=== PATIENT | female | born 1965 | race Two or more races ===

== ENCOUNTER 2021-12-16 11:55 | Outpatient (RCR) | payer MEDICARE, MEDICAID, SELFPAY | END 2022-02-07 14:21 | disposition home or self-care (01) | LOC: HO.WCC 11:55 | PROVIDERS: PCP Internal Medicine; Visit Provider Physician Assistant | DX: E11.622 Type 2 diabetes mellitus with other skin ulcer (principal); L98.492 Non-pressure chronic ulcer of skin of other sites with fat layer exposed; E65 Localized adiposity; L30.9 Dermatitis, unspecified; E11.65 Type 2 diabetes mellitus with hyperglycemia; E11.51 Type 2 diabetes mellitus with diabetic peripheral angiopathy without gangrene; E66.01 Morbid (severe) obesity due to excess calories; E03.9 Hypothyroidism, unspecified; I11.0 Hypertensive heart disease with heart failure; I50.9 Heart failure, unspecified; I48.91 Unspecified atrial fibrillation; Z79.4 Long term (current) use of insulin; Z87.891 Personal history of nicotine dependence; Z79.2 Long term (current) use of antibiotics; Z79.899 Other long term (current) drug therapy | CPT/HCPCS: 99213 ==

== ENCOUNTER 2022-02-24 10:49 | Outpatient (RCR) | payer MEDICARE, MEDICAID, SELFPAY | END 2022-04-06 14:35 | disposition home or self-care (01) | LOC: HO.WCC 10:49 | PROVIDERS: PCP Internal Medicine; Visit Provider Physician Assistant | DX: E11.622 Type 2 diabetes mellitus with other skin ulcer (principal); E11.51 Type 2 diabetes mellitus with diabetic peripheral angiopathy without gangrene; L98.492 Non-pressure chronic ulcer of skin of other sites with fat layer exposed; E66.01 Morbid (severe) obesity due to excess calories; L30.9 Dermatitis, unspecified; E65 Localized adiposity; E11.65 Type 2 diabetes mellitus with hyperglycemia; I11.0 Hypertensive heart disease with heart failure; I50.9 Heart failure, unspecified; I48.91 Unspecified atrial fibrillation; Z87.891 Personal history of nicotine dependence | CPT/HCPCS: 99213 ==

== ENCOUNTER 2023-04-23 10:26 | Outpatient (REF) | payer MEDICARE, MEDICAID, SELFPAY ==
[2023-04-23 12:45] LABS: Alanine Aminotransferase 12 U/L (0-31); Albumin Level 4.2 g/dL (3.5-5.0); Alkaline Phosphatase 65 U/L (39-117); Anion Gap 13 (12-20); Aspartate Amino Transferase 25 U/L (5-31); Bilirubin Direct 0.3 mg/dL (0.0-0.5); Bilirubin Total 0.8 mg/dL (0.0-1.0); Blood Urea Nitrogen 17 mg/dL (9-16); Calcium 9.1 mg/dL (8.4-10.2); Carbon Dioxide 28 mmol/L (22-29); Chloride 103 mmol/L (96-108); Estimated Glomerular Filt Rate > 60; Glucose Random 171 mg/dL (60-115); Potassium 3.8 mmol/L (3.3-5.1); Sodium 140 mmol/L (135-145); Total Protein 7.4 g/dL (6.5-8.0); Uric Acid 10.4 mg/dL (2.4-5.7)
== END 2023-04-23 10:27 | disposition home or self-care (01) ==
LOC: HO.HHCL 10:26
PROVIDERS: Visit Provider Internal Medicine
DX: K74.60 Unspecified cirrhosis of liver (principal); E11.22 Type 2 diabetes mellitus with diabetic chronic kidney disease; N18.9 Chronic kidney disease, unspecified; Z79.4 Long term (current) use of insulin
CPT/HCPCS: 36415; 80053; 82248; 84550

== ENCOUNTER 2023-10-30 12:09 | Outpatient (REF) | payer MEDICARE, MEDICAID, SELFPAY ==
[2023-10-30 13:19] LABS: MANUAL DIFF FLAG NO
[2023-10-30 13:36] LABS: Basophils Absolute Auto 0.1 X10*3/uL (0.0-0.2); Basophils Percent Auto 0.7 % (0-2); Eosinophils Absolute Auto 0.2 X10*3/uL (0.0-0.4); Eosinophils Percent Auto 1.6 % (0-4); Hematocrit 37.8 % (37.0-47.0); Hemoglobin 12.3 g/dl (12.0-16.0); Imm Gran Abs Auto 0.11 X10*3/uL (0.00-0.03); Imm Gran Pct Auto 1.1 % (0.0-0.4); Lymphocytes Absolute Auto 1.6 X10*3/uL (1.2-4.9); Lymphocytes Percent Auto 16.4 % (20-40); Mean Corpuscular HGB Conc 32.5 g/dl (31.0-35.0); Mean Corpuscular Hemoglobin 26.5 pg (27.0-33.0); Mean Corpuscular Volume 81.3 fL (80.0-98.0); Mean Platelet Volume 12.1 fL (9.4-12.3); Monocytes Absolute Auto 0.6 X10*3/uL (0.1-1.2); Monocytes Percent Auto 5.9 % (2-11); Neutrophils Absolute Auto 7.5 x10*3/uL (2.0-8.3); Neutrophils Percent Auto 74.3 % (45-73); Platelet Count 121 X10*3/uL (160-400); Red Blood Count 4.65 X10*6/uL (4.20-5.50); Red Cell Distribution Width 15.4 % (11.0-16.0)
[2023-10-30 13:54] LABS: Alanine Aminotransferase 36 U/L (0-31); Albumin Level 4.3 g/dL (3.5-5.0); Alkaline Phosphatase 69 U/L (39-117); Anion Gap 15 (12-20); Aspartate Amino Transferase 30 U/L (5-31); Bilirubin Total 0.6 mg/dL (0.0-1.0); Blood Urea Nitrogen 51 mg/dL (9-16); Calcium 9.2 mg/dL (8.4-10.2); Carbon Dioxide 22 mmol/L (22-29); Chloride 102 mmol/L (96-108); Estimated Glomerular Filt Rate 30; Glucose Random 237 mg/dL (60-115); Potassium 3.5 mmol/L (3.3-5.1); Sodium 135 mmol/L (135-145); Total Protein 7.9 g/dL (6.5-8.0)
== END 2023-10-30 12:10 | disposition home or self-care (01) ==
LOC: HO.HHCL 12:09
PROVIDERS: Visit Provider Internal Medicine
DX: D69.6 Thrombocytopenia, unspecified (principal); N18.31 Chronic kidney disease, stage 3a; D63.1 Anemia in chronic kidney disease
CPT/HCPCS: 36415; 80053; 85025

== ENCOUNTER 2023-11-23 11:09 | Outpatient (REF) | payer MEDICARE, MEDICAID, SELFPAY ==
[2023-11-23 14:01] LABS: Anion Gap 14 (12-20); Blood Urea Nitrogen 23 mg/dL (9-16); Carbon Dioxide 18 mmol/L (22-29); Chloride 108 mmol/L (96-108); Estimated Glomerular Filt Rate 48; Glucose Random 269 mg/dL (60-115); Potassium 4.9 mmol/L (3.3-5.1); Sodium 135 mmol/L (135-145)
== END 2023-11-23 11:10 | disposition home or self-care (01) ==
LOC: HO.HHCL 11:09
PROVIDERS: Visit Provider Internal Medicine
DX: N18.31 Chronic kidney disease, stage 3a (principal); L90.8 Other atrophic disorders of skin; N10 Acute pyelonephritis
CPT/HCPCS: 36415; 80048

== ENCOUNTER 2024-06-30 10:29 | Outpatient (REF) | payer MEDICARE, MEDICAID, SELFPAY ==
[2024-06-30 12:27] LABS: B Type Natriuretic Peptide 129 pg/mL (<100)
[2024-06-30 12:40] LABS: Anion Gap 11 (12-20); Blood Urea Nitrogen 18 mg/dL (9-16); Calcium 9.1 mg/dL (8.4-10.2); Carbon Dioxide 25 mmol/L (22-29); Chloride 106 mmol/L (96-108); Estimated Glomerular Filt Rate 51; Glucose Random 187 mg/dL (60-115); Magnesium 2.1 mg/dL (1.6-2.6); Potassium 4.8 mmol/L (3.3-5.1); Sodium 137 mmol/L (135-145)
[2024-06-30 12:46] LABS: TSH reflex Free T4 4.13 uIU/mL (0.32-4.0)
[2024-06-30 13:30] LABS: Free T4 (Free Thyroxine) 1.24 ng/dL (0.71-1.85)
== END 2024-06-30 10:30 | disposition home or self-care (01) ==
LOC: HO.HHCL 10:29
PROVIDERS: Visit Provider Internal Medicine
DX: I50.23 Acute on chronic systolic (congestive) heart failure (principal); R05.2 Subacute cough; E03.9 Hypothyroidism, unspecified
CPT/HCPCS: 36415; 80048; 83735; 83880; 84439; 84443

== ENCOUNTER 2024-07-18 12:03 | Outpatient (REF) | payer MEDICARE, MEDICAID, SELFPAY ==
[2024-07-18 13:58] LABS: Cholesterol 137 mg/dL (<200); HDL Cholesterol 26 mg/dL (>40); LDL Cholesterol Calculated 57 mg/dL (<100); Triglycerides 273 mg/dL (<150)
== END 2024-07-18 12:04 | disposition home or self-care (01) ==
LOC: HO.HHCL 12:03
PROVIDERS: Visit Provider Internal Medicine
DX: E11.22 Type 2 diabetes mellitus with diabetic chronic kidney disease (principal); N18.31 Chronic kidney disease, stage 3a; Z79.4 Long term (current) use of insulin
CPT/HCPCS: 36415; 80061

== ENCOUNTER 2024-11-12 16:06 | Outpatient (REF) | payer MEDICARE, MEDICAID, SELFPAY ==
--- OUTSIDE RECORDS SUMMARY | 2024-11-12 16:37 | XMS_ITS | Encounter Summary ---
Author Organization [employer] Address [address] [facility] [address] [place] [address] Care Team Providers Care Chief Sales Officer Name Role Phone Jaleesa Calvillo MD Primary Care Provider + Reason for Visit * Reason Onset Date Comments Referral 10/09/2023 Encounter Details Date Type Department Care Team (Late st Contact Info) Description 10/09/2023 Telephone [facility] [address] [place], [place] [phone] Jaleesa Calvillo MD [address] [place], [place] [phone] Referral Social History Tobacco Use Types Packs/Day Years Used Date Smoking Tobacco: Never Smokeless Tobacco: Never Alcohol Use Standard Drinks/Week Comments Never 0 (1 standard drink = 0.6 oz pur e alcohol) Housing Stability Answer Date Recorded What is your housing situation today? I have hazel cheng 07/16/[address] you li ve. Do you have problems with any of the following? None of the above 07/16/2023 Food Insecurity Answer Date Recorded Within the past 12 months, y ou worried that your food would run out before you got money to buy more: Never True 07/16/2023 Within the past 12 months,th e food you bought just didn't last and you didn't have enough money to get more: Never True Transportation Answer Date Recorded In the past 12 months, has l ack of transportation kept you from medical appts, meetings, work or from getting things needed for daily living? No 07/16/2023 Utilities Answer Date Recorded In the past 12 months, has t he electric, gas, oil or water company threatened to shut off services in your home? No 07/16/2023 Depression Answer Date Recorded Patient Health Questionnaire-2 Score 0 03/21/2024 Comments Unknown Sex and Gender Information Value Date Recorded Sex Assigned at Female 07/31/2022 10:25 AM EDT Legal Sex Female 10:25 AM EDT Gender Identity Female 07/31/2022 10:25 AM EDT Sexual Orientation Choose not to disclose 2021 10:25 AM EDT documented as of this encounter Miscellaneous Notes * Telephone Encounter - Deandreelier Molina - 10/09/2023 1:07 PM EST Tc from pt son Willi requesting status on plastic surgeon referral, states facility has not received referral. [employer] unable to fax. Please contact at [phone] Honduran documented in this encounter Plan of Treatment Upcoming Encounters Date Type Department Care Team (Late st Contact Info) Description 11/25/2024 1:15 PM EST Office Visit [facility] [address] [place] [phone] Jaleesa Calvillo MD [address] [place] [phone] 11/27/2024 11:00 AM EST Telemedicine [facility] [address] [place] [phone] 01/12/2025 9:00 AM EDT Office Visit [facility] [address] [place] [address] Hilda Leslie, OD [address] [place] [address] documented as of this encounter Visit Diagnoses Not on filedocumented in this encounter Care Teams Chief Sales Officer Relationship Specialty Start Date End Date Jaleesa Calvillo MD [address] [place] [phone] PCP - General Family Medicine 04/15/18 documented as of this encounter
--- OUTSIDE RECORDS SUMMARY | 2024-11-12 16:37 | XMS_ITS | Encounter Summary ---
Author Organization [employer] Address [address] [facility] [address] [place] [address] Care Team Providers Care Stripper Latex Name Role Phone Jaleesa Calvillo MD Primary Care Provider + Encounter Details Date Type Department Care Team (Late st Contact Info) Description 08/27/2023 Abstract [facility] [address] [place], [place] [phone] Jaleesa Calvillo MD [address] [place], [place] [phone] Social History Tobacco Use Types Packs/Day Years [...] the past 12 months, has t he [employer], gas, oil or water company threatened to shut off services in your home? No 07/16/2023 Depression Answer Date Recorded Patient Health Questionnaire-2 Score 0 02/19/2023 Comments Unknown Sex and Gender Information Value Date Recorded Sex Assigned at Female 07/31/2022 10:25 AM EDT Legal Sex Female 10:25 AM EDT Gender Identity Female 07/31/2022 10:25 AM EDT Sexual Orientation Choose not to disclose 2021 10:25 AM EDT documented as of this encounter Plan of Treatment Upcoming Encounters Date Type Department Care Team (Late st Contact Info) Description 11/25/2024 1:15 PM EST Office Visit [facility] [address] [place] [phone] Jaleesa Calvillo MD [address] [place] [address] 11/27/2024 11:00 AM EST Telemedicine [facility] [address] [place] [address] 01/12/2025 9:00 AM EDT Office Visit [facility] [address] [place] [address] Hilda Leslie, OD [address] [place] [address] documented as of this encounter Visit Diagnoses Not on filedocumented in this encounter Care Teams Stripper Latex Relationship Specialty Start Date End Date Jaleesa Calvillo MD [address] [place] [phone] PCP - General Family Medicine 04/15/18 documented as of this encounter
--- OUTSIDE RECORDS SUMMARY | 2024-11-12 16:37 | XMS_ITS | Encounter Summary ---
Author Organization [employer] Address [address] [facility] [address] [facility] [address] [place] [address] Care Team Providers Care Assessment Nurse Name Role Phone Jaleesa Calvillo MD Primary Care Provider + Encounter Details Date Type Department Care Team (Late st Contact Info) Description 08/27/2023 Abstract [facility] [address] [place], [place] [phone] Jaleesa Calvillo MD [address] [place], [place] [phone] Social History Tobacco Use Types Packs/Day Years [...] the past 12 months, has t he [employer], gas, oil or water company threatened to [...] Description 11/25/2024 1:15 PM EST Office Visit [facility] [address] [place] [phone] Jaleesa Calvillo MD [address] [place] [address] 11/27/2024 11:00 AM EST Telemedicine [facility] [address] [place] [phone] 01/12/2025 9:00 AM EDT Office Visit [facility] [address] [place] [address] Hilda Leslie, OD [address] [place] [address] documented as of this encounter Visit Diagnoses Not on filedocumented in this encounter Care Teams Assessment Nurse Relationship Specialty Start Date End Date Jaleesa Calvillo MD [address] [place] [phone] PCP - General Family Medicine 04/15/18 documented as of this encounter
--- OUTSIDE RECORDS SUMMARY | 2024-11-12 16:37 | XMS_ITS | Continuity of Care Document ---
Author Organization [facility] Address [address] [place] [id number]- Support Name Relationship Address Phone SHAYLA MORAN child Unknown Unavailable IMER MORAN child Unknown Unavailable AMOR, JOSEPH Personal Relationship Unknown Unav ailable AMOR, JOSEPH Personal Relationship Unknown Unav ailable AMOR, JOSEPH Personal Relationship Unknown Unav ailable AMOR, JOSEPH Personal Relationship Unknown Unav ailable AMOR, JOSEPH Personal Relationship Unknown Unav ailable AMOR, JOSEPH Personal Relationship Unknown Unav ailable AMOR, JOSEPH Personal Relationship Unknown Unav ailable AMOR, JOSEPH Personal Relationship Unknown Unav ailable AMOR, JOSEPH Personal Relationship Unknown Unav ailable AMOR, JOSEPH Personal Relationship Unknown Unav ailable AMOR, JOSEPH Personal Relationship Unknown Unav ailable AMOR, JOSEPH Personal Relationship Unknown Unav ailable AMOR, JOSEPH Personal Relationship Unknown Unav ailable AMOR GIBSON, JOSEPH Personal Relationship Unknown Unavailable AMOR, JOSEPH Personal Relationship Unknown Unav ailable AMOR, JOSEPH Personal Relationship Unknown Unav ailable AMOR, JOSEPH Personal Relationship Unknown Unav ailable AMOR, JOSEPH Personal Relationship Unknown Unav ailable AMOR, JOSPEH Personal Relationship Unknown Unav ailable AMOR, JOSEPH Personal Relationship Unknown Unav ailable AMOR, JOSEPH Personal Relationship Unknown Unav ailable AMOR GIBSON, JOSEPH Personal Relationship Unknown Unavailable AMOR, JOSEPH Personal Relationship Unknown Unav ailable AMOR, JOSEPH Personal Relationship Unknown Unav ailable Care Team Providers Care Quality Systems Engineer Name Role Phone Rajinder OLIVEIRA, Jaleesa Ahuja Primary Care Physician Encounter [facility] NBR [id number] Date(s): 10/12/24 - 11/11/24 [facility] [address] [place] [id number]- Encounter Type: Triage Allergies, Adverse Reactions, Alerts Substance Criticality Severity Reaction Reaction Severity Status ibuprofen tachycardia Active aspirin Active lisinopril rash Active Motrin Active Tylenol rash Active Other Environmental Allergy skin irritation ekg adhesives Active Percocet 5/325 1 rash Act misael 1patient tolerates IV morphine Immunizations Given and Recorded Vaccine Date Status Refusal Reason [id number] 12y+ bivalent booster vax 09/06/22 Recorded influenza virus vaccine, inactivated 07/03/22 Joshua rded influenza virus vaccine, inactivated 07/23/20 Joshua rded influenza virus vaccine, inactivated 1 06/25/17 Gi keith influenza virus vaccine, inactivated 07/03/14 Joshua rded influenza virus vaccine, inactivated 07/03/14 Joshua rded influenza virus vaccine, inactivated 06/07/12 Give n SARS-CoV-2 (COVID-19) mRNA-1273 vaccine 12/22/20 R ecorded SARS-CoV-2 (COVID-19) mRNA-1273 vaccine 11/24/20 R ecorded pneumococcal 23-valent vaccine 07/23/20 Recorded pneumococcal 23-valent vaccine 02/19/13 Given hepatitis B adult vaccine 04/21/19 Recorded tetanus/diphtheria/pertussis, acel(Tdap) 10/28/12 Given 1Result Comment: [06/25/2017] [id number] Medications allopurinol 300 mg oral tablet 300 mg, 1, tablet, By Mouth, 2 times a day, # 30 tablet, Refills 0, Maintenance, 07/29/23 5:04:00 AM EDT, Partial fill upon patient request if the prescription is for a schedule II opioid drug. Start Date: 07/29/23 Status: Ordered Quantity: 30.0 Unit: tablet Repeat number: 1 amiodarone 200 mg oral tablet 1, tablet, By Mouth, Daily in AM, # 90 tablet, Refills 1, Maintenance, 08/26/24 8:56:00 AM EST, Route to Pharmacy Electronically, [facility], 150, cm, 07/29/24 13:32:00 EDT, Height, 66, kg, 06/11/24 3:28:00 EDT, Dry Weight Start Date: 08/26/24 Status: Ordered Quantity: 90.0 Unit: tablet Repeat number: 1 atorvastatin 80 mg oral tablet = 80 mg, By Mouth, Daily at bedtime, # 30 tablet, 0 Refills, Maintenance, 12/24/24 1:15:00 PM EST, Tablet, [facility], Partial fill upon patient request if the prescription is fora schedule II opioid drug., 150, cm, 09/23/24 8:09:00 EST, Height, 91, kg, 09/22/24 8:45:00 EST, Dry Weight Start Date: 09/23/24 Status: Ordered Quantity: 30.0 Unit: tablet Repeat number: 1 Breo Ellipta 200 mcg-25 mcg/inh inhalation powder 1 puffs, Inhalation, Daily, 0 Refills, Maintenance, 06/09/24 5:20:00 PM EDT, Powder, Partial fill upon patient request if the prescription is for a schedule II opioid drug. Start Date: 06/09/24 Status: Ordered Repeat number: 1 bumetanide 2 mg oral tablet 1 tablet = 2 mg, By Mouth, Daily, # 30 tablet, 0 Refills, Maintenance, 06/13/24 2:03:00 PM EDT, Tablet, [facility], Partial fill upon patient request if the prescription is for a schedule II opioid drug., 150, cm, 06/13/24 7:49:00 EDT, Height, 66, kg, 06/11/24 3:28:00 EDT, Dry Weight Start Date: 06/13/24 Status: Ordered Quantity: 30.0 Unit: tablet Repeat number: 1 buPROPion 300 mg/24 hours (XL) oral tablet, extended release 1.5 tablet = 450 mg, By Mouth, Daily, # 30 tablet, 0 Refills, Maintenance, 03/09/24 10:18:00 PM EDT, ER Tablet, Partial fill upon patient request if the prescription is for a schedule II opioid drug. Start Date: 03/09/24 Status: Ordered Quantity: 30.0 Unit: tablet Repeat number: 1 digoxin 62.5 mcg (0.0625 mg) oral tablet 1 tablet = 62.5 mcg, By Mouth, Daily, # 30 tablet, 0 Refills, Maintenance, 11/05/24 10:43:00 AM EST, Tablet, [facility], Partial fill upon patient request if the prescription is for a schedule II opioid drug., 155, cm, 11/05/24 7:29:00 EST, Height, 75, kg, 10/30/24 18:19:00 EST, Dry Weight Start Date: 11/05/24 Status: Ordered Quantity: 30.0 Unit: tablet Repeat number: 1 Entresto 24 mg-26 mg oral tablet 1 tablet, By Mouth, 2 times a day, # 60 tablet, 0 Refills, Maintenance, 10/13/24 2:47:00 PM EST, [facility], Partial fill upon patient request if the prescription is for a scheduleII opioid drug., 1 tablet By Mouth 2 times a day, 150, cm, 10/10/24 13:18:00 EST, Height, 91, kg, 09/22/24 8:45:00 EST, Dry Weight Start Date: 10/13/24 Status: Ordered Quantity: 60.0 Unit: tablet Repeat number: 1 Farxiga 10 mg oral tablet 1 tablet = 10 mg, By Mouth, Daily, # 30 tablet, 0 Refills, Maintenance, 06/13/24 12:35:00 PM EDT, Tablet, Partial fill upon patient request if the prescription is for a schedule II opioid drug. Start Date: 06/13/24 Status: Ordered Quantity: 30.0 Unit: tablet Repeat number: 1 Humalog Kwik Pen 100 units/mL subcutaneous injection See Instructions, Subcutaneous Infusion, Please take at least 5-10 minutes before meals 3 times a day per the scale: BG 100-149: 6 units ; BG 150-199: 7 units; BG 200-249: 8 units; BG 250-299: 9 units; BG 300-349: 10 units; BG 350- 399: 11 units; BG >400: 12 units; E10.9 or E11.65; MDD 40 units, # 45 mL, 5 Refills, Maintenance, 07/29/24 2:24:00 PM EDT, [facility], Partial fill upon patient request if the prescription is for a schedule II opioid drug., 150, cm, 07/29/24 13:32:00 EDT, Height, 66, kg, 06/11/24 3:28:00 EDT, Dry Weight Start Date: 07/29/24 Stop Date: 01/25/25 Status: Ordered Quantity: 45.0 Unit: mL Repeat number: 6 Indication: Type 2 diabetes mellitus with hyperglycemia Lantus Solostar Pen 100 units/mL subcutaneous solution See Instructions, Please take 18 units daily in the morning. E11.65, # 45 mL, 5 Refills, Maintenance, 07/29/24 2:21:00 PM EDT, [facility], Partial fill upon patient request if theprescription is for a schedule II opioid drug., 150, cm, 07/29/24 13:32:00 EDT, Height, 66, kg, 06/11/24 3:28:00 EDT, Dry Weight Start Date: 07/29/24 Status: Ordered Quantity: 45.0 Unit: mL Repeat number: 6 Indication: Type 2 diabetes mellitus with hyperglycemia levothyroxine 175 mcg (0.175 mg) oral tablet = 175 mcg, By Mouth, Daily, on an empty stomach with plenty of water as a single daily dose at least 1 hour before breakfast and other medications avoid antacids, calcium, or iron for at least 4 hrs before or 4 hrs after, # 30 tablet, 11 Refills, Maintenance, 08/30/24 7:26:00 PM EST, Tablet, [facility], Partial fill upon patient request if the prescription is for a schedule IIopioid drug., 150, cm, 08/29/24 12:38:00 EST, Height, 66, kg, 06/11/24 3:28:00 EDT, Dry Weight Start Date: 08/30/24 Status: Ordered Quantity: 30.0 Unit: tablet Repeat number: 12 Indication: Hypothyroidism, unspecified Metoprolol Succinate ER 25 mg oral tablet, extended release 12.5 mg, 0.5, tablet, By Mouth, Daily in AM, # 30 tablet, Refills 0, Tot. Refills 0, Maintenance, 11/05/24 10:45:00 AM EST, Route to Pharmacy Electronically, [facility], Partial fill uponpatient request if the prescription is for a schedule II opioid drug., 155, cm, 11/05/24 7:29:00 EST, Height, 75, kg, 10/30/24 18:19:00 EST, Dry Weight Start Date: 11/05/24 Status: Ordered Quantity: 30.0 Unit: tablet Repeat number: 1 Narcan 4 mg/0.1 mL nasal spray 1 sprays = 4 mg, Naris, Left, Once, PRN Other, To reverse opioid overdose, use one spray in one nostril. if an additional dose is needed, alternate nostril, may repeat every 2 to 3 minutes until patient responds, call 911 in the meantime, # 20 each, 0 Refills, Soft Stop, 03/12/24 2:18:00 PM EDT, [facility], Partial fill upon patient request if the prescription is for a scheduleII opioid drug., 158, cm, 03/12/24 7:46:00 EDT, Height, 86, kg, 03/09/24 11:40:00 EDT, Dry Weight Start Date: 03/12/24 Status: Ordered Quantity: 20.0 Unit: each Repeat number: 1 pantoprazole 40 mg oral delayed release tablet 1 tablet = 40 mg, By Mouth, Daily, # 90 tablet, 0 Refills, Maintenance, 11/05/24 10:47:00 AM EST, EC Tablet, 155, cm, 11/05/24 7:29:00 EST, Height, 75, kg, 10/30/24 18:19:00 EST, Dry Weight Start Date: 11/05/24 Status: Ordered Quantity: 90.0 Unit: tablet Repeat number: 1 sertraline 100 mg oral tablet 2 tablet = 200 mg, By Mouth, Daily, # 30 tablet, 0 Refills, Maintenance, 07/29/23 5:03:00 AM EDT, Tablet, Partial fill upon patient request if the prescription is for a schedule II opioid drug. Start Date: 07/29/23 Status: Ordered Quantity: 30.0 Unit: tablet Repeat number: 1 spironolactone 100 mg oral tablet 100 mg, By Mouth, Daily in AM, # 30 tablet, Refills 0, Tot. Refills 0, Maintenance, 11/05/24 10:46:00AM EST, Route to Pharmacy Electronically, [facility], Partial fill upon patient request if the prescription is for a schedule II opioid drug., 155, cm, 11/05/24 7:29:00 EST, Height, 75,kg, 10/30/24 18:19:00 EST, Dry Weight Start Date: 11/05/24 Status: Ordered Quantity: 30.0 Unit: tablet Repeat number: 1 Tradjenta 5 mg oral tablet 1 tablet = 5 mg, By Mouth, Daily, # 30 tablet, 0 Refills, Maintenance, 9/9/24 5:29:00 PM EDT, Tablet, Partial fill upon patient request if the prescription is for a schedule II opioid drug. Start Date: 06/09/24 Status: Ordered Quantity: 30.0 Unit: tablet Repeat number: 1 traZODone 100 mg oral tablet TAKE 1-2 TABLET BY MOUTH ONCE A DAY NEEDED FOR NIGHTTIME AWAKENING. Start Date: 06/09/24 Status: Ordered Repeat number: 1 Ventolin 90 mcg Inhaler 2, puffs, Inhalation, Every 4 hours, Refills 0, Maintenance, 04/18/22 6:23:00 PM EDT, Inhaler Start Date: 04/18/22 Status: Ordered Repeat number: 1 Xarelto 15 mg oral tablet = 15 mg, By Mouth, Daily at supper, # 30 tablet, 0 Refills, Maintenance, 11/05/24 10:45:00 AM EST, Tablet, [facility], Partial fill upon patient request if the prescription is for a schedule II opioid drug., 155, cm, 11/05/24 7:29:00 EST, Height, 75, kg, 10/30/24 18:19:00 EST, Dry Weight Start Date: 11/05/24 Status: Ordered Quantity: 30.0 Unit: tablet Repeat number: 1 zolpidem 10 mg oral tablet 1 tablet = 10 mg, By Mouth, Daily at bedtime, PRN as needed for insomnia, 0 Refills, Maintenance, 08/14/22 5:28:00 PM EST, Tablet, Partial fill upon patient request if the prescription is for a schedule II opioid drug. Start Date: 08/14/22 Status: Ordered Repeat number: 1 Problem List Condition Confirmation Course Effective Dates Status H ealth Status Informant Anal fissure Confirmed Active Asthma Confirmed Active Nonischemic cardiomyopathy Confirmed Active Chronic idiopathic thrombocytopenia Confirmed Active CKD stage 3 secondary to diabetes Confirmed Active Chronic kidney disease (CKD) Confirmed Active Chronic right heart failure Confirmed Active Chronic systolic heart failure Confirmed Active Diabetes Confirmed Active Diastolic dysfunction Confirmed Active Gout Confirmed Active Asthma Confirmed Active Heart failure with preserved ejection fraction Confirmed Active Hemorrhoids Confirmed Active HTN (hypertension) Confirmed Active Volume overload Confirmed Active Hypothyroidism Confirmed Active Insulin dependent type 2 diabetes mellitus Confirmed Active Serbian speaking patient Confirmed Active Microcytic anemia Confirmed Active Mitral regurgitation, mild to moderate; moderate tricusplid regurgitation Confirmed Active Mood disorder Confirmed Active Morbid obesity(actual 44.58 as of 08/05/2014) -> BMI 39 2015 Confirmed Active Steatohepatitis, non-alcoholic Confirmed Active RUTHY on CPAP, nonadherent Confirmed Active Osteoarthritis Confirmed Active Pelvic pain in female Confirmed Active Atrial fibrillation/flutter Confirmed Active Inflammatory polyps of colon Confirmed 04/27/14 Active Pulmonary hypertension, moderate Confirmed Active Rectal bleeding - known hemorrhoids, f/u recommended w/ colorectal Confirmed Active Rheumatic valve disease - Cardiac surgery in 2007at [facility] which included an ASD closure, mitral valve ring and tricuspid valve ring repair in 2006 at [facility] Confirmed Active Right heart failure Confirmed Active Severe obesity (BMI 35.0-39.9) with comorbidity Confirmed Active Social History Social History Type Response Smoking Status Never smoker; Tobacc o user in household: Yes entered on: 01/23/18 Sex Female Sex Representation Female (finding) Patient Care team information Care Team Personnel Name: Domi Pan RN Position: [facility] RN Member Role: Primary Care Nurse Name: Vazquez Thornton RN Position: [facility] RN Member Role: Primary Care Nurse Name: Jaqueline Barnett RN Position: [facility] RN Member Role: Primary Care Nurse Name: Crystal Drake RN Position: [facility] HBO Wound Member Role: Primary Care Nurse Name: Noy Mendes RN Position: [facility] AMB Nurse Member Role: Primary Care Nurse Name: Mely Griffin Position: [facility] Pharmacist Member Role: Primary Care Nurse Name: Sully Dickerson RN Position: [facility] RN Member Role: Primary Care Nurse Name: Jaleesa Calvillo MD Position: [facility] Outreach Member Role: PCP Address: [address] [place] [phone]- Telecom: Name: Jessica Ogden RN Position: [facility] RN Member Role: Primary Care Nurse Name: Leigha Osorio RN Position: [facility] RN Member Role: Primary Care Nurse Name: Julius Anderson MD Position: [facility] Renal MD Member Role: Lifetime Consulting Physician Address: [address] [place] [address] [address] [place] [address]- Telecom: Name: Namita Trujillo RN Position: [facility] RN Member Role: Primary Care Nurse Name: Dominique Miller RN Position: [facility] RN Member Role: Primary Care Nurse Name: Nolan Lei RN Position: [facility] Cardiac Rehab Mgr Member Role: Primary Care Nurse Name: Gretel Estrada RN Position: [facility] Hospital Liberal Arts Dean Member Role: Primary Care Nurse Name: Essence Palacio RN Position: [facility] RN Member Role: Primary Care Nurse Name: Judah Busch RN Position: [facility] RN Member Role: Primary Care Nurse Name: Rowena Stewart RN Position: [facility] SN RN Member Role: Primary Care Nurse Name: Carmen Gregory RN Position: [facility] RN Member Role: Primary Care Nurse Name: Arlyn Gupta RN Position: [facility] RN Member Role: Primary Care Nurse Name: Luisana Sánchez RN Position: [facility] RN Member Role: Primary Care Nurse Name: Teri Martinez Position: [facility] RN Member Role: Primary Care Nurse Name: Cherise Kirkland RN Position: [facility] RN Member Role: Primary Care Nurse Name: Aylin Penn RN Position: [facility] ED RN W/OE and Tasks Member Role: Primary Care Nurse Name: Meseret Santiago RN Position: [facility] RN Member Role: Primary Care Nurse Name: Althea Cano RN Position: [facility] RN Member Role: Primary Care Nurse Name: Carey Stacy RN Position: [facility] RN Member Role: Primary Care Nurse Name: Sharda Bryant RN Position: [facility] RN Member Role: Primary Care Nurse Name: Luis Daniel Bryant RN Position: [facility] ED RN W/OE and Tasks Member Role: Primary Care Nurse Name: Jesús Hopkins RN Position: [facility] RN Member Role: Primary Care Nurse Name: Edwin Bah Jr, RN Position: [facility] ED RN W/OE and Tasks Member Role: Primary Care Nurse Name: Blessing Castro RN Position: [facility] RN Member Role: Primary Care Nurse Name: Bette Lopez LPN Position: [facility] RN Member Role: Primary Care Nurse Name: Carri Purcell RN Position: [facility] RN Member Role: Primary Care Nurse Name: Marilu Rehman RN Position: [facility] RN Member Role: Primary Care Nurse Name: Janine Fitzgerald RN Position: [facility] SN Solvent Mixer Member Role: Primary Care Nurse Name: Aylin Merritt RN Position: [facility] RN Member Role: Primary Care Nurse Name: Marisela Spear RN Position: [facility] RN Member Role: Primary Care Nurse Name: Anne-Marie Pimentel RN Position: S RN Member Role: Primary Care Nurse Name: Marty Sethi MD Position: [facility] Outreach Member Role: Lifetime Consulting Physician Address: [address] [facility] [place], [place] [address] Telecom: Name: Marilia Marie Position: [facility] Outreach Member Role: Lifetime Consulting Physician Name: Luis Daniel Baires RN Position: [facility] RN Member Role: Primary Care Nurse Name: Hakeem Palomino LPN Position: [facility] RN Member Role: Primary Care Nurse Name: Nino Singh RN Position: [facility] RN Member Role: Primary Care Nurse Name: Dalia Lopez NP Position: Reference Physician Member Role: Primary Care Nurse Address: [address] [place] [address] Telecom: Name: Janine Garcia RN Position: [facility] Onco RN Member Role: Primary Care Nurse Name: Rakel Rush RN Position: [facility] AMB Nurse Member Role: Primary Care Nurse Name: Igor Mckeon RN Position: [facility] RN Member Role: Primary Care Nurse Name: Oumou Stark RN Position: [facility] RN Member Role: Primary Care Nurse Name: Gudelia Molina Position: [facility] Outreach Member Role: Lifetime Consulting Physician Name: Essence Chan RN Position: [facility] RN Member Role: Primary Care Nurse Name: Ingris Guzman RN Position: [facility] AMB Nurse Member Role: Primary Care Nurse Name: Gómez Kirkpatrick MD Position: [facility] Renal MD Member Role: Lifetime Consulting Physician Address: [address] [facility] [place] [address]- [place] Telecom: Name: Guillermina Turcios RN Position: [facility] RN Member Role: Primary Care Nurse Name: Edwin Wall RN Position: [facility] ED RN W/OE and Tasks Member Role: Primary Care Nurse Name: Sarita Scott RN Position: [facility] RN Member Role: Primary Care Nurse Name: Luisana Turcios LPN Position: [facility] RN Member Role: Primary Care Nurse Name: Karsten Anne MD Position: Reference Physician Member Role: Lifetime Consulting Physician Address: [address] [place] [address] [address] [facility] Ne[facility] [address] Telecom: Name: Chris CARIAS, Connie Position: S RN Member Role: Primary Care Nurse Name: Lamine CARIAS, Alisha Brown Position: S RN Member Role: Primary Care Nurse Name: Coty Taylor RN Position: [facility] RN Member Role: Primary Care Nurse Name: Brenda Asencio RN Position: [facility] RN Member Role: Primary Care Nurse Care Team Related Persons Name: SHAYLA MORAN Name: IMER MORAN Insurance Providers Guarantor name: [facility] Health Plan Information #: 1 Payer: MEDICARE A INPT 25 Member Number: NA Policy Number: NA Group Number: NA Health Plan Information #: 2 Payer: [facility] Member Number: NA Policy Number: NA Group Number: NA
--- OUTSIDE RECORDS SUMMARY | 2024-11-12 16:38 | XMS_ITS | Clinical Summary ---
Author Organization [facility] Address [address] [place] [address] Care Team Providers Care School Boat Driver Name Role Phone Jaleesa Calvillo Primary Care Provider Allergies Active Allergy Reactions Criticality Noted Date Comments Aspirin Itching 10/05/2022 Ibuprofen Itching 07/10/2013 Other reaction(s): tachycardia Other reaction(s): Hives/Skin Rash Other reaction(s): tachycardia Lisinopril Itching 06/02/2022 Other reaction(s): rash Oxycodone Itching 07/10/2013 Other reaction(s): Hives/Skin Rash Medications No known medications Social History Tobacco Use Types Packs/Day Years Used Date Smoking Tobacco: Never Assessed Comments Unknown Sex and Gender Information Value Date Recorded Sex Assigned at Female 11/29/2023 2:30 PM EST Legal Sex Female 3:46 PM EST Gender Identity Not on file Sexual Orientation Not on file Last Filed Vital Signs Vital Sign Reading Time Taken Comments Blood Pressure - - Pulse - - Temperature - - Respiratory Rate - - Oxygen Saturation - - Inhaled Oxygen Concentration - - Weight 86.2 kg (190 lb) 12/12/2023 2:14 PM EDT Height 157.5 cm (5' 2 ) 12/12/2023 2:14 PM EDT Body Mass Index 34.75 12/12/2023 2:14 PM EDT Plan of Treatment Health Maintenance Due Date Last Done Comments Cervical Cancer Screening 1967 Cologuard 1967 Colon Cancer Screening 1967 Colonoscopy 1967 FOBT / Fit Test 1967 HIV Screening 1967 HPV and Pap Smear 1967 Hepatitis C Screening 1967 Pap Smear 1967 Sigmoidoscopy 1967 Mammogram 2007 Hepatitis B Vaccines (2 of 3 - 19+ 3-dose series) 05/19/2019 04/21/2019 Pneumococcal Vaccine: Pediat wily (0-5 Years) and At-Risk Patients (6-64 Years) (2 of 2 - PCV) 07/23/2021 07/23/2020, 02/19/2013 Zoster Vaccines (2 of 2) 12/25/2023 10/30/2023 COVID-19 Vaccine (4 - 2023-2 5 season) 2024 09/06/2022, 12/22/2020, 11/24/2020 Influenza Vaccine (#1) 2024 , 07/23/2020, 06/25/2017, Additional history exists Alcohol/Substance Use Screening 10/01/2024 Depression Screening and Follow-Up 10/01/2024 Social Drivers of Health [place]am[place] ual Screening 10/01/2024 DTaP,Tdap,and Td Vaccines (3 - Td or Tdap) 10/30/2033 10/30/2023, 10/28/2012 RSV Vaccine (60+ years old a nd patients) (1 - 1-dose 75+ series) 12/09/2042 Insurance MEDICARE [facility] Care Teams School Boat Driver Relationship Specialty Start Date End Date Jaleesa Calvillo [address] [place] [id number] PCP - General Internal Medicine 11/29/23
--- OUTSIDE RECORDS SUMMARY | 2024-11-12 16:38 | XMS_ITS | Encounter Summary ---
Author Organization [employer] Address [address] [facility] [address] [place] [address] Care Team Providers Care [employer] Pro Name Role Phone Jaleesa Calvillo MD Primary Care Provider + Reason for Visit * Reason Comments Transition Of Care (Tcm) Encounter Details Date Type Department Care Team ([facility] st Contact Info) Description 10/24/2024 Patient Outreach [facility] MEDICINE [address] [place], [place] [phone] Jaleesa Calvillo MD [address] [place], [place] [phone] Transition Of Care (Tcm) Social History Tobacco Use Types Packs/Day Years Used Date Smoking Tobacco: Never Passive Smoke Exposure: Never Smokeless Tobacco: Never Alcohol Use Standard [...] Patient Health Questionnaire-2 Score 0 03/21/2024 Comments No Sex and Gender Information Value Date Recorded Sex Assigned at Female 07/31/2022 10:25 AM EDT Legal Sex Female 10:25 AM EDT Gender Identity Female 07/31/2022 10:25 AM EDT Sexual Orientation Choose not to disclose 2021 10:25 AM EDT documented as of this encounter Progress Notes * Pierre Romero RN - 10/24/2024 12:28 PM EST 10/24/24 1229 Hospital Discharges and Admission for [facility] Type of Visit Emergency Department Date of Admission/Visit 10/23/24 (2:47 pm) Date of Discharge 10/23/24 (9:31pm) Facility [facility] Diagnosis SOB, Coughing, Nausea Disposition Discharged Home * Marilia Marie RN - 10/24/2024 12:28 PM EST Transition of Care Note Ester is going through a recent transition of care. Hospital Discharges and Admission for [facility] Type of Visit: Emergency Department Date of Admission/Visit: 10/23/24 (2:47 pm) Date of Discharge: 10/23/24 (9:31pm) Facility: [facility] Diagnosis: Viral Illness Disposition: Discharged Home Follow-Up Actions Follow-Up Needed: None/self-monitoring Follow-Up Outcome: Spoke to Caregiver Initial Contact Date: 10/24/24 The full discharge summary is in progress via Medical Records request. Recent Visits Date Type Provider Dept 08/06/24 Office Visit Jaleesa Calvillo MD [facility] Medicine 06/30/24 Office Visit Jaleesa Calvillo MD [facility] Medicine 04/24/24 Office Visit Jaleesa Calvillo MD [facility] Medicine 03/21/24 Office Visit Jaleesa Calvillo MD [facility] Medicine 11/23/23 Office Visit Jaleesa Calvillo MD [facility] Medicine 10/30/23 Office Visit Jaleesa Calvillo MD [facility] Medicine 08/16/23 Office Visit Jaleesa Calvillo MD [facility] Medicine 06/22/23 Office Visit Cassi Damico MD [facility] Medicine Showing recent visits within past 540 days with a meds authorizing provider and meeting all other requirements Future Appointments Date Type Provider Dept 11/06/24 Appointment Jaleesa Calvillo MD [facility] Medicine Showing future appointments within next 150 days with a meds authorizing provider and meeting all other requirements TC placed to [phone] for status check however no answer, RN left requesting CB to red team nurses. TC placed to [phone] however also no answer, RN left requesting CB to red team nurses. TC placed to son [phone] who reports the patient is doing better . Son reports the medications Rx'd from the ED have not been p/u at the pharmacy yet. RN confirmed medications were sent to [facility] pharmacy and advised son to ensure he p/u medication today. Son advised to give abx in their entirety even if patients s/s resolve. Son verbalized understanding. Son advised to return call to [facility] ifs/s worsen or bring patient to [facility]. Son reminded of upcomming appointment on 11/06/24. documented in this encounter Plan of Treatment Upcoming Encounters Date Type Department Care Team (Late st Contact Info) Description 11/25/2024 1:15 PM EST Office Visit [facility]INE [address] [place] [phone] Jaleesa Calvillo MD [address] [place] [address] 11/27/2024 11:00 AM EST Telemedicine [facility] [address] [place] [phone] 01/12/2025 9:00 AM EDT Office Visit [facility] OPTOMETRY [address] [place] [address] Hilda Leslie, OD [address] [place] [address] documented as of this encounter Visit Diagnoses Not on filedocumented in this encounter Care Teams [employer] Pro Relationship Specialty Start Date End Date Jaleesa Calvillo MD [address] [place] [phone] PCP - General Family Medicine 04/15/18 documented as of this encounter
--- OUTSIDE RECORDS SUMMARY | 2024-11-12 16:38 | XMS_ITS | Encounter Summary ---
Author Organization [employer] Address [address] [facility] [address] [place] [address] Care Team Providers Care Auger Operator Name Role Phone Jaleesa Calvillo MD Primary Care Provider + Reason for Visit * Reason Onset Date Comments Chart prep 11/05/2024 Encounter Details Date Type Department Care Team ([facility] st Contact Info) Description 11/05/2024 Telephone [facility] MEDICINE [address] [place], [place] [phone] Dann [place], [place] Chart prep Social History Tobacco Use Types Packs/Day Years [...] encounter Miscellaneous Notes * Telephone Encounter - Tiana Quigley [place] - 11/05/2024 11:33 AM EST Chart Prep Labs: done Images: done Vaccines due: yes Referrals: pending appt Screenings: colonoscopy , mammogram , pap smear , Foot Exam Overdue care gaps: A1C, Glucose documented in this encounter Plan of Treatment Upcoming Encounters Date Type Department Care Team (Late st Contact Info) Description 11/25/2024 1:15 PM EST Office Visit [facility] MEDICINE [address] [place] [phone] Jaleesa Calvillo MD [address] [place] [address] 11/27/2024 11:00 AM EST Telemedicine [facility] [address] [place] [phone] 01/12/2025 9:00 AM EDT Office Visit [facility] OPTOMETRY [address] [place] [address] Hilda Leslie, OD [address] [place] [address] documented as of this encounter Visit Diagnoses Not on filedocumented in this encounter Care Teams Auger Operator Relationship Specialty Start Date End Date Jaleesa Calvillo MD [address] [place] [phone] PCP - General Family Medicine 04/15/18 documented as of this encounter
--- OUTSIDE RECORDS SUMMARY | 2024-11-12 16:38 | XMS_ITS | Encounter Summary ---
Author Organization [employer] Address [address] [facility] [address] [place] [address] Care Team Providers Care Cerner Analyst Name Role Phone Jaleesa Calvillo MD Primary Care Provider + Encounter Details Date Type Department Care Team (Latest Contact Info) Description 10/13/2024 Travel Social History Tobacco Use Types Packs/Day Years [...] Description 11/25/2024 1:15 PM EST Office Visit [facility] [address] [place] [address] Jaleesa Calvillo MD [address] [place] [phone] 11/27/2024 11:00 AM EST Telemedicine [facility] [address] [place] [phone] 01/12/2025 9:00 AM EDT Office Visit [facility] OPTOMETRY [address] [place] [address] Hilda Leslie, OD [address] [place] [address] documented as of this encounter Visit Diagnoses Not on filedocumented in this encounter Care Teams Cerner Analyst Relationship Specialty Start Date End Date Jaleesa Calvillo MD [address] [place] [address] PCP - General Family Medicine 04/15/18 documented as of this encounter
--- OUTSIDE RECORDS SUMMARY | 2024-11-12 16:38 | XMS_ITS | Clinical Summary ---
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 022 Active buPROPion XL (Wellbutrin XL) 300 MG 24 hr tablet Take 1 tablet by mouth Once per day. Active cetirizine (ZyrTEC) 10 MG tablet Take 1 tablet by mouth at bed time. Active digoxin (Lanoxin) 125 MCG tablet Take 1 tablet by mouth at bed time. Active rivaroxaban (Xarelto) 20 MG tablet Take 1 tablet by mouth at bed time. Active sertraline (Zoloft) 100 MG tablet Take 2 tablets by mouth at bed time. Active Blood Glucose Monitoring Suppl ([employer] Lite) w/Device kit USE TO TEST BLOOD SUGAR TWICE DAILY Active zolpidem (Ambien) 10 MG tablet Take 1 tablet by mouth if needed at bedtime for sleep. Active metoprolol succinate XL (Toprol-XL) 25 MG 24 hr tablet TAKE 1/2 OF A TABLET BY MOUTH DAILY FOR 30 DAYS Active albuterol (2.5 MG/3ML) 0.083% nebulizer solutionIndicat ions:Mild intermittent asthma without complication inhale 3 milliliter by nebulization route 3 times every day prn SOB/asthma 75 mL 1 023 Active albuterol (Ventolin HFA) 108 (90 Base) MCG/ACT inhalerIndicati ons:Mild intermittent asthma without complication Inhale 2 puffs every 4 (four) hours. 18 g 1 023 Active TRUEplus Lancets 33G misc TEST BLOOD SUGAR THREE TIMES DAILY 023 Active spironolactone (Aldactone) 50 MG tablet Take 3 tablets by mouth Once per day. Active Nutritional Supplements (Glucerna) liquid Take 1 Can by mouth in the morning. 37942 mL 3 023 Active fluticasone (Flonase) 50 MCG/ACT nasal sprayIndication s:Chronic rhinitis USE 2 SPRAYS IN EACH NOSTRIL EVERY DAY 48 g 1 024 Active Breo Ellipta 200-25 MCG/ACT aerosol powderIndicatio ns:Mild intermittent asthma without complication INHALE 1 PUFF BY MOUTH EVERY DAY 60 each 5 Active dapagliflozin (Farxiga) 10 MG Take 1 tablet (10 mg) by mouth Once per day. 90 tablet 3 024 2024 Active glucose blood (FREESTYLE LITE) test strip USE TO TEST BLOOD SUGAR THREE TIMES A DAY 100 each 11 Active traZODone (Desyrel) 100 MG tablet Take 1-2 tablets by mouth if needed at bedtime for sleep. Active linaGLIPtin (Tradjenta) 5 MG tablet Take 1 tablet (5 mg) by mouth Once per day. 30 tablet 5 024 2024 Active Alcohol Swabs (Alcohol Prep) 70 % pads USE THREE TIMES DAILY DIRECTED 100 each 5 07/10/2 024 Active allopurinol (Zyloprim) 300 MG tabletIndicatio ns:Chronic gouty arthritis TAKE 1 TABLET BY MOUTH TWICE DAILY IN THE MORNING AND IN THE EVENING 180 tablet 3 Active levothyroxine (Synthroid, Levoxyl) 175 MCG tablet Take 175 mcg by mouth Once per day. Active Polyvinyl Alcohol-Povidon e 5-6 MG/ML solution Administer 2 drops into both eyes 2 times daily. 30 30 mL 11 024 2024 Active thiamine (Vitamin B-1) 100 MG tabletIndicatio ns:Neuropathy TAKE 1 TABLET BY MOUTH EVERY MORNING 90 tablet 1 Active bumetanide (Bumex) 2 MG tablet Take 1 tablet (2 mg) by mouth 2 times daily. 180 tablet 3 2024 Active HumaLOG KWIKPEN 100 UNIT/ML injection Inject 6 Units under the skin with breakfast, with lunch, and with evening meal. Per sliding scale BG 100-149; 6 units. BG 150-199; 7 units. BG 200-249; 8 units. BG 250-299; 9 units. BG 300-349; 10 units. BG 350-399; 11 units. BG >400; 12 units. 024 2024 Active Easy Touch Pen Fallentimber 31G X 5 MM [facility] USE DIRECTED FOUR TIMES DAILY Active insulin glargine (Lantus SoloStar) 100 UNIT/ML pen Inject 18 Units under the skin at bedtime. Active dextran 70-hypromellose (artificial tears) 0.1-0.3 % ophthalmic solutionIndicat ions:Dry eyes, bilateral Administer 1 drop into both eyes if needed in the morning, at noon, and at bedtime for dry eyes. 15 mL 6 2025 Active atorvastatin (Lipitor) 80 MG tablet Take 1 tablet (80 mg) by mouth Once per day. Take 1 tablet by mouth Once per day. 30 tablet 3 Active cephalexin (Keflex) 250 MG capsule Take 1 capsule by mouth every 6 (six) hours. Active Jardiance 25 MG TAKE 1 TABLET BY MOUTH EVERY MORNING 30 tablet 11 08/ 2024 Discontinued lidocaine (Lidoderm) 5 % patch Apply 1 patch topically Once per day. 024 2024 atorvastatin (Lipitor) 80 MG tablet Take 1 tablet by mouth Once per day. 2024 Discontinued(R eorder (will not trigger notification to Pharmacy)) Active Problems Problem Noted Date Diagnosed Date Urinary tract infection symptoms 11/12/2024 Assessment & Plan (11/12/2024 4:10 PM EST): Pt has a medical hx sufficient for recurrent UTIs Pt currently still having urinary symptoms despite treatment completion and adherence Will obtain repeat U/A and culture to guide further treatment Pt will f/u with PCP at scheduled HDF appt this month Acute kidney injury 11/12/2024 Assessment & Plan (11/12/2024 4:14 PM EST): Pt had MECCA that occurred after being treated for CHF exacerbation during hospitalization Pt was discharged home once stable BP today controlled once rechecked, <140/90 Last creatinine 1.13 on 11/05, will repeat BMP to trend kidney function and determine eligibility to increase dose of Xarelto Pt plans to f/u with PCP for HDF this month Colitis 06/30/2024 Assessment & Plan (06/30/2024 11:35 AM EDT): Resolved Refer to for screen colonoscopy/ Lumbar degenerative disc disease 03/21/2024 Assessment & Plan (03/21/2024 3:26 PM EDT): Doing better on home PT Cut down on oxycodone use, continue stretching exercises Take tylenol prn Use walker for ambulation to prevent falls. Acute pyelonephritis 11/23/2023 Assessment & Plan (11/23/2023 1:25 PM EST): Resolved Thrombocytopenia 10/30/2023 Anemia due to stage 3a chronic kidney disease (C MS/HCC) 10/30/2023 Cellulitis, abdominal wall 08/16/2023 Assessment & Plan (08/06/2024 1:27 PM EST): No evidence of cellulitis today, chronic ulcer recently closed. Paniculectomy referral has failed due to insurance not covering some providers and other providers not committing to procedure ([facility] plastic surgeon deemed her very high risk, other's require her to have BMI less than 33 prior to procedure) Advised re tight control of DM and further weight reduction. Assessment & Plan (04/24/2024 11:14 AM EDT): - Local plastic surgeon declined procedure due to cardiovascular risk. - Will refer to another local surgery (Meseret Cano for Panniculectomy) - pt needs Panniculectomy to due mortality, consistent hospitalization, chronic ulcer. Assessment & Plan (03/21/2024 3:26 PM EDT): On lower abdomen, chronic, looks clean Continue daily dressings by [facility] and fu with wound clinic prn. Needs paniculectomy, awaiting scheduling by Surgery. Patient will call them to check on status of this. Assessment & Plan (08/16/2023 1:20 PM EST): Recurrent on lower abdomen. now improved has a chronic ulcer due to presence of abdominal panus Keep area clean and dry Will refer to plastic surgery for abdominal panniculectomy Subacute cough 08/16/2023 Assessment & Plan (08/16/2023 1:21 PM EST): Seems residual from CHF She's euvolemic at this time, order BMP FU cardiology Reconsult PRN if fever develops or worsening of cough Lichenified eczema 02/19/2023 Assessment & Plan (02/19/2023 5:22 PM EDT): r/o psoriasis prescription for clobetasol ointment and refer to dermatology Anal fissure 11/28/2022 Chronic kidney disease, stage 2 (mild) 3 Diastolic dysfunction 11/28/2022 Gout 11/28/2022 Hemorrhoid 11/28/2022 Microcytic anemia 11/28/2022 Severe obesity 11/28/2022 Nonalcoholic steatohepatitis (CASTILLO) 11/28/2022 Osteoarthritis 11/28/2022 Pulmonary hypertension 11/28/2022 Rheumatic fever 11/28/2022 Abdominal skin ptosis 10/05/2022 Assessment & Plan (03/21/2024 3:35 PM EDT): Awaiting cards preop clearance to proceed with surgery. Assessment & Plan (11/23/2023 3:24 PM EST): 2/2 significant wt loss >5 y/a -pt has a chronic unhealed ulcer on midline that has lead to repeated cellulitis and UTIs w/ sepsis -pt followed by wound clinic and recommended panniculectomy multiple x to decrease morbidity and mortality -will d/w wound clinic, plastic surgery and will refer to general surgery if procedure not covered. Assessment & Plan (08/16/2023 1:18 PM EST): Pt has recurrent cellulitis that required hospital admissions Refer to plastic surgery to evaluate for surgical procedure that can decrease frequency of hospitalization and improve CHF prognosis due to significant amount of wt that the panus adds up. Dysphagia 10/05/2022 Assessment & Plan (08/16/2023 1:19 PM EST): 2/2 CVA, Pt has residual difficulty swallowing most meals Continue Glucerna, she prefers a strawberry flavor Noncompliance with treatment 10/05/2022 Cerebrovascular accident 09/05/2022 Assessment & Plan (08/16/2023 1:14 PM EST): She has residual dysphagia and mild aphasia Counseled to control chronic conditions Assessment & Plan (02/19/2023 5:25 PM EDT): had residual hemiparesis and aphasia , slowly improving refer to neurology continue Xarelto for now and control of Afib Assessment & Plan (09/06/2022 2:01 PM EST): Aphasia is improving w speech therapy. She's more independent on mobility but still needs assistance. Continue PT/speech therapy Continue Glucerna and nutritional supplement until able to tolerate PO normal consistency diet. Counseled to use cane for ambulation Daughter is her PRIZER HAND, son will be with her overnight when she may have other needs (letter done for housing previously) Apnea 09/05/2022 Acute low back pain 09/05/2022 Abdominal pain 09/05/2022 Hypertriglyceridemia 09/05/2022 Assessment & Plan (09/06/2022 1:18 PM EST): Improving. She used to be on low dose atorvastatin, unclear if she is still taking it, daughter is not aware of med name. New rx sent to [facility] pharmacy per patient's request. Hypokalemia 09/05/2022 Assessment & Plan (09/06/2022 1:22 PM EST): Due to diuretic rx. She's on K chloride, unclear if she's still taking it. New rx for Kcl 20meq/d Repeat BMP rpior to next appt Skin ulcer 09/05/2022 Assessment & Plan (03/21/2024 3:35 PM EDT): Chronic , on lower abdomen, doing well. Needs panniculectomy to prevent recurrence. Assessment & Plan (06/25/2023 10:25 AM EDT): With three ER visits and rounds of antibiotics Will restart antibiotics, this time with MRSA coverage with doxycycline Keep area clean and dry per wound clinic at [facility] counseled regarding tight control of DM, increased Jardiance to 25mg daily Will obtain wound clinic notes, discuss with plastic surgeon regarding panniculectomy Assessment & Plan (04/23/2023 10:45 AM EDT): Significantly improving. FU by wound clinic Keep area clean and dry counseled regarding tight control of DM Will obtain wound clinic notes, discuss with plastic surgeon regarding panniculectomy Assessment & Plan (02/19/2023 5:25 PM EDT): On lower abdomen, slowly healing likely related to pt with large abdominal folds/mechanical obstruction keep area clean and dry with zinc oxide fu with plastic surgeon, may need abdominal paniculectomy Assessment & Plan (09/06/2022 1:54 PM EST): Significantly improving. Continue dressing with calcium alginate until seen by wound clinic, appt on 09/28 FU at next RV 6w Stage 3a chronic kidney disease 05/08/2021 Assessment & Plan (06/30/2024 11:36 AM EDT): Worsened sp CHF, repeat BMP Advised to control DM, HTN, CHF and hypothyroidism Assessment & Plan (11/23/2023 1:22 PM EST): Worsened after UTI -repeat BMP Acute on chronic systolic heart failure 03/12/20 Assessment & Plan (11/12/2024 4:17 PM EST): BP stable today, <140/90 No LE edema Pulmonary exam wnl, no crackles, no increased WOB Cardiac exam wnl Pt condition appears stable today Assessment & Plan (06/30/2024 11:32 AM EDT): Improving. Order BNP and fu with cardiology at [facility]. Continue spironolactone, amiodarone (A.fib), digoxin and bumex Order BMP, advised re low slat diet, treating hypothyroidism and DM and fu with me in 6-8w Advised re Influenza vax today. Paroxysmal atrial fibrillation 03/12/2019 Assessment & Plan (02/19/2023 5:26 PM EDT): heart rate is controlled, no recent episodes of CHF needs to fu closely with cardiology discussed with patient the importance of CHF control so that she can be a candidate for abdominal paniculectomy continue digoxin and xarelto. FU with cardiology Rheumatic heart disease 03/12/2019 Allergic conjunctivitis 01/31/2019 Assessment & Plan (03/21/2024 3:34 PM EDT): Refills for Ketotifen eye drops Assessment & Plan (02/19/2023 5:24 PM EDT): continue ketotifen eye drops Eczema of face 01/31/2019 Obstructive sleep apnea syndrome 11/19/2018 Rectal hemorrhage 11/19/2018 Mild intermittent asthma 07/29/2018 Diabetic nephropathy associa yazmin with type 2 diabetes mellitus 04/15/2018 Assessment & Plan (04/23/2023 10:46 AM EDT): Check BMP and restart jardiance. See above Assessment & Plan (09/06/2022 12:44 PM EST): GFR is back to normal. I gave her the nephrology office (Dr Kirkpatrick, [facility]) info to rs appt anyway in view of CKD with Varying GFR levels. Avoid NSAIDs, encouraged tight control of DM, hyperlipidemia and HTN. FU BMP prior to next visit due to hypokalemia Chronic gouty arthritis 04/15/2018 Assessment & Plan (04/23/2023 10:44 AM EDT): Right ankle and right toe, improving Gave [id number] for tramadol to take PRN before she starts taking prednisone check uric acid levels, may need to restart allopurinol FU in 3 weeks. Assessment & Plan (02/19/2023 5:24 PM EDT): continue allopurinol 300 mg and check uric acid prescription for colchicine prn up to 2.4 mg per day prn gout attack Assessment & Plan (09/06/2022 12:42 PM EST): No recent episodes despite hyperuricemia. Allopurinol recently restarted at 200mg/d. No med dose change, fu Uric acid in 6m Fu prn gout attack, treat with either tramadol or PRD. Acquired hypothyroidism 04/15/2018 Assessment & Plan (06/30/2024 11:37 AM EDT): Levothyroxine recently increased to 175mcg/d Repeat TSH in 6w and fu with me. Monitor labs yearly (thyroiditis) as she's on amiodarone. Assessment & Plan (09/06/2022 12:50 PM EST): Recently hyperthyroid, likely related to acute condition + meds. Levothyroxine had been held x 2w, restarted 2w ago. Currently with no hyperthyroid sxs. Continue levothyroxine 150mcg/d Recheck TSH in 6w Essential hypertension 04/15/2018 Assessment & Plan (08/06/2024 1:15 PM EST): Borderline controlled. Continue spironolactone, metoprolol VNA to check BP 2x/w and fu results in 1mo, will adjust meds accordingly, may be started on an ARB. Counseled re low salt diet/increase moderate physical activity. Non smoking patient. FU with me in 3m Assessment & Plan (06/30/2024 11:33 AM EDT): Controlled. Compliant w/meds Continue Bumex same dose Counseled re low salt diet/increase moderate physical activity. Check home BP BIW and prn CP/DE LA O/FARRELL Order BMP prior to next appt Non smoking patient. Type 2 diabetes mellitus 04/15/2018 Assessment & Plan (08/06/2024 1:19 PM EST): Most likely uncontrolled, patient not compliant with diet, therefore limiting Insulin application. We discussed re eating at least 3 small meals daily, take Glucerna (she likes strawberry flavor only) as a snack 1x-2x per day. Increase Lantus to 15 units and can be increased 2 units in 2 weeks if BS continues to be at 120. Continue Trandjenta and Farxiga Continue to fu with [facility] [place]o and with me in 3mo I gave them a copy of eye clinic referral so that they can make appt. Advised to get Covid vax at earliest convenience Assessment & Plan (04/24/2024 11:16 AM EDT): Improving RBS not at goal yet. Increase Lantus to 15 units and can be increased 2 units in 2 weeks if BS continues to be at 120. Continue Trandjenta and Farxiga Will continue to adjust Lantus every month with finger stick log from VNA. Follow up in 3 months. Assessment & Plan (03/21/2024 3:32 PM EDT): Uncontrolled. Per chart she's only on Farxiga and Tradjenta, we'll call [facility] to verify which injectable is she using, she may need to go back to use long acting insulin (Levemir 15u/d to start) Advised to rs appt with [facility] endocrinology. Assessment & Plan (11/23/2023 1:26 PM EST): No change in meds today, needs to schedule appt w/ endo, info given again today Assessment & Plan (08/16/2023 1:17 PM EST): Uncontrolled, she has been referred to be seen pump attendant since March 2023. Copy of referral given to pt again (her son is with her), will refer to [facility] clinic for now Order BMP, if GFR is back to nl she can restart Metformin Continue on Jardiance + Januvia and reminded her to use Humalog TID AC meals (Medboxes) Counseled re more frequent low calorie/carb meals. Encouraged physical activity as tolerated. Assessment & Plan (06/25/2023 10:26 AM EDT): Increase Jardiance to 25mg Lab Results Component Value Date CREATININE 0.83 04/23/2023 continue humalog TID AC meals according to sliding scale Counseled re more frequent low calorie/carb meals. Encouraged physical activity as tolerated. Assessment & Plan (04/23/2023 10:47 AM EDT): Uncontrolled. Restart Jardiance 10mg and Check GFR, FU in 3 weeks and will adjust medications continue humalog TID AC meals according to sliding scale Counseled re more frequent low calorie/carb meals. Encouraged physical activity as tolerated. Refer to pump attendant Assessment & Plan (02/19/2023 5:27 PM EDT): Seems to be better controlled off medications, likely as a result pt significant decreased PO intake due to dysphagia after CVA. Continue novalog TID ac meals sliding scale only and continue being off any other DM medications encouraged to continue small in fraction meals FU in 3 months Assessment & Plan (09/06/2022 12:53 PM EST): A1c is at goal. Continue Januvia 100mg = Novolog TID ac meals prn sliding scale. Unclear if she has Levemir at home. Will switch to med boxes to our pharmacy per patient request. Today meds to be sent to her previous pharmacy. 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 Will obtain LFTs and Hepatitis profile and refer to GI if needed. It is thought to be related to CASTILLO/s/p liver biopsy in 2012 at [facility]. Resolved Problems Problem Noted Date Diagnosed Date Resolved Date Exposure to COVID-19 virus 09/05/2022 0 04/23/2023 Toothache 09/05/2022 04/23/2023 Chronic congestive heart failure 04/15/2018 09/06/2022 Encounters Date Type Department Care Team Description 11/12/2024 3:15 PM EST Office Visit [address] [address] Baljit Ortega CNP Urinary tract infection symptoms (Primary Dx); Acute kidney injury (CMS/HCC); Acute on chronic systolic heart failure (CMS/HCC) 11/12/2024 Travel 11/10/[address] [address] Jaleesa Calvillo MD Nurse Triage (/) 11/10/2024 Patient Outreach [address] [address] Jaleesa Calvillo MD Transition Of Care (Tcm) (HDF- Scheduled) 11/10/[address] [address] Jaleesa Calvillo MD Lab Orders 11/10/2024 Patient Outreach [address] [address] Jaleesa Calvillo MD Transition Of Care (Tcm) (LVM #2 - HDF unscheduled) 11/06/[address] [address] Jaleesa Calvillo MD No Show 11/06/2024 Patient Outreach [address] [address] Jaleesa Calvillo MD Transition Of Care (Tcm) (HDF- Unscheduled Left voicemail) 11/05/[address] [address] Tiana Quigley MA Chart prep 11/04/[address] [address] Jaleesa Calvillo MD Verbal Order 10/29/2024 Refill [facility] [address] [place] [address] Jaleesa Calvillo MD 10/27/2024 Patient Outreach [address] [address] Jaleesa Calvillo MD Pre-visit Planning ((Unable to reach for PVP screening, LVM)) 10/24/2024 Patient Outreach [address] [address] Jaleesa Calvillo MD Transition Of Care (Tcm) 10/15/[address] [address] Leigha Leslie MD No Show 10/13/2024 9:00 AM EST Office Visit [facility] OPTOMETRY [address] [place] [id number] Hilda Leslie, OD Type 2 diabetes mellitus without ophthalmic manifestations (CMS/HCC) (Primary Dx); Combined forms of age-related cataract of both eyes; Dry eyes, bilateral; Presbyopia; Right homonymous inferior quadrantanopia 10/13/2024 Travel 09/25/2024 Patient Outreach [facility] MEDICINE [address] [place] [address] Jaleesa Calvillo MD Transition Of Care (Tcm) (HDF- scheduled and SDOH screening ccompleted on 10/17/2023) 09/16/2024 Telephone [facility] MED[facility] [address] [place] [address] Jaleesa Calvillo MD November08/26/2024 Refill [facility] [address] [place] [address] Jaleesa Calvillo MD Cerebrovascular accident (CVA) due to occlusion of precerebral artery (CMS/HCC) 08/22/2024 Telephone [facility] [address] [place] [address] Jaleesa Calvillo MD No Show 08/19/2024 Telephone [facility] [address] [place] [address] Jaleesa Calvillo MD Med Refill 08/19/2024 Telephone [facility] [address] [place] [address] Jaleesa Calvillo MD Durable Medical Equipment 08/18/2024 Refill [facility] [address] [place] [address] Alejandrina Baltazar, PharmD from Last 3 Months Immunizations Name Administration Dates Next Due Hep B, adult 08/18/2024,04/21/2019 Influenza injectable quadriv alent preservative free 07/03/2022,07/23/2020 Influenza, IIV3, injectable 07/03/2022,1 ,06/25/2017,07/03,06/07/2012 Influenza, Unspecified 07/03/2022,2019,06/25/2017,07/03,06/07/2012 Influenza, seasonal, injecta ble, preservative free 06/30/2024 Moderna Covid-19 Vaccine 12+ 12/22/2020,11/24/19 21 PPD Test 09/17/2012 Pfizer Covid-19 Vaccine 12+ 08/06/2024 Pfizer Covid-19 Vaccine 12+ Bivalent 09/06/2022 Pneumococcal Conjugate PCV 20 06/30/2024 Pneumococcal Polysaccharide PPSV23 07/23/2020, Tdap 10/30/2023,10/28/2012 Zoster, Recombinant 08/18/2024,10/30/2023 Social History Tobacco Use Types Packs/Day Years Used Date Smoking Tobacco: Never Passive Smoke Exposure: Never Smokeless Tobacco: Never Tobacco Cessation:Counseling Given: Not Answered Alcohol Use Standard Drinks/Week Comments Never 0 [...] not to disclose 2021 10:25 AM EDT Last Filed Vital Signs Vital Sign Reading Time Taken Comments Blood Pressure 138/78 11/12/2024 4:02 PM EST Pulse 83 11/12/2024 3:26 PM EST Temperature 35.8 ??C (96.5 ??F) 11/12/2024 3:26 PM ES T Respiratory Rate 16 11/12/2024 3:26 PM EST Oxygen Saturation 96% 11/12/2024 3:26 PM EST Inhaled Oxygen Concentration - - Weight 83 kg (183 lb) 11/12/2024 3:26 PM EST Height 153.7 cm (5' 0.5 ) 08/06/2024 10:55 AM ES T Body Mass Index 35.15 08/06/2024 10:55 AM EST Plan of Treatment Upcoming Encounters Date Type Department Care Team (Late st Contact Info) Description 11/25/2024 1:15 PM EST Office Visit [facility] MEDICINE [address] [place] [id number] Jaleesa Calvillo MD [address] [place] [address] 11/27/2024 11:00 AM EST Telemedicine [facility] [address] [place] [address] 01/12/2025 9:00 AM EDT Office Visit [facility] OPTOMETRY [address] [place], [place] [id number] Hilda Leslie, OD [address] [place] [address] Health Maintenance Due Date Last Done Comments CT Colonography 1967 FIT DNA/Cologuard 1967 FIT 1967 FOBT 1967 HIV Screening 1967 Sigmoidoscopy 1967 Diabetes: Foot Exam 12/09/1977 Alcohol/Substance Use Screening 1979 Hepatitis C Screening 12/09/1985 Hepatitis A Vaccines (1 of 2 - Risk 2-dose series) 12/09/1986 HPV/Cotest 12/09/1997 Mammogram 2007 Cervical Cancer Screening 04/16/2021 Pap Smear 04/16/2021 04/16/2018 Colonoscopy 04/19/2024 04/19/2014 Colorectal Cancer Screening 04/19/2024 Diabetes: Hemoglobin A1C 10/07/2024 024, 03/21/2024, 10/30/2023, Additional history exists Hepatitis B Vaccines (3 of 3 - 19+ 3-dose series) 10/13/2024 08/18/2024, 04/21/2019 SDOH Screening 10/17/2024 10/17/2023 Depression Screening 03/21/2025 03/21/2024, 03/21/20 24 Lipid Panel 07/18/2025 07/18/2024, 07/03, 07/31/2022 Tobacco Screening 10/13/2025 10/13/2024 Eye Exam 10/13/2026 10/13/2024, 10/01, 10/13/2024, Additional history exists DTaP/Tdap/Td Vaccines (3 - Td or Tdap) 10/30/2033 10/30/2023, 10/28/2012 RSV Patients and Patients Aged 60 years or older (1 - 1-dose 75+ series) 12/09/2042 Influenza Vaccine Completed 06/30/2024, , 07/03/2022, Additional history exists Pneumococcal Vaccine: 50+ Years Completed 06/30/2024, 07/23/2020, 02/19/2013 COVID-19 Vaccine Completed 08/06/2024, 03/2022, 12/22/2020, Additional history exists Zoster Vaccines Completed 08/18/2024, 10/30/2023 HIB Vaccines Aged Out No longer eligi ble based on patient's age to complete this topic HPV Vaccines Aged Out No longer eligi ble based on patient's age to complete this topic IPV Vaccines Aged Out No longer eligi ble based on patient's age to complete this topic Meningococcal Vaccine Aged Out No piedad corina eligible based on patient's age to complete this topic RSV under 20 months Aged Out No longe r eligible based on patient's age to complete this topic Rotavirus Vaccines Aged Out No longer eligible based on patient's age to complete this topic Procedures Procedure Name Priority Date/Time Associated Diagnosis Comments LIPID PANEL, STANDARD Routine 07/18/2024 12:05 PM EDT POCT GLYCATED HEMOGLOBIN, TOTAL Routine 07/07/2024 10:02 AM EDT Type 2 diabetes mellitus with stage 3a chronic kidney disease, with long-term current use of insulin ([facility]) HM PAP/HPV Routine 04/16/2018 COLONOSCOPY Routine 04/19/2014 from Last 3 Months or Most Recently Relevant to Health Maintenance Results * (ABNORMAL) Lipid Panel, Standard (07/18/2024 12:05 PM EDT) Triglycerides 273(H) <150 mg/dL [facility] Comment:Desirable Triglyceri de: less than 150 mg/dLBorderline High Triglyceride 150-199 mg/dLHigh Triglyceride: 200-499 mg/dLVery High Triglyceride: greater than or equal to 5OO mg/dL Cholesterol 137 <200 mg/dL [facility] Comment:Desirable Cholestero l: less than 200 mg/dLBorderline High Cholesterol: 200-239 mg/dLHigh Cholesterol: greater than 239 mg/dL LDL Cholesterol Calculated 57 <100 mg/dL [facility] Comment:Desirable LDL: less than 100 mg/dLNear Optimal/Above Optimal LDL: 110- 129 mg/dLBorderline High LDL: 130-159 mg/dLHigh LDL: 160-189 mg/dLVery High LDL: greater than or equal to 190 mg/dL HDL Cholesterol 26(L) >40 mg/dL [facility] Comment:Desirable HDL: great er than 40 mg/dL Note: This HDL assay may give artificially low results in patients with liver disease. 07/18/2024 12:0 5 PM EDT 07/18/2024 1:02 PM EDT us Jaleesa Calvillo MD LAB BLOOD ORDERABLES Fin al Result [facility] [address] [place] [phone] * (ABNORMAL) POCT HGB A1C (07/07/2024 10:02 AM EDT) Hemoglobin A1C 9.0(A) 4.0 - 6.0 % QC Media Lot # [id number] Lot# Expiration Date ,421 Blood 07/07/2024 10:0 2 AM EDT Jaleesa Calvillo MD POINT OF CARE TEST ENTER /EDIT ORDERABLES Final Result * Pap Smear (04/16/2018) Pap smear performed Historical Provider HEALTH MAINTENANCE Final Result * Colonoscopy (04/19/2014) Colonoscopy performed Historical Provider HEALTH MAINTENANCE Edited Result - Final from Last 3 Months or Most Recently Relevant to Health Maintenance [place] [address] [place] [address] STANDARD MEDICARE Care Teams Local Tanker Truck Driver Relationship Specialty Start Date End Date Jaleesa Calvillo MD [address] [place] [phone] PCP - General Family Medicine 04/15/18
--- OUTSIDE RECORDS SUMMARY | 2024-11-12 16:38 | XMS_ITS | Referral Summary ---
Author Organization [facility] Address [address] [place] [address] Care Team Providers Care Commercial Green Building Designer Name Role Phone RajinderJaleesa moreland Primary Care Provider [phone] Allergies Active Allergy Reactions Criticality Noted Date [...] 12/12/2023 2:14 PM EDT Plan of Treatment Not on file Insurance [facility] Care Teams Commercial Green Building Designer Relationship Specialty Start Date End Date Jaleesa Calvillo [address] [place] [phone] PCP - General Internal Medicine 11/29/23
--- OUTSIDE RECORDS SUMMARY | 2024-11-12 16:38 | XMS_ITS | Encounter Summary ---
Author Organization [employer] [facility] Address [address] [place] [address] Care Team Providers Care Pulp House Supervisor Name Role Phone Jaleesa Calvillo MD Primary Care Provider + Encounter Details Date Type Department Care Team (Late st Contact Info) Description 03/21/2023 Abstract [facility] [address] [place] [address] [phone] Jaleesa Calvillo MD [address] [place], [place] [phone] Social History Tobacco Use Types Packs/Day Years Used Date Smoking Tobacco: Never Smokeless Tobacco: Never Alcohol Use Standard Drinks/Week Comments Never 0 (1 standard drink = 0.6 oz pur e alcohol) Depression Answer Date Recorded Patient Health Questionnaire-2 Score 0 02/19/2023 Comments Unknown Sex and Gender Information Value Date Recorded Sex Assigned at Female 07/31/2022 10:25 AM EDT Legal Sex Female 10:25 AM EDT Gender Identity Female 07/31/2022 10:25 AM EDT Sexual Orientation Choose not to disclose 2021 10:25 AM EDT COVID-19 Exposure Response Date Recorded In the last 10 days, have yo u been in contact with someone who was confirmed or suspected to have Coronavirus/COVID-19? No / Unsure 03/23/2023 10:17 AM EDT documented as of this encounter Plan of Treatment Upcoming Encounters Date Type Department Care Team (Late st Contact Info) Description 11/25/2024 1:15 PM EST Office Visit [facility] [address] [place] [address] Jaleesa Calvillo MD [address] [place] [address] 11/27/2024 11:00 AM EST Telemedicine [facility] [address] [place] [address] 01/12/2025 9:00 AM EDT Office Visit [facility] [address] [place], [place] [phone] Hilda Leslie, OD [address] [place] [address] documented as of this encounter Visit Diagnoses Not on filedocumented in this encounter Care Teams Pulp House Supervisor Relationship Specialty Start Date End Date Jaleesa Calvillo MD [address] [place] [phone] PCP - General Family Medicine 04/15/18 documented as of this encounter
--- OUTSIDE RECORDS SUMMARY | 2024-11-12 16:38 | XMS_ITS | Encounter Summary ---
Author Organization [employer] Address [address] [place] [address] Care Team Providers Care Spot Remover Name Role Phone Jaleesa Calvillo MD Primary Care Provider + Reason for Visit * Reason Onset Date Comments Med Refill 10/29/2024 Encounter Details Date Type Department Care Team (Late st Contact Info) Description 10/29/2024 Refill [facility] [address] [place], [place] [phone] Jaleesa Calvillo MD [address] [place], [place] [phone] Social History Tobacco Use Types Packs/Day Years [...] Description 11/25/2024 1:15 PM EST Office Visit [facility] [address] [place] [phone] Jaleesa Calvillo MD [address] [place] [phone] 11/27/2024 11:00 AM EST Telemedicine [facility] [address] [place] [phone] 01/12/2025 9:00 AM EDT Office Visit [facility] OPT[facility] [address] [place] [address] Hilda Leslie, OD [address] [place] [address] documented as of this encounter Visit Diagnoses Not on filedocumented in this encounter Care Teams Spot Remover Relationship Specialty Start Date End Date Jaleesa Calvillo MD [address] [place] [phone] PCP - General Family Medicine 04/15/18 documented as of this encounter
--- OUTSIDE RECORDS SUMMARY | 2024-11-12 16:38 | XMS_ITS | Encounter Summary ---
Author Organization [facility] Address [address] 7t [place] [address] Care Team Providers Care Paint Department Supervisor Name Role Phone Jaleesa Calvillo MD Primary Care Provider + Reason for Visit * Reason Comments Transition Of Care (Tcm) LVM #2 - HDF un scheduled Encounter Details Date Type Department Care Team (Late st Contact Info) Description 11/10/2024 Patient Outreach [facility] [address] [place] [phone] Jaleesa Calvillo MD [address] [place] [address] Transition Of Care (Tcm) (LVM #2 - HDF unscheduled) Social History Tobacco Use Types Packs/Day Years [...] as of this encounter Miscellaneous Notes * Significant Event - Magaly Hodges - 11/10/2024 9:01 AM EST 11/10/24 0900 Hospital Discharges and Admission for [facility] Type of Visit Hospital Admission Date of Admission/Visit 10/30/24 Date of Discharge 11/05/24 Facility [facility] Diagnosis CHF, systolic + severe right HF, rEF 50-55%, Diastolic dysfunction, Nonischemic cardiomyopathy, Morbid obesity(actual 44.58 as of 08/05/2014) -> BMI 39 2015, Acute HFrEF (heart failure with reduced ejection fraction) , Noncompliance Disposition Discharged Home Follow-Up Actions Follow-Up Needed Provider appointment Follow-Up Outcome Left Voicemail Initial Contact Date 11/10/24 CC Magaly Tucker placed outbound call to patient for HDF outreach. CC placed second outreach call to offer patient with an HDF appointment with provider. No answer at this time. Patient's name and were not confirmed. CC left detailed message educating patient on importance of following up with provider following an inpatient admission. Provided contact information requesting a call back in orderto schedule the HDF appointment. Patient educated via voicemail on extended clinic hours on Mondaysand Wednesdays, and Walk-In Urgent Care Located in [facility]. Patient provided with after-hours line for [facility], , which offer night time triage service and option to transfer to front office medical assistant provider if needed. CC will await return call from the patient. documented in this encounter Plan of Treatment Upcoming Encounters Date Type Department Care Team (Late st Contact Info) Description 11/25/2024 1:15 PM EST Office Visit [facility] [address] [place] [address] Jaleesa Calvillo MD [address] [place] [address] 11/27/2024 11:00 AM EST Telemedicine [facility] [address] [place] [address] 01/12/2025 9:00 AM EDT Office Visit [facility] [address] [place], [place] [phone] Hilda Leslie, OD [address] [place] [address] documented as of this encounter Visit Diagnoses Not on filedocumented in this encounter Care Teams Paint Department Supervisor Relationship Specialty Start Date End Date Jaleesa Calvillo MD [address] [place] [phone] PCP - General Family Medicine 04/15/18 documented as of this encounter
--- OUTSIDE RECORDS SUMMARY | 2024-11-12 16:38 | XMS_ITS | Encounter Summary ---
Author Organization [employer] Address [address] [place] [address] Care Team Providers Care Nurse Aide Evaluator Name Role Phone Jaleesa Calvillo MD Primary Care Provider + Encounter Details Date Type Department Care Team (Late st Contact Info) Description 03/26/2024 Orders Only [facility] [address] [place], [place] [phone] Jaleesa Calvillo MD [address] [place], [place] [phone] Social History Tobacco Use Types Packs/Day Years [...] Description 11/25/2024 1:15 PM EST Office Visit [facility] [address] [place] [phone] Jaleesa Calvillo MD [address] [place] [phone] 11/27/2024 11:00 AM EST Telemedicine [facility] [address] [place] [phone] 01/12/2025 9:00 AM EDT Office Visit [facility] [address] [place] [address] Hilda Leslie, OD [address] [place] [address] documented as of this encounter Visit Diagnoses Not on filedocumented in this encounter Care Teams Nurse Aide Evaluator Relationship Specialty Start Date End Date Jaleesa Calvillo MD [address] [place] [phone] PCP - General Family Medicine 04/15/18 documented as of this encounter
--- OUTSIDE RECORDS SUMMARY | 2024-11-12 16:38 | XMS_ITS | Encounter Summary ---
Author Organization [employer] [facility] Address [address] [facility] 7t [place] [address] Care Team Providers Care Setter Helper Name Role Phone Jaleesa Calvillo MD Primary Care Provider + Encounter Details Date Type Department Care Team ([facility] Contact Info) Description 09/06/2022 Orders Only [facility] [address] [place] [address] [phone] Jaleesa Calvillo MD [address] [place], [place] [phone] Social History Tobacco Use Types Packs/Day Years Used Date Smoking Tobacco: Never Smokeless Tobacco: Never Alcohol Use Standard Drinks/Week Comments Never 0 (1 standard drink = 0.6 oz pur e alcohol) Comments Unknown Sex and Gender Information Value [...] suspected to have Coronavirus/COVID-19? No / Unsure 09/06/2022 8:33 AM EST documented as of this encounter Plan of Treatment Upcoming Encounters Date Type Department Care Team (Late Contact Info) Description 11/25/2024 1:15 PM EST Office Visit [facility] [address] [place] [address] [phone] Jaleesa Calvillo MD [address] [place] [address] 11/27/2024 11:00 AM EST Telemedicine [facility] [address] [place], [place] [phone] 01/12/2025 9:00 AM EDT Office Visit [facility] [address] [place], [place] [phone] Hilda Leslie, OD [address] [place], [place] [phone] documented as of this encounter Visit Diagnoses Not on filedocumented in this encounter Care Teams Setter Helper Relationship Specialty Start Date End Date Jaleesa Calvillo MD [address] [place] [address] [phone] PCP - General Family Medicine 04/15/18 documented as of this encounter
--- OUTSIDE RECORDS SUMMARY | 2024-11-12 16:38 | XMS_ITS | Encounter Summary ---
Author Organization [employer] Address [address] [facility] 7t [place] [address] Care Team Providers Care Office Chair Assembler Name Role Phone Jaleesa Calvillo MD Primary Care Provider + Reason for Visit * Reason Comments UTI Encounter Details Date Type Department Care Team (Late st Contact Info) Description 11/12/2024 3:15 PM EST Office Visit [facility] MEDICINE [address] [place], [place] [phone] Baljit Ortega CNP [address] [place] [employer], [place] [phone] Urinary tract infection symptoms (Primary Dx); Acute kidney injury (CMS/HCC); Acute on chronic systolic heart failure (CMS/HCC) Social History Tobacco Use Types Packs/Day Years [...] AM EDT documented as of this encounter Last Filed Vital Signs Vital Sign Reading Time Taken Comments Blood Pressure 138/78 11/12/2024 4:02 PM EST Pulse 83 11/12/2024 3:26 PM EST Temperature 35.8 ??C (96.5 ??F) 11/12/2024 3:[address] Respiratory Rate 16 11/12/2024 3:26 PM EST Oxygen Saturation 96% 11/12/2024 3:26 PM EST Inhaled Oxygen Concentration - - Weight 83 kg (183 lb) 11/12/2024 3:26 PM EST Height - - Body Mass Index 35.15 08/06/2024 10:55 AM EST documented in this encounter Progress Notes * Baljit Ortega CNP - 11/12/2024 3:15 PM EST Ester Flynn is a 58 y.o. female who presents for a acute visit with family member. Pt reporting residual urinary symptoms. Pt says she has just completed treatment for her UTI. She is still endorsing burning with urination that comes and goes. Denies urinary frequency, urgency, pelvic pain, abdominal pain, nausea, vomiting, diarrhea, hematuria. Pt and family member expressed need for visit today is to have a lab order placed for u/a and culture. Reports they have f/u with PCP in a little less than 2 weeks. HPI Pt was hospitalized at [facility] for Prerenal MECCA from 10/30- 11/05/24. Pt presented with c/o of progressively wotsening SOB x 5-6 days. Pt was admitted to floor for management of HF exacerbation. Pt treated with Bumex drop and then returned to home doseof Bumex 2mg BID with spironolactone, digoxin, metoprolol. On day of potential discharge she was noted to have an MECCA. Once resolved pt discharged to home. Recommendations to f/u with BMP to trend kidney function and reevaluate xarelto dosing. (Xarelto dose was reduced d/t decreased GFR. Per ED note: if creatinine clearance improved than she may be indicated for higher dose of Xarelto. Last creatinine 1.13 11/05/24 Patient Active Problem List Diagnosis Diabetic nephropathy associated with type 2 diabetes mellitus (CMS/HCC) Non-alcoholic cirrhosis (CMS/HCC) Chronic gouty arthritis Cerebrovascular accident (CMS/HCC) Apnea Allergic conjunctivitis Acute low back pain Acquired hypothyroidism Abdominal pain Acute on chronic systolic heart failure (CMS/HCC) Eczema of face Essential hypertension Hypertriglyceridemia Hypokalemia Mild intermittent asthma Mitral valve regurgitation Obstructive sleep apnea syndrome Paroxysmal atrial fibrillation (CMS/HCC) Rectal hemorrhage Rheumatic heart disease Skin ulcer (CMS/HCC) Type 2 diabetes mellitus (CMS/HCC) Abdominal skin ptosis Dysphagia Noncompliance with treatment Stage 3a chronic kidney disease (CMS/HCC) Lichenified eczema Anal fissure Chronic kidney disease, stage 2 (mild) Diastolic dysfunction Gout Hemorrhoid Microcytic anemia Severe obesity (CMS/HCC) Nonalcoholic steatohepatitis (CASTILLO) Osteoarthritis Pseudopolyposis of colon (CMS/HCC) Pulmonary hypertension (CMS/HCC) Rheumatic fever Cellulitis, abdominal wall Subacute cough Thrombocytopenia (CMS/HCC) Anemia due to stage 3a chronic kidney disease (CMS/HCC) (CMS/HCC) Acute pyelonephritis Lumbar degenerative disc disease Colitis Urinary tract infection symptoms Acute kidney injury (CMS/HCC) Allergies Allergen Reactions Acetaminophen Other reaction(s): Hives/Skin Rash Aspirin Ibuprofen Other reaction(s): Hives/Skin Rash Other reaction(s): tachycardia Lisinopril Other reaction(s): rash Oxycodone Other reaction(s): Hives/Skin Rash Pedi-Pre Tape Myton [Wound Dressing Adhesive] Sulfa Antibiotics Other reaction(s): Other (see comments) Review of Systems Constitutional: Negative for chills, diaphoresis, fatigue, fever and unexpected weight change. Respiratory: Negative for cough, chest tightness, shortness of breath and wheezing. Cardiovascular: Negative for chest pain, palpitations and leg swelling. Gastrointestinal: Negative for abdominal pain, constipation, diarrhea, nausea and vomiting. Genitourinary: Positive for dysuria. Negative for decreased urine volume, difficulty urinating, enuresis, flank pain, frequency, hematuria and pelvic pain. Musculoskeletal: Negative. Neurological: Negative for dizziness, tremors, seizures, speech difficulty, weakness, light-headedness and headaches. Psychiatric/Behavioral: Negative. Vitals: 11/12/24 1526 11/12/24 1602 BP: (!) 155/78 138/78 Pulse: 83 Resp: 16 Temp: 96.5 ??F (35.8 ??C) TempSrc: Temporal SpO2: 96% Weight: 183 lb (83 kg) Physical Exam Constitutional: Appearance: Normal appearance. HENT: Head: Normocephalic and atraumatic. Cardiovascular: Rate and Rhythm: Normal rate and regular rhythm. Pulses: Normal pulses. Heart sounds: Normal heart sounds. No murmur heard. No friction rub. No gallop. Pulmonary: Effort: Pulmonary effort is normal. No respiratory distress. Breath sounds: Normal breath sounds. No stridor. No wheezing, rhonchi or rales. Abdominal: General: There is no distension. Palpations: Abdomen is soft. Tenderness: There is no abdominal tenderness. There is no right CVA tenderness, left CVA tendernessor guarding. Musculoskeletal: Right lower leg: No edema. Left lower leg: No edema. Skin: General: Skin is warm and dry. Coloration: Skin is not jaundiced. Findings: No bruising. Neurological: General: No focal deficit present. Mental Status: She is alert and oriented to person, place, and time. Psychiatric: Mood and Affect: Mood normal. Behavior: Behavior normal. Problem List Items Addressed This Visit Acute on chronic systolic heart failure (CMS/HCC) Current Assessment & Plan BP stable today, <140/90 No LE edema Pulmonary exam wnl, no crackles, no increased WOB Cardiac exam wnl Pt condition appears stable today Urinary tract infection symptoms - Primary Current Assessment & Plan Pt has a medical hx sufficient for recurrent UTIs Pt currently still having urinary symptoms despite treatment completion and adherence Will obtain repeat U/A and culture to guide further treatment Pt will f/u with PCP at scheduled HDF appt this month Relevant Orders Urinalysis Complete Culture, Urine, Routine Acute kidney injury (CMS/HCC) Current Assessment & Plan Pt had MECCA that occurred after being treated for CHF exacerbation during hospitalization Pt was discharged home once stable BP today controlled once rechecked, <140/90 Last creatinine 1.13 on 11/05, will repeat BMP to trend kidney function and determine eligibility to increase dose of Xarelto Pt plans to f/u with PCP for HDF this month Relevant Orders Basic Metabolic Panel C TENNIS CAMP INSTRUCTOR Attestation TENNIS CAMP INSTRUCTOR Resident Attestation: Patient was seen and evaluated by Baljit Ortega TENNIS CAMP INSTRUCTOR, in collaboration with Lit Mares MDwho has reviewed my assessment and plan. I, Lit Mares MD , have reviewed the resident's note and agree with the assessment & plan of care as documented above. documented in this encounter Miscellaneous Notes * Assessment & Plan Note - Baljit Ortega CNP - 11/12/2024 4:16 PM EST Associated Problem(s): Acute on chronic systolic heart failure (CMS/HCC) BP stable today, <140/90 No LE edema Pulmonary exam wnl, no crackles, no increased WOB Cardiac exam wnl Pt condition appears stable today * Assessment & Plan Note - Baljit Ortega CNP - 11/12/2024 4:13 PM EST Associated Problem(s): Acute kidney injury (CMS/HCC) Pt had MECCA that occurred after being treated for CHF exacerbation during hospitalization Pt was discharged home once stable BP today controlled once rechecked, <140/90 Last creatinine 1.13 on 11/05, will repeat BMP to trend kidney function and determine eligibility to increase dose of Xarelto Pt plans to f/u with PCP for HDF this month * Assessment & Plan Note - Baljit Ortega CNP - 11/12/2024 4:10 PM EST Associated Problem(s): Urinary tract infection symptoms Pt has a medical hx sufficient for recurrent UTIs Pt currently still having urinary symptoms despite treatment completion and adherence Will obtain repeat U/A and culture to guide further treatment Pt will f/u with PCP at scheduled HDF appt this month documented in this encounter Plan of Treatment Upcoming Encounters Date Type Department Care Team (Late st Contact Info) Description 11/25/2024 1:15 PM EST Office Visit [facility] MEDICINE [address] [place] [address] Jaleesa Calvillo MD [address] [place] [address] 11/27/2024 11:00 AM EST Telemedicine [facility] [address] [place] [address] 01/12/2025 9:00 AM EDT Office Visit [facility] OPTOMETRY [address] [place] [address] Tarka, Hilda, OD [address] [place] [address] Scheduled Orders Name Type Priority Associated Diagnoses Orde r Schedule Basic Metabolic Panel Lab Routine Acute kidney injury (CMS/HCC) Expected: 11/12/2024 (Approximate), Expires: 11/12/2025 Urinalysis Complete Lab Routine Urinary tract infection symptoms Expected: 11/12/2024, Expires: 11/12/2025 Culture, Urine, Routine Microbiology Routine Urinary tract infection symptoms Expected: 11/12/2024 (Approximate), Expires: 11/12/2025 documented as of this encounter Visit Diagnoses Diagnosis Urinary tract infection symptoms- Primary Acute kidney injury (CMS/HCC) Acute on chronic systolic heart failure (CMS/HCC) Acute on chronic systolic heart failure documented in this encounter Care Teams Office Chair Assembler Relationship Specialty Start Date End Date Jaleesa Calvillo MD [address] [place] [address] PCP - General Family Medicine 7/16/18 documented as of this encounter
--- OUTSIDE RECORDS SUMMARY | 2024-11-12 16:38 | XMS_ITS | Encounter Summary ---
Author Organization [employer] [facility] Address [address] [facility] 7t [place] [address] Care Team Providers Care Armament Installer Name Role Phone Jaleesa Calvillo MD Primary Care Provider + Reason for Visit * Reason Onset Date Comments Medication Question 11/07/2022 Encounter Details Date Type Department Care Team ([facility] st Contact Info) Description 11/07/2022 Telephone [facility] MEDICINE [address] [place], [place] [phone] Jaleesa Calvillo MD [address] [place], [place] [phone] Medication Question Social History Tobacco Use Types Packs/Day Years [...] encounter Miscellaneous Notes * Telephone Encounter - Nino Dick - 11/07/2022 12:50 PM EST Tc from daughter requesting a call back regarding medication being tranfers to [facility] pharmacy Please contact daughter at [phone] documented in this encounter Plan of Treatment Upcoming Encounters Date Type Department Care Team (Late st Contact Info) Description 11/25/2024 1:15 PM EST Office Visit [facility] MEDICINE [address] [place] [address] Jaleesa Calvillo MD [address] [place] [address] 11/27/2024 11:00 AM EST Telemedicine [facility] MEDICINE [address] [place] [address] 01/12/2025 9:00 AM EDT Office Visit [facility] OPTOMETRY [address] [place], [place] [phone] Hilda Leslie, OD [address] [place] [address] documented as of this encounter Visit Diagnoses Not on filedocumented in this encounter Care Teams Armament Installer Relationship Specialty Start Date End Date Jaleesa Calvillo MD [address] [place] [phone] PCP - General Family Medicine 04/15/18 documented as of this encounter
--- OUTSIDE RECORDS SUMMARY | 2024-11-12 16:38 | XMS_ITS | Encounter Summary ---
Author Organization [employer] [facility] Address [address] [facility] 7t [place] [address] Care Team Providers Care Ice Bag Assembler Name Role Phone Jaleesa Calvillo MD Primary Care Provider + Encounter Details Date Type Department Care Team (Late st Contact Info) Description 11/09/2022 Orders Only [facility] MEDICINE [address] [place], [place] [phone] Jaleesa Calvillo MD [address] [place], [place] [phone] Cerebrovascular accident (CVA) due to embolism of precerebral artery (CMS/HCC) (Primary Dx); Acute on chronic systolic heart failure (CMS/HCC); Stage 3a chronic kidney disease (CMS/HCC) Social History Tobacco Use Types Packs/Day [...] 11/25/2024 1:15 PM EST Office Visit [facility] MEDICINE [address] [place] [address] Jaleesa Calvillo MD [address] [place] [address] 11/27/2024 11:00 AM EST Telemedicine [facility] MEDICINE [address] [place], [place] [phone] 01/12/2025 9:00 AM EDT Office Visit [facility] OPTOMETRY [address] [place], [place] [phone] Hilda Leslie, OD [address] [place], [place] [phone] documented as of this encounter Visit Diagnoses Diagnosis Cerebrovascular accident (CVA) due to embolism of precerebral artery (CMS/HCC)- Primary Acute on chronic systolic heart failure (CMS/HCC) Acute on chronic systolic heart failure Stage 3a chronic kidney disease (CMS/HCC) documented in this encounter Care Teams Ice Bag Assembler Relationship Specialty Start Date End Date Jaleesa Calvillo MD [address] [place] [phone] PCP - General Family Medicine 04/15/18 documented as of this encounter
--- OUTSIDE RECORDS SUMMARY | 2024-11-12 16:38 | XMS_ITS | Encounter Summary ---
Author Organization [employer] Address [address] [facility] 7t [place] [address] Care Team Providers Care Scrubber Machine Tender Name Role Phone Jaleesa Calvillo MD Primary Care Provider + Reason for Visit * Reason Onset Date Comments No Show 11/06/2024 Encounter Details Date Type Department Care Team ([facility] st Contact Info) Description 11/06/2024 Telephone [facility] MEDICINE [address] [place], [place] [phone] Jaleesa Calvillo MD [address] [place], [place] [phone] No Show Social History Tobacco Use Types Packs/Day Years [...] encounter Miscellaneous Notes * Telephone Encounter - Claudia Trevino - 11/06/2024 12:09 PM EST Pt no showed to appt on 11/06/24 documented in this encounter Plan of Treatment Upcoming Encounters Date Type Department Care Team (Late st Contact Info) Description 11/25/2024 1:15 PM EST Office Visit [facility] MEDICINE [address] [place] [address] Jaleesa Calvillo MD [address] [place] [address] 11/27/2024 11:00 AM EST Telemedicine [facility] MEDICINE [address] [place] [address] 01/12/2025 9:00 AM EDT Office Visit [facility] OPTOMETRY [address] [place] [address] Hilda Leslie, OD [address] [place] [address] documented as of this encounter Visit Diagnoses Not on filedocumented in this encounter Care Teams Scrubber Machine Tender Relationship Specialty Start Date End Date Jaleesa Calvillo MD [address] [place] [address] PCP - General Family Medicine 04/15/18 documented as of this encounter
--- OUTSIDE RECORDS SUMMARY | 2024-11-12 16:38 | XMS_ITS | Encounter Summary ---
Author Organization [employer] [facility] Address [address] [facility] 7t [place] [address] Care Team Providers Care Strainer Mill Operator Name Role Phone Jaleesa Calvillo MD Primary Care Provider + Reason for Visit * Reason Comments Transition Of Care (Tcm) HDF- Scheduled Encounter Details Date Type Department Care Team ([facility] st Contact Info) Description 11/10/2024 Patient Outreach [facility] MEDICINE [address] [place], [place] [phone] Jaleesa Calvillo MD [address] [place] [address] Transition Of Care (Tcm) (HDF- Scheduled) Social History Tobacco Use Types Packs/Day Years [...] Significant Event - Magaly Hodges - 11/10/2024 2:52 PM EST 11/10/241451 Hospital Discharges and Admission for [facility] Date of Admission/Visit 10/30/24 Date of Discharge 11/05/24 Facility [facility] Diagnosis CHF, systolic + severe right HF, rEF 50-55%, Diastolic dysfunction, Nonischemic cardiomyopathy, Morbid obesity(actual 44.58 as of 08/05/2014) -> BMI 39 2015, Acute HFrEF (heart failure with reduced ejection fraction) , Noncompliance Disposition Discharged Home Follow-Up Actions Follow-Up Needed Provider appointment Follow-Up Outcome Spoke to Caregiver;Booked Appointment Initial Contact Date 11/10/24 Received incoming call from the [facility]. CM Spoke with ROCIO from [facility]. Patient has been scheduled for an HDF appointment on 11/25/2024 at 1:30PM with Dr. Calvillo. CM requested dischargesummaries to be faxed to the Care Management Department at [phone]. CC will follow up on discharge summary following patient's discharge. Insurance verified prior to scheduling. documented in this encounter Plan of Treatment Upcoming Encounters Date Type Department Care Team (Late st Contact Info) Description 11/25/2024 1:15 PM EST Office Visit [facility] MEDICINE [address] [place] [address] Jaleesa Calvillo MD [address] [place], [place] [phone] 11/27/2024 11:00 AM EST Telemedicine [facility] MEDICINE [address] [place] [address] 01/12/2025 9:00 AM EDT Office Visit [facility] OPTOMETRY [address] [place] [address] Hilda Leslie, OD [address] [place] [address] documented as of this encounter Visit Diagnoses Not on filedocumented in this encounter Care Teams Strainer Mill Operator Relationship Specialty Start Date End Date Jaleesa Calvillo MD [address] [place] [address] PCP - General Family Medicine 04/15/18 documented as of this encounter
--- OUTSIDE RECORDS SUMMARY | 2024-11-12 16:38 | XMS_ITS | Encounter Summary ---
Author Organization [employer] Address [address] [facility] 7t [place] [address] Care Team Providers Care Journeyman Welder Name Role Phone Jaleesa Calvillo MD Primary Care Provider + Reason for Visit * Reason Onset Date Comments Lab Orders 11/10/2024 Encounter Details Date Type Department Care Team ([facility] st Contact Info) Description 11/10/2024 Telephone [facility] MEDICINE [address] [place], [place] [phone] Jaleesa Calvillo MD [address] [place] [address] Lab Orders Social History Tobacco Use Types Packs/Day Years [...] encounter Miscellaneous Notes * Telephone Encounter - Marilia Marie RN - 11/11/2024 8:58 AM EST [phone] who reports the patient stated she is having s/s of a UTI as of yesterday. Per [facility], patient reported burning on urination and [facility] is inquiring if patient can have lab order sent to the lab for urine to be tested. RN advised [facility] of [facility] however [facility] requested RN call daughter to further discuss. TC placed to daughter Rivas [phone] in regards to above call. Daughter reports patient has been having burning on urination 1 day, denies fever, abdomen pain or abnormal discharge. Daughter reports patient has an appointment on 11/25/24 however RN advised daughter, patient should not wait until 11/25/24 to be evaluated for UTI. Daughter accepted appointment for 11/12/24 at 3:15pm. Daughter to f/u PRN. * Telephone Encounter - Kay Santos - 11/10/2024 2:43 PM EST Tc from nurse with [facility] requesting Urine Culture lab order. [phone] (pt daughter) documented in this encounter Plan of Treatment Upcoming Encounters Date Type Department Care Team (Late st Contact Info) Description 11/25/2024 1:15 PM EST Office Visit [facility] MEDICINE [address] [place] [address] Jaleesa Calvillo MD [address] [place] [address] 11/27/2024 11:00 AM EST Telemedicine [facility] MEDICINE [address] [place], [place] [phone] 01/12/2025 9:00 AM EDT Office Visit [facility] OPTOMETRY [address] [place], [place] [phone] Hilda Leslie, OD [address] [place] [address] documented as of this encounter Visit Diagnoses Not on filedocumented in this encounter Care Teams Journeyman Welder Relationship Specialty Start Date End Date Jaleesa Calvillo MD [address] [place] [address] PCP - General Family Medicine 04/15/18 documented as of this encounter
--- OUTSIDE RECORDS SUMMARY | 2024-11-12 16:38 | XMS_ITS | Encounter Summary ---
Author Organization [employer] [facility] Address [address] [facility] 7t [place] [address] Care Team Providers Care Air/Ocean Export Clerk Name Role Phone Jaleesa Calvillo MD Primary Care Provider + Reason for Visit * Reason Comments Transition Of Care (Tcm) HDF- Unschedule d Left voicemail Encounter Details Date Type Department Care Team (Late st Contact Info) Description 11/06/2024 Patient Outreach [facility] MEDICINE [address] [place] [address] Jaleesa Calvillo MD [address] [place], [place] [phone] Transition Of Care (Tcm) (HDF- Unscheduled Left voicemail) Social History Tobacco Use Types Packs/Day Years [...] * Significant Event - Magaly Hodges - 11/06/2024 10:18 AM EST 11/06/24 1009 Hospital Discharges and Admission for [facility] Type of Visit Hospital Admission Date of Admission/Visit 10/30/24 Date of Discharge 11/05/24 Facility [facility] Diagnosis SOB Disposition Discharged Home Follow-Up Actions Follow-Up Needed Provider appointment Follow-Up Outcome Left Voicemail Initial Contact Date 11/06/24 CCC Magaly Tucker placed outbound call to patient for HDF outreach. CC placing call to offer patient with an HDF appointment with provider. No answer at this time. Patient's name and were not confirmed. CC left detailed message educating patient on importance of following up with provider following an inpatient admission. Provided contact information requesting a call back in order to schedule the HDF appointment. Patient educated via voicemail on extended clinic hours on Mondays and Wednesdays, and Walk-In Urgent Care Located in [facility]. Patient provided with after-hours line for [facility], , which offer night time triage service and option to transfer to bone char kiln operator provider if needed. CC will request Discharge summaries to scan into chart. CC will place additional outreach callwithin 2-5 business days. documented in this encounter Plan of Treatment Upcoming Encounters Date Type Department Care Team (Late st Contact Info) Description 11/25/2024 1:15 PM EST Office Visit [facility] MEDICINE [address] [place] [address] Jaleesa Calvillo MD [address] [place] [address] 11/27/2024 11:00 AM EST Telemedicine [facility] MEDICINE [address] [place] [address] 01/12/2025 9:00 AM EDT Office Visit [facility] OPTOMETRY [address] [place] [address] Hilda Leslie, OD [address] [place] [address] documented as of this encounter Visit Diagnoses Not on filedocumented in this encounter Care Teams Air/Ocean Export Clerk Relationship Specialty Start Date End Date Jaleesa Calvillo MD [address] [place] [address] PCP - General Family Medicine 04/15/18 documented as of this encounter
--- OUTSIDE RECORDS SUMMARY | 2024-11-12 16:38 | XMS_ITS | Encounter Summary ---
Author Organization [employer] Address [address] 7[address] [place] [address] Care Team Providers Care Approver Name Role Phone Jaleesa Calvillo MD Primary Care Provider + Encounter Details Date Type Department Care Team (Latest Contact Info) Description 11/12/2024 Travel Social History Tobacco Use Types Packs/Day [...] 1:15 PM EST Office Visit [facility] [address] [place] [address] Jaleesa aClvillo MD [address] [place] [address] 11/27/2024 11:00 AM EST Telemedicine [facility] [address] [place] [address] 01/12/2025 9:00 AM EDT Office Visit [facility] OPTOMETRY [address] [place] [address] Hilda Leslie, OD [address] [place] [address] documented as of this encounter Visit Diagnoses Not on filedocumented in this encounter Care Teams Approver Relationship Specialty Start Date End Date Jaleesa Calvillo MD [address] [place] [address] PCP - General Family Medicine 04/15/18 documented as of this encounter
--- OUTSIDE RECORDS SUMMARY | 2024-11-12 16:38 | XMS_ITS | Encounter Summary ---
Author Organization [employer] Address [address] 7[address] [place] [address] Care Team Providers Care Anthropology Faculty Member Name Role Phone Jaleesa Calvillo MD Primary Care Provider + Reason for Visit * Reason Comments Pre-visit Planning (Unable to reach for PVP screening, LVM) Encounter Details Date Type Department Care Team ([facility] st Contact Info) Description 10/27/2024 Patient Outreach [facility] [address] [place], [place] [phone] Jaleesa Calvillo MD [address] [place], [place] [phone] Pre-visit Planning ((Unable to reach for PVP screening, LVM)) Social History Tobacco Use Types Packs/Day Years [...] as of this encounter Progress Notes * Yumi Spence - 10/27/2024 11:02 AM EST CC Yumi. Placed outbound call to patient to complete pre-visit planning. No answer at this time. Patient name and were not confirmed. CC left voicemail requesting return call. Direct contact information provided. documented in this encounter Plan of Treatment Upcoming Encounters Date Type Department Care Team (Late st Contact Info) Description 11/25/2024 1:15 PM EST Office Visit [facility] [address] [place] [address] Jaleesa Calvillo MD [address] [place] [address] 11/27/2024 11:00 AM EST Telemedicine [facility] [address] [place] [address] 01/12/2025 9:00 AM EDT Office Visit [facility] OPTOMETRY [address] [place] [address] Hilda Leslie OD [address] [place] [address] documented as of this encounter Visit Diagnoses Not on filedocumented in this encounter Care Teams Anthropology Faculty Member Relationship Specialty Start Date End Date Jaleesa Calvillo MD [address] [place] [address] [place] [address] PCP - General Family Medicine 04/15/18 documented as of this encounter
--- OUTSIDE RECORDS SUMMARY | 2024-11-12 16:38 | XMS_ITS | Encounter Summary ---
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 I have hazelshea cheng 07/16/[address] you [...] as of this encounter Progress Notes * Hilda Leslie, OD - 10/13/2024 9:00 AM EST Eye Care Progress Note Patient ID: Ester Flynn is a 58 y.o. female. HPI T2DM exam. Last A1c 9.0% (07/07/24). Last BSL 300mg/dl this AM). Patient reports intermittent blur both eyes (OU). Patient does not currently wear any glasses. Patient also notes frequent burning/irritation, occasionally uses Rx'd ATs History of stroke 3 years ago OSCAR: 20+ years ago in [place] Last edited by Hilda Leslie, OD on 10/13/2024 9:51 AM. Current Outpatient Medications Medication Sig Dispense Refill albuterol (2.5 MG/3ML) 0.083% nebulizer solution inhale 3 milliliter by nebulization route 3 times every day prn SOB/asthma 75 mL 1 albuterol (Ventolin HFA) 108 (90 Base) MCG/ACT inhaler Inhale 2 puffs every 4 (four) hours. 18 g 1 Alcohol Swabs (Alcohol Prep) 70 % pads USE THREE TIMES DAILY DIRECTED 100 each 5 allopurinol (Zyloprim) 300 MG tablet TAKE 1 TABLET BY MOUTH TWICE DAILY IN THE MORNING AND IN THE EVENING 180 tablet 3 amiodarone (Pacerone) 200 MG tablet Take 1 tablet by mouth at bed time. atorvastatin (Lipitor) 80 MG tablet Take 1 tablet by mouth Once per day. Blood Glucose Monitoring Suppl (FreeStyle Lenox Lite) w/Device kit USE TO TEST BLOOD SUGAR TWICE DAILY Breo Ellipta 200-25 MCG/ACT aerosol powder INHALE 1 PUFF BY MOUTH EVERY DAY 60 each 5 bumetanide (Bumex) 2 MG tablet Take 1 tablet (2 mg) by mouth 2 times daily. 180 tablet 3 buPROPion XL (Wellbutrin XL) 300 MG 24 hr tablet Take 1 tablet by mouth Once per day. cetirizine (ZyrTEC) 10 MG tablet Take 1 tablet by mouth at bed time. dapagliflozin (Farxiga) 10 MG Take 1 tablet (10 mg) by mouth Once per day. 90 tablet 3 dextran 70-hypromellose (artificial tears) 0.1-0.3 % ophthalmic solution Administer 1 drop into both eyes if needed in the morning, at noon, and at bedtime for dry eyes. 15 mL 6 digoxin (Lanoxin) 125 MCG tablet Take 1 tablet by mouth at bed time. Easy Touch Pen Cuthbert 31G X 5 MM [facility] [place] DIRECTED FOUR TIMES DAILY fluticasone (Flonase) 50 MCG/ACT nasal spray USE 2 SPRAYS IN EACH NOSTRIL EVERY DAY 48 g 1 glucose blood (FREESTYLE LITE) test strip USE TO TEST BLOOD SUGAR THREE TIMES A DAY 100 each 11 HumaLOG KWIKPEN 100 UNIT/ML injection Inject 6 Units under the skin with breakfast, with lunch, andwith evening meal. Per sliding scale BG 100-149; 6 units. BG 150-199; 7 units. BG 200-249; 8 units.BG 250-299; 9 units. BG 300-349; 10 units. BG 350-399; 11 units. BG >400; 12 units. insulin glargine (Lantus SoloStar) 100 UNIT/ML pen Inject 18 Units under the skin at bedtime. levothyroxine (Synthroid, Levoxyl) 175 MCG tablet Take 175 mcg by mouth Once per day. lidocaine (Lidoderm) 5 % patch Apply 1 patch topically Once per day. linaGLIPtin (Tradjenta) 5 MG tablet Take 1 tablet (5 mg) by mouth Once per day. 30 tablet 5 metoprolol succinate XL (Toprol-XL) 25 MG 24 hr tablet TAKE 1/2 OF A TABLET BY MOUTH DAILY FOR 30 DAYS Nutritional Supplements (Glucerna) liquid Take 1 Can by mouth in the morning. 95228 mL 3 Polyvinyl Alcohol-Povidone 5-6 MG/ML solution Administer 2 drops into both eyes 2 times daily. 30 30 mL 11 rivaroxaban (Xarelto) 20 MG tablet Take 1 tablet by mouth at bed time. sertraline (Zoloft) 100 MG tablet Take 2 tablets by mouth at bed time. spironolactone (Aldactone) 50 MG tablet Take 3 tablets by mouth Once per day. thiamine (Vitamin B-1) 100 MG tablet TAKE 1 TABLET BY MOUTH EVERY MORNING 90 tablet 1 traZODone (Desyrel) 100 MG tablet Take 1-2 tablets by mouth if needed at bedtime for sleep. TRUEplus Lancets 33G misc TEST BLOOD SUGAR THREE TIMES DAILY zolpidem (Ambien) 10 MG tablet Take 1 tablet by mouth if needed at bedtime for sleep. No current facility-administered medications for this visit. 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 No pertinent surgical history. No family history on file. Tobacco Use: Low Risk (10/13/2024) Tobacco Smoking Tobacco Use: Never Smokeless Tobacco Use: Never Passive Exposure: Never Allergies Allergen Reactions Acetaminophen Other reaction(s): Hives/Skin Rash Aspirin Ibuprofen Other reaction(s): Hives/Skin Rash Other reaction(s): tachycardia Lisinopril Other reaction(s): rash Oxycodone Other reaction(s): Hives/Skin Rash Pedi-Pre Tape [place] [Wound Dressing Adhesive] Sulfa Antibiotics Other reaction(s): Other (see comments) ROS Positive for: Endocrine, Eyes Negative for: Constitutional, Gastrointestinal, Neurological, Skin, Genitourinary, Musculoskeletal,HENT, Cardiovascular, Respiratory, Psychiatric, Allergic/Imm, Heme/Lymph Last edited by Hilda Leslie, ESTRELLITA on 10/13/2024 9:04 AM. Base Eye Exam Visual Acuity (Snellen - Linear) Right Left Dist sc 20/40 -2 20/40 -2 Dist ph sc 20/30 +2 20/30 -2 Tonometry (iCare , 9:14 AM) Right Left Pressure 17 15 Pupils Pupils Right PERRL Left PERRL Visual Davis (Counting fingers) Left Right Restrictions Total inferior nasal deficiency Total inferior temporal deficiency Inf right quad Extraocular Movement Right Left Full Full Neuro/Psych Oriented x3: Yes Mood/Affect: Normal Dilation Both eyes: 1.0% tropicamide @ 9:21 AM Additional Notes Cover test: ~5eso, Lhyper (difficult to measure or determine tropia vs phoria due to poor patient fixation) Slit Lamp and Fundus Exam External Exam Right Left External Normal Normal Slit Lamp Exam Right Left Lids/Lashes 2+ blepharitis UL/LL 2+ blepharitis UL/LL Conjunctiva/Sclera White and quiet White and quiet Cornea 1+ SPK 2+ SPK Anterior Chamber Deep and quiet, angles open Deep and quiet, angles open Iris Round and reactive, (-) NVI Round and reactive, (-) NVI Lens 1+ NS, 3+ ACC 1+ NS, 3+ ACC Fundus Exam Right Left Vitreous Clear Clear Disc [place] and healthy, (-) NVD [place] and healthy, (-) NVD C/D Ratio Vertical 0.45 0.40 C/D Ratio Horizontal 0.45 0.40 Macula Flat with even pigmentation, (-) CME Flat with even pigmentation, (-) CME Vessels Normal course and caliber, (-) NVE Normal course and caliber, (-) NVE Periphery No holes/tears/detachments 360 No holes/tears/detachments 360 Refraction Manifest Refraction (Auto) Sphere Cylinder [place] Dist VA Add Right +0.00 -2.00 017 20/30 Left -0.25 -0.50 005 Manifest Refraction #2 (Subjective) Sphere Cylinder [place] Dist VA Add Right -0.50 -0.75 015 20/40+2 +2.25 Left -0.50 -0.50 010 20/30-2 +2.25 Final Rx Sphere Cylinder [place] Add Right -0.50 -0.75 015 +2.25 Left -0.50 -0.50 010 +2.25 Expiration Date: 10/13/2025 Assessment and Plan Diagnoses and all orders for this visit: Type 2 diabetes mellitus without ophthalmic manifestations (CMS/HCC) - No diabetic retinopathy or diabetic macular edema both eyes (OU) - Discussed importance of tight blood glucose control, medication compliance and regular follow up with PCP; patient states blood sugar has been higher than normal lately and is working with PCP to bring levels back to normal Combined forms of age-related cataract of both eyes - Mild impact on vision both eyes (OU) (BCVA 20/30 OD/OS) - Patient ed on findings and options for surgery vs. monitoring. Pt opts to monitor at this time. Dry eyes, bilateral - Recommended use of artificial tears 4x/day both eyes (OU). Rx sent to pharmacy. - dextran 70-hypromellose (artificial tears) 0.1-0.3 % ophthalmic solution; Administer 1 drop into both eyes if needed in the morning, at noon, and at bedtime for dry eyes. - If symptoms persist, recommended OTC drops (Blink/Refresh/Systane). Patient given dry eye handout. - Also recommended eyelid hygiene including daily lid wipes OU Presbyopia - Dispensed updated spec Rx Quadrantanopia inferior right - Possible inferior right quad both eyes (OU) - poor patient fixation during CFF so questionable reliability of testing - Patient reports h/o stroke 3 years ago that she feels affected her vision - RTC in 3 months for baseline visual field (VF) RTC 3 months for visual field (VF). RTC 1 year for CEE or sooner PRN. Hilda Leslie, OD 10/13/2024, 10:32 AM Gravity Prospecting Operator Helper Source: __ None __ Bilingual Staff __ Qualified Staff Shipping And Receiving __ Telephone Gravity Prospecting Operator Helper; ID# _[id number] Gravity Prospecting Operator Helper brought by patient (family member, friend, NATIONAL SALES ASSOCIATE, etc) __ In person ehs teacher __ Ipad Gravity Prospecting Operator Helper; ID#: Language Spoken During Exam: Yakut documented in this encounter Plan of Treatment Upcoming Encounters Date Type Department Care Team (Late st Contact Info) Description 11/25/2024 1:15 PM EST Office Visit [facility] [address] [place] [address] Jaleesa Calvillo MD [address] [place] [address] 11/27/2024 11:00 AM EST Telemedicine [address] [address] 01/12/2025 9:00 AM EDT Office Visit [facility] [address] [place], [place] [phone] Hilda Leslie, OD [address] [place] [address] documented as of this encounter Visit Diagnoses Diagnosis Type 2 diabetes mellitus without ophthalmic manifestations (CMS/HCC)- Primary Combined forms of age-related cataract of both eyes Dry eyes, bilateral Presbyopia Right homonymous inferior quadrantanopia documented in this encounter Care Teams Fresh Foods Clerk Relationship Specialty Start Date End Date Jaleesa Calvillo MD [address] [place], [place] [phone] PCP - General Family Medicine 04/15/18 documented as of this encounter
--- OUTSIDE RECORDS SUMMARY | 2024-11-12 16:38 | XMS_ITS | Encounter Summary ---
Author Organization [employer] [facility] Address [address] [facility] 7t [place] [address] Care Team Providers Care Manager Actuarial Name Role Phone Jaleesa Calvillo MD Primary Care Provider + Reason for Visit * Reason Onset Date Comments Nurse Triage 11/10/2024 Encounter Details Date Type Department Care Team ([facility] st Contact Info) Description 11/10/2024 Telephone [facility] [address] [place], [place] [phone] Jaleesa Calvillo MD [address] [place] [address] Nurse Triage (/) Social History Tobacco Use Types Packs/Day Years [...] encounter Miscellaneous Notes * Telephone Encounter - Beatrice Dobbs RN - 11/10/2024 3:13 PM EST Triage call to Pt, daughter mike takes the call and is requesting hospital follow up for Pt. Pt was in [facility] 10/30/24 to 11/07/24 daughter reports due to UTI. No report is on chart but, will request. Apt is obtained by Magaly Hodges for 11/25/[address] Calvillo. Daughter is aware now . * Telephone Encounter - Kay Santos - 11/10/2024 2:48 PM EST Symptoms: Urination Pain, High Blood Sugar (today reading 250) - Caller Reports Outcome: Schedule a same-day appointment or talk to a nurse or provider today Reason: Caller denied all higher acuity questions The caller accepted this outcome. [phone] (pt daugher) documented in this encounter Plan of Treatment Upcoming Encounters Date Type Department Care Team (Late st Contact Info) Description 11/25/2024 1:15 PM EST Office Visit [facility] [address] [place] [address] Jaleesa Calvillo MD [address] [place], [place] [phone] 11/27/2024 11:00 AM EST Telemedicine [facility] [address] [place] [address] 01/12/2025 9:00 AM EDT Office Visit [facility] OPTOMETRY [address] [place] [address] Hilda Leslie, OD [address] [place] [address] documented as of this encounter Visit Diagnoses Not on filedocumented in this encounter Care Teams Manager Actuarial Relationship Specialty Start Date End Date Jaleesa Calvillo MD [address] [place] [address] PCP - General Family Medicine 04/15/18 documented as of this encounter
--- OUTSIDE RECORDS SUMMARY | 2024-11-12 16:38 | XMS_ITS | Encounter Summary ---
Author Organization [employer] Address [address] [facility] 7t [place] [address] Care Team Providers Care Outdoor Studies Director Name Role Phone Jaleesa Calvillo MD Primary Care Provider + Reason for Visit * Reason Onset Date Comments Verbal Order 11/04/2024 Encounter Details Date Type Department Care Team ([facility] st Contact Info) Description 11/04/2024 Telephone [facility] [address] [place], [place] [phone] Jaleesa Calvillo MD [address] [place] [address] Verbal Order Social History Tobacco Use Types Packs/Day Years [...] Telephone Encounter - Marilia Marie RN - 11/04/2024 11:07 AM EST TC returned to Kimi [phone] in regards to below message. Kimi provided with verbal orders for long term and PT. * Telephone Encounter - Diego Monique - 11/04/2024 10:57 AM EST Tc from [facility] with [facility] requesting verbal orders. Please contact Kimi at [phone]. documented in this encounter Plan of Treatment Upcoming Encounters Date Type Department Care Team (Late st Contact Info) Description 11/25/2024 1:15 PM EST Office Visit [facility] MED[facility]INE [address] [place] [address] Jaleesa Calvillo MD [address] [place] [address] 11/27/2024 11:00 AM EST Telemedicine [facility] [address] [place] [address] 01/12/2025 9:00 AM EDT Office Visit [facility] OPTOMETRY [address] [place] [address] Hilda Leslie, OD [address] [place] [address] documented as of this encounter Visit Diagnoses Not on filedocumented in this encounter Care Teams Outdoor Studies Director Relationship Specialty Start Date End Date Jaleesa Calvillo MD [address] [place] [address] PCP - General Family Medicine 04/15/18 documented as of this encounter
--- OUTSIDE RECORDS SUMMARY | 2024-11-12 16:38 | XMS_ITS | Encounter Summary ---
Author Organization [employer] Address [address] [facility] 7t [place] [address] Care Team Providers Care Developmental Therapist Name Role Phone Jaleesa Calvillo MD Primary Care Provider + Reason for Visit * Reason Onset Date Comments No Show 10/15/2024 Encounter Details Date Type Department Care Team ([facility] st Contact Info) Description 10/15/2024 Telephone [facility] [address] [place], [place] [phone] Leigha Leslie MD [address] [place], [place] [phone] No Show Social History Tobacco Use Types [...] encounter Miscellaneous Notes * Telephone Encounter - Antonia Gilbert RN - 10/15/2024 12:02 PM EST TC placed to pt and LVM to call back the office regarding missed HDF appt * Telephone Encounter - Claudia Trevino - 10/15/2024 10:19 AM EST Pt no showed to appt on 10/15/24 documented in this encounter Plan of Treatment Upcoming Encounters Date Type Department Care Team (Late st Contact Info) Description 11/25/2024 1:15 PM EST Office Visit [facility] [address] [place] [address] Jaleesa Calvillo MD [address] [place] [address] 11/27/2024 11:00 AM EST Telemedicine [facility] [address] [place] [address] 01/12/2025 9:00 AM EDT Office Visit [facility] OPTOMETRY [address] [place] [address] Hilda Leslie, ESTRELLITA [address] [place] [address] documented as of this encounter Visit Diagnoses Not on filedocumented in this encounter Care Teams Developmental Therapist Relationship Specialty Start Date End Date Jaleesa Calvillo MD [address] [place] [address] PCP - General Family Medicine 04/15/18 documented as of this encounter
--- OUTSIDE RECORDS SUMMARY | 2024-11-12 16:38 | XMS_ITS | Continuity of Care Document ---
Author Organization [facility] ter Address [address] [place] [address]- Support Name Relationship Address Phone SHAYLA MORAN [...] Unknown Unav ailable Care Team Providers Care Site Physician Name Role Phone Rajinder OLIVEIRA, Jaleesa Ahuja Primary Care Physician En[place] [facility] [place](s): 10/30/24 - 11/05/24 [facility] [address] [place] [id number] Encounter Diagnosis Type 2 diabetes mellitus with hyperglycemia(Discharge Diagnosis) - 10/30/24 Hypothyroidism(Discharge Diagnosis) - 10/30/24 CHF, systolic + severe right HF, rEF 50-55%(Discharge Diagnosis) - 10/30/24 Diastolic dysfunction(Discharge Diagnosis) - 10/30/24 Nonischemic cardiomyopathy(Discharge Diagnosis) - 10/30/24 Morbid obesity(actual 44.58 as of 08/05/2014) -> BMI 39 2016(Discharge Diagnosis) - 10/30/24 Acute HFrEF (heart failure with reduced ejection fraction)(Discharge Diagnosis) - 10/30/24 Noncompliance(Discharge Diagnosis) - 10/30/24 Discharge Disposition: A-D/C Home Attending Physician: Walter Marina MD Admitting Physician: Chas Ambriz MD Referring Physician: Not on Staff, Referring MD Encounter Type: Disch IP Allergies, Adverse Reactions, Alerts Substance Criticality Severity Reaction Reaction Severity Status ibuprofen tachycardia Active aspirin Active lisinopril rash Active Motrin Active Tylenol rash Active Other Environmental Allergy skin irritation ekg adhesives Active Percocet 5/325 1 rash Act misael 1patient tolerates IV morphine Immunizations Given and Recorded Vaccine Date Status Refusal Reason [id number] 12y+ bivalent booster vax 09/06/22 Recorded influenza [...] tetanus/diphtheria/pertussis, acel(Tdap) 10/28/12 Given 1Result Comment: [06/25/2017] [id number] Medications allopurinol 300 mg oral tablet 300 [...] 8:56:00 AM EST, Route to Pharmacy Electronically, [facility], 150, cm, 07/29/24 13:32:00 EDT, Height, 66, kg, 06/11/24 3:28:00 EDT, Dry Weight Start Date: 08/26/24 Status: Ordered Quantity: 90.0 Unit: tablet Repeat number: 1 atorvastatin 80 mg oral tablet = 80 mg, By Mouth, Daily at bedtime, # 30 tablet, 0 Refills, Maintenance, 09/23/24 1:15:00 PM EST, Tablet, [facility], Partial fill upon patient request [...] Refills, Maintenance, 06/13/24 2:03:00 PM EDT, Tablet, [facility], Partial fill upon patient request if [...] Refills, Maintenance, 11/05/24 10:43:00 AM EST, Tablet, [facility], Partial fill upon patient request if [...] 0 Refills, Maintenance, 10/13/24 2:47:00 PM EST, [facility], Partial fill upon patient request [...] 5 Refills, Maintenance, 07/29/24 2:24:00 PM EDT, [facility], Partial fill upon patient request [...] 5 Refills, Maintenance, 07/29/24 2:21:00 PM EDT, [facility], Partial fill upon patient request [...] Refills, Maintenance, 08/30/24 7:26:00 PM EST, Tablet, [facility], Partial fill upon patient request if the prescription is for a schedule IIopioid drug., 150, cm, 08/29/24 12:38:00 EST, Height, 66, kg, 06/11/24 3:28:00 EDT, Dry Weight Start Date: 08/30/24 Status: Ordered Quantity: 30.0 Unit: tablet Repeat number: 12 Indication: Hypothyroidism, unspecified Metoprolol Succinate ER 25 mg oral tablet, extended release 12.5 mg, XL Tablet, By Mouth, Hold for: sbp<120, HR<60, 11/05/24 9:00:00 AM EST Start Date: 11/05/24 Stop Date: 11/05/24 Status: Completed Repeat number: 1 Metoprolol Succinate ER 25 mg oral tablet, extended release 12.5 mg, 0.5, tablet, By Mouth, Daily in AM, # 30 tablet, Refills 0, Tot. Refills 0, Maintenance, 11/05/24 10:45:00 AM EST, Route to Pharmacy Electronically, [facility], Partial fill uponpatient request if the prescription is for a schedule II opioid drug., 155, cm, 11/05/24 7:29:00 EST, Height, 75, kg, 10/30/24 18:19:00 EST, Dry Weight Start Date: 11/05/24 Status: Ordered Quantity: 30.0 Unit: tablet Repeat number: 1 MorPHINE Inj 2 mg, Injection, IV Push Slowly, Every 4 hours, PRN for Pain , Severe, Routine, 11/04/24 12:22:00 PM EST Start Date: 11/04/24 Stop Date: 11/06/24 Status: Discontinued Repeat number: 1 Narcan 4 mg/0.1 mL nasal spray 1 sprays = 4 mg, Naris, Left, Once, PRN Other, To reverse opioid overdose, use one spray in one nostril. if an additional dose is needed, alternate nostril, may repeat every 2 to 3 minutes until patient responds, call 911 in the meantime, # 20 each, 0 Refills, Soft Stop, 03/12/24 2:18:00 PM EDT, [facility], Partial fill upon patient request [...] 11/05/24 10:46:00AM EST, Route to Pharmacy Electronically, [facility], Partial fill upon patient request if the prescription is for a schedule II opioid drug., 155, cm, 11/05/24 7:29:00 EST, Height, 75,kg, 10/30/24 18:19:00 EST, Dry Weight Start Date: 11/05/24 Status: Ordered Quantity: 30.0 Unit: tablet Repeat number: 1 Tradjenta 5 mg oral tablet 1 tablet = 5 mg, By Mouth, Daily, # 30 tablet, 0 Refills, Maintenance, 06/09/24 5:29:00 PM EDT, Tablet, Partial fill upon [...] Refills, Maintenance, 11/05/24 10:45:00 AM EST, Tablet, [facility], Partial fill upon patient [...] dependent type 2 diabetes mellitus Confirmed Active Finnish speaking patient Confirmed Active Microcytic anemia Confirmed [...] valve disease - Cardiac surgery in 2007at [facility] which included an ASD closure, mitral valve ring and tricuspid valve ring repair in 2006 at [facility] Confirmed Active Right heart failure Confirmed Active Severe obesity (BMI 35.0-39.9) with comorbidity Confirmed Active Diagnosis Diagnosis Type Effective Dates Health Status Clinical Service Informant Type 2 diabetes mellitus with hyperglycemia Discharge Diagnosis 10/30/24 Non-Specified Hypothyroidism Discharge Diagnosis 10/30/24 Non-Specified CHF, systolic + severe right HF, rEF 50-55% Discharge Diagnosis 10/30/24 Diastolic dysfunction Discharge Diagnosis 10/30/24 Nonischemic cardiomyopathy Discharge Diagnosis 10/30/24 Morbid obesity(actual 44.58 as of 08/05/2014) -> BMI 39 2015 Discharge Diagnosis 10/30/24 Acute HFrEF (heart failure with reduced ejection fraction) Discharge Diagnosis 10/30/24 Noncompliance Discharge Diagnosis 10/30/24 Results Radiology Reports * Exam Date Time Procedure Performing Provider Status 10/30/24 3:50 AM Chest 2 Views Frontal and Lat Billie Salvador flip; Auth (Verified) Notes: (Chest 2 Views Frontal and Lat) Reason For Exam: Chest Pain;Other: RESULT: Chest 2 Views Frontal and Lat Chest 2 Views Frontal and Lat INDICATION: Chest Pain; Clinical Question(s): Other: / Other: COMPARISON: 10/23/2024 FINDINGS: LINES AND TUBES: CardioMEMS device in place. LUNGS AND PLEURA: The central pulmonary vasculature is prominent and indistinct. No pleural effusion. No pneumothorax. HEART, MEDIASTINUM AND CRISTINE: Moderate prominence of the cardiac silhouette, unchanged. Prosthetic valves in place. BONES AND SOFT TISSUES: No acute abnormality. Status-post median sternotomy. Unchanged fractured inferior most sternal wire. IMPRESSION: Cardiomegaly with pulmonary vascular congestion, similar to prior. WSN: [id number] Ordering Physician: Sylvia Ortez Dictated By: Walter Saleem MD Dictated Date/Time: 10/30/24 7:59 am Reviewed By: Walter Saleem MD Signed By: Walter Saleem MD Signed Date/Time: 10/30/24 7:59 am Transcribed By: JOSE Transcribed Date/Time: 10/30/24 7:58 am Vital Signs Most recent to oldest [Reference Range]: 1 2 3 Height 155 cm (11/05/24 1:11 PM) 155 cm (11/05/24 7:29 AM) 155 cm (11/05/24 2:50 AM) Weight 84.1 kg (11/05/24 5:05 AM) 85.5 kg (11/04/24 5:04 AM) 84.1 kg (11/03/24 5:16 AM) Oxygen Saturation [94-100 %] 91 % *L* (11/05/24 1:11 PM) 91 % *L* (11/05/24 7:29 AM) 92 % *L* (11/05/24 2:50 AM) Pulse Rate [55-90 bpm] 58 bpm (11/05/24 1:11 PM) 68 bpm (11/05/24 8:22 AM) 55 bpm (11/05/24 7:29 AM) Body Mass Index [18.5-24.99 kg/m2] 35.21 kg/m2 *>HHI* (10/30/24 5:58 PM) 35.21 kg/m2 *>HHI* (10/30/24 5:30 PM) 31.22 kg/m2 *>HHI* (10/30/24 1:56 PM) Blood Pressure [90-138/55-84 mm Hg] 138/63mm Hg (11/05/24 1:11 PM) 118/45mm Hg (11/05/24 8:22 AM) 118/45mm Hg (11/05/24 7:29 AM) Respiratory Rate [16-30 br/min] 18 br/min (11/05/24 1:40 PM) 17 br/min (11/05/24 1:11 PM) 18 br/min (11/05/24 11:06 AM) Temperature [96.8-100.4 DegF] 98.1 DegF (11/05/24 1:11 PM) 97.9 DegF (11/05/24 7:29 AM) 98.0 DegF (11/05/24 2:50 AM) Liters per Minute 1 L/min (11/04/24 8:00 AM) 1 L/min (11/04/24 7:36 AM) 1 L/min (11/04/24 2:10 AM) Mode of Delivery (Oxygen) Room air (11/05/24 1:11 PM) Room air (11/05/24 7:29 AM) Room air (11/05/24 2:50 AM) Blood pressure sites Arm, left (11/05/24 1:11 PM) Arm, right (11/05/24 7:29 AM) Arm, right (11/05/24 2:50 AM) Temperature Route Oral (11/05/24 1:11 PM) Oral (11/05/24 7:29 AM) Temporal (11/05/24 2:50 AM) Dry Weight 75 kg (10/30/24 5:58 PM) 75 kg (10/30/24 1:56 PM) 75 kg (10/30/24 12:18 PM) Weight Obtained Via Bed scale (11/05/24 5:05 AM) Bed scale (11/04/24 5:04 AM) Bed scale (10/31/24 6:55 AM) Dry Weight Obtained Via Standing scale (10/29/24 11:43 PM) Social History Social History Type Response Smoking Status Never smoker; Tobacc o user in household: Yes entered on: 01/23/18 Sex Female Sex Representation Female (finding) Admission evaluation note * Katina OLIVEIRA, Chas: PERFORM, MODIFY Event Display: Admission Note Authored Date: Patient: ??JOSEPH CHINCHILLA ? Age:??58 Years?Sex:??Female?:??1965?? 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 ?? Patient reports that she has been having progressively worsening shortness of breath for the past 5 to 6 days.?? She reports compliance with all of her medications and denies any dietary indiscretion.?? She reports that she was contacted by one of the providers who will monitor her CardioMEMS readings and instructed her to go to the emergency department as she was noted to have increased PA pressures.?? She reports that one of her medications was recently increased however she does not know the name of the medications but does tell me that it is a medication that makes me pee , likely Bumex which she is on 2 mg twice daily at home.?? Denies any chest pain, does report having some nausea, no vomiting, no abdominal pain, diarrhea, constipation or dysuria EKG with no acute ischemic changes, chest x-ray suggestive of mild pulmonary edema however formal report is pending.?? proBNP elevated to 2659, troponin 16, 17 which is stable compared to her baseline, digoxin levels noted to be lowat less than 0.4, flu/RSV/COVID-19 negative.?? Patient was given 2 mg of IV Bumex in the emergency department. Review of Systems All systems are reviewed??and are negative except as noted above in the HPI. Objective Vital Signs?? Temperature: 98.1 DegF (10/30/24 05:17:00) Temperature Route: Oral (10/30/24 05:17:00) Pulse Rate: 84 bpm (10/30/24 05:17:00) Respiratory Rate: 16 br/min (10/30/24 05:17:00) Systolic Blood Pressure: 133 mm Hg (10/30/24 05:17:00) Diastolic Blood Pressure: 83 mm Hg (10/30/24 05:17:00) Blood pressure sites: Arm, right (10/30/24 05:17:00) Mean Arterial Pressure: 100 mm Hg (10/30/24 05:17:00) Pulse Pressure: 50 mm Hg (10/30/24 05:17:00) Oxygen Saturation: 94 % (10/30/24 05:17:00) Mode of Delivery (Oxygen): Room air (10/30/24 05:17:00) Early Warning Score: 5 (10/30/24 05:18:24) ? Physical Exam General: Alert and oriented x 3, no acute distress HEENT: Atraumatic, normocephalic, EOMI, PERRL Neck: Supple, trachea midline Respiratory: Bibasilar crackles, no wheezes or rhonchi appreciated, symmetrical breath sounds, saturating 94% on??room air CVS: S1, S2.?? RRR, no MRG Abdomen: Soft, nontender, nondistended, positive bowel sounds Musculoskeletal: No deformities, no cyanosis Neuro: Alert and oriented x 3, cranial nerves II to XII intact, no facial asymmetry Psych: Appropriate mood and affect, cooperative Assessment/Plan Diagnoses CHF exacerbation ??(I50.9) Complicated UTI (urinary tract infection) ??(N39.0) Hypothyroidism ??(E03.9) Pyelonephritis ??(N12) Type 2 diabetes mellitus with hyperglycemia ??(E11.65) ?? 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 ?? CHF exacerbation (I50.9):?? Rheumatoid heart disease status post bioprosthetic mitral and tricuspid valvuloplasty Atrial fibrillation on Xarelto Biventricular heart failure with LVEF 30 to 35% status post CardioMEMS Pulmonary hypertension ?? Patient does have a significant history of biventricular heart failure with LVEF 30??to 35% status post CardioMEMS. 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 Follows at heart failure clinic. She is on Bumex 2 mg twice daily (which apparently??was increased however not sure what the current dose is),??digoxin, spironolactone, metoprolol, and recently started on Entresto. Chest x-ray with mild pulmonary luna??she is satturating well??on room air. EKG with no acute ischemic changes, troponin 16, 17. proBNP elevated to 2659. Will admit the patient to cardiac telemetry unit. Strict intake and output, daily w eights. Continue with cardiac monitoring to rule out life-threatening arrhythmias. Will??cont with??IV Bumex 2 mg BID and will request heart failure team for further evaluation and management. Further diuresis to be determined per heart failure team. She also has CardioMEMS which will need to be int errogated. Continue with spironolactone, digoxin (Dig level <0.4 she report taking all her meds as prescribed), metoprolol per home doses. Continue to monitor hemodynamics closely ?? Atrial fibrillation: Continue with metoprolol, digoxin, amiodarone, Xarelto ?? Anxiety/depression: Continue with sertraline, bupropion ?? Insomnia: Continue with zolpidem as needed, trazodone ?? Hypothyroidism: Continue with levothyroxine ?? Hypertension: Continue with spironolactone, metoprolol ?? Hyperlipidemia: Continue with atorvastatin ?? Asthma: continue with albuterol inhaler, on Symbicort---substituted with??Breo while inhouse as it is non formulary ?? Thrombocytopenia: Chronic, continue to monitor CBC ?? CKD: Creatinine??at baseline ; continue to closely monitor renal function and electrolytes. ?? History of gout: Continue with allopurinol ?? RUTHY: CPAP QHS and with naps ?? VTE Prophylaxis:??Already on Xarelto ?VTE Prophylaxis Assessment:??VTE Prophylaxis Ordered ?? Code Status:??Full code ?Order Code Status:??Code Status Ordered ?? VTE Prophylaxis:??Already on Xarelto ?VTE Prophylaxis Assessment:??VTE Prophylaxis Ordered ?? Code Status:??Full code ?Order Code Status:??Code Status Ordered Histories Allergies Allergies ?(Active and Proposed Allergies Only) lisinopril? (Severity: Unknown severity, Onset: Unknown) ?Reactions: rash aspirin? (Severity: Unknown severity, Onset: Unknown) Motrin? (Severity: Unknown severity, Onset: Unknown) Other Environmental Allergy? (Severity: Unknown severity, Onset: Unknown) ?Reactions: ekg adhesives, skin irritation Tylenol? (Severity: Unknown severity, Onset: Unknown) ?Reactions: rash ibuprofen? (Severity: Unknown severity, Onset: Unknown) ?Reactions: tachycardia, rash Percocet 5/325? (Severity: Unknown severity, Onset: Unknown) ?Reactions: rash ?Comments: patient tolerates IV morphine ? Past Medical History/Problem List Active Problems(35) Anal fissure Asthma Asthma Atrial fibrillation/flutter CHF, systolic + severe right HF, rEF 50-55% Chronic idiopathic thrombocytopenia Chronic kidney disease (CKD) Chronic right heart failure Chronic systolic heart failure CKD stage 3 secondary to diabetes Diabetes Diastolic dysfunction Gout Heart failure with preserved ejection fraction Hemorrhoids HTN (hypertension) Hypothyroidism Inflammatory polyps of colon Insulin dependent type 2 diabetes mellitus Microcytic anemia Mitral regurgitation, mild to moderate; moderate tricusplid regurgitation Mood disorder Morbid obesity(actual 44.58 as of 08/05/2014) -> BMI 39 2015 Nonischemic cardiomyopathy Obese class I RUTHY on CPAP, nonadherent Osteoarthritis Pelvic pain in female Pulmonary hypertension, moderate Rectal bleeding - known hemorrhoids, f/u recommended w/ colorectal Rheumatic valve disease - Cardiac surgery in 2007at [facility] which included an ASD closure, mitral valve ring and tricuspid valve ring repair in 2006 at [facility] Right heart failure Finnish speaking patient Steatohepatitis, non-alcoholic Volume overload ? Past Surgical History Upper gastrointestinal endoscopy including esophagus, stomach, and either the duodenum and/or jejunum as appropriate; diagnostic, with or without collection of specimen(s) by brushing or washing (separate procedure): 04/24/14 Colonoscopy, flexible, proximal to splenic flexure; diagnostic, with or without collection of specimen(s) by brushing or washing, with or without colon decompression (separate procedure): 04/24/14 Diagnostic hysteroscopy, D&C in and 06/2015 for postmenopausal bleeding Laparoscopy ASD closure, mitral valve ring and tricuspid valve ring repair at [facility] 2006 section x3 Cholecystectomy ? Social History Alcohol Details:??Use: Never. Employment/School Details:??Status: Disabled. ??Other: Disabled in 2004. Exercise Details:??Self assessment: Fair condition. Home/Environment Details:??Living situation: Home/Independent. ??Lives with: daughter. Nutrition/Health Details:??Diet: Diabetic. Sexual Details:??Sexually involved in last 6 months: No. Substance Abuse Details:??Use: Never. Tobacco Details:??Never smoker, Tobacco user in household: Yes. Details:??Never smoker, Tobacco user in household: No. Details:??Never smoker ? Family History Mother??(): CAD - Coronary artery disease; Diabetes mellitus type I; Hypertension ? Medications Home Medications Albuterol (Ventolin 90 mcg Inhaler)?2?puff(s)?Inhalation?Every 4 hours Allopurinol (allopurinol 300 mg oral tablet)?300?Milligram?1?tablet?By Mouth?Daily?2 times a day amiODARONE (amiodarone 200 mg oral tablet)?1?tablet?By Mouth?Daily in AM Atorvastatin (atorvastatin 80 mg oral tablet)?80?Milligram?By Mouth?Daily at bedtime Bumetanide (bumetanide 2 mg oral tablet)?1?tab(s)?2?Milligram?By Mouth?2 times a day BuPROpion (buPROPion 300 mg/24 hours (XL) oral tablet, extended release)?1.5?tab(s)?450?Milligram?By Mouth?Daily dapagliflozin (Farxiga 10 mg oral tablet)?1?tab(s)?10?Milligram?By Mouth?Daily Digoxin (digoxin 0.125 mg oral tablet)?1?tablet?By Mouth?Daily in AM fluticasone-vilanterol (Breo Ellipta 200 mcg-25 mcg/inh inhalation powder)?1?puff(s)?Inhalation?Daily Insulin Glargine (Lantus Solostar Pen 100 units/mL subcutaneous solution)?See Instructions?Please take 18 units daily in the morning.E11.65 Insulin Lispro (Humalog Kwik Pen 100 units/mL subcutaneous injection)?See Instructions?Subcutaneous Infusion?for 30?Days?Please take at least 5-10 minutes before meals 3 times a day per the scale: BG 100-149: 6 units ? ; BG 150-199: 7 units; BG 200-249: 8 units; BG 250-299: 9 units; BG 300-349: 10 units; BG 350-399: 11 units; BG >400: 12 units; E10.9 or E11.65; MDD 40... Levothyroxine (levothyroxine 175 mcg (0.175 mg) oral tablet)?175?Microgram?By Mouth?Daily?on an empty stomachwith plenty of wateras a single daily dose at least 1 hour before breakfastand other medicationsavoid antacids, calcium, or iron for at least 4 hrs before or 4 hrs after Lidocaine Topical (lidocaine 5% topical film)?1 patch?Topically?Daily?remove patches after 12 hours. In belgian. on chest linagliptin (Tradjenta 5 mg oral tablet)?1?tab(s)?5?Milligram?By Mouth?Daily Metoprolol (Metoprolol Succinate ER 25 mg oral tablet, extended release)?0.5?tablet?By Mouth?Daily in AM nalOXONE (Narcan 4 mg/0.1 mL nasal spray)?1?spray(s)?4?Milligram?Naris, Left?Once?as needed?Other?To reverse opioid overdose, use one spray in one nostril. if an additionaldose is needed, alternate nostril, may repeat every 2 to 3 minutes until patient responds, call 911in the meantime rivaroxaban (Xarelto 20 mg oral tablet)?See Instructions?TAKE 1 TABLET BY MOUTH EVERY EVENINGWITH DINNER?1?tab(s)?20?Milligram?By Mouth?Daily before dinner sacubitril-valsartan (Entresto 24 mg-26 mg oral tablet)?1?tab(s)?By Mouth?2 times a day Sertraline (sertraline 100 mg oral tablet)?2?tab(s)?200?Milligram?By Mouth?Daily Spironolactone (spironolactone 50 mg oral tablet)?3?tab(s)?By Mouth?Daily in AM Trazodone (traZODone 100 mg oral tablet)?TAKE 1-2 TABLET BY MOUTH ONCE A DAY NEEDED FOR NIGHTTIME AWAKENING. Zolpidem (zolpidem 10 mg oral tablet)?1?tab(s)?10?Milligram?By Mouth?Daily at bedtime?as needed?as needed for insomnia ? Results Recent Labs BLOOD COUNT & DIFF WBC 5.2 k/mm3 ()?? 10/29/2024 23:59 RBC 4.12 m/mm3 (Low)?? 10/29/2024 23:59 Hgb 10.8 Gm/dL (Low)?? 10/29/2024 23:59 Hct 33.3 % (Low)?? 10/29/2024 23:59 MCV 80.8 femtoliters ()?? 10/29/2024 23:59 MCH 26.2 pg (Low)?? 10/29/2024 23:59 MCHC 32.4 Gm/dL (Low)?? 10/29/2024 23:59 Platelet Count 82 k/mm3 (Low)?? 10/29/2024 23:59 RDW-SD 45.7 femtoliters ()?? 10/29/2024 23:59 MPV 10.7 femtoliters ()?? 10/29/2024 23:59 Nucleated RBC (Automated) 0.0 #/100 WBC'S ()?? 10/29/2024 23:59 Abs. NRBC 0.0 k/mm3 ()?? 10/29/2024 23:59 Abs. Neut 3.3 k/mm3 ()?? 10/29/2024 23:59 Abs. Lymph 1.3 k/mm3 ()?? 10/29/2024 23:59 Abs. [place] 0.4 k/mm3 ()?? 10/29/2024 23:59 Abs. Eo 0.1 k/mm3 ()?? 10/29/2024 23:59 Abs. Baso 0.0 k/mm3 ()?? 10/29/2024 23:59 Neut % 64.5 % ()?? 10/29/2024 23:59 Lymph % 25.0 % ()?? 10/29/2024 23:59 [place] % 6.8 % ()?? 10/29/2024 23:59 Eos % 1.9 % ()?? 10/29/2024 23:59 Baso % 0.4 % ()?? 10/29/2024 23:59 Imm Gran 1.4 % ()?? 10/29/2024 23:59 Abs. Imm Gran 0.1 k/mm3 ()?? 10/29/2024 23:59 ?? CARDIAC Nt-Probnp 2659 pg/mL (High)?? 10/29/2024 23:59 High Sensitivity Troponin (HSTnT) 17 ng/L (High)?? 10/29/2024 23:59 ?? CHEM GENERAL Sodium 137 mmol/L ()?? 10/29/2024 23:59 Potassium 4.3 mmol/L ()?? 10/29/2024 23:59 Chloride 104 mmol/L ()?? 10/29/2024 23:59 Bicarbonate Level 22 mmol/L ()?? 10/29/2024 23:59 Anion Gap 11 mmol/L ()?? 10/29/2024 23:59 Glucose Level 219 mg/dL (High)?? 10/29/2024 23:59 BUN 15 mg/dL ()?? 10/29/2024 23:59 Creatinine-Blood 0.83 mg/dL ()?? 10/29/2024 23:59 Estimated GFR Creatinine 83 ML/MIN/1.73 M2 ()?? 10/29/2024 23:59 Calcium 8.5 mg/dL (Low)?? 10/29/2024 23:59 ?? HEME OTHER Hold Blue Top SPECIMEN DISCARDED AFTER 4 HOURS. ()?? 10/29/2024 23:59 ?? TOXICOLOGY/TDM Digoxin Level <0.4 ng/mL (Low)?? 10/29/2024 23:59 ?? URINE OTHER Est Creatinine Clearance 57.18 mL/min ()?? 10/30/2024 00:44 ?? VIROLOGY Influenza A PCR NEGATIVE ()?? 10/30/2024 02:59 Influenza B PCR NEGATIVE ()?? 10/30/2024 02:59 RSV PCR NEGATIVE ()?? 10/30/2024 02:59 COVID-19 PCR Specimen Source NASAL ()?? 10/30/2024 02:59 COVID-19 PCR Result NEGATIVE ()?? 10/30/2024 02:59 ? EKG study * Event Display: ECG 12-Lead Authored Date: Please click on pdf link to open report * Event Display: ECG 12-Lead Authored Date: Ventricular Rate: 102 BPM QRS Duration: 102 ms Q-T Interval: 380 ms QTC Calculation(Bazett): 495 ms R Sargeant: 32 degrees T Sargeant: 68 degrees Atrial fibrillation with rapid ventricular response Incomplete right bundle branch block Cannot rule out Anterior infarct , age undetermined QTcB > 480 msec Abnormal ECG When compared with ECG of 23-Oct-2024 15:01, No significant change was found Confirmed by IVAN PATE MD ([id number]) on 10/30/2024 2:45:16 PM [place]: IVAN PATE MD Cardiology * Event Display: Cardiac Rhythm Strips Authored Date: * Event Display: Cardiac Rhythm Strips Authored Date: * Event Display: Cardiac Rhythm Strips Authored Date: Hospital Progress note * Annamarie VASQUEZ, Shon W: PERFORM, MODIFY Event Display: Progress Note Hospital Authored Date: Patient: ??AMOR, JOSEPH ? Age:??58 Years?Sex:??Female?:??1965?? Patient Hx Provider Clinical Summary Primary Heart Failure [employer]. Gardner ?? Medical History HTN Diabetes type 2 Rheumatic fever s/p bioprosthetic mitral and tricuspid??valvuloplasty (2006) Permanent Afib:??On Xarelto Hx of left MCA stroke with aphasia CKD Asthma and RUTHY on CPAP Hypothyroidism Chronic lower abdominal wall wound ?? Heart Failure Specific History 58-year old Finnish-speaking woman with long-standing biventricular failure, HFpEF phenotype (EF approximately 35-40% on 04/27/21), pulmonary HTN??and RV dilation/reduction of systolic function.? Family Hx:??Family history is positive for??heart failure secondary to unclear etiology in her 41-year-old son??who had a cath which was unrevealing. ??Her mother at 50 years with a heartattack. ?Genetic testing may be warranted OP ?? Echo TTE 09/22/2024: The left ventricle is mildly dilated. The left ventricular wall thickness is mildly increased. The LV systolic function is moderately reduced . The left ventricular ejection fraction is 30-35 %. There is moderate global hypokinesis with regional variation. Unable to assess diastolic function . The left atrium is severely dilated. There is a annuloplasty ring in the mitral position. The mitral valve mean gradient is 9 mmHg at 81 bpm. There is moderate mitral regurgitation. The right ventricle isdilated. Right ventricular systolic function is moderately to severely reduced. There is pulmonary hypertension. The pulmonary artery systolic pressure estimation is 60-65 mmHg. The inferior vena cava is moderately dilated with poor inspiratory collapse consistent with elevated right atrial pressures. ?? TTE 04/19/2021: Normal LV size, mild concentric hypertrophy of LV LVEF 35 to 40% RV dilated, systolic function severely reduced Prior tricuspid valve repair ?? Heart Failure Specific Device??Therapy No ICD, pending GDMT and reassessment CardioMEMS??goal PAD 17 (14???20) ?? Heart Failure Specific Medical Therapy?? Prior to hospitalization: Amiodarone 200 mg daily Bumex 2 mg twice daily Dapagliflozin 10 mg daily Digoxin 0.125 mg daily Metoprolol XL 12.5 mg daily Spironolactone 150 mg daily Entresto 24-26 ?? History of Present Illness Admitted to [facility] via ED 10/30/24 for??progressively worsening shortness of breath for the past 5to 6 days.?? She reports that she was contacted by one of the providers who will monitor her CardioMEMS readings and instructed her to go to the emergency department as she was noted to have increased PA pressures.??EKG with no acute ischemic changes, chest x-ray suggestive of mild pulmonary edema however formal report is pending.?? NT proBNP elevated to 2659, troponin 16, 17 which is stable compared to her baseline, digoxin levels noted to be low at less than 0.4, flu/RSV/COVID-19 negative.?? Patient was given 2 mg of IV Bumex in the ED. ?? After reviewing her PAD pressures trends, it appears that for most of the month of October, her PADpressures have been above her range (>20), however, again it should be noted that the patient historically is not very compliant with consistent participation with the CardioMEMS??device or her medications. ?? Interim: -1L LR given 2/ -MEMS PAD low: 13, last in range on 10/31: 18 -Telemetry: Afib, hr 55-68 -SBP: 107-118 -Weight: 84.1 kg. 11/04: 85.5 kg. Admit wt 75 kg. Baseline wt ~75 kg -Labs reviewed:??Sodium 137, potassium 4.4, creatinine 1.1 ?? Diuresing on: Dapagliflozin 10 mg started today Spironolactone 100 mg started 11/04 --Bumex held for MECCA-->??UO 1500 ml/24 hr? Inpatient HF meds:?? Amiodarone 200 mg daily Digoxin 0.0625 mg started today (reduction from 0.125mg per Pharmacy due to MECCA) Metoprolol XL 12.5mg daily Entresto 24-26 started 2/ ? Assessment: Pt feeling better, not on O2 today ?? Functional Status:??NYHA class III (moderate functional limitations related to heart failure),??_ Volume Status:??Hypovolemic on CardioMEMS ?? Recommend: -Start PO Bumex 2mg once daily at discharge (tomorrow) -Encourage CardioMEMS use at home -HF follow up on 11/11 for volume assessment, will need Echo reassessment??in ~ 3 months to assess candidacy for ICD/primary prevention ?? Shon De Luna DNP Discussed with Dr. Brito ?? I spent 35??minutes on the evaluation and management of this patient including cavx-ex-ndcc and ewfnwqx-yy-[id number] time. Physical Exam Vitals & Measurements T:??97.9?F?? HR:??68??(Peripheral)?? RR:??17?? BP:??118/45?? SpO2:??91%?? HT:??155??cm?? WT:??84.1??kg?? BMI:??35.21?? Weight lb/oz: 185 lb 7 oz Intake and Output Today's Intake Total?240?? Today's Output Total?200?? Today's Urine Voided?200?? Today's Balance? 40?? Yesterday's Intake Total?960?? Yesterday's Output Total? 1500?? Yesterday's Urine Voided? 1500?? Yesterday's Balance? -540?? Clinical Range's Intake Total? 4680?? Clinical Range's Output Total? 4601?? Clinical Range's Total Stool Vol?1?? Clinical Range's Total Urine Voided? 4600?? Clinical Range's Balance ? 79?? Assessment/Plan 1.??CHF, systolic + severe right HF, rEF 50-55% 2.??Diastolic dysfunction 3.??Nonischemic cardiomyopathy 4.??Morbid obesity(actual 44.58 as of 08/05/2014) -> BMI 39 2016 5.??Acute HFrEF (heart failure with reduced ejection fraction) 6.??Noncompliance CHF exacerbation Complicated UTI (urinary tract infection) Hypothyroidism Pyelonephritis Type 2 diabetes mellitus with hyperglycemia Allergies Motrin Other Environmental Allergy??(skin irritation, ekg adhesives) Percocet 5/325??(rash) Tylenol??(rash) aspirin ibuprofen??(tachycardia) lisinopril??(rash) Hospital Medications Medications (28) Active SCHEDULED: (19) Albuterol 90mcg/Inhalation Inhaler HFA (Ventolin 90 mcg Inhaler) ??180 mcg 2 puffs, Inhalation, Every 4 hours Allopurinol 300 mg Tablet (allopurinol 300 mg oral tablet) ??300 mg, By Mouth, 2 times a day Amiodarone 200 mg Tablet (amiodarone 200 mg oral tablet) ??200 mg, By Mouth, Daily in AM Atorvastatin 80 mg Tablet (atorvastatin 80 mg oral tablet) ??80 mg, By Mouth, Daily at bedtime Breo Ellipta 200 mcg / 25 mcg Inhaler (Breo Ellipta 200 mcg-25 mcg Inhaler) ??1 puffs, Inhalation, Daily BuPROPion XL 150 mg Tablet (BuPROpion XL Tablet) ??450 mg, By Mouth, Daily Dapagliflozin 10 mg Tablet (Dapagliflozin Tablet) ??10 mg, By Mouth, Daily Digoxin 0.125 mg Tablet (digoxin 0.125 mg oral tablet) ??0.0625 mg, By Mouth, Every other day Insulin Glargine 100 units/mL Inj (Insulin Glargine Inj) ??22 units 0.22 mL, Subcutaneous Injection, Daily in AM Insulin Lispro 100 units/mL Inj (Insulin LISPRO Sliding Scale) ??3-11 units, Subcutaneous Injection, 3 times a day before meals Levothyroxine 175 mcg Tablet (levothyroxine 175 mcg (0.175 mg) oral tablet) ??175 mcg, By Mouth, Daily Metoprolol 25 mg XL Tablet (Metoprolol Succinate ER 25 mg oral tablet, extended release) ??12.5 mg,By Mouth, Daily in AM NaCl 0.9% Flush 3ml (NaCL 0.9% Flush) ??3 mL, IV Push, Every 8 hours Rivaroxaban 15 mg Tablet (Xarelto) ??15 mg, By Mouth, Daily at supper Sacubitril-Valsartan 24 mg-26 mg Tablet (Entresto 24 mg-26 mg oral tablet) ??1 tablet, By Mouth, 2 times a day Sertraline 50 mg Tablet (sertraline 50 mg oral tablet) ??200 mg, By Mouth, Daily Silver dressing gel (44.4mL) (SilvaSorb) ??1 application, Topically, Every other day Spironolactone 100 mg Tablet (spironolactone 100 mg oral tablet) ??100 mg, By Mouth, Daily in AM Vashe Wound Care Emollient/Cleanser (Vashe Topical Solution) ??475 mL, Topically, Daily CONTINUOUS: (0) PRN: (9) Al hydroxide/Mg hydroxide/simethicone 200 mg-200 mg-20 mg/5 mL Susp UD (Maalox Plus Liquid) ??15 mL, By Mouth, 4 times a day Melatonin 3 mg Tablet (Melatonin Tablet) ??3 mg, By Mouth, Daily at bedtime MorPHINE 2 mg Inj Syringe (MorPHINE Inj) ??2 mg, IV Push Slowly, Every 4 hours NaCl 0.9% Flush 3ml (NaCL 0.9% Flush) ??3 mL, IV Push, Every 8 hours Ondansetron 2mg/mL Inj (2mL Vial) (Zofran Inj) ??4 mg, IV Push, Every 6 hours OxyCODONE 5 mg IR Tablet (oxyCODONE 5 mg oral tablet) ??5 mg, By Mouth, Every 6 hours Polyethylene Glycol 17 Gm Powder (MiraLax Powder) ??17 Gm 1 pack/packet, By Mouth, Daily Trazodone 50 mg Tablet (traZODone 50 mg oral tablet) ??100 mg, By Mouth, Daily at bedtime Zolpidem 5 mg Tablet (Zolpidem Tablet) ??10 mg, By Mouth, Daily at bedtime Lab Results Heart Failure Labs Nt-Probnp:??2659 pg/mL??High (10/29/24) Cholesterol: 116 mg/dL (09/23/24) Triglycerides:??333 mg/dL??High (09/23/24) HDL Cholesterol:??21 mg/dL??Low (09/23/24) LDL Cholesterol: 28 mg/dL (09/23/24) Non HDL Cholesterol: 95 mg/dL (09/23/24) Diagnostic Impression ECG ECG 12-Lead ?? 23:55:48 Ventricular Rate: 102 BPM QRS Duration: 102 ms Q-T Interval: 380 ms QTC Calculation(Bazett): 495 ms R Sargeant: 32 degrees T Sargeant: 68 degrees Atrial fibrillation with rapid ventricular response Incomplete right bundle branch block Cannot rule out Anterior infarct , age undetermined QTcB > 480 msec Abnormal ECG When compared with ECG of 23-Oct-2024 15:01, No significant change was found Confirmed ?? Signed By: Ivan Pate MD ?? ECG 12-Lead ?? 23:55:48 Please click on pdf link to open report ?? Signed By: Ivan Pate MD Stress Test No qualifying data available. Echo Echocardiogram - Complete ?? 16:04:18 Summary The left ventricle is mildly dilated. The left ventricular wall thickness is mildly increased. The LV systolic function is moderately reduced . The left ventricular ejection fraction is 30-35 %. There is moderate global hypokinesis with regional variation. Unable to assess diastolic function . ?? The left atrium is severely dilated. ?? There is a annuloplasty ring in the mitral position. The mitral valve mean gradient is 9 mmHg at 81 bpm. There is moderate mitral regurgitation. ?? The right ventricle is dilated. Right ventricular systolic function is moderately to severely reduced. ?? There is pulmonary hypertension. The pulmonary artery systolic pressure estimation is 60-65 mmHg. ?? The inferior vena cava is moderately dilated with poor inspiratory collapse consistent with elevated right atrial pressures. ?? Comparison Comparison is made to the study of April 27, 2021. Prior study is limited for serial comparison. ?? Signature ?? Signed By: Ivan Pate MD, RN, Shyla: PERFORM, SIGN, VERIFY Event Display: Progress Note Hospital Authored Date: Patient: JOSEPH CHINCHILLA Age: 58 years Sex: Female : 1965 Associated Diagnoses: None Author: Maxi CARIAS, Shyla Findings Problem Related to Alteration in Cardiac Function (new) : Alteration in Cardiac Function/new 11/04/2024 19:00 EST Alteration in Cardiac Status Related to Other: chf exacerbation ( has cardio MEMS) Goals & Outcomes, Cardiac Status Pt will resume/maintain adequate cardiac output, Pt will resume/maintain adequate hemodynamic status, Pt will resume/maintain adequate respiratory function, Pt will resume/maintain intact neuro function, Pt will maintain adequate GI/ function appropriate for pt, Pt will maintain adequate nutrition status, Pt/caregiver will state understanding of diagnosis, Pt/caregiver will state strategies to reduce risk factors Cardiac Interventions Implemented Assess/monitor cardiac status BH Goals/Interventions, Cardiac Yes Cardiac, Problem Start 10/30/2024 22:00 Reviewed Plan with, Cardiac Status Patient Patient Progression, Cardiac Status Patient progressing according to plan . Evaluation Assumed pt. care at 11:00 am today. She is Finnish speaking mainly and alert X3. LS wnl and VSS. She c.o of back pain and abdominal pain. Morphine given with good effect. Patient is eating and eliminating well. Purposeful RN rounding with call schulz in reach and safety measures implemented. . * Chambers DO, Fredy: PERFORM Chambers DO, Fredy: PERFORM Event Display: Progress Note Hospital Authored Date: Patient: ??JOSEPH CHINCHILLA ? Age:??58 Years?Sex:??Female?:??1965?? Subjective Today she is not experiencing any chest pain,??her breathing??is not causing her shortness of breath at baseline, but she does feel some when she walks around. ??Not endorsing any swelling.?? She does endorse??pain.?? This morning the??intravenous morphine was discontinued. Review of Systems A focused review of systems was completed and is otherwise negative except as mentioned above. Allergies Allergies ?(Active and Proposed Allergies Only) lisinopril? (Severity: Unknown severity, Onset: Unknown) ?Reactions: rash aspirin? (Severity: Unknown severity, Onset: Unknown) Motrin? (Severity: Unknown severity, Onset: Unknown) Other Environmental Allergy? (Severity: Unknown severity, Onset: Unknown) ?Reactions: ekg adhesives, skin irritation Tylenol? (Severity: Unknown severity, Onset: Unknown) ?Reactions: rash ibuprofen? (Severity: Unknown severity, Onset: Unknown) ?Reactions: tachycardia, rash Percocet 5/325? (Severity: Unknown severity, Onset: Unknown) ?Reactions: rash ?Comments: patient tolerates IV morphine ? Past Medical History Active Problems(35) Anal fissure Asthma Asthma Atrial fibrillation/flutter CHF, systolic + severe right HF, rEF 50-55% Chronic idiopathic thrombocytopenia Chronic kidney disease (CKD) Chronic right heart failure Chronic systolic heart failure CKD stage 3 secondary to diabetes Diabetes Diastolic dysfunction Gout Heart failure with preserved ejection fraction Hemorrhoids HTN (hypertension) Hypothyroidism Inflammatory polyps of colon Insulin dependent type 2 diabetes mellitus Microcytic anemia Mitral regurgitation, mild to moderate; moderate tricusplid regurgitation Mood disorder Morbid obesity(actual 44.58 as of 08/05/2014) -> BMI 39 2015 Nonischemic cardiomyopathy RUTHY on CPAP, nonadherent Osteoarthritis Pelvic pain in female Pulmonary hypertension, moderate Rectal bleeding - known hemorrhoids, f/u recommended w/ colorectal Rheumatic valve disease - Cardiac surgery in 2007at [facility] which included an ASD closure, mitral valve ring and tricuspid valve ring repair in 2006 at [facility] Right heart failure Severe obesity (BMI 35.0-39.9) with comorbidity Finnish speaking patient Steatohepatitis, non-alcoholic Volume overload ? Past Surgical History Colonoscopy, flexible, proximal to splenic flexure; diagnostic, with or without collection of specimen(s) by brushing or washing, with or without colon decompression (separate procedure): 04/24/14 Upper gastrointestinal endoscopy including esophagus, stomach, and either the duodenum and/or jejunum as appropriate; diagnostic, with or without collection of specimen(s) by brushing or washing (separate procedure): 04/24/14 Diagnostic hysteroscopy, D&C in and 06/2015 for postmenopausal bleeding Laparoscopy section x3 Cholecystectomy ASD closure, mitral valve ring and tricuspid valve ring repair at [facility] 2006 ? Social History Alcohol Details:??Use: Never. Employment/School Details:??Status: Disabled. ??Other: Disabled in 2004. Exercise Details:??Self assessment: Fair condition. Home/Environment Details:??Living situation: Home/Independent. ??Lives with: daughter. Nutrition/Health Details:??Diet: Diabetic. Sexual Details:??Sexually involved in last 6 months: No. Substance Abuse Details:??Use: Never. Tobacco Details:??Never smoker, Tobacco user in household: Yes. Details:??Never smoker, Tobacco user in household: No. Details:??Never smoker ? Objective Measurements?? Height: 155 cm (11/04/24) Weight: 85.5 kg (11/04/24) Dry Weight: 75 kg (10/30/24) Body Mass Index:??35.21 kg/m2??Critical (10/30/24) ? Vital Signs?? Temperature: 98 DegF (11/04/24 13:24:00) Temperature Route: Oral (11/04/24 13:24:00) Pulse Rate: 72 bpm (11/04/24 13:24:00) Respiratory Rate: 17 br/min (11/04/24 13:24:00) Systolic Blood Pressure:??144 mm Hg??High (11/04/24 13:24:00) Diastolic Blood Pressure: 59 mm Hg (11/04/24 13:24:00) Blood pressure sites: Arm, right (11/04/24 13:24:00) Mean Arterial Pressure: 87 mm Hg (11/04/24 13:24:00) Pulse Pressure: 85 mm Hg (11/04/24 13:24:00) Oxygen Saturation:??93 %??Low (11/04/24 13:24:00) Liters per Minute: 1 L/min (11/04/24 08:00:00) Mode of Delivery (Oxygen): Room air (11/04/24 13:24:00) Early Warning Score: 5 (02/04/25 13:25:06) ? Physical Exam Constitutional: Alert, in no distress. Mental Status: Oriented to person, place and time. Head:??Normocephalic. Eyes: Pupils are equal, round Extraocular muscles intact. Ear, Nose and Throat: mucous membranes moist. Respiratory:??Normal breath sounds, no wheezing or rhonchi Cardiovascular: S1 S2. No murmurs, rubs or gallops. No edema. No JVD. Gastrointestinal: Abdomen non-distended.?? Mild tenderness to the epigastric and right upper quadrant.?? Negative Hernandez sign, patient does not have a gallbladder Neurologic: Cranial nerves II-XII grossly intact. No focal neurological deficits. Musculoskeletal: No cyanosis or clubbing. No gross deformities. Normal range of motion. Psychiatric: Normal mood and affect?? Assessment/Plan ??58-year-old F??with??PMHx of HTN,??DM type 2 insulin-dependent,??rheumatoid heart disease??s/p??bioprosthetic mitral and tricuspid??valvuloplasty, A-fib on Xarelto,??biventricular??heart failure,??HFrEF with LVEF??30 to 35%??s/p CardioMEMS,??pulmonary HTN,??Hx of left MCA stroke, CKD, asthma,??RUTHY on CPAP, hypothyroidism, gout, anemia, anxiety/depression, hypothyroidism, chronic lower abdominalwall wound??presented to the ED with??complaints of??progressively worsening shortness of breath for the past 5 to 6 days.?She was hypervolemic on exam??with elevated??PAD readings.??Patient has ahistory of noncompliance with CardioMEMS device or her medications,??started on Bumex drip for??aggr essive diuresis.??Admitted to the floor for further management of her??heart failure. ?? Acute kidney injury Etiology:??Overdiuresis Status: Baseline 0.8.??Renal function??continues to improve,??creatinine is now 1.29.? Plan: -Continue to monitor renal function ? Acute on chronic HFrEF (I50.9):??Biventricular heart failure with LVEF 30 to 35% status post CardioMEMS Rheumatoid heart disease status post bioprosthetic mitral and tricuspid valvuloplasty Pulmonary hypertension Biventricular heart failure with LVEF 30??to 35% s/p CardioMEMS.??Well-known to heart failure clinic.? Etiology of her heart failure exacerbation most likely??due to medication noncompliance Entresto and spironolactone were started yesterday. Per input from heart failure team,??we obtained a digoxin level??this morning??Which was 0.5.??Theyrecommend??after??verifying that level is low, starting at??a dose of??0.0625??mg every other day. ?? Plan -Continue reduced dose of spironolactone 100 daily -Continue Entresto at home dose -Continue Metoprolol ER 12.5mg daily.?? -Restart??digoxin at??a dose of??0.0625 mg every other day -Plan to start??dapagliflozin??10 mg daily tomorrow. -Stress importance of cardiomems??usage??for resumption of Bumex 2 mg twice daily outpatient Strict I's and O's Daily standing weights??if possible telemetry monitor -HF clinic follow up in 1-2 weeks ?? Atrial fibrillation:??Continue with metoprolol, amiodarone, Xarelto Digoxin was listed as a home med.??She wasn't taking as dig level was low.?? discontinue dig given worsening renal function. change rivaroxiban dose to 15 mg daily until renal function improves (GFR > 50). ?? Type 2 diabetes mellitus with hyperglycemia??(E11.65) Glucoses??within target range??with??lantus and sliding scale ?? Chronic/stable/resolved medical conditions: Chronic pain:??continue??oxycodone, morphine Anxiety/depression:??Continue with sertraline, bupropion Insomnia:??Continue with zolpidem as needed, trazodone Hypothyroidism:??Continue with levothyroxine Hypertension:??Restarted spironolactone at reduced dose, metoprolol Hyperlipidemia:??Continue with atorvastatin Asthma:??continue with albuterol inhaler, on Symbicort---substituted with??Breo while inhouse as itis non formulary Thrombocytopenia:??Chronic, continue to monitor CBC History of gout:??Continue with allopurinol RUTHY:??CPAP QHS and with naps ?? Quality Measures: Code status:??Full code Diet:??Cardiac diet DVT prophylaxis:??On Xarelto ?? Patient care discussed with Dr. Ney Jules, DO PGY1 ? Attending Attestation: I saw and examined the patient with the resident team and reviewed the charton the day of service. ??I have discussed the case and its management??with the resident as documented in the resident note on the day of service.??I agree with the resident's note and plan as documented.?? low dose dig 0.0625 daily may be a reasonable dose as in [facility] note.?? Hopefully home 11/05 if stable volume status and stable renal function. Walter Marina MD ?? Consult note * Blayne Iglesias RN: VERIFY, PERFORM, MODIFY, SIGN, MODIFY, SIGN Event Display: Consultation Note Authored Date: Patient: JOSEPH CHINCHILLA Age: 58 years Sex: Female : 1965 Associated Diagnoses: None Author: Blayne Iglesias RN History of Presenting Problem abdomen 02/17/22 Midline Abdomen 07/07/22 lower midline abdominal wound 07/31/23 lower abdominal wound 12/17/23 Mid Abdominal wound 11/04/24 Date of Service 11/04/2024 Reason for referral Wound: Description Location- Midline Abdomen Etiology- Nonhealing surgical wound Measurements- 2.0cm x 0.5cm x 0.3cm Wound Bed- linear full thickness skin loss with moist yellow slough and red tissue Edges- well defined, minimal maceration at 6 o'clock Elidia Wound- crusted sanguinous drainage Drainage- none Odor- none No fluctuance or induration Goals- Silvasorb for moist wound healing with antimicrobial activity, Vashe for antimicrobial activity and removal of bioburden . Wound RN consult entered to assess abdomen wound and make topical recommendations. Patient presented with SOB x 5-6 days and was admitted for HF management. Patient has PMH of HTN, DM2, rheumatoid heart disease s/p bioprosthetic mitral and tricuspid valvoplasty, AFIB, biventricular heart failure with LVEF 30-35% s/p CardioMEMS, pulmonary HTN, L MCA stroke, CKD asthma, RUTHY, hypothyroid, gout, anxiety and depression. Prior to entering the room, direct care RN states patient is appropriate for consultation. Jason has been previoysky seen by multiple times by the inpatient wound care team, priya fredy was last seen by wound RN Lelo Fowler on 12/07/23. Please see note for more details. skiver machine operator outside of the room and was able to translate during the consultation. Upon entering the room patient is lying in bed. Wound RN role explained and patient is agreeable to assessment as well as ph otodocumentation. Patient repositioned her hospital gown and her abdominal midline creasefold for visualization of nonhealing surgical wound, which is described in detail above. Joseph states the wound constantly heals and reopens. She states she keeps the area clean and covers wound area but unable to recall what she uses. Joseph states, she is very forgetful at times since her stroke. Chronic nonhealing wound healing education at the bedside. We covered the wound with temporarydressing prior to leaving the room. D/t the chronicity of the wound, SilvaSorb and Vashe for moist wound healing and antimicrobial properties. Recommendations given to direct care RN and TigerConnectmessage sent to DO Sloane Jules as well. Recommendations: 1.) Midline Abdomen: Apply Vashe moistened gauze over wound bed. Leave in plast for 5-10mins. Pat Dry. Apply Silvasorb gel (obtained from pharmacy) to wound bed. Cover with ABD pad. Wrap with Justin and secure with tape. Change every other day. 2.) Continue use of specialty bed/low air loss mattress 3.) Turn and reposition every 2 hours and PRN 4.) Continue incontinence care as well as moisture management; do not utilize Mepilex foam dressingwith incontinence. 5.) Continue to offload bony prominences 6.) Float heels 7.) Continue to provide optimal nutritional support 8.) Provide Gaymar cushion to chair when patient OOB Patient at increased risk for pressure injury development d/t mobility, moisture and current integumentary status, please ensure to utilize pressure prevention interventions Please reconsult for wound care RNs for deterioration in wound/skin status. Plan Time spent 31-45 minutes * Rajan VASQUEZ, Moustapha Islas: PERFORM, MODIFY Event Display: Consultation Note Authored Date: Patient: ??JOSEPH CHINCHILLA ? Age:??58 Years?Sex:??Female?:??1965?? Patient Hx Provider Clinical Summary Primary Heart Failure [employer] Dr. Cassi Barreto (consulting HF attending) ?? Dr. Miguel Angel Gardner (primary HF blockers skiver) ?? Medical History Hypothyroidism Asthma Gout HLD HTN Type 2 DM ?? Heart Failure Specific History Patient is a 58-yo Finnish-speaking woman with long-standing biventricular failure, HFrEF phenotype(EF approximately 35-40% on 04/27/21) and RV dilation/reduction of systolic function.?? Non-ischemiccardiomyopathy r/t rheumatic valve disease s/p mitral and tricuspid valvuloplasty (2006), RUTHY on CPAP, DM2, HTN, pAT/AF (on Xarelto for a.c., amiodarone & digoxin), ischemic left MCA stroke with resulting aphasia.? Family Hx:??Family history is positive for??heart failure secondary to unclear etiology in her 41-year-old son??who had a cath which was unrevealing. ??Her mother at 50 years with a heartattack. ?? Interval Hx: -Recently admitted 09/22/24 - 09/23/24:??For chest pain/tightness??mainly associated with exertional dyspnea, associated with significant orthopnea, faint crackles??on auscultation along with trace to 1+ pitting pedal edema lower extremities.?? Overall??suggesting mild CHF exacerbation.?? She received sublingual nitro x 2 as well as Dilaudid x 2 for pain.?? Troponins 22 - 42. High TSH. No concerning EKG changes.?? No evidence of ischemia.?? She was discharged with lidocaine patches. ?? Echo TTE 09/22/2024: The left ventricle is mildly dilated. The left ventricular wall thickness is mildly increased. The LV systolic function is moderately reduced . The left ventricular ejection fraction is 30-35 %. There is moderate global hypokinesis with regional variation. Unable to assess diastolic function . The left atrium is severely dilated. There is a annuloplasty ring in the mitral position. The mitral valve mean gradient is 9 mmHg at 81 bpm. There is moderate mitral regurgitation. The right ventricle isdilated. Right ventricular systolic function is moderately to severely reduced. There is pulmonary hypertension. The pulmonary artery systolic pressure estimation is 60-65 mmHg. The inferior vena cava is moderately dilated with poor inspiratory collapse consistent with elevated right atrial pressures. ?? TTE 04/19/2021: Normal LV size, mild concentric hypertrophy of LV LVEF 35 to 40% RV dilated, systolic function severely reduced Prior tricuspid valve repair ?? Heart Failure Specific Device??Therapy CardioMEMS goal PAD 17 (14???20) ---??Baseline loop:??Bumex??2mg BID??with standard intervention. ?? Heart Failure Specific Medical Therapy Prior to Hospitalization (10/30/24): Amiodarone 200 mg daily Bumex 2 mg twice daily Dapagliflozin 10 mg daily Digoxin 0.125 mg daily Metoprolol XL 12.5 mg daily Spironolactone 150 mg daily Entresto 24-26 mg BID ?? Atorvastatin??80 mg daily Levothyroxine 0.175 mg daily ?? Interim: -Oxygen saturation noted at 97%?? while on??Room Air. -Labs reviewed: BUN/Cr at 14/0.81. K at 4. -I/O today with urine output?? and net balance of?? . -Admission weight: 76.5 kg (bertha ~75 kg)? Diuresing on: Bumex??2mg IVP BID ?? Inpatient HF meds:?? Amiodarone 200 mg daily Bumex 2 mg twice daily Dapagliflozin 10 mg daily Digoxin 0.125 mg daily Metoprolol XL 12.5 mg daily Spironolactone 150 mg daily Entresto 24-26 mg BID ?? History of Present Illness ?? Patient with??long-standing biventricular failure, HFrEF phenotype (EF approximately 35-40% on 04/27/21) and RV dilation/reduction of systolic function,??well-known to the HF clinic reports that she has been having progressively worsening shortness of breath for the past 5 to 6 days.?? She reports that she was contacted by one of the providers who will monitor her CardioMEMS readings and instructed her to go to the emergency department as she was noted to have increased PA pressures.?? She reports that one of her medications was recently increased however she does not know the name of the medications but does tell me that it is a medication that makes me pee , likely Bumex which she is on 2mg twice daily at home.?? Denies any chest pain, does report having some nausea, no vomiting, no abdominal pain, diarrhea, constipation or dysuria EKG with no acute ischemic changes, chest x-ray sugge stive of mild pulmonary edema however formal report is pending.?? proBNP elevated to 2659, [id number], 17 which is stable compared to her baseline, digoxin levels noted to be low at less than 0.4, flu/RSV/COVID-19 negative.?? Patient was given 2 mg of IV Bumex in the emergency department with unknown response just yet d/t lack of I/O's. ?? Physical Exam: On exam, JVP is evident up to patient's earlobe.??Lungs are??clear to auscultation bilaterally. No crackles, and/or rales??heard. Mild wheezing noted?? S1 S2, irregular rhythm but controlled rate. Nomurmurs auscultated.?? No lower leg edema evident bilaterally.? Assessment ?? Today, patient is hypervolemic on exam given her JVD up to the patient's earlobe. Her most current Cardiomems PAD reading was 33 which was most likely taken at home since there are no cardiomems machines in the ED. Historically, the patient has had issues with complying regularly with using the cardiomems device. Although not recorded on the [facility] website,??the patient reported that she has beencalled by the HF office within the past few days (per the patient ~3 days ago) for high PAD pressures to do an intervention which is doubling the dose of Bumex for at least 2 days. After reviewing her PAD pressures trends, it appears that for most of the month of October, her PAD pressures have been above her range (>20), however, again it should be noted that the patient historically is not very compliant with consistent participation with the cardiomems device or her medications. ?? Given her continued hypervolemia, it would be best transition her to a Bumex drip for more aggressive diuresis.? Plan ~Start Bumex drip at 1 mg/hr. If not responding adequately to Bumex drip, may consider Metolazone 2.5 mg IVP. ~afternoon repeat BMP bloodwork especially after initiating patient on Bumex drip. ~Admit to floor level care. ~Strict I&O's please and Daily standing weights! ?? ~Consider genetic testing outpatient for possible hereditary component to HF. ? Functional Status:??NYHA class IV (debilitating functional limitations related to heart failure),??_ Volume Status:??Hypervolemic ?? Discussed and in??agreement??with Dr. Barreto, HF attending physician. ?? Moustapha Tolentino DNP Physical Exam Vitals & Measurements T:??98.1?F?? HR:??84??(Peripheral)?? RR:??16?? BP:??133/83?? SpO2:??94%?? HT:??155??cm?? WT:??75??kg?? BMI:??31.22?? Weight lb/oz: 165 lb 6 oz Assessment/Plan 1.??CHF, systolic + severe right HF, rEF 50-55% 2.??Diastolic dysfunction 3.??Nonischemic cardiomyopathy 4.??Morbid obesity(actual 44.58 as of 08/05/2014) -> BMI 39 2016 5.??Acute HFrEF (heart failure with reduced ejection fraction) 6.??Noncompliance CHF exacerbation Complicated UTI (urinary tract infection) Hypothyroidism Pyelonephritis Type 2 diabetes mellitus with hyperglycemia Allergies Motrin Other Environmental Allergy??(skin irritation, ekg adhesives) Percocet 5/325??(rash) Tylenol??(rash) aspirin ibuprofen??(tachycardia) lisinopril??(rash) Home Medications Albuterol: 2 puffs, Inhalation, Every 4 hours Allopurinol: 300 mg = 1 tablet, By Mouth, 2 times a day amiODARONE: 1 tablet, By Mouth, Daily in AM Atorvastatin: 80 mg, By Mouth, Daily at bedtime Bumetanide: 2 mg = 1 tablet, By Mouth, 2 times a day BuPROpion: 450 mg = 1.5 tablet, By Mouth, Daily dapagliflozin: 10 mg = 1 tablet, By Mouth, Daily Digoxin: 1 tablet, By Mouth, Daily in AM fluticasone-vilanterol: 1 puffs, Inhalation, Daily Insulin Glargine: See Instructions, Please take 18 units daily in the morning.E11.65 Insulin Lispro: See Instructions, Subcutaneous Infusion, Please take at least 5- 10 minutes before meals 3 times a day per the scale: BG 100-149: 6 units ? ; BG 150-199: 7 units; BG 200-249: 8 units; BG 250-299: 9 units; BG 300-349: 10 units; BG 350-399: 11 units; BG >400: 12 units; E10.9 or E11.65; MDD 40... Levothyroxine: 175 mcg, By Mouth, Daily, on an empty stomachwith plenty of wateras a single daily dose at least 1 hour before breakfast and other medicationsavoid antacids, calcium, or iron for at least 4 hrs before or 4 hrs after Lidocaine Topical: 1 patch, Topically, Daily, remove patches after 12 hours. In belgian. on chest linagliptin: 5 mg = 1 tablet, By Mouth, Daily Metoprolol: 0.5 tablet, By Mouth, Daily in AM nalOXONE: 4 mg = 1 sprays, Naris, Left, Once, PRN (Other), To reverse opioid overdose, use one spray in one nostril. if an additional dose is needed, alternate nostril, may repeat every 2 to 3 minutes until patient responds, call 911 in the meantime rivaroxaban: 20 mg = 1 tablet, By Mouth, Daily before dinner sacubitril-valsartan: 1 tablet, By Mouth, 2 times a day Sertraline: 200 mg = 2 tablet, By Mouth, Daily Spironolactone: 3 tablet, By Mouth, Daily in AM Trazodone: TAKE 1-2 TABLET BY MOUTH ONCE A DAY NEEDED FOR NIGHTTIME AWAKENING. Zolpidem: 10 mg = 1 tablet, By Mouth, Daily at bedtime, PRN (as needed for insomnia) Hospital Medications Medications (24) Active SCHEDULED: (18) Albuterol 90mcg/Inhalation Inhaler HFA (Ventolin 90 mcg Inhaler) ??180 mcg 2 puffs, Inhalation, Every 4 hours Allopurinol 300 mg Tablet (allopurinol 300 mg oral tablet) ??300 mg, By Mouth, 2 times a day Amiodarone 200 mg Tablet (amiodarone 200 mg oral tablet) ??200 mg, By Mouth, Daily in AM Atorvastatin 80 mg Tablet (atorvastatin 80 mg oral tablet) ??80 mg, By Mouth, Daily at bedtime Breo Ellipta 200 mcg / 25 mcg Inhaler (Breo Ellipta 200 mcg-25 mcg Inhaler) ??1 puffs, Inhalation, Daily Bumetanide 0.25 mg/mL Inj (Bumex Inj) ??2 mg 8 mL, IV Push Slowly, 2 times a day BuPROPion XL 150 mg Tablet (BuPROpion XL Tablet) ??450 mg, By Mouth, Daily Dapagliflozin 10 mg Tablet (Dapagliflozin Tablet) ??10 mg, By Mouth, Daily Digoxin 0.125 mg Tablet (digoxin 0.125 mg oral tablet) ??125 mcg, By Mouth, Daily in AM Insulin Glargine 100 units/mL Inj (Insulin Glargine Inj) ??18 units 0.18 mL, Subcutaneous Injection, Daily in AM Insulin Lispro 100 units/mL Inj (Insulin LISPRO Sliding Scale) ??2-10 units, Subcutaneous Injection, 3 times a day before meals Levothyroxine 175 mcg Tablet (levothyroxine 175 mcg (0.175 mg) oral tablet) ??175 mcg, By Mouth, Daily Metoprolol 25 mg XL Tablet (Metoprolol Succinate ER 25 mg oral tablet, extended release) ??12.5 mg,By Mouth, Daily in AM NaCl 0.9% Flush 3ml (NaCL 0.9% Flush) ??3 mL, IV Push, Every 8 hours Rivaroxaban 20 mg Tablet (Xarelto) ??20 mg, By Mouth, Daily at supper Sacubitril-Valsartan 24 mg-26 mg Tablet (Entresto 24 mg-26 mg oral tablet) ??1 tablet, By Mouth, 2 times a day Sertraline 50 mg Tablet (sertraline 50 mg oral tablet) ??200 mg, By Mouth, Daily Spironolactone 100 mg Tablet (spironolactone 100 mg oral tablet) ??150 mg, By Mouth, Daily in AM CONTINUOUS: (0) PRN: (6) Al hydroxide/Mg hydroxide/simethicone 200 mg-200 mg-20 mg/5 mL Susp UD (Maalox Plus Liquid) ??15 mL, By Mouth, 4 times a day Melatonin 3 mg Tablet (Melatonin Tablet) ??3 mg, By Mouth, Daily at bedtime NaCl 0.9% Flush 3ml (NaCL 0.9% Flush) ??3 mL, IV Push, Every 8 hours Ondansetron 2mg/mL Inj (2mL Vial) (Zofran Inj) ??4 mg, IV Push, Every 6 hours Trazodone 50 mg Tablet (traZODone 50 mg oral tablet) ??100 mg, By Mouth, Daily at bedtime Zolpidem 5 mg Tablet (Zolpidem Tablet) ??10 mg, By Mouth, Daily at bedtime Lab Results Heart Failure Labs Nt-Probnp:??2659 pg/mL??High (10/29/24) Cholesterol: 116 mg/dL (09/23/24) Triglycerides:??333 mg/dL??High (09/23/24) HDL Cholesterol:??21 mg/dL??Low (09/23/24) LDL Cholesterol: 28 mg/dL (09/23/24) Non HDL Cholesterol: 95 mg/dL (09/23/24) Diagnostic Impression ECG ECG 12-Lead * Preliminary * ?? 23:55:48 Please click on pdf link to open report ?? ECG 12-Lead * Preliminary * ?? 23:55:48 Ventricular Rate: 102 BPM QRS Duration: 102 ms Q-T Interval: 380 ms QTC Calculation(Bazett): 495 ms R Sargeant: 32 degrees T Sargeant: 68 degrees Atrial fibrillation with rapid ventricular response Incomplete right bundle branch block Cannot rule out Anterior infarct , age undetermined QTcB > 480 msec Abnormal ECG When compared with ECG of 23-Oct-2024 15:01, No significant change was found ?? [place]: , Stress Test No qualifying data available. Echo Echocardiogram - Complete ?? 16:04:18 Summary The left ventricle is mildly dilated. The left ventricular wall thickness is mildly increased. The LV systolic function is moderately reduced . The left ventricular ejection fraction is 30-35 %. There is moderate global hypokinesis with regional variation. Unable to assess diastolic function . ?? The left atrium is severely dilated. ?? There is a annuloplasty ring in the mitral position. The mitral valve mean gradient is 9 mmHg at 81 bpm. There is moderate mitral regurgitation. ?? The right ventricle is dilated. Right ventricular systolic function is moderately to severely reduced. ?? There is pulmonary hypertension. The pulmonary artery systolic pressure estimation is 60-65 mmHg. ?? The inferior vena cava is moderately dilated with poor inspiratory collapse consistent with elevated right atrial pressures. ?? Comparison Comparison is made to the study of April 27, 2021. Prior study is limited for serial comparison. ?? Signature ?? Signed By: Adriel OLIVEIRA, Ivan Molina Problem List/Past Medical History Ongoing Anal fissure Asthma Asthma Atrial fibrillation/flutter CHF, systolic + severe right HF, rEF 50-55% Chronic idiopathic thrombocytopenia Chronic kidney disease (CKD) Chronic right heart failure Chronic systolic heart failure CKD stage 3 secondary to diabetes Diabetes Diastolic dysfunction Gout Heart failure with preserved ejection fraction Hemorrhoids HTN (hypertension) Hypothyroidism Inflammatory polyps of colon Insulin dependent type 2 diabetes mellitus Microcytic anemia Mitral regurgitation, mild to moderate; moderate tricusplid regurgitation Mood disorder Morbid obesity(actual 44.58 as of 08/05/2014) -> BMI 39 2015 Nonischemic cardiomyopathy Obese class I RUTHY on CPAP, nonadherent Osteoarthritis Pelvic pain in female Pulmonary hypertension, moderate Rectal bleeding - known hemorrhoids, f/u recommended w/ colorectal Rheumatic valve disease - Cardiac surgery in 2007at [facility] which included an ASD closure, mitral valve ring and tricuspid valve ring repair in 2006 at [facility] Right heart failure Finnish speaking patient Steatohepatitis, non-alcoholic Volume overload Procedure/Surgical History Colonoscopy, flexible, proximal to splenic flexure; diagnostic, with or without collection of specimen(s) by brushing or washing, with or without colon decompression (separate procedure): 04/24/14 Upper gastrointestinal endoscopy including esophagus, stomach, and either the duodenum and/or jejunum as appropriate; diagnostic, with or without collection of specimen(s) by brushing or washing (separate procedure): 04/24/14 Diagnostic hysteroscopy, D&C in and 06/2015 for postmenopausal bleeding Laparoscopy section x3 Cholecystectomy ASD closure, mitral valve ring and tricuspid valve ring repair at [facility] 2006 Social History Alcohol Use: Never. Employment/School Status: Disabled. Other: Disabled in 2004. Exercise Self assessment: Fair condition. Home/Environment Living situation: Home/Independent. Lives with: daughter. Nutrition/Health Diet: Diabetic. Sexual Sexually involved in last 6 months: No. Substance Abuse Use: Never. Tobacco Never smoker, Tobacco user in household: Yes. Family History Mother (): CAD - Coronary artery disease; Diabetes mellitus type I; Hypertension * Mary Lou OLIVEIRA, Cassi Lieberman: PERFORM Event Display: Consultation Note Authored Date: [id number] I discussed the case and its management with the??nurse practitioner and agree with the findings and plan as documented in the note. ?? Note * Katrina Killian RN: PERFORM Event Display: Discharge/Transfer Note Hospital Authored Date: [id number] Nursing Discharge Note Entered On: 11/05/2024 17:01 EST Performed On: 11/05/2024 17:01 EST by Katrina Killian RN Nursing Discharge Note 2 Discharge Time : 11/05/2024 17:00 EST Discharge Level of Care at Discharge : Homehealth/VNA Discharge VNA/Hospice/Home Care(v001) : [facility] [phone] Patient Left Unit Via : Wheelchair Patient Accompanied Off Unit with : Significant other DC Instructions Provided & Signed by Pt : Yes Patient Understands D/C Instructions : Yes Patient Instructions Discharge Signed : Yes Did Pt have Specialty Bed or Wound Vac : No Katrina Killian RN - 11/05/2024 17:01 EST * Fredy Jules DO: PERFORM, MODIFY, MODIFY, MODIFY, MODIFY, MODIFY Walter Marina MD: MODIFY Event Display: Discharge/Transfer Note Hospital Authored Date: [id number] Patient: ??JOSEPH CHINCHILLA ? Age:??58 Years?Sex:??Female?:??1965?? Patient Information Discharge Location: 7 Primary Care Physician: Jaleesa Calvillo MD Admit Date/Time: 10/30/2024 03:58 Discharge Disposition Discharge Disposition: ?? Discharge Diagnosis CHF, systolic + severe right HF, rEF 50-55% (I50.23) Diastolic dysfunction (I51.9) Nonischemic cardiomyopathy (I42.8) Morbid obesity(actual 44.58 as of 08/05/2014) -> BMI 39 2015 (E66.01) Acute HFrEF (heart failure with reduced ejection fraction) (I50.21) Noncompliance (Z91.199) General medical ([id number]) Type 2 diabetes mellitus with hyperglycemia (E11.65) Hypothyroidism (E03.9) Pyelonephritis (N12) CHF exacerbation (I50.9) Complicated UTI (urinary tract infection) (N39.0) _ Discharge Medications Albuterol (Ventolin 90 mcg Inhaler)??2 puff(s) Inhalation Every 4 hours Allopurinol (allopurinol 300 mg oral tablet)??300 Milligram 1 tablet By Mouth 2 times a day amiODARONE (amiodarone 200 mg oral tablet)??1 tablet By Mouth Daily in AM Atorvastatin (atorvastatin 80 mg oral tablet)??80 Milligram By Mouth Daily at bedtime Bumetanide (bumetanide 2 mg oral tablet)??1 tab(s) 2 Milligram By Mouth Daily BuPROpion (buPROPion 300 mg/24 hours (XL) oral tablet, extended release)??1.5 tab(s) 450 Milligram By Mouth Daily dapagliflozin (Farxiga 10 mg oral tablet)??1 tab(s) 10 Milligram By Mouth Daily Digoxin (digoxin 62.5 mcg (0.0625 mg) oral tablet)??1 tab(s) 62.5 Microgram By Mouth Daily fluticasone-vilanterol (Breo Ellipta 200 mcg-25 mcg/inh inhalation powder)??1 puff(s) Inhalation Daily Insulin Glargine (Lantus Solostar Pen 100 units/mL subcutaneous solution)??See Instructions Please take 18 units daily in the morning.E11.65 Insulin Lispro (Humalog Kwik Pen 100 units/mL subcutaneous injection)??See Instructions Subcutaneous Infusion for 30 Days Please take at least 5-10 minutes before meals 3 times a day per the scale: BG 100-149: 6 units ? ; BG 150- 199: 7 units; BG 200-249: 8 units; BG 250-299: 9 units; BG 300-349: 10 units; BG 350-399: 11 units; BG >400: 12 units; E10.9 or E11.65; MDD 40... Levothyroxine (levothyroxine 175 mcg (0.175 mg) oral tablet)??175 Microgram By Mouth Daily on an empty stomachwith plenty of wateras a single daily dose at least 1 hour before breakfast and other medicationsavoid antacids, calcium, or iron for at least 4 hrs before or 4 hrs after linagliptin (Tradjenta 5 mg oral tablet)??1 tab(s) 5 Milligram By Mouth Daily Metoprolol (Metoprolol Succinate ER 25 mg oral tablet, extended release)??12.5 Milligram 0.5 tabletBy Mouth Daily in AM nalOXONE (Narcan 4 mg/0.1 mL nasal spray)??1 spray(s) 4 Milligram Naris, Left Once as needed Other To reverse opioid overdose, use one spray in one nostril. if an additional dose is needed, alternatenostril, may repeat every 2 to 3 minutes until patient responds, call 911 in the meantime Pantoprazole (pantoprazole 40 mg oral delayed release tablet)??1 tab(s) 40 Milligram By Mouth Daily rivaroxaban (Xarelto 15 mg oral tablet)??15 Milligram By Mouth Daily at supper sacubitril-valsartan (Entresto 24 mg-26 mg oral tablet)??1 tab(s) By Mouth 2 times a day Sertraline (sertraline 100 mg oral tablet)??2 tab(s) 200 Milligram By Mouth Daily Spironolactone (spironolactone 100 mg oral tablet)??100 Milligram By Mouth Daily in AM Trazodone (traZODone 100 mg oral tablet)??TAKE 1-2 TABLET BY MOUTH ONCE A DAY NEEDED FOR NIGHTTIME AWAKENING. Zolpidem (zolpidem 10 mg oral tablet)??1 tab(s) 10 Milligram By Mouth Daily at bedtime as needed asneeded for insomnia ? Medications Started Pantoprazole (pantoprazole 40 mg oral delayed release tablet)??1 tab(s) 40 Milligram By Mouth Daily Medications Discontinued None Doses Changed - Bumetanide 2mg twice daily??changed to??once daily - Digoxin .125mg daily changed to .0625mg daily - Spironolactone 200mg daily changed to??to 100mg daily PCP Follow-Up/Heads-Up - Please follow-up??with??with metabolic panel in 1 week to evaluate for??kidney function??return, and for Xarelto dosing. ?? Future Appointments 2024 2:15 PM EST ?? With: Miguel Angel Gardner DO Where: [facility] [address] [place] [id number]- Status: Pending Sunday 8:00 AM EST ?? Where: [facility] [address] [place] [id number]- Status: Pending Sunday 10:30 AM EST ?? With: Malissa OLIVEIRA, Jacob Morrison Where: [facility] [address] [place] [id number]- Status: Pending Hospital Course 58-year-old F??with??PMHx of HTN,??DM type 2 insulin-dependent,??rheumatoid heart disease??s/p??bioprosthetic mitral and tricuspid??valvuloplasty, A-fib on Xarelto,??biventricular??heart failure,??HFrEF with LVEF??30 to 35%??s/p CardioMEMS,??pulmonary HTN,??Hx of left MCA stroke, CKD, asthma,??RUTHY on CPAP, hypothyroidism, gout, anemia, anxiety/depression, hypothyroidism, chronic lower abdominal wall wound.??She presented to the ED on 10/30/24 with??complaints of??progressively worsening shortness of breath for the past 5 to 6 days.?She was hypervolemic on exam??with elevated??pulmonary artery diastolic readings on CardioMEMS device.??Patient has a history of noncompliance with CardioMEMS d evice or her medications,??started on Bumex drip for??aggressive diuresis.??Admitted to the floor for further management of her??heart failure.??Later on today she was admitted for management of heart failure exacerbation. Heart failure team was consulted, who recommended further diuresis. Bumex drip was stopped on 10/31/2024 and she was returned to her home dose of Bumex 2 mg twice daily along with spironolactone, digoxin, metoprolol at home doses as well. On 11/01/2024 she was noted to have an acute kidney injury on day of potential discharge. Discharge was delayed, and over the next day MECCA wo rsened and guideline directed medical therapy for heart failure was held due to acute kidney injury. Over the next 2 days the acute kidney injury began to resolve, and guideline directed medical therapy was slowly added back to her medication regimen first with the addition of spironolactone and Entresto, and then with the addition of digoxin at a dose of 0.0625 mg daily the following day. On 11/05/2024 patient appears to be euvolemic on examination, with resolved acute kidney injury and is appropriate for discharge. ? Objective Assessment and Plan Assessment:??Acute kidney injury Etiology:??Prerenal in setting of diuresis and reduced ejection fraction.?? Status: Resolving ?? Recommendation: -Please follow-up??with the patient metabolic panel??in??1 week to evaluate for kidney function. ?? Acute on chronic HFrEF (I50.9):??Biventricular heart failure with LVEF 30 to 35% status post CardioMEMS Rheumatoid heart disease status post bioprosthetic mitral and tricuspid valvuloplasty Pulmonary hypertension ???Etiology of her heart failure exacerbation most likely??due to medication noncompliance ?? Recommendations: -Spironolactone 100 mg daily -Entresto 24-26 mg daily -Metoprolol ER 12.5mg daily.?? -Digoxin at??a dose of??0.0625 mg every other day -Dapagliflozin??10 mg daily.?? -Stress importance of cardiomems??usage??for guidance of diuretic therapy -She will follow-up at the heart failure clinic in 1 to 2 weeks ?? Atrial fibrillation:?Chronic condition.?Xarelto dose was reduced??due to decreased??glomerular filtration rate ?? Recommendations: ??? Digoxin??at reduced dose of??0.0625 mg daily ??? Xarelto at reduced dose of 15 mg??daily ?Continue??metoprolol??XL 12.5 mg??daily ??? Continue amiodarone??200 mg daily ?Follow-up with repeat basic metabolic panel in 1 week to evaluate for??improved renal function, as??if??creatinine clearance is??improved??she may be indicated for??higher dose of Xarelto (20 mgdaily) ?? Type 2 diabetes mellitus with hyperglycemia??(E11.65) Glucoses above target.?? Increase??lantus and sliding scale. ?? Chronic/stable/resolved medical conditions: Anxiety/depression:??Continue with sertraline, bupropion Insomnia:??Continue with zolpidem as needed, trazodone Hypothyroidism:??Continue with levothyroxine Hypertension:??Restarted spironolactone at reduced dose, metoprolol Hyperlipidemia:??Continue with atorvastatin Asthma:??continue with albuterol inhaler, Symbicort Thrombocytopenia:??Chronic, continue to monitor CBC History of gout:??Continue with allopurinol RUTHY:??CPAP QHS and with naps ?? Measurements?? Height: 155 cm (11/05/24) Weight: 84.1 kg (11/05/24) Dry Weight: 75 kg (10/30/24) Body Mass Index:??35.21 kg/m2??Critical (10/30/24) ? Vital Signs?? Temperature: 98.1 DegF (11/05/24 13:11:00) Temperature Route: Oral (11/05/24 13:11:00) Pulse Rate: 58 bpm (11/05/24 13:11:00) Respiratory Rate: 18 br/min (11/05/24 13:40:00) Systolic Blood Pressure: 138 mm Hg (11/05/24 13:11:00) Diastolic Blood Pressure: 63 mm Hg (11/05/24 13:11:00) Blood pressure sites: Arm, left (11/05/24 13:11:00) Mean Arterial Pressure: 88 mm Hg (11/05/24 13:11:00) Pulse Pressure: 75 mm Hg (11/05/24 13:11:00) Oxygen Saturation:??91 %??Low (11/05/24 13:11:00) Mode of Delivery (Oxygen): Room air (11/05/24 13:11:00) Early Warning Score: 5 (11/05/24 13:40:12) ? . Physical Exam Constitutional: Alert, in no distress. Mental Status: Oriented to person, place and time. Head:??Normocephalic. Eyes: Pupils are equal, round Extraocular muscles intact. Ear, Nose and Throat: mucous membranes moist. Respiratory:??Normal breath sounds, no wheezing or rhonchi Cardiovascular: S1 S2 regular. No murmurs, rubs or gallops. No edema. No JVD. Gastrointestinal: Abdomen non-distended. Neurologic: Cranial nerves II-XII grossly intact. No focal neurological deficits. Musculoskeletal: No cyanosis or clubbing. No gross deformities. Normal range of motion. Psychiatric: Normal mood and affect?? Pending Results Add On Lab Order ordered on 10/30/2024 Add On Lab Order ordered on 10/30/2024 Complete Urinalysis ordered on 11/02/2024 Creatinine Urine ordered on 11/02/2024 Hold Urine Culture ordered on 10/31/2024 Sodium Urine ordered on 11/02/2024 Patient Education Titles WebMD Ignite Patient Education - Discharge Instructions for Heart Failure?? Follow-Up Appointments Added Follow Up ?Time Frame ?Comments Rajinder OLIVEIRA, Jaleesa Ahuja?1 to 2 weeks Patient Instructions DIAGN??STICO:??Exacerbaci??n aguda o cr??shantel de insuficiencia card??tello con fracci??n de eyecci??nreducida. ?? Lo atendieron en el hospital por dificultad para respirar, lo que result?? ser el resultado de brent exacerbaci??n de la insuficiencia card??tello.?? Creemos que esto fue brent exacerbaci??n de la insuficiencia card??tello debido a que no arsen?? francis medicamento seg??n lo recetado. ??En el hospital le dieron medicamentos para eliminar l??quido de francis cuerpo y disminuir la tensi??n en francis coraz??n.?Byars ayud?? a francis coraz??n, kenisha al final ellen ri??ones tuvieron algunos problemas marbin resultado de la p??rdida de l??quido. ??Despu??s de que los ri??ones mostraron algunos signos de estr??s, eliminamos algunos medicamentos temporalmente para permitir que los ri??ones se recuperaran.?? Brent vez que los ri??ones se recuperaron, volvimos a agregar estos medicamentos lentamente. ?? Ellen INSTRUCCIONES DE ATENCI??N AL PACIENTE espec??ficas (qu?? hacer/cu??ndo regresar): [place] los medicamentos seg??n lo recetado.?Utilice el dispositivo CardioMEMS seg??n las instrucciones, ya que esto ayudar?? a guiar la administraci??n de medicamentos por parte de francis equipo de insuficiencia card??tello. ?? Regrese al servicio de urgencias si presenta dificultad para respirar o dolor en el pecho. Malaika un seguimiento con francis m??dico de atenci??n primaria y francis m??dico de insuficiencia card??tello. ?? DIAGNOSIS:??Acute on chronic exacerbation of heart failure with reduced ejection fraction. ?? You were seen in the hospital??for??shortness of breath, which turned out to be resultant of a heart failure exacerbation.?? We believe that this was exacerbation of heart failure was because??due to??failure to??take??your medication as prescribed. ??In the hospital you were given medication to remove fluid from your body??and??decrease strain on your heart.?This helped your heart, but ultimately??your kidneys??had??some problems as a result of the fluid loss. ??After the kidneys??showed some signs of stress,??we??removed a few medications??temporarily??to allow the kidneys to recover.?? After the kidneys recovered, we slowly added back in these medications. ?? Your specific PATIENT CARE INSTRUCTIONS (what to do / when to return): Please take medications??as??prescribed.?Please??use the CardioMEMS device as instructed, as this will help??guide??medicine??administration by your??heart failure team. ?? Return to ED if you??develop??shortness of breath or chest pain. Please??follow up??with??your??primary care physician and heart failure doctor. Home Health Face to Face *Denotes mandatory cool ?? *I certify that this patient is under my care and that I or an allowed non- physician working with me had a face to face encounter with the patient on this date:??11/05/2024 14:11 ?? *The encounter with the patient was in whole, or in part, for the following medical condition, which is the primary diagnosis(es) for home health care:? *Select the indications for the discipline/s that are being arranged for this patient. Nursing (select all that apply): [_] None x??Medication management (reconciliation, teaching)?? x Chronic disease management?? [_] Wound care and treatment?? [_] Home safety evaluation [_] Administer SQ/IM/IV medications?? [_] Cath care?? [_] Drain care?? [_] Trach or GT care?? Other telehealth services Occupation Therapy (select all that apply): [_] None [_] ADL Management [_] Fall prevention training [_] Energy conservation [_] Cognitive training Other _ Physical Therapy (select all that apply): [_] None x??Functional mobility training x??Home exercise program to strengthen [_] Increase ROM?? x Falls prevention training [_] Home maintenance program for chronic disease Other _ Speech Therapy (select all that apply): [_] None [_] Swallow evaluation and training [_] Speech and language training [_] Cognitive training to process, organize, and/or recall information Other _ ? *Homebound due to (select all that apply): x??Inability to leave home without assistance/supervision [_] Inability to ambulate without assistance [_] Pain x??Decreased strength and endurance [_] Unsteady gait [_] Severe SOB and fatigue [_] Impaired transfers [_] Inability to negotiate stairs [_] Limited weight bearing [_] Mental status change? *Physician Signature:??Fredy Jules, DO ?? *By signing this, I certify that I have personally evaluated the patient and agree with the findings and recommendations as documented above. ? Results Discharge Labs BLOOD COUNT & DIFF WBC 5.9 k/mm3 ()?? 11/05/2024 02:42 RBC 4.35 m/mm3 ()?? 11/05/2024 02:42 Hgb 11.2 Gm/dL (Low)?? 11/05/2024 02:42 Hct 36.2 % ()?? 11/05/2024 02:42 MCV 83.2 femtoliters ()?? 11/05/2024 02:42 MCH 25.7 pg (Low)?? 11/05/2024 02:42 MCHC 30.9 Gm/dL (Low)?? 11/05/2024 02:42 Platelet Count 100 k/mm3 (Low)?? 11/05/2024 02:42 RDW-SD 47.3 femtoliters (High)?? 11/05/2024 02:42 MPV 11.1 femtoliters ()?? 11/05/2024 02:42 Nucleated RBC (Automated) 0.0 #/100 WBC'S ()?? 11/05/2024 02:42 Abs. NRBC 0.0 k/mm3 ()?? 11/05/2024 02:42 Abs. Neut 3.6 k/mm3 ()?? 11/05/2024 02:42 Abs. Lymph 1.7 k/mm3 ()?? 11/05/2024 02:42 Abs. [place] 0.4 k/mm3 ()?? 11/05/2024 02:42 Abs. Eo 0.2 k/mm3 ()?? 11/05/2024 02:42 Abs. Baso 0.0 k/mm3 ()?? 11/05/2024 02:42 Neut % 61.5 % ()?? 11/05/2024 02:42 Lymph % 29.1 % ()?? 11/05/2024 02:42 [place] % 6.2 % ()?? 11/05/2024 02:42 Eos % 2.6 % ()?? 11/05/2024 02:42 Baso % 0.3 % ()?? 11/05/2024 02:42 Platelet Estimate DECREASED ()?? 10/30/2024 07:05 Imm Gran 0.3 % ()?? 11/05/2024 02:42 Abs. Imm Gran 0.0 k/mm3 ()?? 11/05/2024 02:42 ? CARDIAC Nt-Probnp 2659 pg/mL (High)?? 10/29/2024 23:59 High Sensitivity Troponin (HSTnT) 18 ng/L (High)?? 10/30/2024 07:05 ?? CHEM GENERAL Sodium 137 mmol/L ()?? 11/05/2024 02:42 Potassium 4.4 mmol/L ()?? 11/05/2024 02:42 Chloride 99 mmol/L ()?? 11/05/2024 02:42 Bicarbonate Level 28 mmol/L ()?? 11/05/2024 02:42 Anion Gap 10 mmol/L ()?? 11/05/2024 02:42 Glucose Level 208 mg/dL (High)?? 11/05/2024 02:42 Glucose, POC 204 mg/dL (High)?? 11/05/2024 11:27 BUN 38 mg/dL (High)?? 11/05/2024 02:42 Creatinine-Blood 1.13 mg/dL (High)?? 11/05/2024 02:42 Estimated GFR Creatinine 57 ML/MIN/1.73 M2 ()?? 11/05/2024 02:42 Calcium 8.5 mg/dL (Low)?? 11/05/2024 02:42 Calcium, Ionized pH Corrected 1.17 mmol/L ()?? 11/05/2024 02:42 Phosphorus 3.0 mg/dL ()?? 11/05/2024 02:42 Magnesium 2.2 mg/dL ()?? 11/05/2024 02:42 Protein, Total 6.7 Gm/dL ()?? 11/05/2024 02:42 Albumin 3.7 Gm/dL ()?? 11/05/2024 02:42 AG Ratio 1.2 ()?? 11/05/2024 02:42 Alkaline Phosphatase 70 units/L ()?? 11/05/2024 02:42 AST (SGOT) 14 units/L ()?? 11/05/2024 02:42 ALT (SGPT) 11 units/L ()?? 11/05/2024 02:42 Bilirubin, Total 0.4 mg/dL ()?? 11/05/2024 02:42 ? HEME OTHER Hold Blue Top SPECIMEN DISCARDED AFTER 4 HOURS. ()?? 10/29/2024 23:59 ? TOXICOLOGY/TDM Digoxin Level 0.5 ng/mL (Low)?? 11/04/2024 10:03 ? UA/URINALYSIS Appear/Color, Urine COLORLESS ()?? 10/31/2024 14:15 Specific [place], Urine <1.005 ()?? 10/31/2024 14:15 pH, Urine 6.0 ()?? 10/31/2024 14:15 Albumin, Urine NEGATIVE ()?? 10/31/2024 14:15 Glucose, Urine 4+ (Abnormal)?? 10/31/2024 14:15 Ketones, Urine NEGATIVE ()?? 10/31/2024 14:15 Bilirubin, Urine NEGATIVE ()?? 10/31/2024 14:15 Hemoglobin, Urine NEGATIVE ()?? 10/31/2024 14:15 Nitrite, Urine NEGATIVE ()?? 10/31/2024 14:15 Leukocyte, Urine NEGATIVE ()?? 10/31/2024 14:15 Urobilinogen NORMAL mg/dL ()?? 10/31/2024 14:15 WBC's, Urine NONE SEEN /HPF ()?? 10/31/2024 14:15 RBC's, Urine NONE SEEN /HPF ()?? 10/31/2024 14:15 Squamous Epith <1 /HPF ()?? 10/31/2024 14:15 ?? URINE OTHER Sodium, Urine Random 97 mmol/L ()?? 10/31/2024 14:15 Est Creatinine Clearance 42.00 mL/min ()?? 11/05/2024 03:51 ?? VIROLOGY Influenza A PCR NEGATIVE ()?? 10/30/2024 02:59 Influenza B PCR NEGATIVE ()?? 10/30/2024 02:59 RSV PCR NEGATIVE ()?? 10/30/2024 02:59 COVID-19 PCR Specimen Source NASAL ()?? 10/30/2024 02:59 COVID-19 PCR Result NEGATIVE ()?? 10/30/2024 02:59 ? Patient care discussed with Dr. Ney Jules, DO PGY1 ? Attending Attestation: I saw and examined the patient with the resident team and reviewed the charton the day of service. ??I have discussed the case and its management??with the resident as documented in the resident note on the day of service.??I agree with the resident's note and plan as documented. Walter Marina MD * Constantin CARIAS, Merelyn: PERFORM Event Display: Patient Education/Instruction Authored Date: Inpatient Adult Discharge Instructions. [address] [address] Name: JOSEPH CHINCHILLA : 1965?? Visit: 10/30/2024 03:58?? Current Date: 11/05/2024 14:47 ?? Account: [id number]?? Inpatient Adult Discharge Instructions We would like to thank you for allowing us to assist you with your healthcare needs. The following includes patient education materials and information regarding your injury/illness. Our entire staffstrives to provide an excellent experience for our patients and their families. PLEASE ENSURE YOU FOLLOW-UP PER THE INSTRUCTIONS BELOW! ?? YOUR OPINION IS IMPORTANT TO US! Please complete the survey you may receive by mail or email. Your feedback will be used to make improvements to the healthcare experiences of our patients and their families. Surveys are administered by [employer] ?? If further treatment with your primary care physician or another doctor is recommended, it is important for you to keep the appointment. Call your primary care physician or return to the Emergency Department immediately if your condition worsens, fails to improve, or new symptoms develop. If you need to find a doctor, you can call [facility] for a referral at [phone] or toll free at [phone] or log in to [email or web address].. ?? [facility], in keeping with [facility] guidance, no longer requires face masks for staff, patientsor visitors in most situations. Similiar to time spent indoors at other locations, there is the chance that you were exposed to repiratory viruses during your time with us (such as flu or COVID-19). If you develop symptoms concerning for a viral respiratory infection, please seek testing (and treatment if indicated) from your medical provider or home test kit. ?? You can view and manage your care through the patient portal or by using a health care mark of your choosing. [employer] is a website that allows you to securely view your medical information including your hospital discharge summary, office visit summaries, medications and follow-up visits. You can also request appointments, renew medications, and request access to your medical information using a health care mark of your choosing, or just ask a question. You can enroll at [email or web address] or register during your next office visit. You have been discharged from [facility], Patient Care Unit: M7??. If you have any questions regarding these instructions, including results of studies pending, afteryou leave, please call us and we will be happy to assist you 23/04. [facility] Your Care Team Attending Physician Walter Marina MD?? Consulting Providers Walter Marina MD?? Discharging Providers Chambers DO, Fredy Reason for Your Visit CHF, has cardioMEMS?? Your Diagnosis CHF, systolic + severe right HF, rEF 50-55% Diastolic dysfunction Nonischemic cardiomyopathy Morbid obesity(actual 44.58 as of 08/05/2014) -> BMI 39 2015 Acute HFrEF (heart failure with reduced ejection fraction) Noncompliance CHF exacerbation Complicated UTI (urinary tract infection) General medical Hypothyroidism Pyelonephritis Type 2 diabetes mellitus with hyperglycemia Tests Performed Below is a partial list of the tests performed during your hospitalization. You may have had other tests and procedures not included in this list. Please discuss all test results with your provider. B Type Natriuretic Peptide (NT-proBNP) Basic Metabolic Panel BUN CBC CBC w/ Differential Comprehensive Metabolic Panel COVID-19, RSV, and Flu A/B, Rapid PCR Creatinine Digoxin Level Electrolytes GLUCOSE POC High??Sensitivity??Troponin T Hold Blue Top Tube Ionized Calcium Magnesium Level Mg Level Na Urine Phosphorus Level Troponin T, High Sensitivity XR Chest 2 Views Frontal and Lat Add On Lab Order?? B Type Natriuretic Peptide (NT-proBNP)?? BUN?? Basic Metabolic Panel?? CBC?? CBC w/ Differential?? COVID-19, RSV, and Flu A/B, Rapid PCR?? Complete Urinalysis (Urinalysis Complete)?? Comprehensive Metabolic Panel?? Creatinine?? Creatinine Urine (Urine Creatinine)?? Digoxin Level?? Electrolytes?? Glucose POC?? High??Sensitivity??Troponin T (Troponin T, High Sensitivity)?? Hold Blue Top Tube?? Hold Urine Culture?? Ionized Calcium?? Magnesium Level?? Phosphorus Level?? Sodium Urine?? Chest 2 Views Frontal and Lat (XR Chest 2 Views Frontal and Lat)?? Primary Care Provider Rajinder OLIVEIRA, Jaleesa Ahuja? Advance Directive Health Care Proxy on File Yes - Health Care Proxy Discharge Vitals Temperature: 98.1 DegF Height: 155 cm Pulse Rate: 58 bpm Weight: 84.1 kg Respiratory Rate: 18 br/min Body Mass Index:??35.21 kg/m2??Critical Systolic Blood Pressure: 138 mm Hg Body surface area: 1.91 Diastolic Blood Pressure: 63 mm Hg ?? Oxygen Saturation:??91 %??Low ?? Studies Pending All studies ordered during this hospital stay have been completed unless listed below. Please discuss all pending results with your provider listed above in these instructions. ?? Add On Lab Order?? Complete Urinalysis (Urinalysis Complete)?? Creatinine Urine (Urine Creatinine)?? Hold Urine Culture?? Sodium Urine?? What to do next Instructions From Your Doctor DIAGN??STICO:??Exacerbaci??n aguda o cr??shantel de insuficiencia card??tello con fracci??n de eyecci??nreducida. ?? Lo atendieron en el hospital por dificultad para respirar, lo que result?? ser el resultado de brent exacerbaci??n de la insuficiencia card??tello.?? Creemos que esto fue brent exacerbaci??n de la insuficiencia card??tello debido a que no arsen?? francis medicamento seg??n lo recetado. ??En el hospital le dieron medicamentos para eliminar l??quido de francis cuerpo y disminuir la tensi??n en francis coraz??n.?Byars ayud?? a francis coraz??n, kenisha al final ellen ri??ones tuvieron algunos problemas marbin resultado de la p??rdida de l??quido. ??Despu??s de que los ri??ones mostraron algunos signos de estr??s, eliminamos algunos medicamentos temporalmente para permitir que los ri??ones se recuperaran.?? Brent vez que los ri??ones se recuperaron, volvimos a agregar estos medicamentos lentamente. ?? Ellen INSTRUCCIONES DE ATENCI??N AL PACIENTE espec??ficas (qu?? hacer/cu??ndo regresar): [place] los medicamentos seg??n lo recetado.?Utilice el dispositivo CardioMEMS seg??n las instrucciones, ya que esto ayudar?? a guiar la administraci??n de medicamentos por parte de francis equipo de insuficiencia card??tello. ?? Regrese al servicio de urgencias si presenta dificultad para respirar o dolor en el pecho. [place] un seguimiento con francis m??dico de atenci??n primaria y francis m??dico de insuficiencia card??tello. ?? DIAGNOSIS:??Acute on chronic exacerbation of heart failure with reduced ejection fraction. ?? You were seen in the hospital??for??shortness of breath, which turned out to be resultant of a heart failure exacerbation.?? We believe that this was exacerbation of heart failure was because??due to??failure to??take??your medication as prescribed. ??In the hospital you were given medication to remove fluid from your body??and??decrease strain on your heart.?This helped your heart, but ultimately??your kidneys??had??some problems as a result of the fluid loss. ??After the kidneys??showed some signs of stress,??we??removed a few medications??temporarily??to allow the kidneys to recover.?? After the kidneys recovered, we slowly added back in these medications. ?? Your specific PATIENT CARE INSTRUCTIONS (what to do / when to return): Please take medications??as??prescribed.?Please??use the CardioMEMS device as instructed, as this will help??guide??medicine??administration by your??heart failure team. ?? Return to ED if you??develop??shortness of breath or chest pain. Please??follow up??with??your??primary care physician and heart failure doctor. ?? Orders? 11/05/24 14:19:00 EST?? Scheduled Follow-Up Appointments 2024 2:15 PM EST ?? With: Miguel Angel Gardner DO Where: [facility] [address] [place] [phone]- Status: Pending Sunday 8:00 AM EST ?? Where: [facility] [address] [place] [phone]- Status: Pending Sunday 10:30 AM EST ?? With: Malissa OLIVEIRA, Jacob Morrison Where: [facility] [address] [place] [phone]- Status: Pending You Need to Schedule the Following Appointments Follow Up with??Rajinder OLIVEIRA, Jaleesa Ahuja When:??Within 1 to 2 weeks Where: [address] [place] [id number]- Discharge Medications JOSEPH CHINCHILLA :1965 Visit Date:10/30/2024 Medications: Please continue your medications until treatment is completed or stopped by your provider. Medications not listed below should be discontinued. Discuss any questions related to medications with your provider. What How Much When Why Instructions Next Dose New Pantoprazole (pantoprazole 40 mg oral delayed release tablet) 1 tab(s) Oral Daily Pickup at [place] [address] [place] 8am Changed Bumetanide (bumetanide 2 mg oral tablet) 1 tab(s) Oral Daily [facility] 8am Changed Digoxin (digoxin 62.5 mcg (0.0625 mg) oral tablet) 1 tab(s) Oral Daily Pickup at [place] [address] [facility] 8am Changed Metoprolol (Metoprolol Succinate ER 25 mg oral tablet, extended release) 0.5 tab(s) Oral Daily in the morning Pickup at [place] [address] [facility] 8am Changed Spironolactone (spironolactone 100 mg oral tablet) 100 Milligram Oral Daily in the morning Pickup at [facility] [place] 8am Changed rivaroxaban (Xarelto 15 mg oral tablet) 15 Milligram Oral Daily at supper Pickup at [place] [address] [place] en la tarde 6M Unchanged Albuterol (Ventolin 90 mcg Inhaler) 2 puff(s) Inhalation Every 4 hours cada 4 horas Unchanged Allopurinol (allopurinol 300 mg oral tablet) 1 tab(s) Oral Twice a day en la noche 9pm Unchanged amiODARONE (amiodarone 200 mg oral tablet) 1 tab(s) Oral Daily in the morning [place] 8am Unchanged Atorvastatin (atorvastatin 80 mg oral tablet) 80 Milligram Oral Daily at Bedtime en la noche 9pm Unchanged BuPROpion (buPROPion 300 mg/ 24 hours (XL) oral tablet, extended release) 1.5 tab(s) Oral Daily [facility] 8[facility] Unchanged dapagliflozin (Farxiga 10 mg oral tablet) 1 tab(s) Oral Daily [place] 8am Unchanged fluticasone-vilanterol (Breo Ellipta 200 mcg-25 mcg/ inh inhalation powder) 1 puff(s) Inhalation Daily [place] 8am Unchanged Insulin Glargine (Lantus Solostar Pen 100 units/ mL subcutaneous solution) See instructions Type 2 diabetes mellitus with hyperglycemia Please take 18 units daily in the morning. E11.65 ?? Unchanged Insulin Lispro (Humalog Kwik Pen 100 units/ mL subcutaneous injection) See instructions Type 2 diabetes mellitus with hyperglycemia Duration: 30 Days Please take at least 5-10 minutes before meals 3 times a day per the scale: BG 100-149: 6 units ? ; BG 150-199: 7 units; BG 200-249: 8 units; BG 250-299: 9 units; BG 300-349: 10 units; BG 350-399: 11 units; BG >400: 12 units; E10.9 or E11.65; MDD 40 units ?? Unchanged Levothyroxine (levothyroxine 175 mcg (0.175 mg) oral tablet) 175 Microgram Oral Daily Hypothyroidism on an empty stomach with plenty of water as a single daily dose at least 1 hour before breakfast and other medications avoid antacids, calcium, or iron for at least 4 hrs before or 4 hrs after ?? [place] 6am Unchanged linagliptin (Tradjenta 5 mg oral tablet) 1 tab(s) Oral Daily [place] 8am Unchanged nalOXONE (Narcan 4 mg/ 0.1 mL nasal spray) 1 spray(s) Naris, Left Once as needed for Other To reverse opioid overdose, use one spray in one nostril. if an additional dose is needed, alternate nostril, may repeat every 2 to 3 minutes until patient responds, call 911 in the meantime ?? Unchanged sacubitril-valsartan (Entresto 24 mg-26 mg oral tablet) 1 tab(s) Oral Twice a day En la noche 9pm Unchanged Sertraline (sertraline 100 mg oral tablet) 2 tab(s) Oral Daily En la noche 9pm Unchanged Trazodone (traZODone 100 mg oral tablet) TAKE 1-2 TABLET BY MOUTH ONCE A DAY NEEDED FOR NIGHTTIME AWAKENING. ?? En la noche Unchanged Zolpidem (zolpidem 10 mg oral tablet) 1 tab(s) Oral Daily at Bedtime as needed for as needed for insomnia En la noche Pharmacy Information [facility] 3: [address], [place] [id number] [phone] ?? What How Much When Why Comments Stop Taking Durable Medical Equipment ([place], 31 G x 5 mm BD Ultra Fine III) See instructions Type 2 diabetes mellitus with hyperglycemia Duration: 30 Days ?? Stop Taking Miscellaneous Rx (DIURETIC INTERVENTION) See instructions Standard Intervention for high PAD (PAD above goal for at least 2 readings) Double dose of loop diuretic for (2) days Return to baseline dose of diuretics for at least 2 days Repeat above if neccessary. If on once daily diuretics, increase to BID for (2) days ?? Standard Intervention for low PAD (PAD below goal for at least 2 readings) Hold PM dose of loop diuretic until PAD back to goal If on once daily diuretics, hold diuretic until PAD back to goal ? Prescription Given During Visit Digoxin (digoxin 62.5 mcg (0.0625 mg) oral tablet) - 1 tablet = 62.5 mcg, By Mouth, Daily, # 30 tablet, 0 Refills, [facility], [address] [place] [id number]?? Metoprolol (Metoprolol Succinate ER 25 mg oral tablet, extended release) - 0.5 tablet = 12.5 mg, ByMouth, Daily in AM, # 30 tablet, 0 Refills, [facility], [address] [place] [address] [id number]?? Pantoprazole (pantoprazole 40 mg oral delayed release tablet) - 1 tablet = 40 mg, By Mouth, Daily, # 90 tablet, 0 Refills, [facility], [address] [place] [address] [id number]?? Spironolactone (spironolactone 100 mg oral tablet) - 100 mg, By Mouth, Daily in AM, # 30 tablet, 0 Refills, [facility], [address] [place] [phone] [id number]?? rivaroxaban (Xarelto 15 mg oral tablet) - 15 mg, By Mouth, Daily at supper, # 30 tablet, 0 Refills,[facility], [address] [place] [address] [phone]?? Laboratory Results Below is a partial list of the most recent Laboratory test results done prior to this discharge. You may have had other tests and procedures not included in this list. Please discuss all test resultswith your provider. Est Creatinine Clearance - 42.00 mL/min (11/05/2024) B Type Natriuretic Peptide (NT-proBNP) (10/29/2024) ???Nt-Probnp - 2659 pg/mL Basic Metabolic Panel (11/03/2024) ???Sodium - 134 mmol/L???Potassium - 4.4 mmol/L???Chloride - 94 mmol/L???Bicarbonate Level - 29 mmol/L???Anion Gap - 11 mmol/L???Glucose Level - 223 mg/dL???BUN - 43 mg/dL???Creatinine-Blood - 1.49 mg/dL???Estimated GFR Creatinine - 41 ML/MIN/1.73 M2???Calcium - 8.7 mg/dL BUN (11/03/2024) ???BUN - 47 mg/dL CBC (11/04/2024) ???WBC - 6.7 k/mm3???RBC - 4.48 m/mm3???Hgb - 11.4 Gm/dL???Hct - 36.5 %???MCV - 81.5 femtoliters???MCH - 25.4 pg???MCHC - 31.2 Gm/dL???Platelet Count - 112 k/mm3???RDW-SD - 46.0 femtoliters???MPV - 11.2 femtoliters???Nucleated RBC (Automated) - 0.0 #/100 WBC'S???Abs. NRBC - 0.0 k/mm3 CBC w/ Differential (11/05/2024) ???WBC - 5.9 k/mm3???RBC - 4.35 m/mm3???Hgb - 11.2 Gm/dL???Hct - 36.2 %???MCV - 83.2 femtoliters???MCH - 25.7 pg???MCHC - 30.9 Gm/dL???Platelet Count - 100 k/mm3???RDW-SD - 47.3 femtoliters???MPV - 11.1 femtoliters???Nucleated RBC (Automated) - 0.0 #/100 WBC'S???Abs. NRBC - 0.0 k/mm3???Abs. Neut - 3.6 k/mm3???Abs. Lymph - 1.7 k/mm3???Abs. [place] - 0.4 k/mm3???Abs. Eo - 0.2 k/mm3???Abs. Baso - 0.0 k/mm3???Neut % - 61.5 %???Lymph % - 29.1 %???[place] % - 6.2 %???Eos % - 2.6 %???Baso % - 0.3 %???Imm Gran - 0.3 %???Abs. Imm Gran - 0.0 k/mm3 Comprehensive Metabolic Panel (11/05/2024) ???Sodium - 137 mmol/L???Potassium - 4.4 mmol/L???Chloride - 99 mmol/L???Bicarbonate Level - 28 mmol/L???Anion Gap - 10 mmol/L???Glucose Level - 208 mg/dL???BUN - 38 mg/dL???Creatinine-Blood - 1.13 mg/dL???Estimated GFR Creatinine - 57 ML/MIN/1.73 M2???Calcium - 8.5 mg/dL???Protein, Total - 6.7 Gm/d L???Albumin - 3.7 Gm/dL???AG Ratio - 1.2???Alkaline Phosphatase - 70 units/L???AST (SGOT) - 14 units/L???ALT (SGPT) - 11 units/L???Bilirubin, Total - 0.4 mg/dL COVID-19, RSV, and Flu A/B, Rapid PCR (10/30/2024) ???Influenza A PCR - NEGATIVE???Influenza B PCR - NEGATIVE???RSV PCR - NEGATIVE???COVID-19 PCR Specimen Source - NASAL???COVID-19 PCR Result - NEGATIVE Creatinine (11/03/2024) ???Creatinine-Blood - 1.74 mg/dL???Estimated GFR Creatinine - 34 ML/MIN/1.73 M2 Digoxin Level (11/04/2024) ???Digoxin Level - 0.5 ng/mL Electrolytes (11/03/2024) ???Sodium - 134 mmol/L???Potassium - 4.1 mmol/L???Chloride - 92 mmol/L???Bicarbonate Level - 29 mmol/L???Anion Gap - 13 mmol/L GLUCOSE POC (11/05/2024) ???Glucose, POC - 204 mg/dL High??Sensitivity??Troponin T (10/29/2024) ???High Sensitivity Troponin (HSTnT) - 17 ng/L Hold Blue Top Tube (10/29/2024) ???Hold Blue Top - SPECIMEN DISCARDED AFTER 4 HOURS. Ionized Calcium (11/05/2024) ???Calcium, Ionized pH Corrected - 1.17 mmol/L Magnesium Level (11/05/2024) ???Magnesium - 2.2 mg/dL Mg Level (11/02/2024) ???Magnesium - 2.1 mg/dL Na Urine (10/31/2024) ???Sodium, Urine Random - 97 mmol/L Phosphorus Level (11/05/2024) ???Phosphorus - 3.0 mg/dL Troponin T, High Sensitivity (10/30/2024) ???High Sensitivity Troponin (HSTnT) - 18 ng/L You will be contacted within 72 hours with your results. Allergies (NKA means No Known Allergies) Motrin Other Environmental Allergy??(skin irritation, ekg adhesives) Percocet 5/325??(rash) Tylenol??(rash) aspirin ibuprofen??(tachycardia) lisinopril??(rash) Problems Active Problems??(35) Anal fissure?? Asthma?? Asthma?? Atrial fibrillation/flutter?? CHF, systolic + severe right HF, rEF 50-55%?? Chronic idiopathic thrombocytopenia?? Chronic kidney disease (CKD)?? Chronic right heart failure?? Chronic systolic heart failure?? CKD stage 3 secondary to diabetes?? Diabetes?? Diastolic dysfunction?? Gout?? Heart failure with preserved ejection fraction?? Hemorrhoids?? HTN (hypertension)?? Hypothyroidism?? Inflammatory polyps of colon?? Insulin dependent type 2 diabetes mellitus?? Microcytic anemia?? Mitral regurgitation, mild to moderate; moderate tricusplid regurgitation?? Mood disorder?? Morbid obesity(actual 44.58 as of 08/05/2014) -> BMI 39 2016?? Nonischemic cardiomyopathy?? RUTHY on CPAP, nonadherent?? Osteoarthritis?? Pelvic pain in female?? Pulmonary hypertension, moderate?? Rectal bleeding - known hemorrhoids, f/u recommended w/ colorectal?? Rheumatic valve disease - Cardiac surgery in [address] [place] [address] which included an ASD closure,?? Right heart failure?? Severe obesity (BMI 35.0-39.9) with comorbidity?? Finnish speaking patient?? Steatohepatitis, non-alcoholic?? Volume overload?? Education Materials Below is the list of Educational Leaflet Providered with your Discharge Instructions. WebMD Ignite Patient Education - Discharge Instructions for Cardiomyopathy?? WebMD Ignite Patient Education - Diet: Diabetes?? WebMD Ignite Patient Education - Urinary Tract Infections in Women?? WebMD Ignite Patient Education - Heart Failure Zones?? WebMD Ignite Patient Education - Heart Failure: Making Changes to Your Diet?? WebMD Ignite Patient Education - Heart Failure Discharge Instructions for Heart Failure?? WebMD Ignite Patient Education - Pantoprazole?? WebMD Ignite Patient Education - Discharge Instructions for Heart Failure?? WebMD Ignite Patient Education - Discharge Instructions for Heart Failure?? Valuables and Belongings I fully understand and agree that [facility] accepts no responsibility for all my personal property including clothing, toilet articles, radios, jewelry, dentures, hearing aids, rings, money, or any other property that is in my possession or is brought to me after admission. I understand certain valuables may be placed in a hospital safe for a short period of time. I understand that the hospital is not liable for loss or damage due to accident, fire, or other natural occurrence while said property is in the safe. I accept full responsibility for any personal property that I keep with me, and will not hold the hospital responsible in case of loss or disappearance. I acknowledge that i have been encouraged to send valuables and belongings home. ?? Review of Valuable and Belonging List: With patient Date for Pt to Sign Valuables/Belongings: 10/30/24 17:35:00 ?? Other Discharge Information ? Case Management Discharge Plan?? Discharge Plan?? Discharge Agency Information?? Discharge Level of Care at Discharge: Homehealth/VNA Name of Agency #1: [facility] Discharge Transportation Arranged: daughter Agency Temperer #1: intake Discharge VNA/Hospice/Home Care: [facility] [phone] Service Categories #1: Physical Therapy, Alf ?? Service Comments #1: [facility] will contact you to set up nuring and physical therapy. if you do not hear from them please reach out to agency. ?? Pulmonary Rehab Status?? Pulmonary Rehab Discharge Status?? Respiratory Rate: 18 br/min ? Common Emergency Awareness Tips IS IT A STROKE? Act FAST and Check for these signs: FACE Does the face look uneven? ARM Does one arm drift down? SPEECH Does their speech sound strange? TIME Call at any sign of stroke ?? Heart Attack Signs Chest discomfort: Most heart attacks involve discomfort in the center of the chest and lasts more than a few minutes, or goes away and comes back. It can feel like uncomfortable pressure, squeezing, fullness or pain. Discomfort in upper body: Symptoms can include pain or discomfort in one or both arms, back, neck, jaw or stomach. Shortness of breath: With or without discomfort. Other signs: Breaking out in a cold sweat, nausea, or lightheaded. Remember, MINUTES DO MATTER. If you experience any of these heart attack warning signs, call to get immediate medical attention! ?? Smoking can increase your chances of developing chronic health problems and can cause harmful effects to other family members in your house. If you smoke, you are strongly encouraged to quit. Please call [facility] at [phone] or [phone] ([phone]) or log in to [email or web address] for referrals to smoking cessation programs. ?? 353 Suicide & Crisis Lifeline is available 23/04 if you or someone you know needs to find a reason to keep living. By calling 938 you'll be connected to a skilled, trained counselor at a crisis center in your area. INPATIENT DISCHARGE INSTRUCTIONS SIGNATURE JOSEPH PASCAL Location:[facility] Registration Date and Time:10/30/2024 03:58 EST Primary Care Physician: Jaleesa Calvillo MD, Attending Physician: Walter Marina MD, JOSEPH BRODY, have received the above patient education materials/instructions and have verbalized understanding. If ambulance or transport services are being used I further acknowledge being given a choice of service. ?? If you need to contact me, please call me at this number: . Patient/Carpenter Railcar Name: Patient/Carpenter Railcar Signature: Relationship to Patient: Witness Name/Signature: Date: * Constantin CARIAS, Yessenian: PERFORM Event Display: Patient Education Leaflets Authored Date: [id number] Discharge Instructions for Cardiomyopathy ?? [address] Instrucciones de shy para miocardiopat??a Cuando tiene miocardiopat??a, quiere decir que el m??sculo del coraz??n no funciona de manera normal. Es posible que el m??sculo del coraz??n se agrande, se engrose o se ponga r??gido. Byars puede debilitar al coraz??n. Esta afecci??n puede hacer que le resulten m??s dif??ciles las cosas que alvarado vezle hab??an resultado f??ciles en el pasado. Sin embargo, con tratamiento y algunos cambios en el estilo de dionne, usted y el proveedor de atenci??n m??dica pueden ayudar a que el coraz??n funcione marbin debe. Cuidados en el hogar Trate por todos los medios de reducir la amairani de francis dieta. Aqu?? le ofrecemos algunos consejos: ??? Limite el consumo de alimentos enlatados, secos, envasados y de preparaci??n r??pida. ??? No a??ada amairani en la mason. ??? Cuando cocine, sazone ellen comidas con hierbas en lugar de amairani. ??? Cuando coma afuera, p??david al cocinero que no le agregue amairani a francis plato. ??? No coma alimentos fritos ni grasosos. ??? Tenga cuidado con las bebidas embotelladas. Pueden tener juan amairani. Revise tambi??n las etiquetas de los medicamentos y suplementos de venta aaron. Es posible que tengan mucho sodio. P??david ayuda a francis farmac??utico o proveedor si necesita encontrar un producto con poca amairani. Malaika tanta actividad f??concepcion marbin pueda. Pregunte al proveedor de atenci??n m??dica qu?? nivel de actividad f??concepcion es adecuado para usted. Aqu?? hay algunos consejos para comenzar: ??? Puede beneficiarse de actividades sencillas marbin caminar o hacer jardiner??a. ??? Busque actividades que disfrute y deles prioridad. ??? Los programas de rehabilitaci??n card??tello pueden ayudarlea alcanzar ellen metas de actividad. Usted hace ejercicio mientras el personal del programa vigila decerca el esfuerzo de francis coraz??n. Es posible que el seguro cubra estos programas. Otros consejos para los cuidados en el hogar incluyen los siguientes: ??? Limite el consumo diario de l??quidos. Francis proveedor de atenci??n m??dica le dir?? cu??l es la cantidad turner. ??? Si fuma, deje de hacerlo. Inscr??base en un programa para dejar de fumar a fin de aumentar las probabilidades de lograrlo. Participe en grupos de apoyo o preg??ntele al proveedor de atenci??n m??dica sobre productos de reemplazo de nicotina o medicamentos que puedan ayudarlo. ??? [place] los medicamentos exactamente marbin se le haya indicado. No salte ninguna dosis. No deje de judy ellen medicamentos sin consultar de antemano con francis proveedor de atenci??n m??dica. ??? Algunos medicamentos y suplementos herbarios de venta aaron pueden aumentar francis frecuencia card??tello y la presi??n arterial. Byars puede ejercerm??s tensi??n en francis coraz??n. Consulte con el farmac??utico o con el proveedor de atenci??n m??dicaacerca de si los productos son seguros para el coraz??n y no interact??an con los medicamentos que amanda. ??? Visite al proveedor de atenci??n m??dica con regularidad. Mencione cualquier problema que tenga con francis plan de tratamiento. Juntos podr??n encontrar un plan adecuado para usted. ??? Registresu peso todos los d??as a la misma hora. El mejor momento es a la ma??jaleesa despu??s de despertarse yorinar. Use la misma ropa cada vez que se pese. Lleve un registro escrito de francis peso diario. ??? Elimine o limite la cantidad de alcohol que consume. Demasiado alcohol es scotty para el coraz??n. ?? Atenci??n de seguimiento Programe brent fidencio de seguimiento seg??n le indiquen. ?? Cu??ndo llamar a francis proveedor de atenci??n m??dica Llame al proveedor de atenci??n m??dica de inmediato si presenta alguno de los siguientes s??ntomas: ??? Sube m??s de 900 gramos (2??libras) en un d??a, m??s de 2.30 kilos (5??libras) en brent semana oel aumento de peso que el proveedor de atenci??n m??dica le haya pedido que informe. ??? Hinchaz??nnueva o incrementada en las nydia, los pies o los tobillos ?? Llame al 911 Llame al 911 ante cualquiera de los siguientes s??ntomas: ??? Aparici??n o aumento de dolor de pecho que no se lizette con los medicamentos ??? Aparici??n o aumento de falta de aire ??? Debilidad en los m??sculos de la daryl, los brazos y las piernas ??? Dificultad para hablar ??? Pulso r??pido o latidos intensos del coraz??n ??? Desmayo o sensaci??n de mareo o aturdimiento ?? Last Reviewed Date: 2024 ?? 2030-1041 [employer]. Todos los derechos reservados. Esta informaci??n no pretende sustituir la atenci??n m??dica profesional. S??lo francis m??dico puede diagnosticar y tratar un problema de markell. ?? * Constantin CARIAS, Yessenian: PERFORM Event Display: Patient Education Leaflets Authored Date: [id number] Diet: Diabetes ?? [id number] Alimentaci??n: la diabetes La comida es brent herramienta importante que puede usar para controlar la diabetes y mantenerse saludable. Mantener brent alimentaci??n isidoro equilibrada en las cantidades correctas lo ayudar?? a controlar los niveles de glucosa en la kip y prevenir las reacciones al bajo nivel de az??car en la kip. Tambi??n ayudar?? a reducir los riesgos de la diabetes para la markell. No hay brent alimentaci??n espec??fica que sea ideal para todos los diab??ticos y usted puede comer distintos alimentos. Kenisha hay lineamientos generales que pueden seguirse. Un nutricionista matriculado crear?? un enfoque alimentario personalizado que sea adecuado para usted. Tambi??n lo ayudar?? a planear comidas y refrigerios saludables. Si tiene alguna pregunta, llame a francis nutricionista para que lo asesore. [place]as para triunfar Hable con francis proveedor de atenci??n m??dica antes de iniciar brent dieta para la diabetes o un programa para bajar de peso. Si todav??a no thapa hablado con un nutricionista, p??david brent derivaci??n a francis proveedor. Las siguientes pautas pueden ayudarlo a triunfar: ??? Seleccione alimentos de los 6??grupos que se encuentran a continuaci??n. Francis nutricionista lo ayudar?? a buscar opciones dentro de cada ann. Shruti tambi??n le mostrar?? los woody??os de las porciones que puede comer en cada comida. o Granos, frijoles y verduras con almid??n o Verduras o Frutas o Leche o yogur o Carne de res, ave, pescado o tofu o Grasas saludables ??? Controle ellen niveles de az??car en la kip seg??n lo indicado por francis proveedor. [place] los medicamentos alvarado marbin se lo haya recetado francis proveedor. ??? Aprenda a leerlas etiquetas de los alimentos y elija los woody??os de las porciones correctos. ??? Limite el consumo de carbohidratos en cada comida para ayudar a controlar la diabetes. Los carbohidratos que come se convierten en glucosa en la kip. Byars no significa que no pueda ingerir carbohidratos. Hable con francis proveedor de atenci??n m??dica acerca de cu??ntos gramos de carbohidratos le recomienda en cadacomida. Malaika 3??comidas en horarios constantes. No se saltee ninguna comida. Si tiene hambre entre las comidas, puede hacer un refrigerio edith??o con poco contenido de carbohidratos. ??? Hable con francis proveedor de atenci??n m??dica si yiar alcohol. El alcohol puede tener un efecto impredecible sobre la glucosa en la kip. Tambi??n tiene muchas calor??as vac??as y puede aumentar el nivel de un tipo de grasa en la kip llamado triglic??ridos. En cambio, branden agua o bebidas diet??jonathan sin calor??as. ??? Coma menos grasa para ayudar a reducir el riesgo de enfermedades del coraz??n. Consuma productos l??cteos descremados o parcialmente descremados y carne de res magra. Evite los alimentos fritos. Use aceite para cocinar que no est?? saturado; por ejemplo, de knapp, canola o man??. ??? No coma alimentos con amairani agregada. La amairani puede contribuir a la presi??n arterial shy, lo que puede causar brent enfermedad del coraz??n. Las personas con diabetes ya corren riesgo de presi??n arterial shy y enfermedad del coraz??n. ??? Mantenga un peso saludable. Si necesita adelgazar, reduzca el woody??o de las porciones. Kenisha no se salte comidas. El ejercicio es brent parte importante del programa de control de peso. Hable con francis proveedor sobre un programa de ejercicios que sea adecuado para usted. ??? Para obtener informaci??n sobre el mejor plan alimentario para usted, consulte con un nutricionista matriculado. Para encontrar kelvin en francis ??claudia, comun??quese con: o Academia de Nutrici??n y Diet??med (Academy of Nutrition and Dietetics), en www.eatright.org o Asociaci??n Estadounidense de Diabetes ([place] Diabetes Association), en www.diabetes.org o llamando al??[phone] o Asociaci??n de Especialistas en Educaci??n y Atenci??n de la Diabetes (Association of Diabetes Care & Education Specialists), en www.diabeteseducator.org/ ?? Last Reviewed Date: 2021 ?? [id number] [employer]. Todos los derechos reservados. Esta informaci??n no pretende sustituir la atenci??n m??dica profesional. S??lo francis m??dico puede diagnosticar y tratar un problema de markell. ?? * Constantin CARIAS, Yessenian: PERFORM Event Display: Patient Education Leaflets Authored Date: [id number] Urinary Tract Infections in Women ?? 34009 Infecciones de las v??as urinarias en las mujeres Las infecciones urinarias suelen presentarse a causa de bacterias. Estas bacterias ingresan a las v??as urinarias. Las bacterias pueden venir desde el interior del cuerpo. O pueden desplazarse desde la maris del recto o de la vagina hasta el interior de la uretra. La anatom??a de la lucio hace m??s f??cil la entrada de bacterias de los intestinos en las v??as urinarias. Esta es la causa m??s com??n de infecciones urinarias. Por eso, estas infecciones son m??s frecuentes en las mujeres que en loshombres. Un s??ntoma com??n de las infecciones urinarias es el dolor en las v??as urinarias o cerca de estas. Sin embargo, la ??shantel manera de saber con certeza si hay brent infecci??n es que el proveedor de atenci??n m??dica le malaika un an??lisis de orina (pis). Las dos pruebas que podr??an hacerle son un an??lisis de orina y un urocultivo. Con estas pruebas, el proveedor puede saber si tiene brent infecci??nurinaria y qu?? tipo de bacteria la est?? causando. Los t??rminos diferenciados en funci??n del g??mignon se usan para hablar sobre anatom??a y riesgos de la markell. Use esta informaci??n de la forma que mejor se adecue a usted y al proveedor cuando conversen sobre francis atenci??n. Tipos de infecciones de las v??as urinarias ??? Cistitis. La infecci??n de la vejiga (cistitis) es la infecci??n urinaria m??s com??n en las mujeres. Es posible que tenga brent necesidad urgente o frecuente de orinar. Tambi??n puede tener dolor, ardor al orinar y orina con kip. ??? Uretritis. Es brent inflamaci??n de la uretra. La uretra es el conducto que lleva la orina desde la vejiga hasta el exterior del cuerpo. Puede tener dolor en la parte baja del est??dane o en la espalda. Es posible quetenga brent necesidad urgente o frecuente de hacer pis. ??? Pielonefritis. Es brent infecci??n en los ri??ones. Puede causarle da??os graves si se kristofer sin tratar. En los casos graves, puede requerir hospitalizaci??n. Los s??ntomas pueden consistir en fiebre y dolor en la parte baja de la espalda. ?? Medicamentos para tratar brent infecci??n de las v??as urinarias La mayor??a de las infecciones de las v??as urinarias se tratan con antibi??ticos. Los antibi??ticos pueden destruir las bacterias. La duraci??n del tratamiento con antibi??ticos depender?? del tipo de infecci??n que tenga. Puede ser de apenas 3??d??as. Si tiene infecciones urinarias frecuentes, podr??a necesitar brent dosis baja de antibi??ticos genevieve varios meses. Use los antibi??ticos exactamente seg??n las indicaciones. No deje los antibi??ticos hasta que los haya terminado, incluso si se siente mejor. Si kristofer de usar un antibi??whitney antes de tiempo, la infecci??n podr??a no desaparecer por completo y regresar. Tambi??n puede hacerse resistente al antibi??whitney. Byars puede hacer que sea mucho m??s dif??cil de tratar. ?? Cambios del estilo de dionne para tratar y prevenir las infecciones urinarias Los cambios de estilo de dionne descritos a continuaci??n pueden ayudarla a combatir la infecci??n urinaria. Tambi??n puede ayudar a prevenir futuras infecciones en las v??as urinarias. ??? Branden abundante cantidad de l??quidos. Por ejemplo, agua, jugos u otras bebidas sin cafe??na. Byars ayuda a eliminar las bacterias. ??? Vac??e la vejiga. Siempre vac??e la vejiga??cuando tenga ganas de orinar. Orine siempre antes de acostarse. La orina que permanece en la vejiga promueve la infecci??n. Tambi??n trate de orinar antes y despu??s de tener relaciones sexuales. ??? Practique brent buena higiene personal. L??mpiese isidoro con un movimiento desde adelante hacia atr??s despu??s de usar el inodoro. [place]ars ayuda a evitar que las bacterias entren a la uretra. ??? Use ropa interior de algod??n. No use ropa interior sint??med o ajustada que pueda retener la humedad. C??mbiese r??pidamente los trajes de ba??o y la ropa de ejercicio mojados. ??? D??chese. Las duchas son mejores que los ba??os para prevenir las infecciones urinarias. ??? Utilice condones genevieve las relaciones sexuales. Byars ayuda a prevenir las infecciones urinarias provocadas por bacterias transmitidas sexualmente. Adem??s, evite el uso de espermicidas en las relaciones sexuales. Aumentan el riesgo de padecer infecciones urinarias.Elija otra forma de anticoncepci??n. Las mujeres que suelen presentar infecciones urinarias despu??s de tener relaciones sexuales podr??an usar un antibi??whitney preventivo de dosis baja. Aseg??rese deconsultar esta opci??n con el proveedor de atenci??n m??dica. ??? Malaika el seguimiento necesario conel proveedor de atenci??n m??dica seg??n lo indicado. Shruti profesional puede realizar pruebas para asegurarse de que la infecci??n haya desaparecido. Si es necesario, empezar?? un tratamiento adicional. ?? Last Reviewed Date: 2023 ?? [id number] [employer]. Todos los derechos reservados. Esta informaci??n no pretende sustituir la atenci??n m??dica profesional. S??lo francis m??dico puede diagnosticar y tratar un problema de markell. ?? * Gurpreet Prado DO: MODIFY, PERFORM Event Display: Discharge/Transfer Note Hospital Authored Date: Patient: ??AMOR, JOSEPH ? Age:??58 Years?Sex:??Female?:??1965?? Patient Information Discharge Location: Primary Care Physician: Rajinder OLIVEIRA, Jaleesa Ahuja Admit Date/Time: 10/30/2024 03:58 Discharge Disposition Discharge Disposition: Home with Home Health Discharge Diagnosis CHF, systolic + severe right HF, rEF 50-55% (I50.23) Diastolic dysfunction (I51.9) Nonischemic cardiomyopathy (I42.8) Morbid obesity(actual 44.58 as of 08/05/2014) -> BMI 39 2016 (E66.01) Acute HFrEF (heart failure with reduced ejection fraction) (I50.21) Noncompliance (Z91.199) General medical ([id number]) Type 2 diabetes mellitus with hyperglycemia (E11.65) Hypothyroidism (E03.9) Pyelonephritis (N12) CHF exacerbation (I50.9) Complicated UTI (urinary tract infection) (N39.0) _ Discharge Medications Albuterol (Ventolin 90 mcg Inhaler)?2?puff(s)?Inhalation?Every 4 hours Allopurinol (allopurinol 300 mg oral tablet)?300?Milligram?1?tablet?By Mouth?Daily?2 times a day amiODARONE (amiodarone 200 mg oral tablet)?1?tablet?By Mouth?Daily in AM Atorvastatin (atorvastatin 80 mg oral tablet)?80?Milligram?By Mouth?Daily at bedtime Bumetanide (bumetanide 2 mg oral tablet)?1?tab(s)?2?Milligram?By Mouth?2 times a day BuPROpion (buPROPion 300 mg/24 hours (XL) oral tablet, extended release)?1.5?tab(s)?450?Milligram?By Mouth?Daily dapagliflozin (Farxiga 10 mg oral tablet)?1?tab(s)?10?Milligram?By Mouth?Daily Digoxin (digoxin 0.125 mg oral tablet)?1?tablet?By Mouth?Daily in AM fluticasone-vilanterol (Breo Ellipta 200 mcg-25 mcg/inh inhalation powder)?1?puff(s)?Inhalation?Daily Insulin Glargine (Lantus Solostar Pen 100 units/mL subcutaneous solution)?See Instructions?Please take 18 units daily in the morning.E11.65 Insulin Lispro (Humalog Kwik Pen 100 units/mL subcutaneous injection)?See Instructions?Subcutaneous Infusion?for 30?Days?Please take at least 5-10 minutes before meals 3 times a day per the scale: BG 100-149: 6 units ? ; BG 150-199: 7 units; BG 200-249: 8 units; BG 250-299: 9 units; BG 300-349: 10 units; BG 350-399: 11 units; BG >400: 12 units; E10.9 or E11.65; MDD 40... Levothyroxine (levothyroxine 175 mcg (0.175 mg) oral tablet)?175?Microgram?By Mouth?Daily?on an empty stomachwith plenty of wateras a single daily dose at least 1 hour before breakfastand other medicationsavoid antacids, calcium, or iron for at least 4 hrs before or 4 hrs after linagliptin (Tradjenta 5 mg oral tablet)?1?tab(s)?5?Milligram?By Mouth?Daily Metoprolol (Metoprolol Succinate ER 25 mg oral tablet, extended release)?0.5?tablet?By Mouth?Daily in AM nalOXONE (Narcan 4 mg/0.1 mL nasal spray)?1?spray(s)?4?Milligram?Naris, Left?Once?as needed?Other?To reverse opioid overdose, use one spray in one nostril. if an additionaldose is needed, alternate nostril, may repeat every 2 to 3 minutes until patient responds, call 911in the meantime rivaroxaban (Xarelto 20 mg oral tablet)?See Instructions?TAKE 1 TABLET BY MOUTH EVERY EVENINGWITH DINNER?1?tab(s)?20?Milligram?By Mouth?Daily before dinner sacubitril-valsartan (Entresto 24 mg-26 mg oral tablet)?1?tab(s)?By Mouth?2 times a day Sertraline (sertraline 100 mg oral tablet)?2?tab(s)?200?Milligram?By Mouth?Daily Spironolactone (spironolactone 50 mg oral tablet)?3?tab(s)?By Mouth?Daily in AM Trazodone (traZODone 100 mg oral tablet)?TAKE 1-2 TABLET BY MOUTH ONCE A DAY NEEDED FOR NIGHTTIME AWAKENING. Zolpidem (zolpidem 10 mg oral tablet)?1?tab(s)?10?Milligram?By Mouth?Daily at bedtime?as needed?as needed for insomnia ? Medications Started None Medications Discontinued None Doses Changed None PCP Follow-Up/Heads-Up Patient was seen at [facility] for acute on chronic heart failure with reduced ejection fraction.?? She required Bumex drip for approximately 1 day before becoming euvolemic and transition back to her home Bumex.?? No medications were changed.?? Please follow-up with BMP. Future Appointments 2024 2:15 PM EST ?? With: Miguel Angel Gardner DO Where: [facility] [address] [place] [id number]- Status: Pending Sunday 8:00 AM EST ?? Where: [facility] [address] [place] [phone]- Status: Pending Sunday 10:30 AM EST ?? With: Malissa OLIVEIRA, Jacob Morrison Where: [facility] [address] [place] [phone]- Status: Pending Hospital Course 58-year-old F??with??PMHx of HTN,??DM type 2 insulin-dependent,??rheumatoid heart disease??s/p??bioprosthetic mitral and tricuspid??valvuloplasty, A-fib on Xarelto,??biventricular??heart failure,??HFrEF with LVEF??30 to 35%??s/p CardioMEMS,??pulmonary HTN,??Hx of left MCA stroke, CKD, asthma,??RUTHY on CPAP, hypothyroidism, gout, anemia, anxiety/depression, hypothyroidism, chronic lower abdominal wall wound??presented to the ED with??complaints of??progressively worsening shortness of breath for the past 5 to 6 days.?She was hypervolemic on exam??with elevated??PAD readings.??Patient has a history of noncompliance with CardioMEMS device or her medications,??started on Bumex drip for??aggres sive diuresis.??Admitted to the floor for further management of her??heart failure. Now euvolemic and stable for discharge. Patient was started on home diuretic regimen. Hospital course complicated??by MECCA on day of intended discharge. ? Objective Assessment and Plan Acute Kidney Injury on Chronic Kidney Disease Baseline Cr 1.1-1.3. Cr today up to 1.58 from 1.1. Not sure of patient adherence to medications at home. Increase in Cr could be due to starting all medications again. ?? Plan: ? - Hold Bumex, Entresto, Spironolactone, Dapagliflozin, Digoxin ? - Monitor BMP ?? Acute on Chronic Heart Failure with REduced Ejection Fraction Rheumatoid heart disease status post bioprosthetic mitral and tricuspid valvuloplasty Atrial fibrillation on Xarelto Biventricular heart failure with LVEF 30 to 35% status post CardioMEMS Pulmonary hypertension Biventricular heart failure with LVEF 30??to 35% s/p CardioMEMS.??Well-known to heart failure clinic.? Patient presenting with elevated PAD readings and??SOB.??Etiology of her heart failure exacerbationmost likely??due to medication noncompliance Home meds include:??Bumex 2 mg twice daily??(not sure what current dose is??if it was increased),??digoxin, spironolactone, metoprolol, and recently started on Entresto. CXR with mild pulmonary edema, EKG with no acute??ischemic changes Troponins flat??16,??17 proBNP??elevated 2659 Digoxin level less than 0.4 Advanced heart failure team consulted, recommendations appreciated ?? Plan: - Restart GDMT when kidney function recovers - Continue Metoprolol 12.5 mg PO QD - Continue Xarelto 20 mg PO QD - Continue Amiodarone 200 mg PO QD - Digoxin as above - HF clinic follow up in 1-2 weeks ?? Chronic/stable/resolved medical conditions: Anxiety/depression:??Continue with sertraline, bupropion Insomnia:??Continue with zolpidem as needed, trazodone Hypothyroidism:??Continue with levothyroxine Hyperlipidemia:??Continue with atorvastatin Asthma:??continue with albuterol inhaler, on Symbicort---substituted with??Breo while inhouse as itis non formulary Thrombocytopenia:??Chronic, continue to monitor CBC History of gout:??Continue with allopurinol RUTHY:??CPAP QHS and with naps? Patient seen and discussed with the attending physician, Dr. Marina. Gurpreet Prado, DO Internal Medicine Resident Pager #[phone] ?? This note was dictated??by [employer] voice detection software,??for any errors??or clarifications, please do not hesitate to reach out for clarifications.? Vital Signs?? Temperature: 97.6 DegF (11/01/24 07:28:00) Temperature Route: Temporal (11/01/24 07:28:00) Pulse Rate: 75 bpm (11/01/24 08:12:00) Respiratory Rate: 16 br/min (11/01/24 07:28:00) Systolic Blood Pressure: 107 mm Hg (11/01/24 07:28:00) Diastolic Blood Pressure: 55 mm Hg (11/01/24 07:28:00) Blood pressure sites: Arm, right (11/01/24 07:28:00) Mean Arterial Pressure: 72 mm Hg (11/01/24 07:28:00) Pulse Pressure: 52 mm Hg (11/01/24 07:28:00) Oxygen Saturation: 94 % (11/01/24 07:28:00) Mode of Delivery (Oxygen): Room air (11/01/24 07:28:00) Early Warning Score: 7 (11/01/24 08:14:02) ? . Physical Exam General: No acute distress HEENT: Moist mucous membranes, neck supple, JVD??flat??with HOB at??30,??no HJR?? Respiratory: Lungs??CTA BL,??no??wheezes,??nocrackles Cardiovascular:??Normal rate, regular??rhythm. Clear S1, S2??_.??No??heave,??no??murmur,??no??rub Abdomen: Normal active bowel sounds,??soft, non-tender,??non-??distended_,??no hepatomegaly?? Musculoskeletal:??No?LE edema. Moving all extremities Neurologic: Alert & Oriented x4, no focal deficits Vascular: 2+ radial and PT?? Skin:??Warm and??perfused Consultants Heart Failure Pending Results Add On Lab Order ordered on 10/30/2024 Add On Lab Order ordered on 10/30/2024 Hold Urine Culture ordered on 10/31/2024 Patient Education Titles WebMD Ignite Patient Education - Discharge Instructions for Heart Failure?? Follow-Up Appointments Added Follow Up ?Time Frame ?Comments Rajinder OLIVEIRA, Jaleesa Ahuja?1 to 2 weeks Patient Instructions DIAGNOSIS:??Acute on chronic HFrEF ? TEST RESULTS:??Your CardioMEMs numbers were elevated suggesting volume overload. You received IV diuretics and responded well. ? Your specific PATIENT CARE INSTRUCTIONS (what to do / when to return): Please take medications??as??prescribed. ?? Return to ED if you??develop??shortness of breath or chest pain. ?? Please??follow up??with??your??PCP??and??Hf doctor. ? MEDICATIONS (what medications you should start (or stop) taking): Resume all home medications Home Health Face to Face *Denotes mandatory cool ?? *I certify that this patient is under my care and that I or an allowed non- physician working with me had a face to face encounter with the patient on this date:??11/01/2024 08:36 ?? *The encounter with the patient was in whole, or in part, for the following medical condition, which is the primary diagnosis(es) for home health care:??CHF, systolic + severe right HF, rEF 50-55% (I50.23) Diastolic dysfunction (I51.9) Nonischemic cardiomyopathy (I42.8) Morbid obesity(actual 44.58 as of 08/05/2014) -> BMI 39 2015 (E66.01) Acute HFrEF (heart failure with reduced ejection fraction) (I50.21) Noncompliance (Z91.199) General medical ([id number]) Type 2 diabetes mellitus with hyperglycemia (E11.65) Hypothyroidism (E03.9) Pyelonephritis (N12) CHF exacerbation (I50.9) Complicated UTI (urinary tract infection) (N39.0) ?? *Select the indications for the discipline/s that are being arranged for this patient. Nursing (select all that apply): [_] None [X] Medication management (reconciliation, teaching)?? [X] Chronic disease management?? [_] Wound care and treatment?? [_] Home safety evaluation [_] Administer SQ/IM/IV medications?? [_] Cath care?? [_] Drain care?? [_] Trach or GT care?? Other _ Occupation Therapy (select all that apply): [_] None [_] ADL Management [_] Fall prevention training [_] Energy conservation [_] Cognitive training Other _ Physical Therapy (select all that apply): [_] None [X] Functional mobility training [X] Home exercise program to strengthen [_] Increase ROM?? [_] Falls prevention training [_] Home maintenance program for chronic disease Other _ Speech Therapy (select all that apply): [_] None [_] Swallow evaluation and training [_] Speech and language training [_] Cognitive training to process, organize, and/or recall information Other _ ? *Homebound due to (select all that apply): [X] Inability to leave home without assistance/supervision [_] Inability to ambulate without assistance [_] Pain [_] Decreased strength and endurance [_] Unsteady gait [_] Severe SOB and fatigue [_] Impaired transfers [_] Inability to negotiate stairs [_] Limited weight bearing [_] Mental status change? *Physician Signature:??Gurpreet Prado, DO ?? *By signing this, I certify that I have personally evaluated the patient and agree with the findings and recommendations as documented above. ? Results Discharge Labs BLOOD COUNT & DIFF WBC 8.1 k/mm3 ()?? 11/01/2024 01:23 RBC 4.84 m/mm3 ()?? 11/01/2024 01:23 Hgb 12.3 Gm/dL ()?? 11/01/2024 01:23 Hct 39.7 % ()?? 11/01/2024 01:23 MCV 82.0 femtoliters ()?? 11/01/2024 01:23 MCH 25.4 pg (Low)?? 11/01/2024 01:23 MCHC 31.0 Gm/dL (Low)?? 11/01/2024 01:23 Platelet Count 126 k/mm3 (Low)?? 11/01/2024 01:23 RDW-SD 46.8 femtoliters ()?? 11/01/2024 01:23 MPV 11.0 femtoliters ()?? 11/01/2024 01:23 Nucleated RBC (Automated) 0.0 #/100 WBC'S ()?? 11/01/2024 01:23 Abs. NRBC 0.0 k/mm3 ()?? 11/01/2024 01:23 Abs. Neut 3.7 k/mm3 ()?? 10/30/2024 07:05 Abs. Lymph 1.3 k/mm3 ()?? 10/30/2024 07:05 Abs. [place] 0.4 k/mm3 ()?? 10/30/2024 07:05 Abs. Eo 0.1 k/mm3 ()?? 10/30/2024 07:05 Abs. Baso 0.0 k/mm3 ()?? 10/30/2024 07:05 Neut % 66.7 % ()?? 10/30/2024 07:05 Lymph % 23.0 % ()?? 10/30/2024 07:05 [place] % 6.7 % ()?? 10/30/2024 07:05 Eos % 2.2 % ()?? 10/30/2024 07:05 Baso % 0.5 % ()?? 10/30/2024 07:05 Platelet Estimate DECREASED ()?? 10/30/2024 07:05 Imm Gran 0.9 % ()?? 10/30/2024 07:05 Abs. Imm Gran 0.1 k/mm3 ()?? 10/30/2024 07:05 ? CARDIAC Nt-Probnp 2659 pg/mL (High)?? 10/29/2024 23:59 High Sensitivity Troponin (HSTnT) 18 ng/L (High)?? 10/30/2024 07:05 ?? CHEM GENERAL Sodium 139 mmol/L ()?? 11/01/2024 01:30 Potassium 4.0 mmol/L ()?? 11/01/2024 01:30 Chloride 93 mmol/L (Low)?? 11/01/2024 01:30 Bicarbonate Level 30 mmol/L (High)?? 11/01/2024 01:30 Anion Gap 16 mmol/L ()?? 11/01/2024 01:30 Glucose Level 211 mg/dL (High)?? 11/01/2024 01:30 Glucose, POC 261 mg/dL (High)?? 11/01/2024 07:26 BUN 23 mg/dL (High)?? 11/01/2024 01:30 Creatinine-Blood 1.58 mg/dL (High)?? 11/01/2024 01:30 Estimated GFR Creatinine 38 ML/MIN/1.73 M2 ()?? 11/01/2024 01:30 Calcium 8.5 mg/dL (Low)?? 11/01/2024 01:30 Magnesium 1.9 mg/dL ()?? 11/01/2024 01:30 ?? HEME OTHER Hold Blue Top SPECIMEN DISCARDED AFTER 4 HOURS. ()?? 10/29/2024 23:59 ? TOXICOLOGY/TDM Digoxin Level <0.4 ng/mL (Low)?? 10/29/2024 23:59 ? UA/URINALYSIS Appear/Color, Urine COLORLESS ()?? 10/31/2024 14:15 Specific [place], Urine <1.005 ()?? 10/31/2024 14:15 pH, Urine 6.0 ()?? 10/31/2024 14:15 Albumin, Urine NEGATIVE ()?? 10/31/2024 14:15 Glucose, Urine 4+ (Abnormal)?? 10/31/2024 14:15 Ketones, Urine NEGATIVE ()?? 10/31/2024 14:15 Bilirubin, Urine NEGATIVE ()?? 10/31/2024 14:15 Hemoglobin, Urine NEGATIVE ()?? 10/31/2024 14:15 Nitrite, Urine NEGATIVE ()?? 10/31/2024 14:15 Leukocyte, Urine NEGATIVE ()?? 10/31/2024 14:15 Urobilinogen NORMAL mg/dL ()?? 10/31/2024 14:15 WBC's, Urine NONE SEEN /HPF ()?? 10/31/2024 14:15 RBC's, Urine NONE SEEN /HPF ()?? 10/31/2024 14:15 Squamous Epith <1 /HPF ()?? 10/31/2024 14:15 ?? URINE OTHER Sodium, Urine Random 97 mmol/L ()?? 10/31/2024 14:15 Est Creatinine Clearance 30.04 mL/min ()?? 11/01/2024 02:32 ?? VIROLOGY Influenza A PCR NEGATIVE ()?? 10/30/2024 02:59 Influenza B PCR NEGATIVE ()?? 10/30/2024 02:59 RSV PCR NEGATIVE ()?? 10/30/2024 02:59 COVID-19 PCR Specimen Source NASAL ()?? 10/30/2024 02:59 COVID-19 PCR Result NEGATIVE ()?? 10/30/2024 02:59 ? Image ?XR Chest 2 Views Frontal and Lat??10/30/2024 03:50 by Rayray Salvador ?IMPRESSION: Cardiomegaly with pulmonary vascular congestion, similar to prior. ?12 Lead ECG??10/29/2024 23:55 by Ivan Pate MD ?Ventricular Rate: 102 BPM QRS Duration: 102 ms Q-T Interval: 380 ms QTC Calculation(Bazett): 495 ms R Sargeant: 32 degrees T Sargeant: 68 degrees Atrial fibrillation with rapid ventricular response Incomplete right bundle branch block Cannot rule out Anterior infarct , age undetermined QTcB > 480 msec Abnormal ECG When compared with ECG of 23-Oct-2024 15:01, No significant change was found ?? Consult ?Heart Failure Consult Note??10/30/2024 11:50 by Rajan VASQUEZ, Moustapha Islas ?Patient with??long-standing biventricular failure,??HFrEF??phenotype (EF approximately 35-40% on 04/27/21) and RV dilation/reduction of systolic function,??well-known to the HF clinic reports that she has been having progressively worsening shortness of breath for the past 5 to 6 days.??She reports that she was contacted by one of the providers who will monitor her CardioMEMS readings and instructed her to go to the emergency department as she was noted to have increased PA pressures.??She reports that one of her medications was recently increased however she does not know the name of the medications but does tell me that it is a medication that makes me pee , likely Bumex which she is on 2 mg twice daily at home.??Denies any chest pain, does report having some nausea, no vomiting, no abdominal pain, diarrhea, constipation or dysuria EKG with no acute ischemic changes, chest x- ray suggestive of mild pulmonary edema however formal report is pending.??proBNP elevated to 2659, troponin 16, 17 which is stable compared to her baseline, digoxin levels noted to be low at lessthan 0.4, flu/RSV/COVID-19 negative.??Patient was given 2 mg of IV Bumex in the emergency department with unknown response just yet d/t lack of I/O's. ?? Physical Exam: On exam, JVP is evident up to patient's earlobe.??Lungs are??clear to auscultation bilaterally. No crackles, and/or rales??heard. Mild wheezing noted??S1 S2, irregular rhythm but controlled rate. No murmurs auscultated.??No lower leg edema evident bilaterally.? Assessment ?? Today, patient is hypervolemic on exam given her JVD up to the patient's earlobe. Her most current Cardiomems PAD reading was 33 which was most likely taken at home since there are no cardiomems machines in the ED. Historically, the patient has had issues with complying regularly with using the cardiomems device. Although not recorded on the [employer] website,??the patient reported that she has beencalled by the HF office within the past few days (per the patient ~3 days ago) for high PAD pressures to do an intervention which is doubling the dose of Bumex for at least 2 days. After reviewing her PAD pressures trends, it appears that for most of the month of October, her PAD pressures have been above her range (>20), however, again it should be noted that the patient historically is not very compliant with consistent participation with the cardiomems device or her medications. ?? Given her continued hypervolemia, it would be best transition her to a Bumex drip for more aggressive diuresis.? Plan ~Start Bumex drip at 1 mg/hr. If not responding adequately to Bumex drip, may consider Metolazone 2.5 mg IVP. ~afternoon repeat BMP bloodwork especially after initiating patient on Bumex drip. ~Admit to floor level care. ~Strict I&O's please and Daily standing weights! ?? ~Consider genetic testing outpatient for possible hereditary component to HF. ? Functional Status:??NYHA class IV (debilitating functional limitations related to heart failure),??_ Volume Status:??Hypervolemic ?? Discussed and in??agreement??with Dr. Barreto, HF attending physician. ?? Moustapha Tolentino DNP ?? 38??minutes spent on discharge * Gurpreet Prado DO: PERFORM Event Display: Discharge/Transfer Note Hospital Authored Date: Patient is hemodynamically and clinically stable and was anticipated discharge today, but her labs show MECCA on CKD likely in setting of restarting GDMT and no taking regularly at home. DC postponed. Will continue to monitor renal function and start meds as appropriate. Let this serve as progress note for 11/01/24. * Walter Marina MD: PERFORM Event Display: Discharge/Transfer Note Hospital Authored Date: Attending Attestation: I saw and examined the patient with the resident team and reviewed the charton the day of service. ??I have discussed the case and its management??with the resident as documented in the resident note on the day of service.??I agree with the resident's note and plan as documented.?? Pt is no longer volume overloaded.?? Rise in creat may be a result of angiotensin blockade and ddiuresis.?? If renal function is stable tomorrow, ,hopefully can resume her gdmt.?? Encourage pofluid intake.?? Will continue to monitor renal function closely. Walter Marina MD Patient Care team information Care Team Personnel Name: Domi Pan RN Position: [facility] RN Member Role: Primary Care Nurse Name: Vazquez Thornton RN Position: [facility] RN Member Role: Primary Care Nurse Name: Jaqueline Barnett RN Position: [facility] RN Member Role: Primary Care Nurse Name: Crystal Drake RN Position: [facility] HBO Wound Member Role: Primary Care Nurse Name: Noy Mendes RN Position: [facility] AMB Nurse Member Role: Primary Care Nurse Name: Mely Griffin Position: [facility] Pharmacist Member Role: Primary Care Nurse Name: Sully Dickerson RN Position: [facility] RN Member Role: Primary Care Nurse Name: Jaleesa Calvillo MD Position: [facility] Outreach Member Role: PCP Address: [address] [place] [phone]- Telecom: Name: Jessica Ogden RN Position: [facility] RN Member Role: Primary Care Nurse Name: Leigha Osorio RN Position: [facility] RN Member Role: Primary Care Nurse Name: Julius Anderson MD Position: [facility] Renal MD Member Role: [employer] Consulting Physician Address: [address] [place] [address] [id number] [place] [address]- Telecom: Name: Namita Trujillo RN Position: [facility] RN Member Role: Primary Care Nurse Name: Dominique Miller RN Position: [facility] RN Member Role: Primary Care Nurse Name: Nolan Lei RN Position: [facility] Cardiac Rehab Mgr Member Role: Primary Care Nurse Name: Gretel Estrada RN Position: [facility] Hospital Calibrator Barometers Member Role: Primary Care Nurse Name: Essence Palacio RN Position: [facility] RN Member Role: Primary Care Nurse Name: Judah Busch RN Position: [facility] RN Member Role: Primary Care Nurse Name: Rowena Stewart RN Position: [facility] SN RN Member Role: Primary Care Nurse Name: Carmen Gregory RN Position: [facility] RN Member Role: Primary Care Nurse Name: Arlyn Gupta RN Position: [facility] RN Member Role: Primary Care Nurse Name: Luisana Sánchez RN Position: [facility] RN Member Role: Primary Care Nurse Name: Teri Martinez [facility] [facility] RN Member Role: Primary Care Nurse Name: Cherise Kirkland RN Position: [facility] RN Member Role: Primary Care Nurse Name: Aylin Penn RN Position: [facility] ED RN W/OE and Tasks Member Role: Primary Care Nurse Name: Meseret Santiago RN Position: [facility] RN Member Role: Primary Care Nurse Name: Althea Cano RN Position: [facility] RN Member Role: Primary Care Nurse Name: Carey Stacy RN Position: [facility] RN Member Role: Primary Care Nurse Name: Sharda Bryant RN Position: [facility] RN Member Role: Primary Care Nurse Name: Luis Daniel Bryant RN Position: [facility] RN Member Role: Primary Care Nurse Name: Jesús Hopkins RN Position: [facility] RN Member Role: Primary Care Nurse Name: Edwin Bah Jr, RN Position: [facility] ED RN W/OE and Tasks Member Role: Primary Care Nurse Name: Blessing Castro RN Position: [facility] RN Member Role: Primary Care Nurse Name: Bette Lopez LPN Position: [facility] RN Member Role: Primary Care Nurse Name: Carri Purcell RN Position: [facility] RN Member Role: Primary Care Nurse Name: Marilu Rehman RN Position: [facility] RN Member Role: Primary Care Nurse Name: Jainne Fitzgerald RN Position: [facility] SN Physician/Allergy/Immunology Member Role: Primary Care Nurse Name: Aylin Merritt RN Position: [facility] RN Member Role: Primary Care Nurse Name: Marisela Spear RN Position: [facility] RN Member Role: Primary Care Nurse Name: Anne-Marie Pimentel RN Position: [facility] RN Member Role: Primary Care Nurse Name: Marty Sethi MD Position: [facility] Outreach Member Role: Lifetime Consulting Physician Address: [address] [place] [address] [address] [facility], [place] [address]- Telecom: Name: Marilia Marie Position: S Outreach Member Role: Lifetime Consulting Physician Name: Luis Daniel Baires RN Position: S RN Member Role: Primary Care Nurse Name: Hakeem Palomino LPN Position: S RN Member Role: Primary Care Nurse Name: Nino Singh RN Position: S RN Member Role: Primary Care Nurse Name: Dalia Lopez NP Position: Reference Physician Member Role: Primary Care Nurse Address: [place] [address]- Telecom: Name: Janine Garcia RN Position: [facility] Onco RN Member Role: Primary Care Nurse Name: Rakel Rush RN Position: [facility] AMB Nurse Member Role: Primary Care Nurse Name: Igor Mckeon RN Position: [facility] RN Member Role: Primary Care Nurse Name: Oumou Stark RN Position: [facility] RN Member Role: Primary Care Nurse Name: Gudelia Molina Position: [facility] Outreach Member Role: Lifetime Consulting Physician Name: Essence Chan RN Position: [facility] RN Member Role: Primary Care Nurse Name: Ingris Guzman RN Position: [facility] AMB Nurse Member Role: Primary Care Nurse Name: Gómez Kirkpatrick MD Position: [facility] Renal MD Member Role: Lifetime Consulting Physician Address: [address] [facility] [place] [address]- Telecom: Name: Guillermina Turcios RN Position: [facility] RN Member Role: Primary Care Nurse Name: Edwin Wall RN Position: [facility] ED RN W/OE and Tasks Member Role: Primary Care Nurse Name: Sarita Scott RN Position: [facility] RN Member Role: Primary Care Nurse Name: Luisana Turcios LPN Position: [facility] RN Member Role: Primary Care Nurse Name: Karsten Anne MD Position: Reference Physician Member Role: Lifetime Consulting Physician Address: [address] [employer] [place] [address]- Telecom: Name: Connie Perez RN Position: S RN Member Role: Primary Care Nurse Name: Alisha Raman RN Position: S RN Member Role: Primary Care Nurse Name: Coty Taylor RN Position: S RN Member Role: Primary Care Nurse Name: Brenda Asencio RN Position: S RN Member Role: Primary Care Nurse Care Team Related Persons Name: DEANSHAYLA Name: IMER MORAN Insurance Providers Guarantor name: [facility] Codement[employer] Plan Information #: 1 Payer: MEDICARE A INPT 25 Member Number: [id number] Policy Number: NA Group Number: Health Plan Information #: 3 Payer: [place] Member Number: [id number] Policy Number: NA Group Number: Health Plan Information #: 4 Payer: [place] Member Number: [id number] Policy Number: NA Group Number: Health Plan Information #: 2 Payer: [employer] Member Number: [id number] Policy Number: NA Group Number: NA
--- OUTSIDE RECORDS SUMMARY | 2024-11-12 16:38 | XMS_ITS | Continuity of Care Document ---
Author Organization [facility] ter Address [address] [place] [address]- Support Name Relationship Address Phone SHAYLA MORAN [...] Unknown Unav ailable Care Team Providers Care Manual Writer Name Role Phone Jaleesa Calvillo MD Primary Care Physician [id number] Date(s): 10/23/24 - 10/23/[address] [address]- Discharge Disposition: A-D/C Home Attending Physician: Nitesh Guajardo MD Admitting Physician: Nitesh Guajardo MD Referring Physician: Not on Staff, Referring MD Encounter Type: Disch ES Allergies, Adverse Reactions, Alerts Substance Criticality Severity Reaction Reaction Severity Status ibuprofen tachycardia Active aspirin Active lisinopril rash Active Motrin Active Tylenol rash Active Other Environmental Allergy skin irritation ekg adhesives Active Percocet 5/325 1 rash Act misael 1patient tolerates IV morphine Immunizations Given and Recorded Vaccine Date Status Refusal Reason [id number] 12y+ bivalent booster vax 09/06/22 Recorded influenza [...] tetanus/diphtheria/pertussis, acel(Tdap) 10/28/12 Given 1Result Comment: [06/25/2017] [id number] Medications allopurinol 300 mg oral tablet 300 [...] 8:56:00 AM EST, Route to Pharmacy Electronically, [facility], 150, cm, 07/29/24 13:32:00 EDT, Height, 66, kg, 06/11/24 3:28:00 EDT, Dry Weight Start Date: 08/26/24 Status: Ordered Quantity: 90.0 Unit: tablet Repeat number: 1 atorvastatin 80 mg oral tablet = 80 mg, By Mouth, Daily at bedtime, # 30 tablet, 0 Refills, Maintenance, 09/23/24 1:15:00 PM EST, Tablet, [facility], Partial fill upon patient request if [...] 1 tablet = 2 mg, By Mouth, 2 times a day, # 60 tablet, 0 Refills, Maintenance, 06/13/24 2:03:00 PM EDT, Tablet, [facility], Partial fill upon patient request if the prescription is for aschedule II opioid drug., 150, cm, 06/13/24 7:49:00 EDT, Height, 66, kg, 06/11/24 3:28:00 EDT, Dry Weight Start Date: 06/13/24 Status: Ordered Quantity: 60.0 Unit: tablet Repeat number: 1 buPROPion 300 mg/24 hours (XL) oral tablet, extended release 1.5 tablet = 450 mg, By Mouth, Daily, # 30 tablet, 0 Refills, Maintenance, 03/09/24 10:18:00 PM EDT, ER Tablet, Partial fill upon patient request if the prescription is for a schedule II opioid drug. Start Date: 03/09/24 Status: Ordered Quantity: 30.0 Unit: tablet Repeat number: 1 cephalexin monohydrate 250 mg oral capsule 1 capsule = 250 mg, By Mouth, 4 times a day, for 5 days, # 20 capsule, 0 Refills, Acute 10/28/24 8:38:00 PM EST, 10/23/24 8:38:00 PM EST, Capsule, [facility], Partial fill upon patient request if the prescription is for a schedule II opioid drug., 163, cm, 10/23/24 14:48:00 EST, Height, 82, kg, 10/23/24 14:48:00 EST, Dry Weight Start Date: 10/23/24 Stop Date: 10/28/24 Status: Ordered Quantity: 20.0 Unit: capsule Repeat number: 1 digoxin 0.125 mg oral tablet 1, tablet, By Mouth, Daily in AM, # 90 tablet, Refills 1, Maintenance, 08/26/24 8:56:00 AM EST, Route to Pharmacy Electronically, [facility], 150, cm, 07/29/24 13:32:00 EDT, Height, 66, kg, 06/11/24 3:28:00 EDT, Dry Weight Start Date: 08/26/24 Status: Ordered Quantity: 90.0 Unit: tablet Repeat number: 1 Entresto 24 mg-26 mg oral tablet 1 tablet, By Mouth, 2 times a day, # 60 tablet, 0 Refills, Maintenance, 10/13/24 2:47:00 PM EST, [facility], Partial fill upon patient request if [...] Quantity: 30.0 Unit: tablet Repeat number: 1 Freestyle Yonis 3 Monitor Freestyle Yonis 3 Monitor, See Instructions, # 1 each, Refills 0, Tot. Refills 0, Maintenance, Use to check blood glucose at least 4x daily E 11.65, 08/29/24 1:00:00 PM EST, Supply, 150, cm, 08/29/2412:38:00 EST, Height, 66, kg, 06/11/24 3:28:00 EDT, Dry Weight Start Date: 08/29/24 Status: Ordered Quantity: 1.0 Unit: each Repeat number: 1 Indication: Type 2 diabetes mellitus with hyperglycemia Freestyle Yonis 3 sensors Freestyle Yonis 3 sensors, See Instructions, # 2 each, Refills 11, Tot. Refills 11, Maintenance, E11.65 30 day supply Use to check blood glucose 4x daily, 08/29/24 3:29:00 PM EST, Supply, 150, cm, 08/29/24 12:38:00 EST, Height, 66, kg, 06/11/24 3:28:00 EDT, Dry Weight Start Date: 08/29/24 Status: Ordered Quantity: 2.0 Unit: each Repeat number: 12 Indication: Type 2 diabetes mellitus with hyperglycemia Freestyle Lite Lancets Freestyle Lite Lancets, See Instructions, # 100 each, Refills 11, Tot. Refills 11, Maintenance, Used to test blood glucose 3x/day. E11.65, 10/16/24 11:39:00 AM EST, Supply, 150, cm, 10/16/24 11:01:00 EST, Height, 91, kg, 09/22/24 8:45:00 EST, Dry Weight Start Date: 10/16/24 Status: Ordered Quantity: 100.0 Unit: each Repeat number: 12 Indication: Type 2 diabetes mellitus with hyperglycemia Humalog Kwik Pen 100 units/mL subcutaneous injection [...] 5 Refills, Maintenance, 07/29/24 2:24:00 PM EDT, [facility], Partial fill upon patient request if [...] 5 Refills, Maintenance, 07/29/24 2:21:00 PM EDT, [facility], Partial fill upon patient request if [...] Refills, Maintenance, 08/30/24 7:26:00 PM EST, Tablet, [facility], Partial fill upon patient request if the prescription is for a schedule IIopioid drug., 150, cm, 08/29/24 12:38:00 EST, Height, 66, kg, 06/11/24 3:28:00 EDT, Dry Weight Start Date: 08/30/24 Status: Ordered Quantity: 30.0 Unit: tablet Repeat number: 12 Indication: Hypothyroidism, unspecified lidocaine 5% topical film 1 patch, Topically, Daily, remove patches after 12 hours. In yakut. on chest, # 30 patch, 0 Refills, Acute 10/31/24 1:17:00 PM EST, 09/23/24 1:17:00 PM EST, Patch, [facility], Partial fill upon patient request if the prescription is for a schedule II opioid drug., 1 patch Topically Daily,Instr:remove patches after 12 hours. In yakut. on chest, 150, cm, 09/23/24 8:09:00 EST,Height, 91, kg, 09/22/24 8:45:00 EST, Dry Weight Start Date: 09/23/24 Stop Date: 10/31/24 Status: Ordered Quantity: 30.0 Unit: patch Repeat number: 1 Metoprolol Succinate ER 25 mg oral tablet, extended release 0.5, tablet, By Mouth, Daily in AM, # 45 tablet, Refills 1, Maintenance, 08/26/24 8:56:00 AM EST, Route to Pharmacy Electronically, [facility], 150, cm, 07/29/24 13:32:00 EDT, Height, 66, kg, 06/11/24 3:28:00 EDT, Dry Weight Start Date: 08/26/24 Status: Ordered Quantity: 45.0 Unit: tablet Repeat number: 1 Narcan 4 [...] Refills, Soft Stop, 03/12/24 2:18:00 PM EDT, [facility], Partial fill upon patient request if the prescription is for a scheduleII opioid drug., 158, cm, 03/12/24 7:46:00 EDT, Height, 86, kg, 03/09/24 11:40:00 EDT, Dry Weight Start Date: 03/12/24 Status: Ordered Quantity: 20.0 Unit: each Repeat number: 1 Pen [place], 31 G x 5 mm BD Ultra Fine III See Instructions, for 30 days, # 100 each, Refills 5, Tot. Refills 5, Hard Stop 01/25/25 2:21:00 PM EDT, use as directed for Type 2 Diabetes Mellitus E11.65, 07/29/24 2:21:00 PM EDT, Supply, 150, cm, 07/29/24 13:32:00 EDT, Height, 66, kg, 06/11/24 3:28:00 EDT, Dry Weight Start Date: 07/29/24 Stop Date: 01/25/25 Status: Ordered Quantity: 100.0 Unit: each Repeat number: 6 Indication: Type 2 diabetes mellitus with hyperglycemia Pen [place], 31 G x 5 mm BD Ultra Fine III See Instructions, for 30 days, # 100 each, Refills 5, Tot. Refills 5, Hard Stop 07/24/25 2:21:00 PMEDT, use as directed for Type 2 Diabetes Mellitus E11.65, 01/25/25 2:21:00 PM EDT, Supply, 150, cm, 08/29/24 12:38:00 EST, Height, 66, kg, 06/11/24 3:28:00 EDT, Dry Weight Start Date: 01/25/25 Stop Date: 07/24/25 Status: Ordered Quantity: 100.0 Unit: each Repeat number: 6 Indication: Type 2 diabetes mellitus with hyperglycemia Pen [place], 31 G x 5 mm BD Ultra Fine III See Instructions, for 30 days, # 100 each, Refills 5, Tot. Refills 5, Hard Stop 01/20/26 2:21:00 PM EDT, use as directed for Type 2 Diabetes Mellitus E11.65, 07/24/25 2:21:00 PM EDT, Supply, 150, cm, 08/29/24 12:38:00 EST, Height, 66, kg, 06/11/24 3:28:00 EDT, Dry Weight Start Date: 07/24/25 Stop Date: 01/20/26 Status: Ordered Quantity: 100.0 Unit: each Repeat number: 6 Indication: Type 2 diabetes mellitus with hyperglycemia Pen [place], 31 G x 5 mm BD Ultra Fine III See Instructions, # 100 each, Refills 5, Tot. Refills 5, Maintenance, use 4 times a day with insulin for Type 2 Diabetes Mellitus E11.65, 01/20/26 2:21:00 PM EDT, Supply, 150, cm, 08/29/24 12:38:00 EST, Height, 66, kg, 06/11/24 3:28:00 EDT, Dry Weight Start Date: 01/20/26 Stop Date: 07/19/26 Status: Ordered Quantity: 100.0 Unit: each Repeat number: 6 Indication: Type 2 diabetes mellitus with hyperglycemia sertraline 100 mg oral tablet 2 tablet = 200 mg, By Mouth, Daily, # 30 tablet, 0 Refills, Maintenance, 07/29/23 5:03:00 AM EDT, Tablet, Partial fill upon patient request if the prescription is for a schedule II opioid drug. Start Date: 07/29/23 Status: Ordered Quantity: 30.0 Unit: tablet Repeat number: 1 spironolactone 50 mg oral tablet 3 tablet, By Mouth, Daily in AM, # 270 tablet, 1 Refills, Maintenance, 08/26/24 8:56:00 AM EST, [facility], 150, cm, 07/29/24 13:32:00 EDT, Height, 66, kg, 06/11/24 3:28:00 EDT, Dry Weight Start Date: 08/26/24 Status: Ordered Quantity: 270.0 Unit: tablet Repeat number: 1 Tradjenta 5 [...] 04/18/22 Status: Ordered Repeat number: 1 Xarelto 20 mg oral tablet 1 tablet = 20 mg, By Mouth, Daily before dinner, # 90 tablet, 1 Refills, Maintenance, 08/26/24 8:56:[address] [facility], [facility], 150, cm, 07/29/24 13:32:00 EDT, Height, 66, kg, 243:28:00 EDT, Dry Weight Start Date: 08/26/24 Status: Ordered Quantity: 90.0 Unit: tablet Repeat number: 1 zolpidem 10 [...] dependent type 2 diabetes mellitus Confirmed Active Yemeni speaking patient Confirmed Active Microcytic anemia Confirmed Active Mitral regurgitation, mild to moderate; moderate tricusplid regurgitation Confirmed Active Mood disorder Confirmed Active Morbid obesity(actual 44.58 as of 08/05/2014) -> BMI 39 2015 Confirmed Active Steatohepatitis, non-alcoholic Confirmed Active Obese class I Confirmed Active RUTHY on CPAP, nonadherent Confirmed Active Osteoarthritis Confirmed Active Pelvic pain in female Confirmed Active Atrial fibrillation/flutter Confirmed Active Inflammatory polyps of colon Confirmed 04/27/14 Active Pulmonary hypertension, moderate Confirmed Active Rectal bleeding - known hemorrhoids, f/u recommended w/ colorectal Confirmed Active Rheumatic valve disease - Cardiac surgery in 2007at [facility] which included an ASD closure, mitral valve ring and tricuspid valve ring repair in 2006 at [facility] Confirmed Active Right heart failure Confirmed Active Results Radiology Reports * Exam Date Time Procedure Performing Provider Status 10/23/24 5:15 PM Chest 2 Views Frontal and Lat Noy Valenzuela; Auth (Verified) Notes: (Chest 2 Views Frontal and Lat) Reason For Exam: Shortness of Breath RESULT: Chest 2 Views Frontal and Lat Chest 2 Views Frontal and Lat Reason: Shortness of Breath Clinical Question(s): CHF COMPARISON: 09/22/2024 FINDINGS: LINES AND TUBES: None. LUNGS AND PLEURA: Clear lungs. Chronic vascular congestion. No pleural effusion. No pneumothorax. HEART, MEDIASTINUM AND CRISTINE: Moderate prominence of the cardiac silhouette, unchanged. Normal mediastinal and hilar contour. Sternotomy sequela with aortic and mitral valve replacement. BONES AND SOFT TISSUES: No acute abnormality. IMPRESSION: Cardiomegaly and chronic vascular congestion. WSN: [id number] Ordering Physician: Gurpreet Lara Dictated By: [facility] OLIVEIRAAltaf Dictated Date/Time: 10/23/24 5:25 pm Reviewed By: Altaf Vallecillo MD Signed By: Altaf Vallecillo MD Signed Date/Time: 10/23/24 5:25 pm Transcribed By: JOSE Transcribed Date/Time: 10/23/24 5:23 pm Vital Signs Most recent to oldest [Reference Range]: 1 2 3 Height 163 cm (10/23/24 2:48 PM) Weight 82 kg (10/23/24 2:48 PM) Oxygen Saturation [94-100 %] 96 % (10/23/24 9:29 PM) 98 % (10/23/24 3:53 PM) 98 % (10/23/24 2:48 PM) Pulse Rate [55-90 bpm] 84 bpm (10/23/24 9:29 PM) 95 bpm *H* (10/23/24 3:53 PM) 99 bpm *H* (10/23/24 2:48 PM) Body Mass Index [18.5-24.99 kg/m2] 30.86 kg/m2 *>HHI* (10/23/24 2:48 PM) Blood Pressure [90-138/55-84 mm Hg] 178/70mm Hg *H* (10/23/24 9:29 PM) 185/91mm Hg *H* (10/23/24 3:53 PM) 179/86mm Hg *H* (10/23/24 2:48 PM) Respiratory Rate [16-30 br/min] 16 br/min (10/23/24 9:29 PM) 18 br/min (10/23/24 3:53 PM) 18 br/min (10/23/24 2:48 PM) Temperature [96.8-100.4 DegF] 98.5 DegF (10/23/24 9:29 PM) 98.4 DegF (10/23/24 2:48 PM) Mode of Delivery (Oxygen) Room air (10/23/24 9:29 PM) Room air (10/23/24 3:53 PM) Room air (10/23/24 2:48 PM) Blood pressure sites Arm, left (10/23/24 9:29 PM) Arm, left (10/23/24 3:53 PM) Arm, right (10/23/24 2:48 PM) Temperature Route Oral (10/23/24 9:29 PM) Axillary (10/23/24 2:48 PM) Dry Weight 82 kg (10/23/24 2:48 PM) Weight Obtained Via Patient/family stated (10/23/24 2:48 PM) Dry Weight Obtained Via Patient/family stated (10/23/24 2:48 PM) Social History Social History Type Response Smoking Status Never smoker; Tobacc o user in household: Yes entered on: 01/23/18 Sex Female Sex Representation Female (finding) EKG study * Event Display: ECG 12-Lead Authored Date: Please click on pdf link to open report * Event Display: ECG 12-Lead Authored Date: Ventricular Rate: 87 BPM QRS Duration: 102 ms Q-T Interval: 372 ms QTC Calculation(Bazett): 447 ms R Acworth: 34 degrees T Acworth: 82 degrees Atrial fibrillation Incomplete right bundle branch block Nonspecific ST and T wave abnormality Abnormal ECG When compared with ECG of 22-Sep-2024 08:52, No significant change Confirmed by RAYMUNDO PATE MD ([id number]) on 10/23/2024 3:18:15 PM [place]: RAYMUNDO PATE MD Patient Care team information Care Team Personnel Name: Domi Pan RN Position: [facility] RN Member Role: Primary Care Nurse Name: Vazquez Thornton RN Position: [facility] RN Member Role: Primary Care Nurse Name: Jaqueline Barnett RN Position: [facility] RN Member Role: Primary Care Nurse Name: Crystal Drake RN Position: [facility] HBO Wound Member Role: Primary Care Nurse Name: Noy Mendes RN Position: [facility] AMB Nurse Member Role: Primary Care Nurse Name: Mely Griffin Position: [facility] Pharmacist Member Role: Primary Care Nurse Name: Sully Dickerson RN Position: [facility] RN Member Role: Primary Care Nurse Name: Jaleesa Calvillo MD Position: [facility] Outreach Member Role: PCP Address: [address] [place] [address] Telecom: Name: Jessica Ogden RN Position: [facility] RN Member Role: Primary Care Nurse Name: Leigha Osorio RN Position: [facility] RN Member Role: Primary Care Nurse Name: Julius Anderson MD Position: [facility] Renal MD Member Role: Lifetime Consulting Physician Address: [address] [place] [address] [address] [facility] [place] [address]- Telecom: Name: Namita Trujillo RN Position: [facility] RN Member Role: Primary Care Nurse Name: Dominique Miller RN Position: [facility] RN Member Role: Primary Care Nurse Name: Nolan Lei RN Position: [facility] Cardiac Rehab Mgr Member Role: Primary Care Nurse Name: Gretel Estrada RN Position: [facility] Cosmetics Machine Operator Member Role: Primary Care Nurse Name: Essence Palacio RN Position: [facility] RN Member Role: Primary Care Nurse Name: Judah Busch RN Position: [facility] RN Member Role: Primary Care Nurse Name: Rowena Stewart RN Position: [facility] SN RN Member Role: Primary Care Nurse Name: Carmen Gregory RN Position: [facility] RN Member Role: Primary Care Nurse Name: Arlyn Gupta RN Position: [facility] RN Member Role: Primary Care Nurse Name: Luisana Sánchez RN Position: [facility] RN Member Role: Primary Care Nurse Name: Teri Martinez Position: [facility] RN Member Role: Primary Care Nurse Name: Cherise Kirkland RN Position: [facility] RN Member Role: Primary Care Nurse Name: Aylin Penn RN Position: [facility] ED RN W/OE and Tasks Member Role: Primary Care Nurse Name: Meseret Santiago RN Position: [facility] RN Member Role: Primary Care Nurse Name: Althea Cano RN Position: [facility] RN Member Role: Primary Care Nurse Name: Carey Stacy RN Position: [facility] RN Member Role: Primary Care Nurse Name: Sharda Bryant RN Position: [facility] RN Member Role: Primary Care Nurse Name: Luis Daniel Bryant RN Position: [facility] RN Member Role: Primary Care Nurse Name: Jesús Hopkins RN Position: [facility] RN Member Role: Primary Care Nurse Name: Edwin Bah Jr, RN Position: [facility] ED RN W/OE and Tasks Member Role: Primary Care Nurse Name: Blessing Castro RN Position: [facility] RN Member Role: Primary Care Nurse Name: Bette Lopez LPN Position: [facility] RN Member Role: Primary Care Nurse Name: Carri Purcell RN Position: [facility] RN Member Role: Primary Care Nurse Name: Marilu Rehman RN Position: [facility] RN Member Role: Primary Care Nurse Name: Janine Fitzgerald RN Position: [facility] SN Military Equipment Specialist Member Role: Primary Care Nurse Name: Aylin Merritt RN Position: [facility] RN Member Role: Primary Care Nurse Name: Marisela Spear RN Position: [facility] RN Member Role: Primary Care Nurse Name: Anne-Marie Pimentel RN Position: [facility] RN Member Role: Primary Care Nurse Name: Marty Sethi MD Position: [facility] Outreach Member Role: Lifetime Consulting Physician Address: [address] [facility] [place] [address] [place] Telecom: Name: Marilia Marie Position: [facility] Outreach Member Role: Lifetime Consulting Physician Name: Luis Daniel Baires RN Position: [facility] RN Member Role: Primary Care Nurse Name: Hakeem Palomino LPN Position: [facility] RN Member Role: Primary Care Nurse Name: Nino Singh RN Position: [facility] RN Member Role: Primary Care Nurse Name: Dalia Lopez NP Position: [facility] Physician Member Role: Primary Care Nurse Address: [address] [place] [address] Telecom: Name: Janine Garcia RN Position: [facility] Onco RN Member Role: Primary Care Nurse Name: Rakel Rush RN Position: [facility] AMB Nurse Member Role: Primary Care Nurse Name: Igor Mckeon RN Position: [facility] RN Member Role: Primary Care Nurse Name: Oumou Stark RN Position: [facility] RN Member Role: Primary Care Nurse Name: Essence Chan RN Position: [facility] RN Member Role: Primary Care Nurse Name: Ingris Guzman RN Position: [facility] AMB Nurse Member Role: Primary Care Nurse Name: Gómez Kirkpatrick MD Position: [facility] Renal MD Member Role: Lifetime Consulting Physician Address: [address] [facility] [place] [address]- [place] Telecom: Name: Guillermina Turcios RN Position: [facility] RN Member Role: Primary Care Nurse Name: Edwin Wall RN Position: [facility] ED RN W/OE and Tasks Member Role: Primary Care Nurse Name: Sarita Scott RN Position: S RN Member Role: Primary Care Nurse Name: Luisana Turcios LPN Position: S RN Member Role: Primary Care Nurse Name: Karsten Anne MD Position: Reference Physician Member Role: Lifetime Consulting Physician Address: [address] [place] [address] [address] [facility] [address] Telecom: Name: Connie Perez RN Position: S RN Member Role: Primary Care Nurse Name: Alisha Raman RN Position: S RN Member Role: Primary Care Nurse Name: Coty Taylor RN Position: S RN Member Role: Primary Care Nurse Name: Brenda Asencio RN Position: S RN Member Role: Primary Care Nurse Care Team Related Persons Name: SHAYLA MORAN Name: IMER MORAN Insurance Providers Guarantor name: [facility] [employer] Plan Information #: 1 Payer: MEDICARE PART B OUTPT Member Number: [id number] Policy Number: NA Group Number: NA Health Plan Information #: 2 Payer: [facility] Member Number: [id number] Policy Number: NA Group Number: NA
--- OUTSIDE RECORDS SUMMARY | 2024-11-12 16:38 | XMS_ITS | Encounter Summary ---
Author Organization [facility] Address [address] [place] [address] Care Team Providers Care Sheltered Workshop Executive Director Name Role Phone Jaleesa Calvillo MD Primary Care Provider + Reason for Visit * Reason Comments Med Refill Encounter Details Date Type Department Care Team ([facility] Contact Info) Description 12/13/2022 Refill [facility] MEDICINE [address] [place] [address] [phone] Jaleesa Calvillo MD [address] [place], [place] [phone] Social History Tobacco Use Types Packs/Day Years [...] was confirmed or suspected to have Coronavirus/COVID-19? Unable to assess 11/22/2022 12:03 PM EST documented as of this encounter Plan of Treatment Upcoming Encounters Date Type Department Care Team ([facility] Contact Info) Description 11/25/2024 1:15 PM EST Office Visit [facility] [address] [place] [address] [phone] Jaleesa Calvillo MD [address] [place] [address] 11/27/2024 11:00 AM EST Telemedicine [facility] [address] [place] [address] 01/12/2025 9:00 AM EDT Office Visit [facility] OPTOMETRY [address] [place], [place] [phone] Hilda Leslie, OD [address] [place] [address] documented as of this encounter Visit Diagnoses Not on filedocumented in this encounter Care Teams Sheltered Workshop Executive Director Relationship Specialty Start Date End Date Jaleesa Calvillo MD [address] [place] [id number] PCP - General Family Medicine 04/15/18 documented as of this encounter
--- OUTSIDE RECORDS SUMMARY | 2024-11-12 16:38 | XMS_ITS | Clinical Summary ---
Author Organization [facility] Address [address] [place] [address] Care Team Providers Care Copyright Expert Name Role Phone Unavailable Primary Care Provider Unavailabl e Surgical History Surgery Date Site/Laterality Comments CHOLECYSTECTOMY PROCEDURE: HISTORICAL CHOLECYSTECTOMY OTHER SURGICAL HISTORY 10/2007 PROCEDURE: HISTORY OTHER; COMMENT: heart surgery - mitral/tricuspid valvuloplasty TONSILLECTOMY PROCEDURE: HISTORICAL TONSILLECTOMY SECTION PROCEDURE: HISTORICAL Medical History Medical History Date Comments Anemia, chronic disease 03/28/2012 DX:Anemi a, chronic disease Asthma 03/28/2012 DX:Asthma CHF (congestive heart failure) (CMS/HCC) 03/28/20 12 DX:CHF (congestive heart failure) (HCC) Hepatomegaly 03/28/2012 DX:Hepatomegaly Hypertriglyceridemia 03/28/2012 DX:Hypertri glyceridemia Hypothyroidism 03/28/2012 DX:Hypothyroidis m Obesity 03/28/2012 DX:Obesity Sleep apnea 03/28/2012 DX:Sleep apnea Steatohepatitis 07/24/2013 DX:Steatohepatit is; COMMENT: Found at liver biopsy on 12/08/2009 at [facility]. Family History Medical History Relation Name Comments Heart attack Mother Breast cancer Neg Hx Colon cancer Neg Hx Relation Name Status Comments Mother Social History Tobacco Use Types Packs/Day Years Used Date Smoking Tobacco: Never Smokeless Tobacco: Never Alcohol Use Standard Drinks/Week Comments No 0 (1 standard drink = 0.6 oz pur e alcohol) Comments Unknown Sex and Gender Information Value Date Recorded Sex Assigned at Not on file Legal Sex Female 2:32 PM EST Gender Identity Not on file Sexual Orientation Not on file Obstetrics History Plan of Treatment Health Maintenance Due Date Last Done Comments Breast Cancer Screening 1967 Diabetes: Annual GFR (Glomer ular Filtration Rate) 1967 Diabetes: Annual Foot Exam 12/09/1977 Diabetes: Annual Retina Eye Exam 12/09/1977 Hepatitis A Vaccines (1 of 2 - Risk 2-dose series) 12/09/1986 Hepatitis B Vaccines (1 of 3 - 19+ 3-dose series) 12/09/1986 Pneumococcal Vaccine: 50+ Ye ars (1 of 2 - PCV) 12/09/1986 Pneumococcal Vaccine: Pediat rics (0 to 5 Years) and At-Risk Patients (6 to 64 Years) (1 of 2 - PCV) 12/09/1986 Cervical Cancer Screening: P ap Smear 12/09/1988 Zoster Vaccines (1 of 2) 12/09/2017 Cholesterol Screening (Lipid Panel) 08/30/2022 Colorectal Cancer Screening: Colonoscopy 08/30/2022 Depression Screening 08/30/2022 HIV Screening 08/30/2022 Hepatitis C Screening 08/30/2022 Social Influencers of Health Screening 08/30/2022 Diabetes: Annual Urine Albumin-Creatinine Ratio (uACR) 09/16/2022 Diabetes: Blood Sugar Contro l Test (HGBA1C) 09/16/2022 Hypertension/CHF/CAD Annual BMP Blood Test 09/16/2022 DTaP,Tdap,and Td Vaccines (2 - Td or Tdap) 10/28/2022 10/28/2012 COVID-19 Vaccine (1 - 2023-2 5 season) 2024 Influenza Vaccine (#1) 2024 HIB Vaccines Aged Out No longer eligi ble based on patient's age to complete this topic HPV Vaccines Aged Out No longer eligi ble based on patient's age to complete this topic IPV Vaccines Aged Out No longer eligi ble based on patient's age to complete this topic MMR Vaccines Aged Out No longer eligi ble based on patient's age to complete this topic Meningococcal ACWY Vaccine Aged Out N o longer eligible based on patient's age to complete this topic Meningococcal B Vacine Aged Out No lo nger eligible based on patient's age to complete this topic RSV Immunization Patients Un jessica 20 months Aged Out No longer eligible b ased on patient's age to complete this topic Varicella Vaccines Aged Out No longer eligible based on patient's age to complete this topic
--- OUTSIDE RECORDS SUMMARY | 2024-11-12 16:38 | XMS_ITS | Clinical Summary ---
Author Organization [facility] Address [address] [place] [address] Phone Care Team Providers Care Grey Washer Name Role Phone Jaleesa Calvillo MD Primary Care Provider + [phone] Allergies Active Allergy Reactions Criticality Noted Date Comments Acetaminophen Other (see comments) 05/05/2021 Aspirin 11/28/2022 Colchicine 11/28/2022 Other reaction(s): Rash Ibuprofen 11/28/2022 Other reaction(s): tachycardia Lisinopril 11/28/2022 Other reaction(s): rash Oxycodone-Acetaminophen Other (see comments) 05/05/2021 Sulfa Antibiotics Other (see comments) 05/05/2021 Medications amLODIPine (NORVASC) 10 MG tablet Take 10 mg by mouth 1 (one) time each day Active bumetanide (BUMEX) 1 MG tablet Take 3 mg by mouth 3 times a day 1 Active buPROPion XL (WELLBUTRIN XL) 150 MG 24 hr tablet Take 150 mg by mouth 1 (one) time each day 1 Active buPROPion XL (WELLBUTRIN XL) 300 MG 24 hr tablet Take 300 mg by mouth 1 (one) time each day 1 Active gemfibrozil (LOPID) 600 MG tablet Take 600 mg by mouth 2 (two) times a day 1 Active insulin aspart (NovoLOG FLEXPEN) 100 UNIT/ML injection Active Basaglar KwikPen 100 UNIT/ML injection GIVE 35 UNITS IN THE MORNING AND 35 UNITS WITH DINNER BY SUBCUTANEOUS INECTION. (E11.9) 1 Active levothyroxine (SYNTHROID, LEVOTHROID) 112 MCG tablet Take 112 mcg by mouth 1 (one) time each day 1 Active liraglutide (Victoza) 18 MG/3ML injection Active lisinopril 20 MG tablet Take 20 mg by mouth 1 (one) time each day 1 Active metOLazone 5 MG tablet Take 5 mg by mouth 1 Active rivaroxaban (XARELTO) 20 MG tablet Take 1 tablet by mouth 1 (one) time each day Active sertraline (ZOLOFT) 100 MG tablet Take 1 tablet by mouth 1 (one) time each day Active spironolactone (ALDACTONE) 50 MG tablet Take 150 mg by mouth 1 (one) time each day 1 Active traZODone (DESYREL) 50 MG tablet TAKE 1 TABLET BY MOUTH DAILY NEEDED FOR NIGHTTIME AWAKENING. 1 Active zolpidem (AMBIEN) 10 MG tablet TAKE 1 TABLET BY MOUTH ONCE A DAY, AT BEDTIME NEEDED FOR INSOMNIA. 1 Active allopurinol (ZYLOPRIM) 300 MG tablet Take 300 mg by mouth 1 (one) time each day Active amiodarone (PACERONE) 200 MG tablet Take 200 mg by mouth 1 (one) time each day Active metoprolol tartrate 25 MG tablet Take 25 mg by mouth in the morning and 25 mg in the evening. Active atorvastatin (LIPITOR) 10 MG tablet Take 10 mg by mouth 1 (one) time each day Active budesonide-form oterol (SYMBICORT) 160-4.5 MCG/ACT inhaler Inhale 2 puffs 2 (two) times a day Rinse mouth with water after use to reduce aftertaste and incidence of candidiasis. Do not swallow. Active Digoxin (DIGOX PO) Take 0.125 mg by mouth Active docusate sodium (COLACE) 100 MG capsule Take 100 mg by mouth in the morning and 100 mg in the evening. Active losartan (COZAAR) 25 MG tablet Take 20 mg by mouth 1 (one) time each day Active SITagliptin (JANUVIA) 100 MG tablet Take 100 mg by mouth 1 (one) time each day Active Active Problems Problem Noted Date Diagnosed Date Acute exacerbation of chronic congestive heart f ailure 11/28/2022 Anal fissure 11/28/2022 Atrial fibrillation 11/28/2022 Diabetes mellitus 11/28/2022 Diastolic dysfunction 11/28/2022 Gout 11/28/2022 H/O: asthma 11/28/2022 Hemorrhoid 11/28/2022 Hypothyroidism 11/28/2022 Main spoken language Bengali 11/28/2022 Obese class II 11/28/2022 Nonalcoholic steatohepatitis (CASTILLO) 11/28/2022 Morbid obesity 11/28/2022 Mitral valve regurgitation 11/28/2022 Microcytic anemia 11/28/2022 Rheumatic fever 11/28/2022 Rectal hemorrhage 11/28/2022 Pulmonary hypertension 11/28/2022 Pain in female pelvis 11/28/2022 Osteoarthritis 11/28/2022 Obstructive sleep apnea syndrome 11/28/2022 Chronic kidney disease, stage 2 (mild) Stage 3a chronic kidney disease 05/08/2021 Chronic systolic heart failure 05/05/2021 Essential hypertension 05/05/2021 Type 2 diabetes mellitus wit h diabetic chronic kidney disease 05/05/2021 Acute kidney failure 05/05/2021 Pseudopolyposis of colon 04/27/2014 Resolved Problems Problem Noted Date Diagnosed Date Resolved Date Chronic kidney disease stage 2 05/05/2021 05/08/2021 Immunizations Name Administration Dates Next Due Hepatitis B 04/21/2019 Influenza, Quadrivalent, Pre servative Free 07/03/2022,07/23/2020 Influenza, Unspecified 07/03/2022,2019,06/25/2017,07/03,06/07/2012 Moderna SARS-COV-2 12/22/2020,11/24/2020 PPD Test 09/17/2012 Pfizer SARS-COV-2 09/06/2022 Pneumococcal Polysaccharide 07/23/2020, 3 SARS-CoV-2, Unspecified 09/06/2022 Tdap 10/28/2012 Family History Medical History Relation Comments Diabetes Mother Heart disease Mother Hypertension Mother Stroke Mother Relation Status Comments Father Mother Social History Tobacco Use Types Packs/Day Years Used Date Smoking Tobacco: Never Smokeless Tobacco: Never Alcohol Use Standard Drinks/Week Comments No 0 (1 standard drink = 0.6 oz pur e alcohol) Comments Unknown Sex and Gender Information Value Date Recorded Sex Assigned at Not on file Legal Sex Female 5:07 PM EST Gender Identity Not on file Sexual Orientation Not on file Last Filed Vital Signs Vital Sign Reading Time Taken Comments Blood Pressure 128/80 11/28/2022 1:46 PM EST Pulse 66 11/28/2022 1:46 PM EST Temperature - - Respiratory Rate - - Oxygen Saturation 97% 11/28/2022 1:46 PM EST Inhaled Oxygen Concentration - - Weight 89.4 kg (197 lb 3.2 oz) 11/28/2022 1:46 P M EST Height - - Body Mass Index - - Plan of Treatment Health Maintenance Due Date Last Done Comments Breast Cancer Screening 1965 Hepatitis B Vaccine (1 of 3 - 19+ 3-dose series) 12/09/1986 04/21/2019 Colorectal Cancer Screening: Annual FOBT 12/09/2016 Colorectal Cancer Screening: Colonoscopy 12/09/2016 Colorectal Cancer Screening: Sigmoidoscopy 12/09/2016 Diabetes: Ophthalmology Exam 05/05/2021 Diabetes: Pedal Pulse Checked 05/05/2021 Diabetes: Sensory Foot Exam 05/05/2021 Diabetes: Visual Foot Exam 05/05/2021 Pneumococcal Vaccine: Pediat rics (0 to 5 Years) and At-Risk Patients (6 to 64 Years) (3 of 3 - PCV) 07/23/2021 07/23/2020, 02/19/2013 Diabetes: Hemoglobin A1C 12/05/2022 09/06/2022 Influenza Vaccine (#1) 2024 2, 07/03/2022, 07/23/2020, Additional history exists Insurance [place] Care Teams Grey Washer Relationship Specialty Start Date End Date Jaleesa Calvillo MD [address] [place] [phone] PCP - General 10/11/20
[2024-11-12 18:15] LABS: Anion Gap 14 (12-20); Blood Urea Nitrogen 25 mg/dL (9-16); Calcium 9.2 mg/dL (8.4-10.2); Carbon Dioxide 20 mmol/L (22-29); Chloride 106 mmol/L (96-108); Estimated Glomerular Filt Rate > 60; Glucose Random 170 mg/dL (60-115); Sodium 135 mmol/L (135-145)
== END 2024-11-12 16:07 | disposition home or self-care (01) ==
LOC: HO.HHCL 16:06
DX: N17.9 Acute kidney failure, unspecified (principal)
CPT/HCPCS: 36415; 80048

== ENCOUNTER 2025-01-16 10:13 | Outpatient (REF) | payer MEDICARE, MEDICAID, SELFPAY ==
--- OUTSIDE RECORDS SUMMARY | 2025-01-16 11:04 | XMS_ITS | Encounter Summary ---
Author Organization [employer] Address [address] [facility] 7[address] [place] [address] Care Team Providers Care Enrollment Management Manager Name Role Phone Jaleesa Calvillo MD Primary Care Provider + Reason for Visit * Reason Onset Date Comments Nurse Triage 01/13/2025 Encounter Details Date Type Department Care Team ([facility] st Contact Info) Description 01/13/2025 Telephone [facility] MEDICINE [address] [place], [place] [phone] Jaleesa Calvillo MD [address] [place], [place] [phone] Nurse Triage Social History Tobacco Use Types Packs/Day Years [...] past 12 months, has t he electric, [employer], oil or water [employer] threatened to shut off services in your [...] encounter Miscellaneous Notes * Telephone Encounter - Henry Cleaning RN - 01/15/2025 2:01 PM EDT TC placed to Maira [facility] (Visiting Nurse) [phone] regarding below message. RN informed Maira that patient weight gain is most likely CHF and even though she is asymptomatic atthis time, PCP will not make any changes at this time. RN advised Maira to F/U with CHF clinic/Cardiology at [facility] where they manage her medications. Maira verbalized understanding. PT to F/U PRN. * Telephone Encounter - Jaleesa Calvillo MD - 01/14/2025 5:37 PM EDT Regarding weight gain, he may be consistent either with noncompliance with meal but most likely with CHF. Given that she is asymptomatic at this time I will not make any urgent changes. Please have [facility]NA call CHF clinic/cardiology at [facility] where they manage her diuretics/meds. * Telephone Encounter - Toma Cosme RN - 01/13/2025 4:25 PM EDT Call to [facility] Louis states normal hours are M-F 8:30-4:30p. LVM to return call to [facility] triage line PRN. Call returned to Ester Flynn to triage below. Spoke Rivas Browning : 03/17[birth year]1987 relationship: daughter ,on HIPAA. denies pt having any swelling of extremities, face or SOB. Reports pt does have awound where had scar and VNA is providing wound care. No KRISTAL sx. No fever. No changes from base line. No decreased urine output from baseline, no dark tea color or pain. Pt taking all meds as prescribed. Advised daughter will forward message to PCP for review and to advise Red Team Primary care nurses of any changes to plan of care. Reviewed home care advise, ER precautions and reasons to call back. Protocol Used: Heart Failure on Treatment Follow-up Call (Adult) Protocol-Based Disposition: Discuss with PCP and Callback by Nurse Today Video visit offer not recorded Positive Triage Question: * Weight GAIN > 5 lbs (2 kg) in one week OR 5 lbs (2 kg) over target weight. * All higher-acuity triage questions were negative Care Advice Discussed: * Heart Failure - Limit Salt (Sodium) in Your Diet * Heart Failure - Fluid Restriction * Reasons To Call Back - Breathing difficulty that is new or getting worse - Ankle swelling that is new or getting worse - Weight gain more than 2 pounds (1 kg) in one day - You become worse * Telephone Encounter - Violeta Stuart - 01/13/2025 12:29 PM EDT Symptom: Weight Gain Outcome: Schedule an appointment to be seen within 3 days Reason: Caller denied all higher acuity questions The caller accepted this outcome. Tc from from Maira with [facility] requesting a call back. Maira reported pt weight and pannus stomach 01/06 - 181.8 lbs 01/07 - 182.8 lbs 01/08 - 186.4 lbs 01/09 - 188.2 lbs 01/10 - 190.4 lbs 01/11 - 189.4 lbs 01/12 - 185.6 lbs 01/13 - 187.2 lbs Contact Maira at [phone] documented in this encounter Plan of Treatment Not on file documented as of this encounter Visit Diagnoses Not on filedocumented in this encounter Care Teams Enrollment Management Manager Relationship Specialty Start Date End Date Jaleesa Calvillo MD [address] [place] [phone] PCP - General Family Medicine 04/15/18 [facility] 11/06/24 documented as of this encounter
--- OUTSIDE RECORDS SUMMARY | 2025-01-16 11:04 | XMS_ITS | Encounter Summary ---
Author Organization [employer] Address [address] [facility] 7t [place] [address] Care Team Providers Care Plier Worker Name Role Phone Jaleesa Calvillo MD Primary Care Provider + Reason for Visit * Reason Comments Med Refill Encounter Details Date Type Department Care Team ([facility] st Contact Info) Description 01/14/2025 Refill [facility] MEDICINE [address] [place], [place] [phone] Jaleesa Calvillo MD [address] [place], [place] [phone] Neuropathy Social History Tobacco Use Types Packs/Day Years [...] as of this encounter Plan of Treatment Not on file documented as of this encounter Visit Diagnoses Diagnosis Neuropathy Mononeuritis of unspecified site documented in this encounter Care Teams Plier Worker Relationship Specialty Start Date End Date Jaleesa Calvillo MD [address] [place] [phone] PCP - General Family Medicine 04/15/18 [facility] 11/06/24 documented as of this encounter
--- OUTSIDE RECORDS SUMMARY | 2025-01-16 11:04 | XMS_ITS | Encounter Summary ---
Author Organization [facility] Address [address] [facility] 7t [place] [address] Care Team Providers Care Supervisor Wheel Shop Name Role Phone Jaleesa Calvillo MD Primary Care Provider + Encounter Details Date Type Department Care Team (Late st Contact Info) Description 03/21/2023 Abstract [facility] MEDICINE [address] [place], [place] [phone] Jaleesa Calvillo MD [address] [place], [place] [phone] Social History Tobacco Use Types Packs/Day Years [...] on filedocumented in this encounter Care Teams Supervisor Wheel Shop Relationship Specialty Start Date End Date Jaleesa Calvillo MD [address] [place] [phone] PCP - General Family Medicine 04/15/18 [facility] 11/06/24 documented as of this encounter
--- OUTSIDE RECORDS SUMMARY | 2025-01-16 11:04 | XMS_ITS | Clinical Summary ---
Author Organization [facility] Address [address] [place] [address] Care Team Providers Care Appointment Scheduler Name Role Phone Unavailable Primary Care Provider Unavailabl e Surgical History Surgery Date Site/Laterality Comments CHOLECYSTECTOMY PROCEDURE: HISTORICAL CHOLECYSTECTOMY OTHER SURGICAL HISTORY 10/2007 PROCEDURE: HISTORY OTHER; COMMENT: heart surgery - mitral/tricuspid valvuloplasty TONSILLECTOMY PROCEDURE: HISTORICAL TONSILLECTOMY SECTION PROCEDURE: HISTORICAL Medical History Medical History Date Comments Anemia, chronic disease 03/28/2012 DX:Anemi a, chronic disease Asthma 03/28/2012 DX:Asthma CHF (congestive heart failur e) (CMS/HCC V24, CMS/HCC V28) 03/28/2012 DX:CHF (congestive heart failure) (HCC) Hepatomegaly 03/28/2012 DX:Hepatomegaly Hypertriglyceridemia 03/28/2012 DX:Hypertri glyceridemia Hypothyroidism 03/28/2012 DX:Hypothyroidis m Obesity 03/28/2012 DX:Obesity Sleep apnea 03/28/2012 DX:Sleep apnea Steatohepatitis 07/24/2013 DX:Steatohepatit is; COMMENT: Found at liver biopsy on 12/08/2009 at [facility]. Family History Medical History Relation Name Comments [...] - 2023-2 5 season) 2024 Influenza Vaccine (Season Ended) 2025 HIB Vaccines Aged Out No longer eligi [...] age to complete this topic Meningococcal B Vaccine Aged Out No l onger eligible based on patient's age to complete this topic RSV Immunization Patients Un jessica 20 months Aged Out No longer eligible b ased on patient's age to complete this topic Varicella Vaccines Aged Out No longer eligible based on patient's age to complete this topic
--- OUTSIDE RECORDS SUMMARY | 2025-01-16 11:04 | XMS_ITS | Encounter Summary ---
Author Organization [employer] Address [address] [facility] 7t [place] [address] Care Team Providers Care Animal Behaviourist Name Role Phone Jaleesa Calvillo MD Primary Care Provider + Encounter Details Date Type Department Care Team (Late st Contact Info) Description 08/27/2023 Abstract [facility] MEDICINE [address] [place], [place] [phone] Jaleesa Calvillo MD [address] [place], [place] [phone] Social History Tobacco Use Types Packs/Day Years [...] on filedocumented in this encounter Care Teams Animal Behaviourist Relationship Specialty Start Date End Date Jaleesa Calvillo MD [address] [place] [phone] PCP - General Family Medicine 04/15/18 [facility] 11/06/24 documented as of this encounter
--- OUTSIDE RECORDS SUMMARY | 2025-01-16 11:04 | XMS_ITS | Encounter Summary ---
Author Organization [employer] Address [address] [facility] 7t [place] [address] Care Team Providers Care Cubing Machine Tender Name Role Phone Jaleesa Calvillo MD Primary Care Provider + Reason for Visit * Reason Onset Date Comments Nurse Triage 11/10/2024 Encounter Details Date Type Department Care Team ([facility] st Contact Info) Description 11/10/2024 Telephone [facility] MED[facility]INE [address] [place], [place] [phone] Jaleesa Calvillo MD [address] [place], [place] [phone] Nurse Triage (/) Social History Tobacco Use [...] follow up for Pt. Pt was in [facility] 10/30/24 to 11/07/24 daughter reports due to [...] acuity questions The caller accepted this outcome. [phone] (pt daugher) documented in this encounter Plan of Treatment Not on file documented as of this encounter Visit Diagnoses Not on filedocumented in this encounter Care Teams Cubing Machine Tender Relationship Specialty Start Date End Date Jaleesa Calvillo MD [address] [place] [phone] PCP - General Family Medicine 04/15/18 [facility] 11/06/24 documented as of this encounter
--- OUTSIDE RECORDS SUMMARY | 2025-01-16 11:04 | XMS_ITS | Encounter Summary ---
Author Organization [employer] Address [address] [address] [facility] [address] 7[address] [place] [address] Care Team Providers Care Office Inspector Name Role Phone Jaleesa Calvillo MD Primary Care Provider + Encounter Details Date Type Department Care Team (Latest Contact Info) Description 01/16/2025 Travel Social History Tobacco Use Types Packs/Day [...] on filedocumented in this encounter Care Teams Office Inspector Relationship Specialty Start Date End Date Jaleesa Calvillo MD [address] [place] [phone] PCP - General Family Medicine 04/15/18 [facility] 11/06/24 documented as of this encounter
--- OUTSIDE RECORDS SUMMARY | 2025-01-16 11:04 | XMS_ITS | Encounter Summary ---
Author Organization [employer] [facility] Address [address] [facility] 7t [place] [address] Care Team Providers Care Child Caregiver Private Home Name Role Phone Jaleesa Calvillo MD Primary Care Provider + Reason for Visit * Reason Onset Date Comments Medication Question 11/07/2022 Encounter Details Date Type Department Care Team ([facility] st Contact Info) Description 11/07/2022 Telephone [facility] MEDICINE [address] [place], [place] [phone] Jaleesa Calvillo MD [address] [place], [place] [phone] Medication Question Social History Tobacco Use Types [...] call back regarding medication being tranfers to [facility] pharmacy Please contact daughter at [phone] documented in this encounter Plan of Treatment Not on file documented as of this encounter Visit Diagnoses Not on filedocumented in this encounter Care Teams Child Caregiver Private Home Relationship Specialty Start Date End Date Jaleesa Calvillo MD [address] [place] [phone] PCP - General Family Medicine 04/15/18 [facility] 11/06/24 documented as of this encounter
--- OUTSIDE RECORDS SUMMARY | 2025-01-16 11:04 | XMS_ITS | Encounter Summary ---
Author Organization [facility] Address [address] [facility] 7t [place] [address] Care Team Providers Care Early Childhood Education Instructor Name Role Phone Jaleesa Calvillo MD Primary Care Provider + Reason for Referral * Imaging (Routine) - Authorized Specialty Diagnoses / Procedures Referred By Contac t Referred To Contact Radiology Diagnoses At high risk for osteoporosis Age-related osteoporosis with current pathological fracture, left pelvis, initial encounter for fracture Procedures BD DEXA Axial Jaleesa Calvillo MD [address] [place] [address] Phone: tel: fax: [address] Phone: tel: fax: Referral ID Status Reason Start Date Expiration Date V isits Requested Visits Authorized [id number] Authorized 01/16/2025 01/16/2026 1 1 * Consultation (Routine) - Pending Review Specialty Diagnoses / Procedures Referred By Contac t Referred To Contact Gastroenterology Diagnoses Encounter for colorectal cancer screening Jaleesa Calvillo MD [address] [place] [address] Phone: tel: fax: Referral ID Status Reason Start Date Expiration Date Visits Requested Visits Authorized [id number] Pending Review Specialty Services Required 01/16/2025 01/16/2026 1 1 Encounter Details Date Type Department Care Team (Late st Contact Info) Description 01/16/2025 9:15 AM EDT Office Visit [facility] [address] [place] [address] Jaleesa Calvillo MD [address] [place] [address] Obstructive sleep apnea syndrome (Primary Dx); Type 2 diabetes mellitus with stage 3a chronic kidney disease, with long-term current use of insulin (CMS/HCC); Acute on chronic systolic heart failure (CMS/HCC); Acquired hypothyroidism; Preventative health care; Encounter for colorectal cancer screening; At high risk for osteoporosis; Age-related osteoporosis with current pathological fracture, left pelvis, initial encounter for fracture; Chronic skin ulcer with fat layer exposed (CMS/HCC); Non-alcoholic cirrhosis (CMS/HCC); Paroxysmal atrial fibrillation (CMS/HCC); Dietary counseling; Exercise counseling; Class 2 severe obesity due to excess calories with serious comorbidity and body mass index (BMI) of 36.0 to 36.9 in adult (CMS/HCC) Social History Tobacco Use Types Packs/Day [...] the past 12 months, has t he [facility], gas, oil or water [employer] threatened to shut off services in your [...] Sign Reading Time Taken Comments Blood Pressure 147/69 01/16/2025 9:20 AM EDT Pulse 81 01/16/2025 9:20 AM EDT Temperature 36.1 ??C (97 ??F) 01/16/2025 9:20 AM EDT Respiratory Rate - - Oxygen Saturation 97% 01/16/2025 9:20 AM EDT Inhaled Oxygen Concentration - - Weight 87.1 kg (192 lb) 01/16/2025 9:20 AM EDT Height 153.7 cm (5' 0.5 ) 01/16/2025 9:20 AM EDT Body Mass Index 36.88 01/16/2025 9:20 AM EDT documented in this encounter Miscellaneous Notes * Assessment & Plan Note - Jaleesa Calvillo MD - 01/16/2025 9:43 AM EDT Associated Problem(s): Preventative health care Discussed with patient re increase fresh fruit and vegetable intake. Counseled re moderate exercise as tolerated, up to 20min/d Patient feels safe at home. PAP smear Mammogram Bone density test Eye exam CRC screen Lipids/FBS Vaccinations Dental visit Advance directives documented in this encounter Plan of Treatment Scheduled Orders Name Type Priority Associated Diagnoses Orde r Schedule Lipid Panel with Reflex to Direct LDL Lab Routine Type 2 diabetes mellitus with stage 3a chronic kidney disease, with long-term current use of insulin (CMS/HCC) Expected: 01/16/2025 (Approximate), Expires: 01/16/2026 T-SPOT??.TB Lab Routine Type 2 diabetes mellitus with stage 3a chronic kidney disease, with long-term current use of insulin (CMS/HCC) Expected: 01/16/2025 (Approximate), Expires: 01/16/2026 BD DEXA Axial Imaging Routine At high risk for osteoporosis Age-related osteoporosis with current pathological fracture, left pelvis, initial encounter for fracture Expected: 01/16/2025, Expires: 01/16/2026 Comprehensive Metabolic Panel Lab Routine Type 2 diabetes mellitus with stage 3a chronic kidney disease, with long-term current use of insulin (CMS/HCC) Expected: 01/16/2025 (Approximate), Expires: 01/16/2026 Albumin, Random Urine W/Creatinine Lab Routine Type 2 diabetes mellitus with stage 3a chronic kidney disease, with long-term current use of insulin (CMS/HCC) Expected: 01/16/2025 (Approximate), Expires: 01/16/2026 Scheduled Referrals Name Type Priority Associated Diagnoses Order Schedule Referral to Gastroenterology Outpatient Referral Routine Encounter for colorectal cancer screening Expected: 01/16/2025 (Approximate), Expires: 01/16/2026 documented as of this encounter Procedures Procedure Name Priority Date/Time Associated Diagnosis Comments POCT GLUCOSE Routine 01/16/2025 9:21 AM EDT Type 2 diabetes mellitus with stage 3a chronic kidney disease, with long-term current use of insulin (CMS/[facility]) documented in this encounter Results * (ABNORMAL) POCT Glucose (01/16/2025 9:21 AM EDT) [facility] Glucose Blood, POC 369(A) 60 - 200 mg/dL QC Media Lot # [id number] Lot# Expiration Date Blood Capillary blood specimen / Unknown 01/16/2025 9:21 AM EDT Jaleesa Calvillo MD POINT OF CARE TEST ENTER /EDIT ORDERABLES Final Result documented in this encounter Visit Diagnoses Diagnosis Obstructive sleep apnea syndrome- Primary Obstructive sleep apnea (adult) (pediatric) Type 2 diabetes mellitus with stage 3a chronic kidney disease, with long-term current use of insulin (CMS/HCC) Acute on chronic systolic heart failure (CMS/HCC) Acute on chronic systolic heart failure Acquired hypothyroidism Unspecified hypothyroidism Preventative health care Routine general medical examination at a health care facility Encounter for colorectal cancer screening At high risk for osteoporosis Age-related osteoporosis with current pathological fracture, left pelvis, initial encounter for fracture Chronic skin ulcer with fat layer exposed (CMS/HCC) 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
--- OUTSIDE RECORDS SUMMARY | 2025-01-16 11:04 | XMS_ITS | Encounter Summary ---
Author Organization [employer] Address [address] [facility] 7t [place] [address] Care Team Providers Care Chemical Treatment Operator Name Role Phone Jaleesa Calvillo MD Primary Care Provider + Reason for Visit * Reason Onset Date Comments Chart prep 01/13/2025 Encounter Details Date Type Department Care Team ([facility] st Contact Info) Description 01/13/2025 Telephone [facility] [address] [place], [place] [phone] Jaleesa Calvillo MD [address] [place], [place] [phone] Chart prep Social History Tobacco Use Types [...] Telephone Encounter - Tiana Quigley MA - 01/13/2025 1:12 PM EDT Chart Prep Labs: done Images: done Referrals: appointment pending Vaccines due: yes Screenings: colonoscopy, mammogram, and pap smear Overdue care gaps: Glucose and SDOH documented in this encounter Plan of Treatment Not on file documented as of this encounter Visit Diagnoses Not on filedocumented in this encounter Care Teams Chemical Treatment Operator Relationship Specialty Start Date End Date Jaleesa Calvillo MD [address] [place] [phone] PCP - General Family Medicine 04/15/18 [facility] 11/06/24 documented as of this encounter
--- OUTSIDE RECORDS SUMMARY | 2025-01-16 11:04 | XMS_ITS | Referral Summary ---
Author Organization [facility] Address [address] [place] [address] Care Team Providers Care Health And Safety Advisor Name Role Phone RajinderJaleesa moreland Primary Care Provider [phone] Allergies Active Allergy Reactions Criticality Noted Date [...] Treatment Not on file [facility] Care Teams Health And Safety Advisor Relationship Specialty Start Date End Date Jaleesa Calvillo [address] [place] [address] PCP - General Internal Medicine 11/29/23
--- OUTSIDE RECORDS SUMMARY | 2025-01-16 11:04 | XMS_ITS | Encounter Summary ---
Author Organization [employer] [facility] Address [address] [facility] 7t [place] [address] Care Team Providers Care Piano Case And Bench Assembler Name Role Phone Jaleesa Calvillo MD Primary Care Provider + Encounter Details Date Type Department Care Team (Late st Contact Info) Description 09/06/2022 Orders Only [facility] MED[facility]INE [address] [place] [phone] Jaleesa Calvillo MD [address] [place], [place] [phone] Social History Tobacco Use Types Packs/Day Years [...] on filedocumented in this encounter Care Teams Piano Case And Bench Assembler Relationship Specialty Start Date End Date Jaleesa Calvillo MD [address] [place], [place] [phone] PCP - General Family Medicine 04/15/18 [facility] 11/06/24 documented as of this encounter
--- OUTSIDE RECORDS SUMMARY | 2025-01-16 11:04 | XMS_ITS | Encounter Summary ---
Author Organization [employer] Address [address] [facility] 7t [place] [address] Care Team Providers Care Fish And Game Club Manager Name Role Phone Jaleesa Calvillo MD Primary Care Provider + Encounter Details Date Type Department Care Team (Late st Contact Info) Description 03/26/2024 Orders Only [facility] [address] [place], [place] [phone] Jaleesa Calvillo MD [address] [place], [place] [phone] Social History Tobacco Use Types Packs/Day Years [...] on filedocumented in this encounter Care Teams Fish And Game Club Manager Relationship Specialty Start Date End Date Jaleesa Calvillo MD [address] [place] [phone] PCP - General Family Medicine 04/15/18 [facility] 11/06/24 documented as of this encounter
--- OUTSIDE RECORDS SUMMARY | 2025-01-16 11:04 | XMS_ITS | Clinical Summary ---
Author Organization [facility] Address [address] [place] [address] [place] [address] Phone Care Team Providers Care Offal Trimmer Name Role Phone Jaleesa Calvillo MD Primary Care Provider + [phone] Allergies Active Allergy Reactions Criticality Noted Date [...] Hemorrhoid 11/28/2022 Hypothyroidism 11/28/2022 Main spoken language [place] 11/28/2022 Obese class II 11/28/2022 Nonalcoholic steatohepatitis [...] kidney disease stage 2 05/05/2021 05/08/2021 Immunizations Immunization Administration Dates Next Due Hepatitis B 04/21/2019 [...] of 3 - 19+ 3-dose series) 12/09/1986 08/18/2024, 04/21/2019 Colorectal Cancer Screening: Annual FOBT 12/09/2016 Colorectal Cancer Screening: Colonoscopy 12/09/2016 Colorectal Cancer Screening: Sigmoidoscopy 12/09/2016 Diabetes: Ophthalmology Exam 05/05/2021 Diabetes: Pedal Pulse Checked 05/05/2021 Diabetes: Sensory Foot Exam 05/05/2021 Diabetes: Visual Foot Exam 05/05/2021 Diabetes: Hemoglobin A1C 02/22/2025 11/25/2024, 12/0 03/2022 Influenza Vaccine Completed 06/30/2024, , 07/03/2022, Additional history exists Pneumococcal Vaccine: 50+ Years Completed 06/30/2024, 07/23/2020, 02/19/2013 Pneumococcal Vaccine: Peds ( 0 to 5 Years) and At-Risk Patients (6 to 49 Years) Discontinued 06/30/2024, 07/23/2020, 02/19/2013 Insurance Medicare Medicaid [place] Medicare Medicaid [place] Care Teams Offal Trimmer Relationship Specialty Start Date End Date Jaleesa Calvillo MD [address] [place] [address] PCP - General 10/11/20
--- OUTSIDE RECORDS SUMMARY | 2025-01-16 11:04 | XMS_ITS | Encounter Summary ---
Author Organization [facility] Address [address] [facility] 7t [place] [address] Care Team Providers Care Merchandising Consultant Name Role Phone Jaleesa Calvillo MD Primary Care Provider + Reason for Visit * Reason Onset Date Comments Durable Medical Equipment 01/06/2025 Encounter Details Date Type Department Care Team ([facility] st Contact Info) Description 01/06/2025 Telephone [facility] [address] [place], [place] [phone] Jaleesa Calvillo MD [address] [place], [place] [phone] Durable Medical Equipment Social History Tobacco Use Types Packs/Day Years [...] encounter Miscellaneous Notes * Telephone Encounter - Kay Santos - 01/06/2025 2:02 PM EDT Tc from [facility] with [facility] requesting [place] boost/ensure. documented in this encounter Plan of Treatment Not on file documented as of this encounter Visit Diagnoses Not on filedocumented in this encounter Care Teams Merchandising Consultant Relationship Specialty Start Date End Date Jaleesa Calvillo MD [address] [place] [phone] PCP - General Family Medicine 04/15/18 [facility] 11/06/24 documented as of this encounter
--- OUTSIDE RECORDS SUMMARY | 2025-01-16 11:04 | XMS_ITS | Clinical Summary ---
Author Organization [facility] Address [address] [place] [address] Care Team Providers Care Block Cleaner Name Role Phone Jaleesa Calvillo Primary Care Provider [phone] Allergies Active Allergy Reactions Criticality Noted Date [...] Screening 1967 Pap Smear 1967 Sigmoidoscopy 1967 Medicare AWV 12/09/1968 Mammogram 2007 Hepatitis B Vaccines (2 of 3 - 19+ 3-dose series) 05/19/2019 04/21/2019 Pneumococcal Vaccine: 50+ Ye ars (2 of 2 - PCV) 07/23/2021 07/23/2020, 02/19/2013 Zoster Vaccines (2 of 2) 12/25/2023 10/30/2023 COVID-19 Vaccine (4 - 2023-2 5 season) 2024 09/06/2022, 12/22/2020, 11/24/2020 Alcohol/Substance Use Screening 10/01/2024 Depression Screening and Follow-Up 10/01/2024 Social Drivers of Health Anam[place] ual Screening 10/01/2024 Influenza Vaccine (Season Ended) 2025 07/03/2022, 07/23/2020, 06/25/2017, Additional history exists DTaP,Tdap,and Td Vaccines (3 - Td or Tdap) 10/30/2033 10/30/2023, 10/28/2012 RSV Vaccine (60+ years old a nd patients) (1 - 1-dose 75+ series) 12/09/2042 Insurance [facility]ICARE [facility] Care Teams Block Cleaner Relationship Specialty Start Date End Date Jaleesa Calvillo [address] [place] [phone] PCP - General Internal Medicine 11/29/23
--- OUTSIDE RECORDS SUMMARY | 2025-01-16 11:04 | XMS_ITS | Encounter Summary ---
Author Organization [employer] [facility] Address [address] [facility] 7t [place] [address] Care Team Providers Care Director Camp Name Role Phone Jaleesa Calvillo MD Primary Care Provider + Reason for Visit * Reason Comments Med Refill Encounter Details Date Type Department Care Team ([facility] st Contact Info) Description 12/13/2022 Refill [facility] [address] [place], [place] [phone] Jaleesa Calvillo MD [address] [place], [place] [phone] Social History Tobacco Use Types Packs/Day Years [...] on filedocumented in this encounter Care Teams Director Camp Relationship Specialty Start Date End Date Jaleesa Calvillo MD [address] [place] [address] PCP - General Family Medicine 04/15/18 [facility] 11/06/24 documented as of this encounter
--- OUTSIDE RECORDS SUMMARY | 2025-01-16 11:04 | XMS_ITS | Encounter Summary ---
Author Organization [employer] [facility] Address [address] [facility] 7t [place] [address] Care Team Providers Care Director Franchise Sales Name Role Phone Jaleesa Calvillo MD Primary Care Provider + Encounter Details Date Type Department Care Team (Late st Contact Info) Description 11/09/2022 Orders Only [facility] MEDICINE [address] [place], [place] [phone] Jaleesa Calvillo MD [address] [place], [place] [phone] Cerebrovascular accident (CVA) due to embolism of [...] (CMS/HCC) documented in this encounter Care Teams Director Franchise Sales Relationship Specialty Start Date End Date Jaleesa Calvillo MD [address] [place] [address] PCP - General Family Medicine 04/15/18 [facility] 11/06/24 documented as of this encounter
--- OUTSIDE RECORDS SUMMARY | 2025-01-16 11:04 | XMS_ITS | Encounter Summary ---
Author Organization [employer] Address [address] [facility] 7t [place] [address] Care Team Providers Care Ems Manager Name Role Phone Jaleesa Calvillo MD Primary Care Provider + Encounter Details Date Type Department Care Team (Late st Contact Info) Description 08/27/2023 Abstract [facility] [address] [place], [place] [phone] Jaleesa Calvillo MD [address] [place], [place] [phone] Social History Tobacco Use Types Packs/Day Years [...] on filedocumented in this encounter Care Teams Ems Manager Relationship Specialty Start Date End Date Jaleesa Calvillo MD [address] [place] [phone] PCP - General Family Medicine 04/15/18 [facility] 11/06/24 documented as of this encounter
--- OUTSIDE RECORDS SUMMARY | 2025-01-16 11:04 | XMS_ITS | Clinical Summary ---
Author Organization [employer] Address [address] [facility] [address] [place] [address] Care Team Providers Care Doggy Daycare Activities Director Name Role Phone Jaleesa Calvillo MD [...] tablet by mouth at bed time. Active buPROPion XL (Wellbutrin XL) 300 MG 24 hr tablet Take 1 tablet by mouth Once per day. Active cetirizine (ZyrTEC) 10 MG tablet Take 1 tablet by mouth at bed time. Active sertraline (Zoloft) 100 MG tablet Take 2 tablets by mouth at bed time. Active Blood Glucose Monitoring Suppl (Hermes IQ [place] Lite) w/Device kit USE TO TEST BLOOD SUGAR TWICE DAILY Active zolpidem (Ambien) 10 MG tablet Take 1 tablet by mouth if needed at bedtime for sleep. Active metoprolol succinate XL (Toprol-XL) 25 MG 24 hr tablet TAKE 1/2 OF A TABLET BY MOUTH DAILY FOR 30 DAYS Active albuterol (2.5 MG/3ML) 0.083% nebulizer solutionIndicatio ns:Mild intermittent asthma without complication inhale 3 milliliter by nebulization route 3 times every day prn SOB/asthma 75 mL 1 023 Active albuterol (Ventolin HFA) 108 (90 Base) MCG/ACT inhalerIndication s:Mild intermittent asthma without complication Inhale 2 puffs every 4 (four) hours. 18 g 1 023 Active TRUEplus Lancets [facility] BLOOD SUGAR THREE TIMES DAILY Active Nutritional Supplements (Glucerna) liquid Take 1 Can by mouth in the morning. 32846 mL 3 023 Active fluticasone (Flonase) 50 MCG/ACT nasal sprayIndications: Chronic rhinitis USE 2 SPRAYS IN EACH NOSTRIL EVERY DAY 48 g 1 024 Active dapagliflozin (Farxiga) 10 MG Take 1 [...] by mouth Once per day. 30 tablet 024 2024 Active Alcohol Swabs (Alcohol Prep) 70 % pads USE THREE TIMES DAILY DIRECTED 100 each Active allopurinol (Zyloprim) 300 MG tabletIndications :Chronic gouty arthritis TAKE 1 TABLET BY MOUTH TWICE DAILY IN THE MORNING AND IN THE EVENING 180 tablet 3 Active levothyroxine (Synthroid, Levoxyl) 175 MCG tablet Take 175 mcg by mouth Once per day. Active HumaLOG KWIKPEN 100 UNIT/ML injection Inject 6 Units under the skin with breakfast, with lunch, and with evening meal. Per sliding scale BG 100-149; 6 units. BG 150-199; 7 units. BG 200-249; 8 units. BG 250-299; 9 units. BG 300-349; 10 units. BG 350-399; 11 units. BG >400; 12 units. 2024 Active Easy Touch Pen [place] 31G X 5 MM misc USE DIRECTED FOUR TIMES DAILY Active dextran 70-hypromellose (artificial tears) 0.1-0.3 % ophthalmic solutionIndicatio ns:Dry eyes, bilateral Administer 1 drop into both eyes if needed in the morning, at noon, and at bedtime for dry eyes. 15 mL 6 2025 Active atorvastatin (Lipitor) 80 MG tablet Take 1 tablet (80 mg) by mouth Once per day. Take 1 tablet by mouth Once per day. 30 tablet Active Breo Ellipta 200-25 MCG/ACT aerosol powderIndications :Mild intermittent asthma without complication INHALE 1 PUFF BY MOUTH EVERY DAY 60 each 5 Active polyvinyl alcohol (Liquifilm Tears) 1.4 % ophthalmic solution PLACE 2 DROPS INTO THE AFFECTED EYE(S) TWICE DAILY Active Entresto 24-26 MG tablet Take 1 tablet by mouth 2 times daily. Active bumetanide (Bumex) 2 MG tablet Take 1 tablet (2 mg) by mouth Once per day. 30 tablet Active digoxin (Lanoxin) 62.5 MCG tablet Take 1 tablet (62.5 mcg) by mouth Once per day. 30 tablet Active pantoprazole (ProtoNix) 40 MG EC tablet Take 1 tablet (40 mg) by mouth before breakfast. 30 tablet Active Xarelto 15 MG tablet Take 1 tablet (15 mg) by mouth with evening meal. 30 tablet Active spironolactone (Aldactone) 100 MG tablet Take 1 tablet (100 mg) by mouth Once per day. 30 tablet Active traMADol (Ultram) 50 MG tabletIndications :Degeneration of intervertebral disc of lumbar region with discogenic back pain Take 1 tablet (50 mg) by mouth every 6 (six) hours if needed for severe pain. 15 tablet 04/11/2 025 Active thiamine (Vitamin B-1) 100 MG tabletIndications :Neuropathy TAKE 1 TABLET BY MOUTH EVERY MORNING 90 tablet 1 025 Active insulin glargine (Lantus SoloStar) 100 UNIT/ML pen Inject 30 Units under the skin at bedtime. 3 mL 025 Active Jardiance 25 MG TAKE 1 TABLET BY MOUTH EVERY MORNING 30 tablet 11 024 2023 Discontinued thiamine (Vitamin B-1) 100 MG tabletIndications :Neuropathy TAKE 1 TABLET BY MOUTH EVERY MORNING 90 tablet 1 024 2024 Discontinued insulin glargine (Lantus SoloStar) 100 UNIT/ML pen Inject 18 Units under the skin at bedtime. 2024 Discontinued(R eorder (will not trigger notification to Pharmacy)) Active Problems Problem Noted Date Diagnosed Date Preventative health care 01/16/2025 Assessment & Plan (01/16/2025 9:43 AM EDT): Discussed with patient re increase fresh fruit and vegetable intake. Counseled re moderate exercise as tolerated, up to 20min/d Patient feels safe at home. PAP smear Mammogram Bone density test Eye exam CRC screen Lipids/FBS Vaccinations Dental visit Advance directives At high risk for osteoporosis 01/16/2025 Encounter for colorectal cancer screening 2024 Urinary tract infection symptoms 11/12/2024 Assessment & [...] & Plan (11/23/2023 1:25 PM EST): Resolved Anemia due to stage 3a chronic kidney disease Cellulitis, abdominal wall 08/16/2023 Assessment & Plan (08/06/2024 1:27 PM EST): No evidence of cellulitis today, chronic ulcer recently closed. Paniculectomy referral has failed due to insurance not covering some providers and other providers not committing to procedure ([facility] plastic surgeon deemed her very high risk, [...] 11/28/2022 Chronic kidney disease, stage 2 (mild) Diastolic dysfunction 11/28/2022 Gout 11/28/2022 Hemorrhoid 11/28/2022 [...] use cane for ambulation Daughter is her OCCASIONAL BABYSITTER, son will be with her overnight when she may have other needs (letter done for housing previously) Apnea 09/05/2022 Acute low back pain 09/05/2022 Abdominal pain 09/05/2022 Hypertriglyceridemia 09/05/2022 Assessment & Plan (09/06/2022 1:18 PM EST): Improving. She used to be on low dose atorvastatin, unclear if she is still taking it, daughter is not aware of med name. New rx sent to [facility] pharmacy per patient's request. Hypokalemia 09/05/2022 Assessment [...] clean and dry per wound clinic at [facility] counseled regarding tight control of DM, increased [...] Acute on chronic systolic heart failure 03/12/20 19 Assessment & Plan (11/25/2024 4:43 PM EST): S/P hospital discharge, seems to be euvolemic. Discussed importance of medications and dietary compliance. FU cardiomems with [facility]. Continue on Bumex 2 mg per day, Spironolactone 100 mg per day, Entresto 24-26 mg per day, Metoprolol ER 12.5 mg per day, Digoxin 0.0625 mg every other day, and Jardiance 10 mg per day. I will discuss with CHF specialist regarding potential for bariatric surgery vs. panniculectomy that will significantly improve CHF prognosis. Assessment & Plan (11/12/2024 4:17 PM EST): BP stable today, <140/90 No LE edema Pulmonary exam wnl, no crackles, no increased WOB Cardiac exam wnl Pt condition appears stable today Assessment & Plan (06/30/2024 11:32 AM EDT): Improving. Order BNP and fu with cardiology at [facility]. Continue spironolactone, amiodarone (A.fib), digoxin and bumex [...] office (Dr Kirkpatrick, [facility]) info to rs appt anyway in view of CKD with Varying GFR levels. Avoid NSAIDs, encouraged tight control of DM, hyperlipidemia and HTN. FU BMP prior to next visit due to hypokalemia Chronic gouty arthritis 04/15/2018 Assessment & Plan (04/23/2023 10:44 AM EDT): Right ankle and right toe, improving Gave [id number] for tramadol to take PRN before she [...] 2 diabetes mellitus 04/15/2018 Assessment & Plan (11/25/2024 4:41 PM EST): Uncontrolled, has an appointment with system engineer at [facility] next week. Continue Farxiga 10 mg + Tradjenta 5 mg + Lantus 18 units per day + Humalog. Assessment & Plan (08/06/2024 1:19 PM EST): [...] Trandjenta and Farxiga Continue to fu with [facility] endo and with me in 3mo I [...] to start) Advised to rs appt with [facility] endocrinology. Assessment & Plan (11/23/2023 1:26 PM EST): No change in meds today, needs to schedule appt w/ endo, info given again today Assessment & Plan (08/16/2023 1:17 PM EST): Uncontrolled, she has been referred to be seen system engineer since March 2023. Copy of referral given to pt again (her son is with her), will refer to CD clinic for now Order BMP, if GFR [...] Encouraged physical activity as tolerated. 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 Will obtain LFTs and Hepatitis profile and refer to GI if needed. It is thought to be related to CASTILLO/s/p liver biopsy in 2012 at [facility]. Resolved Problems Problem Noted Date Diagnosed Date Resolved Date Thrombocytopenia 10/30/2023 01/16/2025 Exposure to COVID-19 virus 09/05/2022 0 04/23/2023 Toothache 09/05/2022 04/23/2023 Chronic congestive heart failure 04/15/2018 09/06/2022 Encounters Date Type Department Care Team Description 01/16/2025 9:15 AM EDT Office Visit [facility] [address] [place] [phone] Jaleesa Calvillo MD Obstructive sleep apnea syndrome (Primary Dx); Type [...] of 36.0 to 36.9 in adult (CMS/HCC) 01/16/2025 Travel 01/14/2025 Refill [facility] [address] [place] [address] Jaleesa Calvillo MD Neuropathy 01/13/[address] [phone] Jaleesa Calvillo MD Chart prep 01/13/2025 Telephone [facility] [address] [place] [address] Jaleesa Calvillo MD Nurse Triage 01/09/2025 1:30 PM EDT Office Visit [facility] [address] [place] [address] Baljit Ortega CNP Degeneration of intervertebral disc of lumbar region with discogenic back pain (Primary Dx); Type 2 diabetes mellitus with stage 3a chronic kidney disease, with long-term current use of insulin ([facility]); Acute on chronic systolic heart failure ([facility]) 01/09/2025 Travel 01/08/2025 Telephone [facility] [address] [place] [address] Jaleesa Calvillo MD 01/06/2025 Telephone [facility] [address] [place] [phone] Jaleesa Calvillo MD Durable Medical Equipment 01/06/2025 Refill [facility] [address] [place] [address] Jaleesa Calvillo MD 01/05/2025 Telephone [facility] [address] [place] [address] Jaleesa Calvillo MD Chart Prep 01/05/2025 Telephone [facility] [address] [place] [phone] Jaleesa Calvillo MD Nurse Triage 12/30/2024 Patient Outreach [facility] [address] [place] [phone] Jaleesa Calvillo MD Transition Of Care (Tcm) (HDF- Lvm ) 12/30/2024 Telephone [facility] [address] [place] [phone] Jaleesa Calvillo MD Hospital Follow-up 12/30/2024 Telephone [facility] [address] [place] [phone] Jaleesa Calvillo MD Wound Care 12/30/2024 Patient Outreach [facility] [address] [place] [phone] Jaleesa Calvillo MD Transition Of Care (Tcm) (HDF unscheduled LVM ) 12/12/2024 Population Health Risk Score [facility] () [address] [address] Provider, Population Health Generic 12/11/2024 Telephone [facility] [address] [place] [phone] Jaleesa Calvillo MD Medication Question 12/03/2024 Telephone [facility] [address] [place], [place] [phone] Jaleesa Calvillo MD Prior Authorization (Digoxin) 11/25/2024 1:15 PM EST Office Visit [facility] [address] [place] [phone] Jaleesa Calvillo MD Acute on chronic systolic heart failure (CMS/HCC) (Primary Dx); Type 2 diabetes mellitus with stage 3a chronic kidney disease, with long-term current use of insulin (CMS/HCC) 11/25/2024 Travel 11/19/2024 Telephone [facility] [address] [place] [phone] Jaleesa Calvillo MD Chart prep 11/15/2024 Refill [facility] [address] [place] [phone] Jaleesa Calvillo MD Mild intermittent asthma without complication 11/14/2024 Orders Only [facility] [address] [place] [address] [phone] Jaleesa Calvillo MD 11/13/2024 Outside Procedure [facility] OPTOMETRY [address] [place] [phone] Tim, Paola, OD Presbyopia (Primary Dx) 11/12/2024 3:15 PM EST Office Visit [facility] [address] [place] [phone] Baljit Ortega CNP Urinary tract infection symptoms (Primary Dx); Acute kidney injury (CMS/HCC); Acute on chronic systolic heart failure (CMS/HCC) 11/12/2024 9:30 AM EST Office Visit [facility] [address] [place] [phone] Paola Dumont, OD Myopia of both eyes (Primary Dx) 11/12/2024 Travel 11/10/[address] [address] Jaleesa Calvillo MD Nurse Triage (/) 11/10/2024 Patient Outreach [address] [address] Jaleesa Calvillo MD Transition Of Care (Tcm) (HDF- Scheduled) 11/10/[address] [address] Jaleesa Calvillo MD Lab Orders 11/10/2024 Patient Outreach [address] [address] Jaleesa Calvillo MD Transition Of Care (Tcm) (LVM #2 - HDF unscheduled) 11/06/[address] [address] Jaleesa Calvillo MD No Show 11/06/2024 Patient Outreach [address] [address] Jaleesa Calvillo MD Transition Of Care (Tcm) (HDF- Unscheduled Left voicemail) 11/05/[address] [address] Tiana Quigley MA Chart prep 11/04/[address] [address] Jaleesa Calvillo MD Verbal Order 10/29/2024 Refill [facility] [address] [place] [address] Jaleesa Calvillo MD 10/27/2024 Patient Outreach [address] [address] Jaleesa Calvillo MD Pre-visit Planning ((Unable to reach for PVP screening, LVM)) 10/24/2024 Patient Outreach [address] [address] Jaleesa Calvillo MD Transition Of Care (Tcm) from Last 3 Months Immunizations Name Administration [...] ??F) 01/16/2025 9:20 AM EDT Respiratory Rate 18 01/09/2025 1:17 PM EDT Oxygen Saturation 97% 01/16/2025 9:20 AM EDT Inhaled Oxygen Concentration - - Weight 87.1 kg (192 lb) 01/16/2025 9:20 AM EDT Height 153.7 cm (5' 0.5 ) 01/16/2025 9:20 AM EDT Body Mass Index 36.88 01/16/2025 9:20 AM EDT Plan of Treatment Health Maintenance Due Date Last Done Comments CT Colonography 1967 FIT DNA/Cologuard 1967 FIT 1967 FOBT 1967 HIV Screening 1967 Sigmoidoscopy 1967 Alcohol/Substance Use Screening 1979 Hepatitis C Screening 12/09/1985 Hepatitis A Vaccines (1 of 2 - Risk 2-dose series) 12/09/1986 HPV/Cotest 12/09/1997 Mammogram 2007 Cervical Cancer Screening 04/16/2021 Pap Smear 04/16/2021 04/16/2018 Colonoscopy 04/19/2024 04/19/2014 Colorectal Cancer Screening 04/19/2024 Hepatitis B Vaccines (3 of 3 - 19+ 3-dose series) 10/13/2024 08/18/2024, 04/21/2019 SDOH Screening 10/17/2024 10/17/2023 Depression Screening 03/21/2025 03/21/2024, 03/21/20 Diabetes: Hemoglobin A1C 04/10/2025 025, 11/25/2024, 07/07/2024, Additional history exists Lipid Panel 07/18/2025 07/18/2024, 07/03, 07/31/2022 Diabetes: Foot Exam 01/16/2026 01/16/2025, 01/16/2025, 01/16/2025, Additional history exists Tobacco Screening 01/16/2026 01/16/2025 Eye Exam 10/13/2026 10/13/2024, 10/01, 10/13/2024, Additional [...] disease, with long-term current use of insulin ([facility]) POCT URINALYSIS DIPSTICK Routine 01/09/2025 2:00 PM EDT Type 2 diabetes mellitus with stage 3a chronic kidney disease, with long-term current use of insulin (CMS/HCC) POCT GLYCATED HEMOGLOBIN, TOTAL Routine 01/09/2025 1:51 PM EDT Type 2 diabetes mellitus with stage 3a chronic kidney disease, with long-term current use of insulin (CMS/HCC) POCT GLUCOSE Routine 01/09/2025 1:29 PM EDT Type 2 diabetes mellitus with stage 3a chronic kidney disease, with long-term current use of insulin (CMS/HCC) POCT GLYCATED HEMOGLOBIN, TOTAL Routine 11/25/2024 1:08 PM EST Type 2 diabetes mellitus with stage 3a chronic kidney disease, with long-term current use of insulin (CMS/HCC) POCT GLUCOSE Routine 11/25/2024 1:06 PM EST Type 2 diabetes mellitus with stage 3a chronic kidney disease, with long-term current use of insulin (CMS/HCC) BASIC METABOLIC PANEL Routine 11/12/2024 4:09 PM EST Acute kidney injury (CMS/HCC) LIPID PANEL, STANDARD Routine 07/18/2024 12:05 PM EDT HM PAP/HPV Routine 04/16/2018 COLONOSCOPY Routine 04/19/2014 from Last 3 Months or Most Recently Relevant to Health Maintenance Results * (ABNORMAL) POCT Glucose (01/16/2025 9:21 AM EDT) Only the most recent of3 resultswithin the time period is included. [facility] Glucose Blood, POC 369(A) 60 - 200 mg/dL QC Media Lot # [id number] Lot# Expiration Date [id number] Blood Capillary blood specimen / Unknown 01/16/2025 9:21 AM EDT us Jaleesa Calvillo MD POINT OF CARE TEST ENTER /EDIT ORDERABLES Final Result * (ABNORMAL) POCT Urinalysis (01/09/2025 2:00 PM EDT) Pathologist [facility] Color, UA Colorless Clarity, UA Clear Glucose, UA 3+ 500+++ Bilirubin, UA Negative Ketones, UA Negative Spec Grav, UA 1.005 Blood, UA Negative Negative, None Detected pH, UA 5.5 Protein, UA Negative Urobilinogen, UA 0.2 Leukocytes, UA Few 15(A) Negative, Rare, Trace Comment:Small Nitrite, UA Negative Negative, None Detected Appearance, UA Clear QC Media Lot # [id number] Lot# Expiration Date Urine 01/09/2025 2:00 PM EDT [facility] POINT OF CARE TEST ENTER/ EDIT ORDERABLES Final Result * (ABNORMAL) POCT HGB A1C (01/09/2025 1:51 PM EDT) Only the most recent of2 resultswithin the time period is included. [facility] Hemoglobin A1C 9.7(A) 4.0 - 6.0 % QC Media Lot # [id number] Lot# Expiration Date Blood 01/09/2025 1:51 PM EDT [facility] POINT OF CARE TEST ENTER/ EDIT ORDERABLES Final Result * (ABNORMAL) Basic Metabolic Panel (11/12/2024 4:09 PM EST) [facility] Sodium 135 135 - 145 mmol/L [facility] Potassium 5.0 3.3 - 5.1 mmol/L [facility] Comment:Slight Hemolysis.Int erpret result with caution. Chloride 106 96 - 108 mmol/L [facility] Carbon Dioxide 20(L) 22 - 29 mmol/L [facility] Anion Gap 14 12 - 20 [facility] Urea Nitrogen (BUN) 25(H) 9 - 16 mg/dL [facility] Creatinine, Serum 0.93 0.5 - 1.4 mg/dL [facility] Estimated Glomerular Filt Rate >60 [facility] Comment:Chronic Kidney Disea se: Estimated GFR < 60 mL/min/1.78y6Sktebs Kidney Disease: Estimated GFR < 15 mL/min/1.73m2 Glucose 170(H) 60 - 115 mg/dL [facility] Calcium 9.2 8.4 - 10.2 mg/dL [facility] Blood Venous blood specimen / Unknown 11/12/2024 4:09 PM EST 11/12/2024 5:31 PM EST Baljit Ortega [facility] LAB BLOOD ORDERABLES Ariana l Result [facility] [address] [place] [address] [phone] * (ABNORMAL) Lipid Panel, Standard (07/18/2024 12:05 PM EDT) Triglycerides 273(H) <150 mg/dL [facility] Comment:Desirable Triglyceri de: less than 150 mg/dLBorderline High Triglyceride 150-199 mg/dLHigh Triglyceride: 200-499 mg/dLVery High Triglyceride: greater than or equal to 5OO mg/dL Cholesterol 137 <200 mg/dL [facility] Comment:Desirable Cholestero l: less than 200 mg/dLBorderline High Cholesterol: 200-239 mg/dLHigh Cholesterol: greater than 239 mg/dL LDL Cholesterol Calculated 57 <100 mg/dL [facility] Comment:Desirable LDL: less than 100 mg/dLNear Optimal/Above Optimal LDL: 110- 129 mg/dLBorderline High LDL: 130-159 mg/dLHigh LDL: 160-189 mg/dLVery High LDL: greater than or equal to 190 mg/dL HDL Cholesterol 26(L) >40 mg/dL [facility] Comment:Desirable HDL: great er than 40 mg/dL Note: This HDL assay may give artificially low results in patients with liver disease. 07/18/2024 12:0 5 PM EDT 07/18/2024 1:02 PM EDT Jaleesa Calvillo MD LAB BLOOD ORDERABLES Fin al Result [facility] [address] [place] [address] [phone] * Pap Smear (04/16/2018) Pap smear performed Historical Provider HEALTH MAINTENANCE Final Result * Colonoscopy (04/19/2014) Colonoscopy performed Historical Provider HEALTH MAINTENANCE Edited Result - Final from Last 3 Months or Most Recently Relevant to Health Maintenance Insurance [facility] STANDARD MEDICARE * Guarantor: Ester Flynn Account Type Relation to Patient Date of Phone Billing [place] [address] Care Teams Doggy Daycare Activities Director Relationship Specialty Start Date End Date Jaleesa Calvillo MD [address] [place] [phone] PCP - General Family Medicine 04/15/18 [facility] 11/06/24
[2025-01-16 11:23] LABS: Appearance Urine Clear; Color Urine Yellow; Glucose Urine UA >=1000 mg/dL (Negative); Leukocyte Esterase Urine Moderate (2+) (Negative); Nitrite Urine Negative (Negative); UMIC TRIGGER UA YES; Urine Blood Negative (Negative); Urine Ketones Negative (Negative); Urine Protein Trace mg/dL (Neg-Trace)
[2025-01-16 11:31] LABS: Bacteria Urine Trace (None Seen); Hyaline Casts Urine 0-2 /LPF (0-2); RBC Urine 0-2 /HPF (0-2); WBC Urine 21-50 /HPF (0-5)
[2025-01-16 11:51] LABS: Alanine Aminotransferase 33 U/L (0-31); Albumin Level 3.7 g/dL (3.5-5.0); Anion Gap 11 (12-20); Aspartate Amino Transferase 52 U/L (5-31); Bilirubin Total 0.4 mg/dL (0.0-1.0); Blood Urea Nitrogen 30 mg/dL (9-16); Calcium 8.7 mg/dL (8.4-10.2); Carbon Dioxide 23 mmol/L (22-29); Chloride 106 mmol/L (96-108); Cholesterol 159 mg/dL (<200); Estimated Glomerular Filt Rate > 60; HDL Cholesterol 25 mg/dL (>40); LDL Cholesterol Calculated 79 mg/dL (<100); Potassium 4.6 mmol/L (3.3-5.1); Sodium 135 mmol/L (135-145); Total Protein 6.6 g/dL (6.5-8.0); Triglycerides 277 mg/dL (<150)
[2025-01-16 11:55] LABS: Glucose Random 381 mg/dL (60-115)
[2025-01-16 12:12] LABS: Creatinine Urine 80.57 mg/dL; Microalbum/Creatinine Ratio Ur 91.8 ug/mg cr (<30)
[2025-01-16 14:42] LABS: Reflex LDLD? No
[2025-01-16 15:34] LABS: Digoxin < 0.2 ng/mL (0.8-2.0)
[2025-01-16 19:38] LABS: Alkaline Phosphatase 58 U/L (39-117)
[2025-01-19 16:04] LABS: TS Negative Control Passed; TS Panel A 0; TS Panel B 0; TS Positive Control Passed; TSpotTB Negative (Negative)
== END 2025-01-16 10:14 | disposition home or self-care (01) ==
LOC: HO.HHCL 10:13
PROVIDERS: Visit Provider Internal Medicine
DX: R39.9 Unspecified symptoms and signs involving the genitourinary system (principal); E11.22 Type 2 diabetes mellitus with diabetic chronic kidney disease; N18.31 Chronic kidney disease, stage 3a; Z79.4 Long term (current) use of insulin; I50.23 Acute on chronic systolic (congestive) heart failure
CPT/HCPCS: 36415; 80053; 80061; 80162; 81001; 82043; 82570; 86481; 87086; 87147

== ENCOUNTER 2025-02-11 14:57 | Outpatient (REF) | payer MEDICARE, MEDICAID, SELFPAY ==
--- OUTSIDE RECORDS SUMMARY | 2025-02-11 15:01 | XMS_ITS | Encounter Summary ---
Author Organization [employer] Address [address] [facility] [address] [place] [address] Care Team Providers Care Department Traffic Freight Router Name Role Phone Jaleesa Calvillo MD Primary Care Provider + Reason for Referral * Consultation (STAT) - Pending Review Specialty Diagnoses / Procedures Referred By Contac t Referred To Contact Obstetrics and Gynecology Diagnoses Postmenopausal vaginal bleeding Baljit Ortega CNP [address] [place] [address] Phone: tel: fax: Referral ID Status Reason Start Date Expiration Date Visits Requested Visits Authorized [id number] Pending Review Specialty Services Required 02/11/2025 02/11/2026 1 1 * Imaging (Urgent) - Pending Review Specialty Diagnoses / Procedures Referred By Contac t Referred To Contact Radiology Diagnoses Postmenopausal vaginal bleeding Procedures US Pelvis Transvaginal Baljit Ortega CNP [address] [place] [address] Phone: tel: fax: Referral ID Status Reason Start Date Expiration Date V isits Requested Visits Authorized [id number] Pending Review 02/11/2025 02/11/2026 1 1 * Imaging (STAT) - Pending Review Specialty Diagnoses / Procedures Referred By Contac t Referred To Contact Radiology Diagnoses Postmenopausal vaginal bleeding Procedures Us Pelvis complete Baljit Ortega CNP [address] [place] [address] Phone: tel: fax: Referral ID Status Reason Start Date Expiration Date V isits Requested Visits Authorized [id number] Pending Review 02/11/2025 02/11/2026 1 1 Encounter Details Date Type Department Care Team (Late st Contact Info) Description 02/11/2025 2:00 PM EDT Office Visit [facility] [address] [place], [place] [phone] Baljit Ortega CNP [address] [place] [address] MECCA (acute kidney injury) ([facility]) (Primary Dx); Type 2 diabetes mellitus with stage 3a chronic kidney disease, with long-term current use of insulin ([facility]); Urinary tract infection with hematuria, site unspecified; Postmenopausal vaginal bleeding Social History Tobacco Use Types Packs/Day Years Used Date Smoking Tobacco: Never Passive Smoke Exposure: Never Smokeless Tobacco: Never Alcohol Use Standard Drinks/Week Comments Never 0 (1 standard drink = 0.6 oz pur e alcohol) Depression Answer Date Recorded Patient Health Questionnaire-9 Score 5 02/11/2025 Patient Health Questionnaire-9 Score 5 02/11/2025 Last PHQ-9: Questionnaire Data Not on file 0 02/11/2025 Housing Stability Answer Date Recorded What is your housing situation today? I have hazel cheng 02/11/[address] you li ve. Do you have problems with any of the following? None of the above 02/11/2025 Food Insecurity Answer Date Recorded Within the past 12 months, y ou worried that your food would run out before you got money to buy more: Never True 02/11/2025 Within the past 12 months,th e food you bought just didn't last and you didn't have enough money to get more: Never True Transportation Answer Date Recorded In the past 12 months, has l ack of transportation kept you from medical appts, meetings, work or from getting things needed for daily living? No 02/11/2025 Utilities Answer Date Recorded In the past 12 months, has t he [employer], gas, oil or water [employer] threatened to shut off services in your home? No 02/11/2025 Depression Answer Date Recorded Patient Health Questionnaire-2 Score 1 02/11/2025 Internet Access Answer Date Recorded Internet Access Q1 Yes 02/11/2025 Internet Access Q2 Not on file 02/11/2025 Comments No Sex and Gender Information Value Date Recorded Sex Assigned at Female 07/31/2022 10:25 AM EDT Legal Sex Female 10:25 AM EDT Gender Identity Female 07/31/2022 10:25 AM EDT Sexual Orientation Choose not to disclose 2021 10:25 AM EDT documented as of this encounter Last Filed Vital Signs Vital Sign Reading Time Taken Comments Blood Pressure 148/74 02/11/2025 2:12 PM EDT Pulse 65 02/11/2025 2:12 PM EDT Temperature 36.6 ??C (97.8 ??F) 02/11/2025 2:12 PM ED T Respiratory Rate 17 02/11/2025 2:12 PM EDT Oxygen Saturation 98% 02/11/2025 2:12 PM EDT Inhaled Oxygen Concentration - - Weight 84.8 kg (187 lb) 02/11/2025 2:12 PM EDT Height 153.7 cm (5' 0.5 ) 02/11/2025 2:12 PM EDT Body Mass Index 35.92 02/11/2025 2:12 PM EDT documented in this encounter Functional Status * Over the past 2 weeks, how often have you been bothered by any of the following problems? Question Answer Date of Assessment Author Patient Health Questionnaire -2 Score 1 02/11/2025 2:55 PM EDT Luisa Hodges MA * Little interest or pleasure in doing things Answer Date of Assessment Author Not at all 02/11/2025 2:55 PM EDT Camden Hodges MA * Feeling down, depressed, or hopeless Answer Date of Assessment Author Several days 02/11/2025 2:55 PM EDT Camden Hodges MA * Trouble falling or staying asleep, or sleeping too much Answer Date of Assessment Author Several days 02/11/2025 2:55 PM EDT Camden Hodges MA * Feeling tired or having little energy Answer Date of Assessment Author Several days 02/11/2025 2:55 PM Camden Lugo MA * Poor appetite or overeating Answer Date of Assessment Author Several days 02/11/2025 2:55 PM Camden Lugo MA * Feeling bad about yourself - or that you are a failure or have let yourself or your family down Answer Date of Assessment Author Not at all 02/11/2025 2:55 PM Camden Lugo MA * Trouble concentrating on things, such as reading the newspaper or watching television Answer Date of Assessment Author Several days 02/11/2025 2:55 PM Camden Lugo MA * Moving or speaking so slowly that other people could have noticed? Or the opposite - being so fidgety or restless that you have been moving around a lot more than usual. Answer Date of Assessment Author Not at all 02/11/2025 2:55 PM Camden Lugo MA * Thoughts that you would be better off or hurting yourself in some way Answer Date of Assessment Author Not at all 02/11/2025 2:55 PM Cmaden Lugo MA * Patient Health Questionnaire-9 Score Answer Date of Assessment Author 5 02/11/2025 2:55 PM Camden Lugo MA * How difficult have these problems made it for you to do your work, take care of things at home, or get along with other people? Answer Date of Assessment Author Not difficult at all 02/11/2025 2:55 PM Luisa Gaitan ra, MA * Over the last 2 weeks, how often have you been bothered by any of the following problems? Question Answer Date of Assessment Author Feeling nervous, anxious, or on edge 0 02/11/2025 2:55 PM Luisa Lugo MA Not being able to stop or co ntrol worrying 0 02/11/2025 2:55 PM Luisa Lugo MA Worrying too much about diff erent things 0 02/11/2025 2:55 PM Luisa Lugo MA Trouble relaxing 0 02/11/2025 2:55 PM Luisa Albrecht MA Being so restless that it is hard to sit still 0 02/11/2025 2:55 PM EDT Luisa Hodges MA Becoming easily annoyed or irritable 0 02/11/2025 2:55 PM EDT Luisa Hodges MA Feeling afraid as if somethi ng awful might happen 0 02/11/2025 2:55 PM EDT Luisa Hodges MA BENEDICT-7 Total Score 0 02/11/2025 2:55 PM EDT Luisa Hodges MA documented as of this encounter Plan of Treatment Upcoming Encounters Date Type Department Care Team (Late st Contact Info) Description 03/25/2025 2:30 PM EDT Office [facility] [address] [place] [phone] Baljit Ortega CNP [address] [place] [address] 04/22/2025 9:00 AM EDT Office Visit [facility] [address] [place] [phone] Jaleesa Calvillo MD [address] [place] [address] Scheduled Orders Name Type Priority Associated Diagnoses Orde r Schedule Basic Metabolic Panel Lab Routine MECCA (acute kidney injury) ([facility]) Expected: 02/11/2025 (Approximate), Expires: 02/10/2026 Hemoglobin A1c Lab Routine Type 2 diabetes mellitus with stage 3a chronic kidney disease, with long-term current use of insulin ([facility]) Expected: 02/11/2025 (Approximate), Expires: 02/11/2026 POCT Urinalysis Point of Care Testing Routine Urinary tract infection with hematuria, site unspecified Ordered: 02/11/2025 Us Pelvis complete Imaging STAT Postmenopausal vaginal bleeding Expected: 02/11/2025, Expires: 02/11/2026 US Pelvis Transvaginal Imaging Urgent Postmenopausal vaginal bleeding Expected: 02/11/2025, Expires: 02/11/2026 Scheduled Referrals Name Type Priority Associated Diagnoses Order Schedule Referral to Gynecology Outpatient Referral STAT Postmenopausal vaginal bleeding Expected: 02/11/2025 (Approximate), Expires: 02/11/2026 documented as of this encounter Visit Diagnoses Diagnosis MECCA (acute kidney injury) ([facility])- Primary Type 2 diabetes mellitus with stage 3a chronic kidney disease, with long-term current use of insulin ([facility]) Urinary tract infection with hematuria, site unspecified Postmenopausal vaginal bleeding documented in this encounter Additional Health Concerns Assessment Noted Time PHQ-9 Depression Total Score: 5 02/12/20 25 2:55 PM EDT documented as of this encounter Care Teams Department Traffic Freight Router Relationship Specialty Start Date End Date Jaleesa Calvillo MD [address] [place] [phone] PCP - General Family Medicine 04/15/18 [facility] 11/06/24 documented as of this encounter
--- OUTSIDE RECORDS SUMMARY | 2025-02-11 15:01 | XMS_ITS | Clinical Summary ---
Author Organization [facility] Address [address] [place] [address] Care Team Providers Care Motivational Speaker Name Role Phone Unavailable Primary Care Provider [...] Found at liver biopsy on 12/08/2009 at [facility]. Family History Medical History Relation Name [...]
--- OUTSIDE RECORDS SUMMARY | 2025-02-11 15:01 | XMS_ITS | Clinical Summary ---
Author Organization [facility] Address [address] [place] [address] Care Team Providers Care Search Engine Optimization Consultant Name Role Phone Jaleesa Calvillo Primary Care [...] - 1-dose 75+ series) 12/09/2042 Insurance MEDICARE [facility] Care Teams Search Engine Optimization Consultant Relationship Specialty Start Date End Date Jaleesa Calvillo [address] [place] [phone] PCP - General Internal Medicine 11/29/23
--- OUTSIDE RECORDS SUMMARY | 2025-02-11 15:01 | XMS_ITS | Encounter Summary ---
Author Organization [employer] Address [address] [facility] 7t [place] [address] Care Team Providers Care Job Molder Name Role Phone Jaleesa Calvillo MD Primary Care Provider + Encounter Details Date Type Department Care Team (Late st Contact Info) Description 08/27/2023 Abstract [facility] MED[facility]INE [address] [place], [place] [phone] Jaleesa Calvillo MD [address] [place], [place] [phone] Social History Tobacco Use Types Packs/Day Years [...] Description 03/25/2025 2:30 PM EDT Office Visit [facility] [address] [place] [phone] Baljit Ortega CNP [address] [place] [address] 04/22/2025 9:00 AM EDT Office Visit [address] [phone] Jaleesa Calvillo MD [address] [place] [phone] documented as of this encounter Visit Diagnoses Not on filedocumented in this encounter Care Teams Job Molder Relationship Specialty Start Date End Date Jaleesa Calvillo MD [address] [place] [phone] PCP - General Family Medicine 04/15/18 [facility] 11/06/24 documented as of this encounter
--- OUTSIDE RECORDS SUMMARY | 2025-02-11 15:01 | XMS_ITS | Encounter Summary ---
Author Organization [employer] Address [address] [facility] 7t [place] [address] Care Team Providers Care Political Aide Name Role Phone Jaleesa Calvillo MD Primary Care Provider + Encounter Details Date Type Department Care Team (Late st Contact Info) Description 03/21/[address] [facility] MED[facility] [address] [place] [address] [phone] Jaleesa Calvillo MD [address] [place], [place] [phone] Social History Tobacco Use Types Packs/Day Years [...] Description 03/25/2025 2:30 PM EDT Office Visit [facility] [address] [place] [address] [phone] Baljit Ortega CNP [address] [place], [place] [phone] 04/22/2025 9:00 AM EDT Office Visit [facility] [address] [place] [address] [phone] Jaleesa Calvillo MD [address] [place] [address] [phone] documented as of this encounter Visit Diagnoses Not on filedocumented in this encounter Care Teams Political Aide Relationship Specialty Start Date End Date Jaleesa Calvillo MD [address] [place] [address] [phone] PCP - General Family Medicine 04/15/18 [facility] 11/06/24 documented as of this encounter
--- OUTSIDE RECORDS SUMMARY | 2025-02-11 15:01 | XMS_ITS | Encounter Summary ---
Author Organization [employer] Address [address] [facility] 7t [place] [address] Care Team Providers Care Equipment Maintenance Engineer Name Role Phone Jaleesa Calvillo MD Primary Care Provider + Encounter Details Date Type Department Care Team (Latest Contact Info) Description 02/11/2025 Travel Social History Tobacco Use Types Packs/Day [...] AM EDT documented as of this encounter Functional Status * Over the past 2 weeks, how often have you been bothered by any of the following problems? Question Answer Date of Assessment Author Patient Health Questionnaire -2 Score 1 02/11/2025 2:55 PM Luisa Lugo MA * Little interest or pleasure in doing things Answer Date of Assessment Author Not at all 02/11/2025 2:55 PM Camden Lugo MA * Feeling down, depressed, or hopeless Answer Date of Assessment Author Several days 02/11/2025 2:55 PM Camden Lugo MA * Trouble falling or staying asleep, or sleeping too much Answer Date of Assessment Author Several days 02/11/2025 2:55 PM Camden Lugo MA * Feeling tired or having little [...] Author Not at all 02/11/2025 2:55 PM CRISSYT Camden Hodges MA * Thoughts that you would be better off or hurting yourself in some way Answer Date of Assessment Author Not at all 02/11/2025 2:55 PM Camden Lugo MA * Patient Health Questionnaire-9 Score Answer Date of Assessment Author 5 02/11/2025 2:55 PM EDT Camden Hodges MA * How difficult have these problems made it for you to do your work, take care of things at home, or get along with other people? Answer Date of Assessment Author Not difficult at all 02/11/2025 2:55 PM EDT Luisa Shi ra, MA * Over the last 2 weeks, how often have you been bothered by any of the following problems? Question Answer Date of Assessment Author Feeling nervous, anxious, or on edge 0 02/11/2025 2:55 PM Luisa Lugo MA Not being able to stop or co ntrol worrying 0 02/11/2025 2:55 PM CRISSYT Luisa Hodges MA Worrying too much about diff erent things 0 02/11/2025 2:55 PM Luisa Lugo MA Trouble relaxing 0 02/11/2025 2:55 PM CRISSYT Luisa Quevedo MA Being so restless that it is hard to sit still 0 02/11/2025 2:55 PM Luisa Lugo MA Becoming easily annoyed or irritable 0 02/11/2025 2:55 PM Luisa Lugo MA Feeling afraid as if somethi ng awful might happen 0 02/11/2025 2:55 PM Luisa Lugo MA BENEDICT-7 Total Score 0 02/11/2025 2:55 PM Luisa Lugo MA documented as of this encounter Plan of Treatment Upcoming Encounters Date Type Department Care Team (Late st Contact Info) Description 03/25/2025 2:30 PM EDT Office Visit [facility] [address] [place] [address] Baljit Ortega CNP [address] [place], [place] [phone] 04/22/2025 9:00 AM EDT Office Visit [facility] [address] [place], [place] [phone] Jaleesa Calvillo MD [address] [place] [address] documented as of this encounter Visit Diagnoses Not on filedocumented in this encounter Additional Health Concerns Assessment Noted Time PHQ-9 Depression Total Score: 5 02/12/20 25 2:55 PM EDT documented as of this encounter Care Teams Equipment Maintenance Engineer Relationship Specialty Start Date End Date Jaleesa Calvillo MD [address] [place] [address] [phone] PCP - General Family Medicine 04/15/18 [facility] 11/06/24 documented as of this encounter
--- OUTSIDE RECORDS SUMMARY | 2025-02-11 15:01 | XMS_ITS | Encounter Summary ---
Author Organization [employer] Address [address] [facility] 7t [place] [address] Care Team Providers Care Residential Interior Designer Name Role Phone Jaleesa Calvillo MD Primary Care Provider + Reason for Visit * Reason Onset Date Comments Medication Question 11/07/2022 Encounter Details Date Type Department Care Team (Late Contact Info) Description 11/07/2022 Telephone [facility] MEDICINE [address] [place], [place] [phone] Jaleesa Calvillo MD [address] [place], [place] [phone] Medication Question Social History Tobacco Use Types [...] call back regarding medication being tranfers to [facility] pharmacy Please contact daughter at [phone] documented in this encounter Plan of Treatment Upcoming Encounters Date Type Department Care Team (Late Contact Info) Description 03/25/2025 2:30 PM EDT Office Visit [facility] MEDICINE [address] [place] [address] [phone] Baljit Ortega CNP [address] [place] [address] 04/22/2025 9:00 AM EDT Office Visit [facility] MEDICINE [address] [place] [address] [phone] Jaleesa Calvillo MD [address] [place] [address] [phone] documented as of this encounter Visit Diagnoses Not on filedocumented in this encounter Care Teams Residential Interior Designer Relationship Specialty Start Date End Date Jaleesa Calvillo MD [address] [place] [address] [phone] PCP - General Family Medicine 04/15/18 [facility] 11/06/24 documented as of this encounter
--- OUTSIDE RECORDS SUMMARY | 2025-02-11 15:01 | XMS_ITS | Clinical Summary ---
Author Organization [facility] Address [address] [place] [address] Phone Care Team Providers Care Toy Assembly Supervisor Name Role Phone Jaleesa Calvillo MD Primary Care Provider + [phone] Allergies Active Allergy Reactions Criticality Noted Date [...] Hemorrhoid 11/28/2022 Hypothyroidism 11/28/2022 Main spoken language Taiwanese 11/28/2022 Obese class II 11/28/2022 Nonalcoholic steatohepatitis [...] Medicaid [place] Care Teams Toy Assembly Supervisor Relationship Specialty Start Date End Date Jaleesa Calvillo MD [address] [place] [phone] PCP - General 10/11/20
--- OUTSIDE RECORDS SUMMARY | 2025-02-11 15:01 | XMS_ITS | Encounter Summary ---
Author Organization [employer] Address [address] [facility] 7t [place] [address] Care Team Providers Care Forestry Foreman Name Role Phone Jaleesa Calvillo MD Primary Care Provider + Reason for Visit * Reason Onset Date Comments Nurse Triage 11/10/2024 Encounter Details Date Type Department Care Team ([facility] st Contact Info) Description 11/10/2024 Telephone [facility] MEDICINE [address] [place], [place] [phone] Jaleesa Calvillo MD [address] [place], [place] [phone] Nurse Triage (/) Social History Tobacco Use [...] follow up for Pt. Pt was in [facility] 10/30/24 to 11/07/24 daughter reports due to [...] acuity questions The caller accepted this outcome. [phone] (pt daugher) documented in this encounter Plan of Treatment Upcoming Encounters Date Type Department Care Team (Late st Contact Info) Description 03/25/2025 2:30 PM EDT Office Visit [facility] MEDICINE [address] [place] [phone] Baljit Ortega CNP [address] [place], [place] [phone] 04/22/2025 9:00 AM EDT Office Visit [facility] MEDICINE [address] [place] [address] Jaleesa Calvillo MD [address] [place] [address] documented as of this encounter Visit Diagnoses Not on filedocumented in this encounter Care Teams Forestry Foreman Relationship Specialty Start Date End Date Jaleesa Calvillo MD [address] [place] [address] PCP - General Family Medicine 04/15/18 [facility] 11/06/24 documented as of this encounter
--- OUTSIDE RECORDS SUMMARY | 2025-02-11 15:01 | XMS_ITS | Clinical Summary ---
Author Organization [employer] Address [address] [facility] [address] [place] [address] Care Team Providers Care Earth Science Technician Name Role Phone Jaleesa Calvillo MD Primary [...] bed time. Active Blood Glucose Monitoring Suppl (InfoGin [place] Lite) w/Device kit USE TO TEST BLOOD SUGAR TWICE DAILY Active zolpidem (Ambien) 10 MG tablet Take 1 tablet by mouth if needed at bedtime for sleep. Active metoprolol succinate XL (Toprol-XL) 25 MG 24 hr tablet TAKE 1/2 OF A TABLET BY MOUTH DAILY FOR 30 DAYS Active albuterol (2.5 MG/3ML) 0.083% nebulizer solutionIndicati ons:Mild intermittent asthma without complication inhale 3 milliliter by nebulization route 3 times every day prn SOB/asthma 75 mL 1 023 Active albuterol (Ventolin HFA) 108 (90 Base) MCG/ACT inhalerIndicatio ns:Mild intermittent asthma without complication Inhale 2 puffs every 4 (four) hours. 18 g 1 023 Active TRUEplus Lancets 33G misc TEST BLOOD SUGAR THREE TIMES DAILY 023 Active Nutritional Supplements (Glucerna) liquid Take 1 Can by mouth in the morning. 01703 mL 3 023 Active fluticasone (Flonase) 50 MCG/ACT nasal sprayIndications :Chronic rhinitis USE 2 SPRAYS IN EACH NOSTRIL EVERY DAY 48 g 1 024 Active dapagliflozin (Farxiga) 10 MG Take 1 tablet (10 mg) by mouth Once per day. 90 tablet 3 024 Active glucose blood (FREESTYLE LITE) test strip [...] THREE TIMES DAILY DIRECTED 100 each 5 024 Active allopurinol (Zyloprim) 300 MG tabletIndication s:Chronic gouty arthritis TAKE 1 TABLET BY MOUTH TWICE DAILY IN THE MORNING AND IN THE EVENING 180 tablet 3 Active levothyroxine (Synthroid, Levoxyl) 175 MCG tablet Take 175 mcg by mouth Once per day. 024 Active Easy Touch Pen Ferdinand 31G X 5 MM misc USE DIRECTED FOUR TIMES DAILY 024 Active dextran 70-hypromellose (artificial tears) 0.1-0.3 % ophthalmic solutionIndicati ons:Dry eyes, bilateral Administer 1 drop into both eyes if needed in the morning, at noon, and at bedtime for dry eyes. 15 mL 6 025 2025 Active atorvastatin (Lipitor) 80 MG tablet Take 1 tablet (80 mg) by mouth Once per day. Take 1 tablet by mouth Once per day. 30 tablet 3 Active Breo Ellipta 200-25 MCG/ACT aerosol powderIndication s:Mild intermittent asthma without complication INHALE 1 PUFF [...] mg) by mouth before breakfast. 30 tablet 3 Active Xarelto 15 MG tablet Take 1 tablet (15 mg) by mouth with evening meal. 30 tablet Active spironolactone (Aldactone) 100 MG tablet Take 1 tablet (100 mg) by mouth Once per day. 30 tablet Active traMADol (Ultram) 50 MG tabletIndication s:Degeneration of intervertebral disc of lumbar region with discogenic back pain Take 1 tablet (50 mg) by mouth every 6 (six) hours if needed for severe pain. 15 tablet Active thiamine (Vitamin B-1) 100 MG tabletIndication s:Neuropathy TAKE 1 TABLET BY MOUTH EVERY MORNING 90 tablet 1 Active Tresiba FlexTouch 100 UNIT/ML injection INJECT 30 UNITS SUBCUTANEOUSLY AT BEDTIME 18 mL Active NovoLOG FLEXPEN 100 UNIT/ML pen INJECT 10 TO 20 UNITS SUBCUTANEOUSLY BEFORE MEALS PER SLIDING SCALE, DO NOT EXCEED 60 UNITS PER DAY Active Jardiance 25 MG TAKE 1 TABLET BY MOUTH EVERY MORNING 30 tablet 11 024 2023 Discontinued thiamine (Vitamin B-1) 100 MG tabletIndication s:Neuropathy TAKE 1 TABLET BY MOUTH EVERY MORNING 90 tablet 1 024 2024 Discontinued HumaLOG KWIKPEN 100 UNIT/ML injection Inject 6 Units under the skin with breakfast, with lunch, and with evening meal. Per sliding scale BG 100-149; 6 units. BG 150-199; 7 units. BG 200-249; 8 units. BG 250-299; 9 units. BG 300-349; 10 units. BG 350-399; 11 units. BG >400; 12 units. 024 2024 Discontinued(M ed list cleanup (will not trigger notification to Pharmacy)) insulin glargine (Lantus SoloStar) 100 UNIT/ML pen Inject 18 Units under the skin at bedtime. 2024 Discontinued(R eorder (will not trigger notification to Pharmacy)) insulin glargine (Lantus SoloStar) 100 UNIT/ML pen Inject 30 Units under the skin at bedtime. 3 mL 025 2024 Discontinued nitrofurantoin, macrocrystal-mon ohydrate, (Macrobid) 100 MG capsule Take 1 capsule (100 mg) by mouth 2 times daily for 7 days. 14 capsule 025 2024 cephalexin (Keflex) 500 MG capsule Take 500 mg by mouth 2 times daily. 025 2024 Active Problems Problem Noted Date Diagnosed Date Chronic idiopathic thrombocytopenia 02/10/2025 Mood disorder 02/10/2025 Preventative health care 01/16/2025 Assessment & Plan (01/16/2025 4:06 PM EDT): Discussed with patient re increase fresh fruit and vegetable intake. Counseled re moderate exercise as tolerated, up to 20min/d Patient feels safe at home. PAP smear: Will schedule PAP w me. Mammogram: UTD, next 1 due 03/2024 Bone density test: Never done, will order Eye exam: Overdue, advised to schedule appointment at the eye clinic CRC screen: Overdue, will order Cologuard for now due to recent hospitalization will postpone colonoscopy for now Lipids/FBS: Repeat lipids, LDL goal is 70 Vaccinations: Needs TB test, all their adult immunizations are up-to-date Dental visit: Advised to schedule appointment at dental clinic, information regarding dental clinics in the area given to patient Advance directives: Overdue, information and forms regarding HCP given to patient and son, they will bring to medical records At high risk for osteoporosis 01/16/2025 Assessment & Plan (01/16/2025 3:37 PM EDT): Order dexa scan and Vit D. Encounter for colorectal cancer screening 2024 Assessment & Plan (01/16/2025 3:38 PM EDT): Will refer to GI Headache 12/25/2024 Urinary tract infection symptoms 11/12/2024 Assessment & [...] and other providers not committing to procedure ([facility] plastic surgeon deemed her very high risk, [...] , slowly improving refer to neurology continue Joesph for now and control of Afib Assessment & Plan (09/06/2022 2:01 PM EST): Aphasia is improving w speech therapy. She's more independent on mobility but still needs assistance. Continue PT/speech therapy Continue Glucerna and nutritional supplement until able to tolerate PO normal consistency diet. Counseled to use cane for ambulation Daughter is her SILVERER, son will be with her overnight when [...] name. New rx sent to [facility] pharmacy per patient's request. Hypokalemia 09/05/2022 Assessment & Plan (09/06/2022 1:22 PM EST): Due to diuretic rx. She's on K chloride, unclear if she's still taking it. New rx for Kcl 20meq/d Repeat BMP rpior to next appt Skin ulcer 09/05/2022 Assessment & Plan (01/16/2025 4:01 PM EDT): Her abdomen, recurrent Continue daily dressings with calcium alginate by VNA Referred to wound clinic at [facility] We discussed with patient and son regarding the importance of stabilization of chronic conditions including diabetes, hypertension and CHF so the panniculectomy can be reconsidered this time (she had been previously cleared by cardiology/CHF clinic on 02/06/2024). Assessment & Plan (03/21/2024 3:35 PM EDT): Chronic , on lower abdomen, doing well. Needs panniculectomy to prevent recurrence. Assessment & Plan (06/25/2023 10:25 AM EDT): With three ER visits and rounds of antibiotics Will restart antibiotics, this time with MRSA coverage with doxycycline Keep area clean and dry per wound clinic at [facility] counseled regarding tight control of DM, increased [...] EST): Worsened after UTI -repeat BMP Acute HFrEF (heart failure with reduced ejection fraction) 03/12/2019 Assessment & Plan (01/16/2025 3:28 PM EDT): Patient is euvolemic at this time, to follow-up with CHF clinic at [facility]. Discussed importance of medications and dietary compliance. FU cardiomems with VNA. Continue on Bumex 2 mg per day, Spironolactone 100 mg per day, Entresto 24-26 mg per day, Metoprolol ER 12.5 mg per day, Digoxin 0.0625 mg every other day, and Jardiance 10 mg per day and amiodarone. I will discuss with CHF specialist regarding potential for bariatric surgery vs. panniculectomy that will significantly improve CHF prognosis. Assessment & Plan (11/25/2024 4:43 PM EST): [...] Order BNP and fu with cardiology at [facility]. Continue spironolactone, amiodarone (A.fib), digoxin and bumex Order BMP, advised re low slat diet, treating hypothyroidism and DM and fu with me in 6-8w Advised re Influenza vax today. Paroxysmal atrial fibrillation 03/12/2019 Assessment & Plan (01/16/2025 3:30 PM EDT): HR is controlled, anticoagulated on Xarelto, she's to FU closely with cardiology discussed with patient the importance of CHF control so that she can be a candidate for abdominal paniculectomy continue digoxin and xarelto. Assessment & Plan (02/19/2023 5:26 PM EDT): [...] face 01/31/2019 Obstructive sleep apnea syndrome 11/19/2018 Assessment & Plan (01/16/2025 3:18 PM EDT): Not compliant with CPAP every night, advised to use it every night to decrease morbidity and mortality Will write prescription for CPAP accessories as needed Rectal hemorrhage 11/19/2018 Mild intermittent asthma 07/29/2018 Type 2 diabetes mellitus with hyperglycemia 03/31 Assessment & Plan (01/16/2025 3:33 PM EDT): GFR has plummeted with sepsis and other acute exacerbations of CHF, last GFR on 11/12/2024 was >60, will check BMP today. Continue Jardiance and refer to systems manager as needed Assessment & Plan (04/23/2023 10:46 AM EDT): Check BMP and restart jardiance. See above Assessment & Plan (09/06/2022 12:44 PM EST): GFR is back to normal. I gave her the nephrology office (Dr Kirkpatrick, [facility] [place]) info to rs appt anyway in view of CKD with Varying GFR levels. Avoid NSAIDs, encouraged tight control of DM, hyperlipidemia and HTN. FU BMP prior to next visit due to hypokalemia Chronic gouty arthritis 04/15/2018 Assessment & Plan (04/23/2023 10:44 AM EDT): Right ankle and right toe, improving Gave [id number] for tramadol to take PRN before she [...] PRD. Acquired hypothyroidism 04/15/2018 Assessment & Plan (01/16/2025 4:02 PM EDT): Repeat TSH, continue levothyroxine 125 mcg/day Monitor labs yearly as she is on amiodarone/risk of thyroiditis Assessment & Plan (06/30/2024 11:37 AM EDT): [...] 2 diabetes mellitus 04/15/2018 Assessment & Plan (01/16/2025 3:35 PM EDT): Uncontrolled, increase Lantus to 30 units, has an appointment with card runner at [facility] next week. Continue Farxiga 10 mg + Tradjenta 5 mg + Humalog. Foot examination is normal, no DM neuropathy Advised to schedule appointment in our eye clinic, referral was placed last year information is given to patient's son today Order labs Advised to schedule an appointment with the dental clinic, dental prophylaxis every 6 months Assessment & Plan (11/25/2024 4:41 PM EST): Uncontrolled, has an appointment with card runner at [facility] next week. Continue Farxiga 10 mg + [...] to start) Advised to rs appt with [facility] endocrinology. Assessment & Plan (11/23/2023 1:26 PM EST): No change in meds today, needs to schedule appt w/ endo, info given again today Assessment & Plan (08/16/2023 1:17 PM EST): Uncontrolled, she has been referred to be seen card runner since March 2023. Copy of referral given [...] Encouraged physical activity as tolerated. Refer to card runner Assessment & Plan (02/19/2023 5:27 PM EDT): [...] her previous pharmacy. Pseudopolyposis of colon 04/27/2014 Anticoagulated on Coumadin 01/05/2014 Overview (02/10/2025): A-FIB Atrial flutter 07/28/2013 Mitral valve regurgitation 07/10/2013 Hepatomegaly 03/28/2012 Non-alcoholic cirrhosis 12/08/2009 Overview (06/30/2024): Liver Bx [place] htal on 12/08/12= Steato hepatitis/focal inflammation G1/lobular inflammation grade 2-3 fibrosis(periportal and perisinusoidal fibrosis + focal portal To portal bridging fibrosis) CT scan abd/pelvis on 03/07/23 at [facility] = hepatomegaly Assessment & Plan (01/16/2025 3:32 PM EDT): Dx CASTILLO/s/p liver biopsy in 2012 at [facility]. Continue to monitor LFTs, AFP, abd US Recommend that weight reduction, will benefit she greatly from either GLP's and especially abdominal panniculectomy. Assessment & Plan (04/23/2023 10:46 AM EDT): Previously seen by GI at [facility] in 2019. Will obtain LFTs and Hepatitis profile and refer to GI if needed. It is thought to be related to CASTILLO/s/p liver biopsy in 2012 at [facility]. Resolved Problems Problem Noted Date Diagnosed Date Resolved Date Thrombocytopenia 10/30/2023 01/16/2025 Exposure to COVID-19 virus 09/05/2022 0 04/23/2023 Toothache 09/05/2022 04/23/2023 Chronic congestive heart failure 04/15/2018 09/06/2022 Encounters Date Type Department Care Team Description 02/11/2025 2:00 PM EDT Office Visit [facility] MED[facility] [address] [place] [address] Baljit Ortega CNP MECCA (acute kidney injury) (CMS/HCC) (Primary Dx); Type 2 diabetes mellitus with stage 3a chronic kidney disease, with long-term current use of insulin (CMS/HCC); Urinary tract infection with hematuria, site unspecified; Postmenopausal vaginal bleeding 02/11/2025 Travel 02/10/[address] [address] Jaleesa Calvillo MD Nurse Triage 02/10/[address] [phone] Jordan Alfreditohunter, BOOKKEEPER RECEPTIONIST Chart Prep 02/06/2025 Patient Outreach [address] [address] Jaleesa Calvillo MD 02/04/[address] [address] Misti Zarate, PharmD 02/03/[address] [phone] Jaleesa Calvillo MD Durable Medical Equipment 02/03/[address] [address] Jaleesa Calvillo MD Verbal order 02/02/[address] [address] Jaleesa Calvillo MD Medication Question 02/02/2025 Patient Outreach [address] [phone] Jaleesa Calvillo MD Transition Of Care (Tcm) (HDF- scheduled) 01/22/2025 2:30 PM EDT Telemedicine [facility] [address] [place] [address] Emily Cruz RN Urinary tract infection symptoms [R39.9] 01/22/2025 Travel 01/16/2025 9:15 AM EDT Office Visit [address] [address] Jaleesa Calvillo MD Type 2 diabetes mellitus with stage 3a chronic kidney disease, with long-term current use of insulin (CMS/HCC) (Primary Dx); Obstructive sleep apnea syndrome; Acute on chronic systolic heart failure (CMS/HCC); Skin ulcer with fat layer exposed (CMS/HCC); Diabetic nephropathy associated with type 2 diabetes mellitus (CMS/HCC); Acquired hypothyroidism; Preventative health care; Encounter for colorectal cancer screening; At high risk for osteoporosis; Non-alcoholic cirrhosis ([facility]/HCC); Paroxysmal atrial fibrillation ([facility]/HCC); Age-related osteoporosis with current pathological fracture, left pelvis, initial encounter for fracture; Chronic skin ulcer with fat layer exposed ([facility]); Dietary counseling; Exercise counseling; Class 2 severe obesity due to excess calories with serious comorbidity and body mass index (BMI) of 36.0 to 36.9 in adult ([facility]); Screening for colon cancer 01/16/2025 Telephone [facility] MEDICINE [address] [place] [address] Maggie Sawyer, RN vna communication 01/16/2025 Orders Only [facility] [address] [place] [address] Jaleesa Calvillo MD 01/16/2025 Telephone [facility] PEDIATRICS [address] [place] [address] Jaleesa Calvillo MD critical Glucose 01/16/2025 Refill [facility]INE [address] [place] [phone] Jaleesa Calvillo MD 01/16/2025 Travel 01/14/2025 Refill [facility] [address] [place] [address] Jaleesa Calvillo MD Neuropathy 01/13/2025 Telephone [facility] MED[facility]INE [address] [place] [address] Jaleesa Calvillo MD Chart prep 01/13/[address] [address] Jaleesa Calvillo MD Nurse Triage 01/09/2025 1:30 PM EDT Office Visit [facility] [address] [place] [address] Baljit Ortega CNP Degeneration of intervertebral disc of lumbar region with discogenic back pain (Primary Dx); Type 2 diabetes mellitus with stage 3a chronic kidney disease, with long-term current use of insulin ([facility]); Acute on chronic systolic heart failure ([facility]) 01/09/2025 Travel 01/08/2025 Telephone [facility] MED[facility]INE [address] [place] [address] Jaleesa Calvillo MD 01/06/[address] [address] Jaleesa Calvillo MD Durable Medical Equipment 01/06/[address] [address] Jaleesa Calvillo MD 01/05/[address] [address] Jaleesa Calvillo MD Chart Prep 01/05/[address] [address] Jaleesa Calvillo MD Nurse Triage 12/30/2024 Patient Outreach [address] [address] Jaleesa Calvillo MD Transition Of Care (Tcm) (HDF- Lvm ) 12/30/[address] [address] Jaleesa Calvillo MD Hospital Follow-up 12/30/[address] [address] Jaleesa Calvillo MD Wound Care 12/30/2024 Patient Outreach [address] [address] Jaleesa Calvillo MD Transition Of Care (Tcm) (HDF unscheduled LVM ) 12/12/2024 Population Health Risk Score [facility] () Department [address] [place] [phone] Provider, Population Health Generic 12/11/[address] [address] Jaleesa Calvillo MD Medication Question 12/03/2024 Telephone [facility] [address] [place] [phone] Jaleesa Calvillo MD Prior Authorization (Digoxin) 11/25/2024 1:15 PM EST Office Visit [address] [phone] Jaleesa Calvillo MD Acute on chronic systolic heart failure ([facility]) (Primary Dx); Type 2 diabetes mellitus with stage 3a chronic kidney disease, with long-term current use of insulin ([facility]) 11/25/2024 Travel 11/19/2024 Telephone [facility] MED[facility]INE [address] [place], [place] [phone] Jaleesa Calvillo MD Chart prep 11/15/2024 Refill [facility] [address] [place], [place] [phone] Jaleesa Calvillo MD Mild intermittent asthma without complication 11/14/2024 Orders Only [facility] [address] [place], [place] [phone] Jaleesa Calvillo MD from Last 3 Months Immunizations Immunization Administration Dates Next Due Hep B, adult [...] Mass Index 35.92 02/11/2025 2:12 PM EDT Plan of Treatment Upcoming Encounters Date Type Department Care Team (Late st Contact Info) Description 03/25/2025 2:30 PM EDT Office Visit [facility] MED[facility]INE [address] [place] [phone] Jordan Baljit, BOOKKEEPER RECEPTIONIST [address] [place], [place] [phone] 04/22/2025 9:00 AM EDT Office Visit [facility] [address] [place], [place] [phone] Jaleesa Calvillo MD [address] [place], [place] [phone] Health Maintenance Due Date Last Done Comments CT Colonography 1967 FIT DNA/Cologuard 1967 FIT 1967 FOBT 1967 HIV Screening 1967 Sigmoidoscopy 1967 Hepatitis C Screening 12/09/1985 Hepatitis A Vaccines (1 of 2 - Risk 2-dose series) 12/09/1986 HPV/Cotest 12/09/1997 Mammogram 2007 Cervical Cancer Screening 04/16/2021 Pap Smear 04/16/2021 04/16/2018 Colonoscopy 04/19/2024 04/19/2014 Colorectal Cancer Screening 04/19/2024 Hepatitis B Vaccines (3 of 3 - 19+ 3-dose series) 10/13/2024 08/18/2024, 04/21/2019 Diabetes: Hemoglobin A1C 04/10/2025 025, 11/25/2024, 07/07/2024, Additional history exists Diabetes: Foot Exam 01/16/2026 01/16/2025, 01/16/2025, 01/16/2025, Additional history exists Lipid Panel 01/16/2026 01/16/2025, 07/01, 07/31/2022, Additional history exists Alcohol/Substance Use Screening 02/11/2026 02/11/2025 Depression Screening 02/11/2026 02/11/2025, 05/14/20 25 SDOH Screening 02/11/2026 02/11/2025 Tobacco Screening 02/11/2026 02/11/2025 Eye Exam 10/13/2026 10/13/2024, 10/01, 10/13/2024, Additional [...] Procedure Name Priority Date/Time Associated Diagnosis Comments ALBUMIN, RANDOM URINE W/CREATININE Routine 01/16/2025 10:17 AM EDT Type 2 diabetes mellitus with stage 3a chronic kidney disease, with long-term current use of insulin ([facility]) COMPREHENSIVE METABOLIC PANEL Routine 01/16/2025 10:17 AM EDT Type 2 diabetes mellitus with stage 3a chronic kidney disease, with long-term current use of insulin ([facility]) T-SPOT(R).TB Routine 01/16/2025 10:17 AM EDT Type 2 diabetes mellitus with stage 3a chronic kidney disease, with long-term current use of insulin (CMS/HCC) LIPID PANEL WITH REFLEX TO DIRECT LDL Routine 01/16/2025 10:17 AM EDT Type 2 diabetes mellitus with stage 3a chronic kidney disease, with long-term current use of insulin (CMS/HCC) DIGOXIN Routine 01/16/2025 10:17 AM EDT Acute on chronic systolic heart failure ([facility]/HCC) URINALYSIS, COMPLETE Routine 01/16/2025 10:17 AM EDT Urinary tract infection symptoms CULTURE, URINE, ROUTINE Routine 01/16/2025 10:17 AM EDT POCT GLUCOSE Routine 01/16/2025 9:21 AM EDT Type 2 diabetes mellitus with stage 3a chronic kidney disease, with long-term current use of insulin (CMS/[facility]) POCT URINALYSIS DIPSTICK Routine 01/09/2025 2:00 PM EDT Type 2 diabetes mellitus with stage 3a chronic kidney disease, with long-term current use of insulin (CMS/[facility]) POCT GLYCATED HEMOGLOBIN, TOTAL Routine 01/09/2025 1:51 [...] with long-term current use of insulin (CMS/HCC) HM PAP/HPV Routine 04/16/2018 COLONOSCOPY Routine 04/19/2014 from Last 3 Months or Most Recently Relevant to Health Maintenance Results * T-SPOT??.TB (01/16/2025 10:17 AM EDT) T Spot TB Negative Negative [facility] Comment:A negative test resu lt does not exclude the possibilityof exposure to or infection with Mycobacteriumtuberculosis (M. tuberculosis). Patients with recentexposure to TB infected individuals exhibiting anegative T-SPOT.TB result should be considered forretesting within 6 weeks or if other relevant clinicalsymptoms indicate. Results from T-SPOT.TB testing mustbe used in conjunction with each individual'sepidemiological history, current medical status,and results of other diagnostic evaluations.The T-SPOT.TB test is qualitative and results arereported as positive, borderline, or negative, giventhat the test controls perform as expected. In linewith the Centers for Disease Control and Prevention's2010 recommendation to report quantitative measurementsalongside the qualitative result, the laboratoryprovides spot counts for informational purposes only.The T-SPOT.TB test should not be interpreted as aquantitative test. TS PANEL A 0 [facility] TS PANEL B 0 [facility] Negative Control Passed [facility] Positive Control Passed [facility] Comment:For additional infor peggy, please refer [email or web address].[employer]/faq/[email or web address](This link is being provided for informational/educational purposes only.)THIS TEST WAS PERFORMED AT:[employer] [id number] [place] [id number] TREVINO MD,PHD 01/16/2025 10:1 7 AM EDT 01/16/2025 11:13 AM EDT us Jaleesa Calvillo MD LAB BLOOD ORDERABLES Fin al Result [facility] [address] [place] [address] [phone] * (ABNORMAL) Lipid Panel with Reflex to Direct LDL (01/16/2025 10:17 AM EDT) Triglycerides 277(H) <150 mg/dL [facility] Comment:Desirable Triglyceri de: less than 150 mg/dLBorderline High Triglyceride 150-199 mg/dLHigh Triglyceride: 200-499 mg/dLVery High Triglyceride: greater than or equal to 5OO mg/dL Cholesterol 159 <200 mg/dL [facility] Comment:Desirable Cholestero l: less than 200 mg/dLBorderline High Cholesterol: 200-239 mg/dLHigh Cholesterol: greater than 239 mg/dL LDL Cholesterol Calculated 79 <100 mg/dL [facility] Comment:Desirable LDL: less than 100 mg/dLNear Optimal/Above Optimal LDL: 110- 129 mg/dLBorderline High LDL: 130-159 mg/dLHigh LDL: 160-189 mg/dLVery High LDL: greater than or equal to 190 mg/dL HDL Cholesterol 25(L) >40 mg/dL [facility] Comment:Desirable HDL: great er than 40 mg/dL Note: This HDL assay may give artificially low results in patients with liver disease. Blood 01/16/2025 10:1 7 AM EDT 01/16/2025 11:15 AM EDT us Jaleesa Calvillo MD LAB BLOOD ORDERABLES Fin al Result [facility] [address] [place] [address] [phone] * (ABNORMAL) Albumin, Random Urine W/Creatinine (01/16/2025 10:17 AM EDT) Creatinine, Urine 80.57 mg/dL [facility] Microalbumin Urine 74.0 mg/L [facility] Microalbum Creatinine Ratio Ur 91.8(H) <30 ug/mg cr [facility] Comment:Albumin/Creatinine R atio Reference Ranges: Normal: < 30 ug/mg creatinine Microalbuminuria: 30 - 300 ug/mg creatinineClinical Albuminuria: > 300 ug/mg creatinine Urine (Urine, Random) 01/16/2025 10:17 AM EDT 01/16/2025 11:08 AM EDT Jaleesa Calvillo MD LAB URINE ORDERABLES Fin al Result Performing Organization Address [facility] Co de Phone Number [facility] [address] [place] [phone] * (ABNORMAL) Urinalysis Complete (01/16/2025 10:17 AM EDT) Color Urine Yellow [facility] Appearance Urine Clear [facility] PH 5.0 5.0 - 9.0 [facility] Glucose Urine UA >=1000(A) Negative mg/dL [facility] Urine Blood Negative Negative [facility] Specific [place] - Urine 1.020 1.005 - 1.025 [facility] Urine Protein Trace Neg-Trace mg/dL [facility] Urine Ketones Negative Negative mg/dL [facility] Nitrite Urine Negative Negative [facility] Leukocyte Esterase Urine Moderate (2+)(A) Negative [facility] RBC Urine 0-2 0 - 2 /HPF [facility] Urine WBC 21-50(A) 0 - 5 /HPF [facility] Urine Squamous Epithelial Cell 11-20 0 - 2 /HPF [facility] Urine Bacteria Trace None Seen [facility] Hyaline Casts, Urine 0-2 0 - 2 /LPF [facility] Urine (Urine, Random) 01/16/2025 10:17 AM EDT 01/16/2025 11:08 AM EDT Baljit rOtega CNP LAB URINE ORDERABLES Ariana l Result Performing Organization Address [facility] Co de Phone Number [facility] [address] [place] [phone] * Culture, Urine, Routine (01/16/2025 10:17 AM EDT) Urine Urine specimen obtained by clean catch procedure / Unknown 01/16/2025 10:17 AM EDT 01/16/2025 11:08 AM EDT Comment:UACC Narrative [facility] - 01/17/2025 1:46 PM EDT Urine Culture Report Result Urine Culture > 100,000 cfu/ml Urine Culture Mixed bacterial wally characteristic of Urine Culture urogenital contamination. Strep agalactiae (Grp B) Quant 10,000 to 50,000 cfu/mL Susc N/A Susceptibility not routinely performed on this isolate. Specimen Source: Urine clean catch Baljit Ortega [facility] MICROBIOLOGY - GENERA L ORDERABLES Final Result Performing Organization Address [facility]/ZIP Co de Phone Number [facility] [address] [place] [phone] * (ABNORMAL) Digoxin (01/16/2025 10:17 AM EDT) Digoxin <0.2(L) 0.8 - 2.0 ng/mL [facility] Comment:Assay modified to mi nimize interference from aldosteroneantagonists (e.g. spironolactone and canrenone). Blood Venous blood specimen / Unknown 01/16/2025 10:17 AM EDT 01/16/2025 11:15 AM EDT Jaleesa Calvillo MD LAB BLOOD ORDERABLES Fin al Result Performing Organization Address [facility]/ZIP Co de Phone Number [facility] [address] [place] [address] [phone] * (ABNORMAL) Comprehensive Metabolic Panel (01/16/2025 10:17 AM EDT) Sodium 135 135 - 145 mmol/L [facility] Potassium 4.6 3.3 - 5.1 mmol/L [facility] Chloride 106 96 - 108 mmol/L [facility] Carbon Dioxide 23 22 - 29 mmol/L [facility] Anion Gap 11(L) 12 - 20 [facility] Urea Nitrogen (BUN) 30(H) 9 - 16 mg/dL [facility] Creatinine, Serum 0.94 0.5 - 1.4 mg/dL [facility] Estimated Glomerular Filt Rate >60 [facility] Comment:Chronic Kidney Disea se: Estimated GFR < 60 mL/min/1.80c2Zmkqcs Kidney Disease: Estimated GFR < 15 mL/min/1.73m2 Glucose 381(HH) 60 - 115 mg/dL [facility] Comment:Critical value for G LUR: Results called to and read backby: Meseret Morrison Person calling: CARA Date: 01/16/25 Time:1154 Calcium 8.7 8.4 - 10.2 mg/dL [facility] Bilirubin, Total 0.4 0.0 - 1.0 mg/dL [facility] Aspartate Amino Transferase 52(H) 5 - 31 U/L [facility] Alanine Aminotransferase 33(H) 0 - 31 U/L [facility] Total Protein 6.6 6.5 - 8.0 g/dL [facility] Albumin Level 3.7 3.5 - 5.0 g/dL [facility] Alkaline Phosphatase 58 39 - 117 U/L [facility] Blood Venous blood specimen / Unknown 01/16/2025 10:17 AM EDT 01/16/2025 11:15 AM EDT us Jaleesa Calvillo MD LAB BLOOD ORDERABLES Fin al Result [facility] [address], [place] [phone] * (ABNORMAL) POCT Glucose (01/16/2025 9:21 AM EDT) Only the most recent of3 resultswithin the time period is included. Glucose Blood, POC 369(A) 60 - 200 mg/dL QC Media Lot # [id number] Lot# Expiration Date ,425 Blood Capillary blood specimen / Unknown 01/16/2025 9:21 AM EDT Result [facility] Jaleesa Calvillo MD POINT OF CARE TEST ENTER /EDIT ORDERABLES Final Result * (ABNORMAL) POCT Urinalysis (01/09/2025 2:00 PM EDT) Color, UA Colorless Clarity, UA Clear Glucose, UA 3+ 500+++ Bilirubin, UA Negative Ketones, UA Negative Spec Grav, UA 1.005 Blood, UA Negative Negative, None Detected pH, UA 5.5 Protein, UA Negative Urobilinogen, UA 0.2 Leukocytes, UA Few 15(A) Negative, Rare, Trace Comment:Small Nitrite, UA Negative Negative, None Detected Appearance, UA Clear QC Media Lot # [id number] Lot# Expiration Date ,026 Urine 01/09/2025 2:00 PM EDT Result [facility] POINT OF CARE TEST ENTER/ EDIT ORDERABLES Final Result * (ABNORMAL) POCT HGB A1C (01/09/2025 1:51 PM EDT) Only the most recent of2 resultswithin the time period is included. Pathologist [facility] Hemoglobin A1C 9.7(A) 4.0 - 6.0 % QC Media Lot # [id number] Lot# Expiration Date , Blood 01/09/2025 1:51 PM EDT Result [facility] POINT OF CARE TEST ENTER/ EDIT ORDERABLES Final Result * Pap Smear (04/16/2018) Pap smear performed Result [facility] Historical Provider HEALTH MAINTENANCE Final Result * Colonoscopy (04/19/2014) Pathologist [facility] Colonoscopy performed Result [facility] Historical Sabiha OLIVEIRA HEALTH MAINTENANCE Edited Result - Final from Last 3 Months or Most Recently Relevant to Health Maintenance Insurance [facility] STANDARD MEDICARE Care Teams Earth Science Technician Relationship Specialty Start Date End Date Jaleesa Calvillo MD [address] [place] [phone] PCP - General Family Medicine 04/15/18 [facility] 11/06/24
--- OUTSIDE RECORDS SUMMARY | 2025-02-11 15:01 | XMS_ITS | Referral Summary ---
Author Organization [facility] Address [address] [place] [address] Care Team Providers Care Desktop Support Consultant Name Role Phone RajinderJaleesa moreland Primary Care Provider [phone] Allergies Active Allergy Reactions Criticality Noted Date [...] Treatment Not on file Insurance [place]IC[place] [facility] Care Teams Desktop Support Consultant Relationship Specialty Start Date End Date Jaleesa Calvillo [address] [place] [address] PCP - General Internal Medicine 11/29/23
--- OUTSIDE RECORDS SUMMARY | 2025-02-11 15:01 | XMS_ITS | Encounter Summary ---
Author Organization [employer] Address [address] [facility] 7t [place] [address] Care Team Providers Care Cost Specialist Name Role Phone Jaleesa Calvillo MD Primary Care Provider + Encounter Details Date Type Department Care Team (Late st Contact Info) Description 08/27/2023 Abstract [facility] [address] [place], [place] [phone] Jaleesa Calvillo MD [address] [place], [place] [phone] Social History Tobacco Use Types Packs/Day Years [...] Description 03/25/2025 2:30 PM EDT Office Visit [facility] [address] [place] [phone] Baljit Ortega CNP [address] [place] [address] 04/22/2025 9:00 AM EDT Office Visit [address] [phone] Jaleesa Calvillo MD [address] [place] [phone] documented as of this encounter Visit Diagnoses Not on filedocumented in this encounter Care Teams Cost Specialist Relationship Specialty Start Date End Date Jaleesa Calvillo MD [address] [place] [phone] PCP - General Family Medicine 04/15/18 [facility] 11/06/24 documented as of this encounter
--- OUTSIDE RECORDS SUMMARY | 2025-02-11 15:01 | XMS_ITS | Encounter Summary ---
Author Organization [employer] Address [address] [facility] 7t [place] [address] Care Team Providers Care Paraffin Machine Operator Name Role Phone Jaleesa Calvillo MD Primary Care Provider + Encounter Details Date Type Department Care Team ([facility] Contact Info) Description 09/06/2022 Orders Only [facility] [address] [place] [address] [phone] Jaleesa Calvillo MD [address] [place] [address] [phone] Social History Tobacco Use Types Packs/Day Years [...] Upcoming Encounters Date Type Department Care Team ([facility] Contact Info) Description 03/25/2025 2:30 PM EDT Office Visit [facility] [address] [place] [address] [phone] Baljit Ortega CNP [address] [place] [address] 04/22/2025 9:00 AM EDT Office Visit [facility] [address] [place], [place] [phone] Jaleesa Calvillo MD [address] [place], [place] [phone] documented as of this encounter Visit Diagnoses Not on filedocumented in this encounter Care Teams Paraffin Machine Operator Relationship Specialty Start Date End Date Jaleesa Calvillo MD [address] [place] [address] [phone] PCP - General Family Medicine 04/15/18 [facility] 11/06/24 documented as of this encounter
--- OUTSIDE RECORDS SUMMARY | 2025-02-11 15:02 | XMS_ITS | Encounter Summary ---
Author Organization [employer] Address [address] [facility] 7t [place] [address] Care Team Providers Care Log Buncher Name Role Phone Jaleesa Calvillo MD Primary Care Provider + Encounter Details Date Type Department Care Team (Late st Contact Info) Description 11/09/2022 Orders Only [facility] [address] [place] [address] [phone] Jaleesa Calvillo MD [address] [place] [address] [phone] Cerebrovascular accident (CVA) due to embolism of [...] EDT Office Visit [facility] [address] [place] [address] [phone] Baljit Ortega CNP [address] [place], [place] [phone] 04/22/2025 9:00 AM EDT Office Visit [facility] [address] [place], [place] [phone] Jaleesa Calvillo MD [address] [place] [address] documented as of this encounter Visit Diagnoses Diagnosis 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
--- OUTSIDE RECORDS SUMMARY | 2025-02-11 15:02 | XMS_ITS | Encounter Summary ---
Author Organization [employer] Address [address] [facility] [place] 7t [place] [address] Care Team Providers Care Mortgage Clerk Name Role Phone Jaleesa Calvillo MD Primary Care Provider + Encounter Details Date Type Department Care Team (Late st Contact Info) Description 03/26/2024 Orders Only [facility] [address] [place], [place] [phone] Jaleesa Calvillo MD [address] [place], [place] [phone] Social History Tobacco Use Types Packs/Day Years [...] Description 03/25/2025 2:30 PM EDT Office Visit [facility] [address] [place] [phone] Baljit Ortega CNP [address] [place] [address] 04/22/2025 9:00 AM EDT Office Visit [facility] [address] [place] [phone] Jaleesa Calvillo MD [address] [place] [phone] documented as of this encounter Visit Diagnoses Not on filedocumented in this encounter Care Teams Mortgage Clerk Relationship Specialty Start Date End Date Jaleesa Calvillo MD [address] [place] [phone] PCP - General Family Medicine 04/15/18 [facility] 11/06/24 documented as of this encounter
--- OUTSIDE RECORDS SUMMARY | 2025-02-11 15:02 | XMS_ITS | Encounter Summary ---
Author Organization [employer] Address [address] [facility] 7t [place] [address] Care Team Providers Care Breaker Machine Operator Name Role Phone Jaleesa Calvillo MD Primary Care Provider + Reason for Visit * Reason Comments Med Refill Encounter Details Date Type Department Care Team ([facility] Contact Info) Description 12/13/2022 Refill [facility] [address] [place] [address] [phone] Jaleesa Calvillo MD 230 [place], [place] [phone] Social History Tobacco Use Types Packs/Day Years [...] Upcoming Encounters Date Type Department Care Team ([facility] Contact Info) Description 03/25/2025 2:30 PM EDT Office Visit [facility] [address] [place] [address] [phone] Baljit Ortega CNP [address] [place], [place] [phone] 04/22/2025 9:00 AM EDT Office Visit [facility] [address] [place] [address] [phone] Jaleesa Calvillo MD [address] [place] [address] documented as of this encounter Visit Diagnoses Not on filedocumented in this encounter Care Teams Breaker Machine Operator Relationship Specialty Start Date End Date Jaleesa Calvillo MD [address] [place] [phone] PCP - General Family Medicine 04/15/18 [facility] 11/06/24 documented as of this encounter
--- OUTSIDE RECORDS SUMMARY | 2025-02-11 15:02 | XMS_ITS | Encounter Summary ---
Author Organization [employer] Address 75 [facility] 7t [place] [address] Care Team Providers Care National Investigative Producer Name Role Phone Jaleesa Calvillo MD Primary Care Provider + Encounter Details Date Type Department Care Team (Late st Contact Info) Description 02/06/2025 Patient Outreach [facility] [address] [place], [place] [phone] Jaleesa Calvillo MD [address] [place], [place] [phone] Social History Tobacco Use Types Packs/Day Years [...] Description 03/25/2025 2:30 PM EDT Office Visit [facility] [address] [place] [phone] Baljit Ortega CNP [address] [place] [phone] 04/22/2025 9:00 AM EDT Office Visit [facility] [address] [place] [phone] Jaleesa Calvillo MD [address] [place] [phone] documented as of this encounter Visit Diagnoses Not on filedocumented in this encounter Care Teams National Investigative Producer Relationship Specialty Start Date End Date Jaleesa Calvillo MD [address] [place] [phone] PCP - General Family Medicine 04/15/18 [facility] 11/06/24 documented as of this encounter
--- OUTSIDE RECORDS SUMMARY | 2025-02-11 15:02 | XMS_ITS | Encounter Summary ---
Author Organization [employer] Address [address] [facility] 7t [place] [address] Care Team Providers Care Silver Recovery Operator Name Role Phone Jaleesa Calvillo MD Primary Care Provider + Reason for Visit * Reason Onset Date Comments Nurse Triage 02/10/2025 Encounter Details Date Type Department Care Team ([facility] st Contact Info) Description 02/10/2025 Telephone [facility] [address] [place], [place] [phone] Jaleesa Calvillo MD 230 [place], [place] [phone] Nurse Triage Social History Tobacco Use Types [...] encounter Miscellaneous Notes * Telephone Encounter - Martha Farias RN - 02/10/2025 3:00 PM EDT Called pt, via [employer] hourly sign language interpreter [phone] Jayne. Pt. States that when she urinates she has low back pain. Pt. Has been getting UTI's back to back x a few months. Pt. Has appt. Tomorrow 02/11/25 at 2pm with Baljit Ortega GLAUCOMA SPECIALIST for HDF anyway so pt. States she will bring up that she continues to have pain with urination. No fever. RE: Tc from [place] with [facility] calling to report vitals and concerns. Nazanin stated pt is complaining of kidney/lower back pain. Pain level 5 out of 10. Vitals reported: BP 150/68 Heart rate 78 Temp 96.7 Respiratory 18 Blood sugar 220 Oxygen 97%. Nazanin also stated pt was prescribed antibiotic by PCP to treat UTI but pt has not completed medication. Contact pt at [phone] (guatemalan) If any questions contact Nazanin at [phone] * Telephone Encounter - Violeta Stuart - 02/10/2025 2:34 PM EDT Tc from [place] with [facility] calling to report vitals and concerns. Nazanin stated pt is complaining of kidney/lower back pain. Pain level 5 out of 10. Vitals reported: BP 150/68 Heart rate 78 Temp 96.7 Respiratory 18 Blood sugar 220 Oxygen 97%. Nazanin also stated pt was prescribed antibiotic by PCP to treat UTI but pt has not completed medication. Contact pt at [phone] (guatemalan) If any questions contact Nazanin at [phone] documented in this encounter Plan of Treatment Upcoming Encounters Date Type Department Care Team (Late st Contact Info) Description 03/25/2025 2:30 PM EDT Office Visit [facility] [address] [place] [phone] Baljit Ortega CNP [address] [place] [address] 04/22/2025 9:00 AM EDT Office Visit [facility] [address] [place] [phone] Jaleesa Calvillo MD [address] [place] [phone] documented as of this encounter Visit Diagnoses Not on filedocumented in this encounter Care Teams Silver Recovery Operator Relationship Specialty Start Date End Date Jaleesa Calvillo MD [address] [place] [phone] PCP - General Family Medicine 04/15/18 [facility] 11/06/24 documented as of this encounter
--- OUTSIDE RECORDS SUMMARY | 2025-02-11 15:02 | XMS_ITS | Encounter Summary ---
Author Organization [employer] Address [address] [facility] 7t [place] [address] Care Team Providers Care Fur Sorter Name Role Phone Jaleesa Calvillo MD Primary Care Provider + Reason for Visit * Reason Onset Date Comments Durable Medical Equipment 02/03/2025 Encounter Details Date Type Department Care Team ([facility] st Contact Info) Description 02/03/2025 Telephone [facility] [address] [place], [place] [phone] Jaleesa Calvillo MD 230 [place], [place] [phone] Durable Medical Equipment Social History Tobacco Use [...] * Telephone Encounter - Kay Santos - 02/03/2025 3:27 PM EDT [facility] - Shower bench - Rail toilet grab bar documented in this encounter Plan of Treatment Upcoming Encounters Date Type Department Care Team (Late st Contact Info) Description 03/25/2025 2:30 PM EDT Office Visit [facility] [address] [place] [phone] Baljit Ortega CNP 230 [place] [address] 04/22/2025 9:00 AM EDT Office Visit [facility] [address] [place] [phone] Jaleesa Calvillo MD [address] [place] [phone] documented as of this encounter Visit Diagnoses Not on filedocumented in this encounter Care Teams Fur Sorter Relationship Specialty Start Date End Date Jaleesa Calvillo MD [address] [place] [phone] PCP - General Family Medicine 04/15/18 [facility] 11/06/24 documented as of this encounter
--- OUTSIDE RECORDS SUMMARY | 2025-02-11 15:02 | XMS_ITS | Encounter Summary ---
Author Organization [employer] Address [address] [facility] 7t [place] [address] Care Team Providers Care Perforator Typist Name Role Phone Jaleesa Calvillo MD Primary Care Provider + Reason for Visit * Reason Onset Date Comments Chart Prep 02/10/2025 Encounter Details Date Type Department Care Team (Late st Contact Info) Description 02/10/2025 Telephone [facility] 230 [place], [place] [phone] Baljit Ortega CNP [address] [place] [phone] Chart Prep Social History Tobacco Use Types Packs/Day Years [...] encounter Miscellaneous Notes * Telephone Encounter - Tonia Diana MA - 02/10/2025 9:54 AM EDT Chart Prep Labs: not done Images: not done Referrals: appointment pending Vaccines due: Hep B and Hep A Screenings: colonoscopy, mammogram, pap smear, and Hep C, HIV. Overdue care gaps: SBIRT, SDOH, BENEDICT-7, Oral health screening, Disability screen, and Glucose. documented in this encounter Plan of Treatment Upcoming Encounters Date Type Department Care Team (Late st Contact Info) Description 03/25/2025 2:30 PM EDT Office Visit [facility] [address] [place] [phone] Baljit Ortega CNP [address] [place] [address] 04/22/2025 9:00 AM EDT Office Visit [facility] [address] [place] [phone] Jaleesa Calvillo MD [address] [place] [phone] documented as of this encounter Visit Diagnoses Not on filedocumented in this encounter Care Teams Perforator Typist Relationship Specialty Start Date End Date Jaleesa Calvillo MD [address] [place] [phone] PCP - General Family Medicine 04/15/18 [facility] 11/06/24 documented as of this encounter
[2025-02-11 16:32] LABS: Anion Gap 15 (12-20); Blood Urea Nitrogen 23 mg/dL (9-16); Calcium 9.3 mg/dL (8.4-10.2); Carbon Dioxide 23 mmol/L (22-29); Chloride 104 mmol/L (96-108); Estimated Glomerular Filt Rate 57; Glucose Random 248 mg/dL (60-115); Potassium 4.5 mmol/L (3.3-5.1); Sodium 137 mmol/L (135-145)
[2025-02-11 16:40] LABS: Estimated Average Glucose 229 mg/dL; Hemoglobin A1C 256.2237 umol/L; Hemoglobin A1c % 9.6 % (<6.0); Total Hemoglobin (HGBA1C) 3164.8548 umol/L
== END 2025-02-11 14:58 | disposition home or self-care (01) ==
LOC: HO.HHCL 14:57
DX: N17.9 Acute kidney failure, unspecified (principal); E11.22 Type 2 diabetes mellitus with diabetic chronic kidney disease; N18.31 Chronic kidney disease, stage 3a; Z79.4 Long term (current) use of insulin
CPT/HCPCS: 36415; 80048; 83036

== ENCOUNTER 2025-02-17 08:54 | Outpatient (REF) | payer MEDICARE, MEDICAID, SELFPAY ==
--- NOTE | ~2025-02-17 | MM_ITS ---
EXAMINATION: DXA BONE DENSITY AXIAL HISTORY: M80.0B2A Z91.89 TECHNIQUE: Ogorod Dual energy absorptiometry (DEXA) of the lumbar spine, total left hip, and femoral neck was performed. COMPARISON: There are no prior studies for comparison. FINDINGS: The bone mineral density of the lumbar spine is 1.259 with a T-score of 0.7, and a Z-score of 1.1. This is indicative of normal bone mineral density. The bone mineral density of the left total hip is 0.738 with a T-score of -2.1, and a Z-score of -1.8. This is indicative of osteopenia. The bone mineral density of the left femoral neck is 0.670 with a T-score of -2.6, and a Z-score of -1.9. This is indicative of osteoporosis. FRACTURE RISK: The FRAX index suggests a risk of major osteoporotic fracture of 9.7%, and of hip fracture 2.2%. MM/XR DEXA axial skeleton IMPRESSION: Based on bone mineral density, and according to World Health Organization (WHO) criteria, the diagnosis is consistent with osteoporosis. All bone density values are in grams per centimeter squared (g/cm2). Statistically, 68% of repeat scans fall within 1 SD (+/- 0.010 g/cm2 for AP spine L1-L4) and 1 SD (+/- 0.012 g/cm2 for femur total) FRAX is a trademark of the [employer] for Metabolic Bone Disease, a World Health Organization (WHO) Collaborating Center. Electronically signed by: Edis Larsen MD 02/17/2025 09:42 AM EDT
--- OUTSIDE RECORDS SUMMARY | 2025-02-17 09:21 | XMS_ITS | Encounter Summary ---
Author Organization [employer] Address 75 [facility] 7t [place] [address] Care Team Providers Care Movie Writer Name Role Phone Jaleesa Calvillo MD Primary Care Provider + Reason for Visit * Reason Onset Date Comments Durable Medical Equipment 02/03/2025 Encounter Details Date Type Department Care Team (Late st Contact Info) Description 02/03/[address] [facility]INE [address] [place], [place] [phone] Jaleesa Calvillo MD 230 [place], [place] [phone] Durable Medical Equipment Social History Tobacco Use [...] 2:55 PM [place]SYT [place] * Feeling down, depressed, or hopeless Answer Date of Assessment Author Several days 02/11/2025 2:55 PM [place] * Trouble falling or staying asleep, or sleeping too much Answer Date of Assessment Author Several days 02/11/2025 2:55 PM [place] * Feeling tired or having little energy Answer Date of Assessment Author Several days 02/11/2025 2:55 PM [place] * Poor appetite or overeating Answer Date of Assessment Author Several days 02/11/2025 2:55 PM [place] [place] * Feeling bad about yourself - [...] Hodges [place] documented as of this encounter Miscellaneous Notes * Telephone Encounter - Julieth Monique - 02/12/2025 1:57 PM EDT DME Order sent to [facility] via Fax, confirmation uploaded in Media * Telephone Encounter - Jaleesa Calvillo MD - 02/11/2025 8:02 PM EDT Please write a prescription for DME orders below * Telephone Encounter - Kay Santos - 02/03/2025 3:27 PM EDT [facility] [place] [facility] - Shower bench - Rail toilet grab bar documented in this encounter Plan of Treatment Upcoming Encounters Date Type Department Care Team (Late st Contact Info) Description 03/25/2025 2:30 PM EDT Office Visit [facility] MED[facility]INE [address] [place] [phone] Baljit Ortega CNP 230 [place] [address] 04/22/2025 9:00 AM EDT Office Visit [facility] [address] [place] [phone] Jaleesa Calvillo MD [address] [place] [phone] documented as of this encounter Visit Diagnoses Not on filedocumented in this encounter Care Teams Movie Writer Relationship Specialty Start Date End Date Jaleesa Calvillo MD [address] [place] [phone] PCP - General Family Medicine 04/15/18 [facility] 11/06/24 documented as of this encounter
--- OUTSIDE RECORDS SUMMARY | 2025-02-17 09:21 | XMS_ITS | Encounter Summary ---
Author Organization [employer] Address 75 [facility] 7t [place] [address] Care Team Providers Care Transmission Specialist Name Role Phone Jaleesa Calvillo MD Primary Care Provider + Encounter Details Date Type Department Care Team (Late st Contact Info) Description 02/12/2025 Telephone [facility] 230 [place], [place] [phone] Baljit Ortega CNP 230 [place], [place] [phone] Social History Tobacco Use Types Packs/Day Years [...] encounter Miscellaneous Notes * Telephone Encounter - Valarie Romano RN - 02/12/2025 11:03 AM EDT TC placed to pt via [employer] hourly sign language interpreter (ID#[id number]) per below provider message. Advised pt that Pulm ([facility] [address]) will be calling her to schedule, Cardiology: pt should call to schedule and Wound care clinic: pt still waiting to hear from clinic but referral was placed. Pt verbalized understanding and states they will call cardiology to schedule. Pt denies questions at this time. ----- Message ----- From: Baljit Ortega CNP Sent: 02/11/2025 5:03 PM EDT To: [facility] Red Team Nurses Good afternoon, Pt PCP is Dr. Calvillo and I saw her today for HDF visit. Please call patient andensure she follows up with the following specialists: Pulm ([facility] [address]), they will be calling her to schedule. Cardiology, pt should call to schedule. Wound care clinic: pt still waiting to hear from clinic but referral was placed. I did emphasize the importance of following up with these specialists at today's appointment but she can use some reinforcement. Thanks so much! documented in this encounter Plan of Treatment Upcoming Encounters Date Type Department Care Team (Late st Contact Info) Description 03/25/2025 2:30 PM EDT Office Visit [facility] [address] [place] [address] [phone] Baljit Ortega CNP 230 [place], [place] [phone] 04/22/2025 9:00 AM EDT Office Visit [facility] [address] [place] [phone] Jaleesa Calvillo MD [address] [place] [address] [phone] documented as of this encounter Visit Diagnoses Not on filedocumented in this encounter Additional Health Concerns Assessment Noted Time PHQ-9 Depression Total Score: 5 02/12/20 2:55 PM EDT documented as of this encounter Care Teams Transmission Specialist Relationship Specialty Start Date End Date Jaleesa Calvillo MD [address] [place] [address] [phone] PCP - General Family Medicine 04/15/18 [facility] 11/06/24 documented as of this encounter
--- OUTSIDE RECORDS SUMMARY | 2025-02-17 09:21 | XMS_ITS | Encounter Summary ---
Author Organization [employer] Address 75 [facility] 7t [place] [address] Care Team Providers Care Supervisor [place]aming [place] Name Role Phone Jaleesa Calvillo MD Primary Care Provider + Reason for Visit * Reason Onset Date Comments Nurse Triage 11/10/2024 Encounter Details Date Type Department Care Team ([facility] st Contact Info) Description 11/10/2024 Telephone [facility] 230 [place], [place] [phone] Jaleesa Calvillo MD 230 [place], [place] [phone] Nurse Triage (/) Social History Tobacco Use [...] follow up for Pt. Pt was in [facility] 10/30/24 to 11/07/24 daughter reports due [...] acuity questions The caller accepted this outcome. [phone] (pt daugher) documented in this encounter Plan of Treatment Upcoming Encounters Date Type Department Care Team (Late st Contact Info) Description 03/25/2025 2:30 PM EDT Office Visit [facility] 230 [place] [address] Baljit Ortega, SHRUTHI 230 [place] [address] 04/22/2025 9:00 AM EDT Office Visit [facility] [address] [place] [phone] Jaleesa Calvillo MD 230 [place] [phone] documented as of this encounter Visit Diagnoses Not on filedocumented in this encounter Care Teams Supervisor [place] [place] Relationship Specialty Start Date End Date Jaleesa Calvillo MD [address] [place] [phone] PCP - General Family Medicine 04/15/18 [facility] 11/06/24 documented as of this encounter
--- OUTSIDE RECORDS SUMMARY | 2025-02-17 09:21 | XMS_ITS | Encounter Summary ---
Author Organization [employer] Address [address] [place] [address] 7 [place] [address] Care Team Providers Care Vacuum Form Operator Name Role Phone Jaleesa Calvillo MD Primary Care Provider + Encounter Details Date Type Department Care Team ([facility] Contact Info) Description 09/06/2022 Orders Only [facility] MEDICINE [address] [place] [address] [phone] Jaleesa Calvillo MD [address] [place] [address] [phone] Social History Tobacco Use Types Packs/Day Years [...] Upcoming Encounters Date Type Department Care Team ([facility] Contact Info) Description 03/25/2025 2:30 PM EDT Office Visit [facility] [address] [place] [address] [phone] Baljit Ortega CNP 230 [place], [place] [phone] 04/22/2025 9:00 AM EDT Office Visit [facility] 230 [place], [place] [phone] Jaleesa Calvillo MD 230 [place], [place] [phone] documented as of this encounter Visit Diagnoses Not on filedocumented in this encounter Care Teams Vacuum Form Operator Relationship Specialty Start Date End Date Jaleesa Calvillo MD [address] [place] [phone] PCP - General Family Medicine 04/15/18 [facility] 11/06/24 documented as of this encounter
--- OUTSIDE RECORDS SUMMARY | 2025-02-17 09:21 | XMS_ITS | Encounter Summary ---
Author Organization [employer] Address [address] [place] [address] [place] [address] Care Team Providers Care Jailer Name Role Phone Jaleesa Calvillo MD Primary Care Provider + Encounter Details Date Type Department Care Team (Late st Contact Info) Description 11/09/2022 Orders Only [facility] MEDICINE [address] [place] [address] [phone] Jaleesa Calvillo MD [address] [place] [address] [phone] Cerebrovascular accident (CVA) due to embolism of [...] Description 03/25/2025 2:30 PM EDT Office Visit [facility] [address] [place] [address] [phone] Baljit Ortega CNP 230 [place], [place] [phone] 04/22/2025 9:00 AM EDT Office Visit [facility] 230 [place], [place] [phone] Jaleesa Calvillo MD 230 [place], [place] [phone] documented as of this encounter Visit Diagnoses Diagnosis 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 11/06/24 documented as of this encounter
--- OUTSIDE RECORDS SUMMARY | 2025-02-17 09:21 | XMS_ITS | Clinical Summary ---
Author Organization [facility] Address [address] [address] [place] [address] Phone Care Team Providers Care Customer Support Technician Name Role Phone Jaleesa Calvillo MD Primary Care Provider + [phone] Allergies Active Allergy Reactions Criticality Noted Date [...] Hemorrhoid 11/28/2022 Hypothyroidism 11/28/2022 Main spoken language Maltese 11/28/2022 Obese class II 11/28/2022 Nonalcoholic steatohepatitis [...] Medicaid [place] Care Teams Customer Support Technician Relationship Specialty Start Date End Date Jaleesa Calvillo MD [address] [place] [phone] PCP - General 10/11/20
--- OUTSIDE RECORDS SUMMARY | 2025-02-17 09:21 | XMS_ITS | Clinical Summary ---
Author Organization [facility] Address [address] [place] [address] Care Team Providers Care Key Attendant Name Role Phone Jaleesa Calvillo Primary Care [...] - 1-dose 75+ series) 12/09/2042 Insurance MEDICARE [facility] Care Teams Key Attendant Relationship Specialty Start Date End Date Jaleesa Calvillo [address] [place] [phone] PCP - General Internal Medicine 11/29/23
--- OUTSIDE RECORDS SUMMARY | 2025-02-17 09:21 | XMS_ITS | Encounter Summary ---
Author Organization [employer] Address [address] [facility] 7t [place] [address] Care Team Providers Care Diesel Mechanic Apprentice Name Role Phone Jaleesa Calvillo MD Primary Care Provider + Reason for Visit * Reason Onset Date Comments Medication Question 11/07/2022 Encounter Details Date Type Department Care Team ([facility] Contact Info) Description 11/07/2022 Telephone [facility] MED[facility]INE 230 [place], [place] [phone] Jaleesa Calvillo MD 230 [place] [address] Medication Question Social History Tobacco Use Types [...] call back regarding medication being tranfers to [facility] pharmacy Please contact daughter at [phone] documented in this encounter Plan of Treatment Upcoming Encounters Date Type Department Care Team (Late Contact Info) Description 03/25/2025 2:30 PM EDT Office Visit [facility]INE [address] [place] [address] [phone] Baljit Ortega CNP 230 [place], [place] [phone] 04/22/2025 9:00 AM EDT Office Visit [facility] 230 [place], [place] [phone] Jaleesa Calvillo MD [address] [place] [address] [phone] documented as of this encounter Visit Diagnoses Not on filedocumented in this encounter Care Teams Diesel Mechanic Apprentice Relationship Specialty Start Date End Date Jaleesa Calvillo MD [address] [place] [address] [phone] PCP - General Family Medicine 04/15/18 [facility] 11/06/24 documented as of this encounter
--- OUTSIDE RECORDS SUMMARY | 2025-02-17 09:21 | XMS_ITS | Encounter Summary ---
Author Organization [employer] Address [address] [facility] 7t [place] [address] Care Team Providers Care Sub Arc Operator Name Role Phone Jaleesa Calvillo MD Primary Care Provider + Encounter Details Date Type Department Care Team (Late st Contact Info) Description 08/27/2023 Abstract [facility] MEDICINE 230 [place], [place] [phone] Jaleesa Calvillo MD 230 [place], [place] [phone] Social History Tobacco Use Types Packs/Day Years [...] Description 03/25/2025 2:30 PM EDT Office Visit [facility] [address] [place] [phone] Baljit Ortega CNP 230 [place] [address] 04/22/2025 9:00 AM EDT Office Visit [facility] [address] [place] [phone] Jaleesa Calvillo MD [address] [place] [phone] documented as of this encounter Visit Diagnoses Not on filedocumented in this encounter Care Teams Sub Arc Operator Relationship Specialty Start Date End Date Jaleesa Calvillo MD [address] [place] [phone] PCP - General Family Medicine 04/15/18 [facility] 11/06/24 documented as of this encounter
--- OUTSIDE RECORDS SUMMARY | 2025-02-17 09:21 | XMS_ITS | Encounter Summary ---
Author Organization [employer] Address [address] [facility] 7t [place] [address] Care Team Providers Care Department Chair Name Role Phone Jaleesa Calvillo MD Primary Care Provider + Encounter Details Date Type Department Care Team (Late st Contact Info) Description 03/26/2024 Orders Only [facility] MED[facility]INE 230 [place], [place] [phone] Jaleesa Calvillo MD 230 [place], [place] [phone] Social History Tobacco Use Types Packs/Day Years [...] PM EDT Office Visit [facility] [address] [place] [phone] Baljit Ortega CNP 230 [place] [address] 04/22/2025 9:00 AM EDT Office Visit [facility] [address] [place] [address] Jaleesa Calvillo MD [address] [place] [phone] documented as of this encounter Visit Diagnoses Not on filedocumented in this encounter Care Teams Department Chair Relationship Specialty Start Date End Date Jaleesa Calvillo MD [address] [place] [phone] PCP - General Family Medicine 04/15/18 [facility] 11/06/24 documented as of this encounter
--- OUTSIDE RECORDS SUMMARY | 2025-02-17 09:21 | XMS_ITS | Encounter Summary ---
Author Organization [facility] Address [address] [facility] 7t [place] [address] Care Team Providers Care Cooperer Name Role Phone Jaleesa Calvillo MD Primary Care Provider + Reason for Visit * Reason Comments Med Refill Encounter Details Date Type Department Care Team (Late st Contact Info) Description 12/13/2022 Refill [facility] MED[facility]INE [address] [place] [address] [phone] Jaleesa Calvillo MD 230 [place], [place] [phone] Social History Tobacco Use Types Packs/Day Years [...] 03/25/2025 2:30 PM EDT Office Visit [facility] MEDICINE [address] [place] [address] [phone] Baljit Ortega CNP 230 [place], [place] [phone] 04/22/2025 9:00 AM EDT Office Visit [facility] MEDICINE 230 [place], [place] [phone] Jaleesa Calvillo MD 230 [place] [address] documented as of this encounter Visit Diagnoses Not on filedocumented in this encounter Care Teams Cooperer Relationship Specialty Start Date End Date Jaleesa Calvillo MD [address] [place] [phone] PCP - General Family Medicine 04/15/18 [facility] 11/06/24 documented as of this encounter
--- OUTSIDE RECORDS SUMMARY | 2025-02-17 09:21 | XMS_ITS | Clinical Summary ---
Author Organization [employer] Address [address] [facility] [address] [place] [address] Care Team Providers Care Cartridge Belt Puncher Name Role Phone Jaleesa Calvillo MD Primary [...] bed time. Active Blood Glucose Monitoring Suppl (Total Booxyle Otho Lite) w/Device kit USE TO TEST BLOOD [...] misc TEST BLOOD SUGAR THREE TIMES DAILY Active Nutritional Supplements (Glucerna) liquid Take 1 Can by mouth in the morning. 07994 mL 3 023 Active fluticasone (Flonase) 50 MCG/ACT nasal sprayIndications :Chronic rhinitis USE 2 SPRAYS IN EACH NOSTRIL EVERY DAY 48 g 1 024 Active dapagliflozin (Farxiga) 10 MG Take 1 tablet (10 mg) by mouth Once per day. 90 tablet 3 Active glucose blood (FREESTYLE LITE) test strip [...] THREE TIMES DAILY DIRECTED 100 each 5 Active allopurinol (Zyloprim) 300 MG tabletIndication s:Chronic gouty arthritis TAKE 1 TABLET BY MOUTH TWICE DAILY IN THE MORNING AND IN THE EVENING 180 tablet 3 Active levothyroxine (Synthroid, Levoxyl) 175 MCG tablet Take 175 mcg by mouth Once per day. Active Easy Touch Pen Metcalfe 31G X 5 MM misc USE DIRECTED [...] TABLET BY MOUTH EVERY MORNING 90 tablet Active Tresiba FlexTouch 100 UNIT/ML injection INJECT 30 UNITS SUBCUTANEOUSLY AT BEDTIME 18 mL Active NovoLOG FLEXPEN 100 UNIT/ML pen INJECT 10 TO 20 UNITS SUBCUTANEOUSLY BEFORE MEALS PER SLIDING SCALE, DO NOT EXCEED 60 UNITS PER DAY Active tetrahydrozoline (Visine Red Eye Comfort) 0.05 % ophthalmic solutionIndicati ons:Seasonal allergies Administer 2 drops into both eyes 3 times daily. 30 mL Active Jardiance 25 MG TAKE 1 TABLET BY MOUTH EVERY MORNING 30 tablet 11 024 2023 Discontinued HumaLOG KWIKPEN 100 UNIT/ML injection Inject 6 Units under the skin with breakfast, with lunch, and with evening meal. Per sliding scale BG 100-149; 6 units. BG 150-199; 7 units. BG 200-249; 8 units. BG 250-299; 9 units. BG 300-349; 10 units. BG 350-399; 11 units. BG >400; 12 units. 2024 Discontinued(M ed list cleanup (will not trigger notification to Pharmacy)) nitrofurantoin, macrocrystal-mon ohydrate, (Macrobid) 100 MG capsule Take 1 capsule (100 mg) by mouth 2 times daily for 7 days. 14 capsule 025 2024 cephalexin (Keflex) 500 MG capsule Take 500 mg by mouth 2 times daily. 025 2024 Active Problems Problem Noted Date Diagnosed Date Hospital discharge follow-up 02/11/2025 Assessment & Plan (02/11/2025 4:46 PM EDT): Pt to complete full course of antibiotics for UTI. Pt to reschedule appt with cardiology for digoxin management and for f/u after CHF exacerbation. Pt referred to wound clinic, pt to f/u once appt set. Pt to f/u with urology Pt to f/u with endo Pt to f/u gastro for cirrhosis Pt to RTC if she is still experiencing symptoms despite tx for UTI Urinary tract infection with hematuria Assessment & Plan (02/11/2025 4:48 PM EDT): U/A pos for protein, glucose, and blood Advised pt to complete full course of antibx and rtc if symptoms don't improve. Plan to f/u with urology Postmenopausal vaginal bleeding 02/11/2025 Assessment & Plan (02/11/2025 4:49 PM EDT): Pt due for pap Plan to obtain pelvic u/s Plan to refer to technical operations vice president, pt may also benefit from pelvic floor PT Chronic idiopathic thrombocytopenia 02/10/2025 Mood disorder 02/10/2025 [...] PCP at scheduled HDF appt this month MECCA (acute kidney injury) 11/12/2024 Assessment & Plan (02/11/2025 4:47 PM EDT): Plan to repeat BMP today Plan to f/u with urology Assessment & Plan (11/12/2024 4:14 PM EST): [...] and other providers not committing to procedure ([facility] plastic surgeon deemed her very high risk, other's require her to have BMI less than 33 prior to procedure) Advised re tight control of DM and further weight reduction. Assessment & Plan (04/24/2024 11:14 AM EDT): - Local plastic surgeon declined procedure due to cardiovascular risk. - Will refer to another local surgery (Meesret Cano for Panniculectomy) - pt needs Panniculectomy [...] use cane for ambulation Daughter is her GUITAR TECHNICIAN, son will be with her overnight when she may have other needs (letter done for housing previously) Apnea 09/05/2022 Acute low back pain 09/05/2022 Abdominal pain 09/05/2022 Hypertriglyceridemia 09/05/2022 Assessment & Plan (09/06/2022 1:18 PM EST): Improving. She used to be on low dose atorvastatin, unclear if she is still taking it, daughter is not aware of med name. New rx sent to [facility] pharmacy per patient's request. Hypokalemia 09/05/2022 [...] by [facility]NA Referred to wound clinic at [facility] We discussed with patient and son [...] clean and dry per wound clinic at [facility] counseled regarding tight control of DM, [...] heart failure 03/12/20 19 Assessment & Plan (02/11/2025 4:49 PM EDT): Plan to continue on current meds Plan to reschedule appt with cards Assessment & Plan (01/16/2025 3:28 PM EDT): Patient is euvolemic at this time, to follow-up with CHF clinic at [facility]. Discussed importance of medications and dietary [...] Order BNP and fu with cardiology at [facility]. Continue spironolactone, amiodarone (A.fib), digoxin and [...] BMP today. Continue Jardiance and refer to timber treating tank operator as needed Assessment & Plan (04/23/2023 10:46 AM EDT): Check BMP and restart jardiance. See above Assessment & Plan (09/06/2022 12:44 PM EST): GFR is back to normal. I gave her the nephrology office (Dr Kirkpatrick, [facility]) info to rs appt anyway in view of CKD with Varying GFR levels. Avoid NSAIDs, encouraged tight control of DM, hyperlipidemia and HTN. FU BMP prior to next visit due to hypokalemia Chronic gouty arthritis 04/15/2018 Assessment & Plan (04/23/2023 10:44 AM EDT): Right ankle and right toe, improving Gave [id number] for tramadol to take PRN before she [...] 2 diabetes mellitus 04/15/2018 Assessment & Plan (02/11/2025 4:43 PM EDT): Pt to continue on current medication regimen Advised pt to continue monitoring blood sugars 3x daily and to use mealtime insulin as prescribed. Pt to follow up with endocrine in March Assessment & Plan (01/16/2025 3:35 PM EDT): Uncontrolled, increase Lantus to 30 units, has an appointment with cotton washer at [facility] next week. Continue Farxiga 10 mg + [...] PM EST): Uncontrolled, has an appointment with cotton washer at [facility] next week. Continue Farxiga 10 mg + [...] to start) Advised to rs appt with [facility] endocrinology. Assessment & Plan (11/23/2023 1:26 PM EST): No change in meds today, needs to schedule appt w/ endo, info given again today Assessment & Plan (08/16/2023 1:17 PM EST): Uncontrolled, she has been referred to be seen cotton washer since March 2023. Copy of referral given [...] Encouraged physical activity as tolerated. 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 Continue to monitor LFTs, AFP, abd US Recommend that weight reduction, will benefit she greatly from either GLP's and especially abdominal panniculectomy. Assessment & Plan (04/23/2023 10:46 AM EDT): Previously seen by GI at [facility] in 2019. Will obtain LFTs and Hepatitis profile and refer to GI if needed. It is thought to be related to CASTILLO/s/p liver biopsy in 2012 at [facility]. Resolved Problems Problem Noted Date Diagnosed Date Resolved Date Thrombocytopenia 10/30/2023 01/16/2025 Exposure to COVID-19 virus 09/05/2022 0 04/23/2023 Toothache 09/05/2022 04/23/2023 Chronic congestive heart failure 04/15/2018 09/06/2022 Encounters Date Type Department Care Team Description 02/12/[address] [address] Baljit Ortega CNP 02/11/2025 2:00 PM EDT Office Visit [address] [address] Baljit Ortega CNP Hospital discharge follow-up (Primary Dx); MECCA (acute kidney injury) (CMS/HCC); Type 2 diabetes mellitus with stage 3a chronic kidney disease, with long-term current use of insulin (CMS/HCC); Urinary tract infection with hematuria, site unspecified; Postmenopausal vaginal bleeding; Seasonal allergies; Acute on chronic systolic heart failure (CMS/HCC) 02/11/2025 Travel 02/10/[address] [address] Jaleesa Calvillo MD Nurse Triage 02/10/[address] [address] Baljit Ortega CNP Chart Prep 02/06/2025 Patient Outreach [address] [address] Jaleesa Calvillo MD 02/04/[address] [address] Misti Zarate, Rose 02/03/[address] [address] Jaleesa Calvillo MD Durable Medical Equipment 02/03/[address] [phone] Jaleesa Calvillo MD Verbal order 02/02/[address] [address] Jaleesa Calvillo MD Medication Question 02/02/2025 Patient Outreach [address] [address] Jaleesa Calvillo MD Transition Of Care (Tcm) (HDF- scheduled) 01/22/2025 2:30 PM EDT Telemedicine [facility] [address] [place] [address] Emily Cruz RN Urinary tract infection symptoms [R39.9] 01/22/2025 Travel 01/16/2025 9:15 AM EDT Office Visit [address] [address] Jaleesa Calvillo MD Type 2 diabetes mellitus [...] At high risk for osteoporosis; Non-alcoholic cirrhosis (CMS/HCC); Paroxysmal atrial fibrillation (CMS/HCC); Age-related osteoporosis with current pathological fracture, left pelvis, initial encounter for fracture; Chronic skin ulcer with fat layer exposed (CMS/HCC); Dietary counseling; Exercise counseling; Class 2 severe obesity due to excess calories with serious comorbidity and body mass index (BMI) of 36.0 to 36.9 in adult (CMS/HCC); Screening for colon cancer 01/16/[address] [place] [address] Maggie Sawyer, RN vna communication 01/16/2025 Orders Only [facility] [address] [facility] [place] [address] Jaleesa Calvillo MD 01/16/2025 Telephone [facility] [address] [facility] [place] [address] Jaleesa Calvillo MD critical Glucose 01/16/2025 Refill [facility] [address] [facility] [place] [address] Jaleesa Calvillo MD 01/16/2025 Travel 01/14/2025 Refill [facility] [address] [place] [address] Jaleesa Calvillo MD Neuropathy 01/13/2025 Telephone [facility] [address] [place] [address] Jaleesa Calvillo MD Chart prep 01/13/2025 Telephone [facility] [address] [facility] [place] [address] Jaleesa Calvillo MD Nurse Triage 01/09/2025 1:30 PM EDT Office Visit [facility] [address] [facility] [place] [address] Baljit Ortega CNP Degeneration of intervertebral disc of lumbar region with discogenic back pain (Primary Dx); Type 2 diabetes mellitus with stage 3a chronic kidney disease, with long-term current use of insulin ([facility]); Acute on chronic systolic heart failure ([facility]/HCC) 01/09/2025 Travel 01/08/2025 Telephone [facility] [address] [facility] [place] [address] Jaleesa Calvillo MD 01/06/2025 Telephone [facility] [address] [place] [address] Jaleesa Calvillo MD Durable Medical Equipment 01/06/2025 Refill [facility] [address] [place] [address] Jaleesa Calvillo MD 01/05/2025 Telephone [facility] [address] [place] [address] Jaleesa Calvillo MD Chart Prep 01/05/[address] [address] Jaleesa Calvillo MD Nurse Triage 12/30/2024 Patient Outreach [address] [address] Jaleesa Calvillo MD Transition Of Care (Tcm) (HDF- Lvm ) 12/30/[address] [phone] Jaleesa Calvillo MD Hospital Follow-up 12/30/[address] [phone] Jaleesa Calvillo MD Wound Care 12/30/2024 Patient Outreach [address] [address] Jaleesa Calvillo MD Transition Of Care (Tcm) (HDF unscheduled LVM ) 12/12/2024 Population Health Risk Score [facility] () Department [address] [place] [phone] Provider, Population Health Generic 12/11/[address] [phone] Jaleesa Calvillo MD Medication Question 12/03/2024 Telephone [facility] [address] [place], [place] [phone] Jaleesa Calvillo MD Prior Authorization (Digoxin) 11/25/2024 1:15 PM EST Office Visit [address] [phone] Jaleesa Calvillo MD Acute on chronic systolic heart failure (CMS/HCC) (Primary Dx); Type 2 diabetes mellitus with stage 3a chronic kidney disease, with long-term current use of insulin (CMS/HCC) 11/25/2024 Travel from Last 3 Months Immunizations Immunization Administration [...] Description 03/25/2025 2:30 PM EDT Office Visit [facility] [address] [place] [address] Baljit Ortega CNP [address] [place] [address] 04/22/2025 9:00 AM EDT Office Visit [facility] [address] [place] [address] [phone] Jaleesa Calvillo MD [address] [place] [address] Health Maintenance Due Date Last Done Comments CT Colonography 1967 FIT DNA/Cologuard 1967 FIT 1967 FOBT 1967 HIV Screening 1967 Sigmoidoscopy 1967 Disability Screening 1967 Hepatitis C Screening 12/09/1985 Hepatitis A Vaccines (1 of 2 - Risk 2-dose series) 12/09/1986 HPV/Cotest 12/09/1997 Mammogram 2007 Cervical Cancer Screening 04/16/2021 Pap Smear 04/16/2021 04/16/2018 Colonoscopy 04/19/2024 04/19/2014 Colorectal Cancer Screening 04/19/2024 Hepatitis B Vaccines (3 of 3 - 19+ 3-dose series) 10/13/2024 08/18/2024, 04/21/2019 Diabetes: Hemoglobin A1C 05/14/2025 025, 01/09/2025, 11/25/2024, Additional history exists Diabetes: Foot Exam 01/16/2026 01/16/2025, 01/16/2025, 01/16/2025, Additional history exists Lipid Panel 01/16/2026 01/16/2025, 07/01, 07/31/2022, Additional history exists Alcohol/Substance Use Screening 02/11/2026 02/11/2025 Depression Screening 02/11/2026 02/11/2025, 02/12/20 SDOH Screening 02/11/2026 02/11/2025 Tobacco Screening 02/11/2026 [...] Name Priority Date/Time Associated Diagnosis Comments POCT URINALYSIS DIPSTICK Routine 02/11/2025 3:00 PM EDT Urinary tract infection with hematuria, site unspecified HEMOGLOBIN A1C Routine 02/11/2025 2:59 PM EDT Type 2 diabetes mellitus with stage 3a chronic kidney disease, with long-term current use of insulin ([facility]) BASIC METABOLIC PANEL Routine 02/11/2025 2:59 PM EDT MECCA (acute kidney injury) ([facility]) ALBUMIN, RANDOM URINE W/CREATININE Routine 01/16/2025 10:17 AM EDT Type 2 diabetes mellitus with stage 3a chronic kidney disease, with long-term current use of insulin ([facility]) COMPREHENSIVE METABOLIC PANEL Routine 01/16/2025 10:17 AM EDT Type 2 diabetes mellitus with stage 3a chronic kidney disease, with long-term current use of insulin ([facility]) T-SPOT(R).TB Routine 01/16/2025 10:17 AM EDT Type 2 diabetes mellitus with stage 3a chronic kidney disease, with long-term current use of insulin ([facility]) LIPID PANEL WITH REFLEX TO DIRECT LDL Routine 01/16/2025 10:17 AM EDT Type 2 diabetes mellitus with stage 3a chronic kidney disease, with long-term current use of insulin ([facility]) DIGOXIN Routine 01/16/2025 10:17 AM EDT Acute on chronic systolic heart failure ([facility]/HCC) URINALYSIS, COMPLETE Routine 01/16/2025 10:17 AM EDT Urinary tract infection symptoms CULTURE, URINE, ROUTINE Routine 01/16/2025 10:17 AM EDT POCT GLUCOSE Routine 01/16/2025 9:21 AM EDT Type 2 diabetes mellitus with stage 3a chronic kidney disease, with long-term current use of insulin (CMS/[facility]) POCT URINALYSIS DIPSTICK Routine 01/09/2025 2:00 PM EDT Type 2 diabetes mellitus with stage 3a chronic kidney disease, with long-term current use of insulin (CMS/[facility]) POCT GLYCATED HEMOGLOBIN, TOTAL Routine 01/09/2025 1:51 PM EDT Type 2 diabetes mellitus with stage 3a chronic kidney disease, with long-term current use of insulin ([facility]) POCT GLUCOSE Routine 01/09/2025 1:29 PM EDT Type 2 diabetes mellitus with stage 3a chronic kidney disease, with long-term current use of insulin ([facility]) POCT GLYCATED HEMOGLOBIN, TOTAL Routine 11/25/2024 1:08 PM EST Type 2 diabetes mellitus with stage 3a chronic kidney disease, with long-term current use of insulin ([facility]) POCT GLUCOSE Routine 11/25/2024 1:06 PM EST Type 2 diabetes mellitus with stage 3a chronic kidney disease, with long-term current use of insulin (CMS/HCC) HM PAP/HPV Routine 04/16/2018 HM COLONOSCOPY Routine 04/19/2014 from Last 3 Months or Most Recently Relevant to Health Maintenance Results * (ABNORMAL) POCT Urinalysis (02/11/2025 3:00 PM EDT) Only the most recent of2 resultswithin the time period is included. Color, UA Light Yellow Clarity, UA Clear Glucose, UA Many Comment:1000 mg Bilirubin, UA Negative Ketones, UA Negative Spec Grav, UA 1.010 Blood, UA Positive(A) Negative, None Detected Comment:small pH, UA 5.5 Protein, UA 1+ 70+ Comment:30 mg Urobilinogen, UA 0.2 Leukocytes, UA Trace Negative, Rare, Trace Nitrite, UA Negative Negative, None Detected Appearance, UA ckear QC Media Lot # [id number] Lot# Expiration Date [id number] Urine 02/11/2025 3:00 PM EDT [facility] POINT OF CARE TEST ENTER/ EDIT ORDERABLES Final Result * (ABNORMAL) Hemoglobin A1c (02/11/2025 2:59 PM EDT) Hemoglobin A1c 9.6(H) <6.0 % [facility] Comment:Hemoglobin A1C Refer ence Range Adults: 4.8 - 6.0 % Non diabetic: < 6.0 % Goal: < 7.0 %Additional Action Suggested: > 8.0 %Note: Hemoglobin A1c results are invalid for patients with abnormal amounts of HbF. Blood transfusions may impact the HbA1c concentration in the patient sample. Estimated Average Glucose 229 mg/dL [facility] Comment:eAG = Estimated ave rage glucose which is %A1C expressed asaverage glucose, using the formula of the F7G-RflrthzSjfphzv Glucose study (ADAG), Diabetes Care, Vol.31,#8,May. 2007 Blood Venous blood specimen / Unknown 02/11/2025 2:59 PM EDT 02/11/2025 4:11 PM EDT [facility] LAB BLOOD ORDERABLES Ariana l Result [facility] [address] [place] [phone] * (ABNORMAL) Basic Metabolic Panel (02/11/2025 2:59 PM EDT) Sodium 137 135 - 145 mmol/L [facility] Potassium 4.5 3.3 - 5.1 mmol/L [facility] Chloride 104 96 - 108 mmol/L [facility] Carbon Dioxide 23 22 - 29 mmol/L [facility] Anion Gap 15 12 - 20 [facility] Urea Nitrogen (BUN) 23(H) 9 - 16 mg/dL [facility] Creatinine, Serum 1.00 0.5 - 1.4 mg/dL [facility] Estimated Glomerular Filt Rate 57 [facility] Comment:Chronic Kidney Disea se: Estimated GFR < 60 mL/min/1.13m4Lmelni Kidney Disease: Estimated GFR < 15 mL/min/1.73m2 Glucose 248(H) 60 - 115 mg/dL [facility] Calcium 9.3 8.4 - 10.2 mg/dL [facility] Blood Venous blood specimen / Unknown 02/11/2025 2:59 PM EDT 02/11/2025 4:11 PM EDT [facility] LAB BLOOD ORDERABLES Ariana l Result [facility] [address] [place] [phone] * T-SPOT??.TB (01/16/2025 10:17 AM EDT) T Spot TB Negative Negative [facility] Comment:A negative test resu lt [...] controls perform as expected. In linewith the [facility] for Disease Control and Prevention's2010 recommendation to report quantitative measurementsalongside the qualitative result, the laboratoryprovides spot counts for informational purposes only.The T-SPOT.TB test should not be interpreted as aquantitative test. TS PANEL A 0 [facility] TS PANEL B 0 [facility] Negative Control Passed [facility] Positive Control Passed [facility] Comment:For additional infor abundiokayla, please refer [email or web address].Auxogyn/faq/JKA683(This link is being provided for informational/educational purposes only.)THIS TEST WAS PERFORMED AT:[id number] [place] [id number] TREVINO MD,PHD 01/16/2025 10:1 7 AM EDT 01/16/2025 11:13 AM EDT Jaleesa Calvillo MD LAB BLOOD ORDERABLES Fin al Result [facility] [address] [place] [address] [phone] * (ABNORMAL) Lipid Panel with Reflex to Direct LDL (01/16/2025 10:17 AM EDT) Triglycerides 277(H) <150 mg/dL [facility] Comment:Desirable Triglyceri de: less than 150 mg/dLBorderline High Triglyceride 150-199 mg/dLHigh Triglyceride: 200-499 mg/dLVery High Triglyceride: greater than or equal to 5OO mg/dL Cholesterol 159 <200 mg/dL [facility] Comment:Desirable Cholestero l: less than 200 mg/dLBorderline High Cholesterol: 200-239 mg/dLHigh Cholesterol: greater than 239 mg/dL LDL Cholesterol Calculated 79 <100 mg/dL [facility] Comment:Desirable LDL: less than 100 mg/dLNear Optimal/Above Optimal LDL: 110- 129 mg/dLBorderline High LDL: 130-159 mg/dLHigh LDL: 160-189 mg/dLVery High LDL: greater than or equal to 190 mg/dL HDL Cholesterol 25(L) >40 mg/dL [facility] Comment:Desirable HDL: great er than 40 mg/dL Note: This HDL assay may give artificially low results in patients with liver disease. Blood 01/16/2025 10:1 7 AM EDT 01/16/2025 11:15 AM EDT Jaleesa Calvillo MD LAB BLOOD ORDERABLES Fin al Result Performing Organization Address [facility] de Phone Number [facility] [address] [place] [phone] * (ABNORMAL) Albumin, Random Urine W/Creatinine (01/16/2025 10:17 AM EDT) Creatinine, Urine 80.57 mg/dL [facility] Microalbumin Urine 74.0 mg/L [facility] Microalbum Creatinine Ratio Ur 91.8(H) <30 ug/mg cr [facility] Comment:Albumin/Creatinine R atio Reference Ranges: Normal: < 30 ug/mg creatinine Microalbuminuria: 30 - 300 ug/mg creatinineClinical Albuminuria: > 300 ug/mg creatinine Urine (Urine, Random) 01/16/2025 10:17 AM EDT 01/16/2025 11:08 AM EDT Jaleesa Calvillo MD LAB URINE ORDERABLES Fin al Result Performing Organization Address [facility] Co de Phone Number [facility] [address] [place] [address] [phone] * (ABNORMAL) Urinalysis Complete (01/16/2025 10:17 AM EDT) Color Urine Yellow [facility] Appearance Urine Clear [facility] PH 5.0 5.0 - 9.0 [facility] Glucose Urine UA >=1000(A) Negative mg/dL [facility] Urine Blood Negative Negative [facility] Specific [place] - Urine 1.020 1.005 - 1.025 [facility] Urine Protein Trace Neg-Trace mg/dL [facility] Urine Ketones Negative Negative mg/dL [facility] Nitrite Urine Negative Negative [facility] Leukocyte Esterase Urine Moderate (2+)(A) Negative [facility] RBC Urine 0-2 0 - 2 /HPF [facility] [facility] Urine WBC 21-50(A) 0 - 5 /HPF [facility] Urine Squamous Epithelial Cell 11-20 0 - 2 /HPF [facility] Urine Bacteria Trace None Seen [facility] Hyaline Casts, Urine 0-2 0 - 2 /LPF [facility] Urine (Urine, Random) 01/16/2025 10:17 AM EDT 01/16/2025 11:08 AM EDT [facility] LAB URINE ORDERABLES Ariana l Result Performing Organization Address [facility] Co de Phone Number [facility] [address] [place] [phone] * Culture, Urine, Routine (01/16/2025 10:17 AM EDT) Urine Urine specimen obtained by clean catch procedure / Unknown 01/16/2025 10:17 AM EDT 01/16/2025 11:08 AM EDT Comment:UACC Narrative [facility] - 01/17/2025 1:46 PM EDT Urine Culture Report Result Urine Culture > 100,000 cfu/ml Urine Culture Mixed bacterial wally characteristic of Urine Culture urogenital contamination. Strep agalactiae (Grp B) Quant 10,000 to 50,000 cfu/mL Susc N/A Susceptibility not routinely performed on this isolate. Specimen Source: Urine clean catch [facility] LAB MICROBIOLOGY - GENERA L ORDERABLES Final Result Performing Organization Address [facility] Co de Phone Number [facility] [address] [place] [phone] * (ABNORMAL) Digoxin (01/16/2025 10:17 AM EDT) Digoxin <0.2(L) 0.8 - 2.0 ng/mL [facility] Comment:Assay modified to mi nimize interference from aldosteroneantagonists (e.g. spironolactone and canrenone). Blood Venous blood specimen / Unknown 01/16/2025 10:17 AM EDT 01/16/2025 11:15 AM EDT us Jaleesa Calvillo MD LAB BLOOD ORDERABLES Fin al Result [facility] [address] [place], [place] [phone] * (ABNORMAL) Comprehensive Metabolic Panel (01/16/2025 10:17 AM EDT) Sodium 135 135 - 145 mmol/L [facility] Potassium 4.6 3.3 - 5.1 mmol/L [facility] Chloride 106 96 - 108 mmol/L [facility] Carbon Dioxide 23 22 - 29 mmol/L [facility] Anion Gap 11(L) 12 - 20 [facility] Urea Nitrogen (BUN) 30(H) 9 - 16 mg/dL [facility] Creatinine, Serum 0.94 0.5 - 1.4 mg/dL [facility] Estimated Glomerular Filt Rate >60 [facility] Comment:Chronic Kidney Disea se: Estimated GFR < 60 mL/min/1.50p0Idlaxw Kidney Disease: Estimated GFR < 15 mL/min/1.73m2 Glucose 381(HH) 60 - 115 mg/dL [facility] Comment:Critical value for G LUR: Results called to and read backby: Meseret Morrison Person calling: CARA Date: 01/16/25 Time:1154 Calcium 8.7 8.4 - 10.2 mg/dL [facility] Bilirubin, Total 0.4 0.0 - 1.0 mg/dL [facility] Aspartate Amino Transferase 52(H) 5 - 31 U/L [facility] Alanine Aminotransferase 33(H) 0 - 31 U/L [facility] Total Protein 6.6 6.5 - 8.0 g/dL [facility] Albumin Level 3.7 3.5 - 5.0 g/dL [facility] Alkaline Phosphatase 58 39 - 117 U/L [facility] Blood Venous blood specimen / Unknown 01/16/2025 10:17 AM EDT 01/16/2025 11:15 AM EDT Jaleesa Calvillo MD LAB BLOOD ORDERABLES Fin al Result [facility] [address] [place] [phone] [phone] * (ABNORMAL) POCT Glucose (01/16/2025 9:21 AM EDT) Only the most recent of3 resultswithin the time period is included. Pathologist [facility] Glucose Blood, POC 369(A) 60 - 200 mg/dL QC Media Lot # [id number] Lot# Expiration Date [id number] Blood Capillary blood specimen / Unknown 01/16/2025 9:21 AM EDT Result [facility] Jaleesa Calvillo MD POINT OF CARE TEST ENTER /EDIT ORDERABLES Final Result * (ABNORMAL) POCT HGB A1C (01/09/2025 1:51 PM EDT) Only the most recent of2 resultswithin the time period is included. Pathologist [facility] Hemoglobin A1C 9.7(A) 4.0 - 6.0 % QC Media Lot # [id number] Lot# Expiration Date [id number] Blood 01/09/2025 1:51 PM EDT Baljit Ortega CNP POINT OF CARE TEST ENTER/ EDIT ORDERABLES Final Result * Hm Pap Smear (04/16/2018) Pathologist [facility] HM Pap smear performed Patrick Landis MD HEALTH MAINTENANCE Final Result * Colonoscopy (04/19/2014) Colonoscopy performed Historical Provider HEALTH MAINTENANCE Edited Result - Final from Last 3 Months or Most Recently Relevant to Health Maintenance Insurance [facility] STANDARD MEDICARE Care Teams Cartridge Belt Puncher Relationship Specialty Start Date End Date Jaleesa Calvillo MD [address] [place] [address] [phone] PCP - General Family Medicine 04/15/18 [facility] 11/06/24
--- OUTSIDE RECORDS SUMMARY | 2025-02-17 09:21 | XMS_ITS | Referral Summary ---
Author Organization [facility] Address [address] [place] [address] Care Team Providers Care Post Office Clerk Name Role Phone Jaleesa Calvillo Primary Care Provider [phone] Allergies Active Allergy Reactions Criticality Noted Date [...] Treatment Not on file Insurance [facility] Care Teams Post Office Clerk Relationship Specialty Start Date End Date Jaleesa Calvillo [address] [place] [phone] PCP - General Internal Medicine 11/29/23
--- OUTSIDE RECORDS SUMMARY | 2025-02-17 09:21 | XMS_ITS | Encounter Summary ---
Author Organization [facility] Address [address] [facility] 7t [place] [address] Care Team Providers Care Veneer Sander Name Role Phone Jaleesa Calvillo MD Primary Care Provider + Encounter Details Date Type Department Care Team ([facility] Contact Info) Description 03/21/2023 Abstract [facility] MED[facility]INE [address] [place] [address] [phone] Jaleesa Calvillo MD [address] [place], [place] [phone] Social History Tobacco Use Types Packs/Day Years [...] Upcoming Encounters Date Type Department Care Team ([facility] Contact Info) Description 03/25/2025 2:30 PM EDT Office Visit [facility] [address] [place] [address] [phone] Baljit Ortega CNP [address] [place], [place] [phone] 04/22/2025 9:00 AM EDT Office Visit [facility] [address] [place], [place] [phone] Jaleesa Calvillo MD [address] [place], [place] [phone] documented as of this encounter Visit Diagnoses Not on filedocumented in this encounter Care Teams Veneer Sander Relationship Specialty Start Date End Date Jaleesa Calvillo MD [address] [place] [address] [phone] PCP - General Family Medicine 04/15/18 [facility] 11/06/24 documented as of this encounter
--- OUTSIDE RECORDS SUMMARY | 2025-02-17 09:21 | XMS_ITS | Encounter Summary ---
Author Organization [employer] Address [address] [facility] 7t [place] [address] Care Team Providers Care Mold Chipper Name Role Phone Jaleesa Calvillo MD Primary Care Provider + Encounter Details Date Type Department Care Team (Late st Contact Info) Description 08/27/2023 Abstract [facility] MEDICINE [address] [place], [place] [phone] Jaleesa Calvillo MD [address] [place], [place] [phone] Social History Tobacco Use Types Packs/Day Years [...] Description 03/25/2025 2:30 PM EDT Office Visit [facility]INE [address] [place] [phone] Baljit Ortega CNP [address] [place] [address] 04/22/2025 9:00 AM EDT Office Visit [facility]INE [address] [place] [phone] Jaleesa Calvillo MD [address] [place] [phone] documented as of this encounter Visit Diagnoses Not on filedocumented in this encounter Care Teams Mold Chipper Relationship Specialty Start Date End Date Jaleesa Calvillo MD [address] [place] [address] [phone] PCP - General Family Medicine 04/15/18 [facility] 11/06/24 documented as of this encounter
--- OUTSIDE RECORDS SUMMARY | 2025-02-17 09:21 | XMS_ITS | Clinical Summary ---
Author Organization [facility] Address [address] [place] [address] Care Team Providers Care Continuous Improvement Intern Name Role Phone Unavailable Primary Care Provider [...] Found at liver biopsy on 12/08/[address] [facility]. Family History Medical History Relation Name Comments [...]
== END 2025-02-17 08:55 | disposition home or self-care (01) ==
LOC: HO.MAMMO 08:54
PROVIDERS: PCP Internal Medicine; Visit Provider Internal Medicine
DX: M81.0 Age-related osteoporosis without current pathological fracture (principal); Z91.89 Other specified personal risk factors, not elsewhere classified
CPT/HCPCS: 77080

== ENCOUNTER → 2025-02-17 09:15 | Outpatient (BNV) | payer MEDICARE, MEDICAID, SELFPAY | PROVIDERS: PCP Internal Medicine; Visit Provider Radiology Diagnostic Radiology | DX: E28.39 Other primary ovarian failure (principal) | CPT/HCPCS: 77080 ==

== ENCOUNTER 2025-07-01 11:18 | Outpatient (REF) | payer MEDICARE, MEDICAID, SELFPAY ==
[2025-07-02 05:58] LABS: Bacterial Vaginosis PCR NEGATIVE (Negative); Candida Group PCR DETECTED (Not Detect); Candida glab krusei PCR NOT DETECTED (Not Detect); Trichomonas vaginalis PCR NOT DETECTED (Not Detect)
[2025-07-02 06:29] LABS: CT PCR NOT DETECTED (Not Detect.); NG PCR NOT DETECTED (Not Detect.)
== END 2025-07-01 11:19 | disposition home or self-care (01) ==
LOC: HO.LNP 11:18
PROVIDERS: PCP Internal Medicine; Visit Provider Obstetrics & Gynecology
DX: N95.0 Postmenopausal bleeding (principal); N76.0 Acute vaginitis; R31.29 Other microscopic hematuria; Z20.2 Contact with and (suspected) exposure to infections with a predominantly sexual mode of transmission; Z98.51 Tubal ligation status
CPT/HCPCS: 81002; 81515; 87086; 87088; 87186; 87491; 87591; 87626; 88175; 99202

== ENCOUNTER 2025-07-01 11:18 | Outpatient (AMB) | payer MEDICARE, MEDICAID, SELFPAY ==
--- NOTE | 2025-07-01 11:31 | MHC.OFFVIS ---
Vital Signs 07/01/25 11:34 Height 5 ft 4 in Weight 184 lb BMI 31.6 BP 120/68 Intake Visit Reasons: PMB Medical Insurance Claims Processor Required: Yes Medical Insurance Claims Processor Language: Racker Octave Board Services: Medical Insurance Claims Processor Present (in person) Medical Insurance Claims Processor Name: Henrietta HENNING Information Interpreted: non-clinical & clinical Radiologic Electronic Specialist: Radiologic Electronic Specialist Present (Henrietta HENNING) Accompanied by: Grand Child Allergies No Known Allergies Allergy (Verified 07/01/25 11:45) HPI Comments Details: Presenting referred for an episode of postmenopausal bleeding the patient is complaining of urinary dysuria and vulvovaginal itching PFSH Medical History Diabetes HTN (hypertension) Surgical History Hx of tubal ligation H/O heart surgery Family History Father HTN (hypertension) Diabetes Mother Heart disease Son Colon cancer Thyroid cancer Social History Household Members Other:: son Housing: Apartment Alcohol intake: never Patient Tobacco Use Status: Never used Tobacco Current occupational status: disabled Sexual orientation: Straight/Heterosexual Gender identity: Female Review of Systems Const All systems reviewed & are unremarkable except as noted in HPI and below Physical Exam Vital Signs: Last Vital Signs BP 120/68 07/01/25 11:34 BMI result Body Mass Index 31.6 General: Yes no CVA tenderness External Female Exam: normal external appearance and normal appearance of the urethra Speculum Exam - Vagina: normal appearance of the vagina, normal palpation, no lesions and no masses Speculum Exam - Cervix: normal appearance of the cervix, normal palpation, no lesions, no masses and nontender Bimanual exam- vagina & uterus: normal bimanual exam, normal palpation, uterine size normal, normal palpation, uterine shape normal, No Cervical tenderness present and non-tender Bimanual Exam- Adnexa, other: normal adnexae Back/Spine/Pelvis Back: no CVA tenderness Assessment & Plan Assessment & Plan (1) Postmenopausal bleeding: Code(s): N95.0 - Postmenopausal bleeding Category: Medical Plan: Discussed with the patient the differential diagnosis of post menopausal bleeding with normal pelvic exam including but not limited to, endometrial hyperplasia, cancer, polyps and other causes; co testing done, recommended ultrasound to measure the endometrial stripe; discussed with the patient that if the endometrial thickness is 4 mm or less the negative predictive value of endometrial pathology is 99%, otherwise If endometrial thickness is more than 4 mm will proceed with endometrial sampling versus hysteroscopy D&C polypectomy depending on the ultrasound findings. Instructed the patient to schedule an ultrasound with a follow-up appointment in 2 weeks. All questions answered, the patient verbalized understanding and agreed with the plan. This note was generated with a voice recognition program. Some errors may have been overlooked during the review of this note. Sometimes these errors may affect the content or meaning of a given sentence. (2) Vulvovaginitis: Code(s): N76.0 - Acute vaginitis Category: Medical Plan: GC/CT, Bacterial Vaginosis panel taken, Terazol 0.8% q.h.s. for 3 days was sent to the patient's pharmacy. The patient was instructed to call if symptoms don't improve in 48 hours. (3) Microscopic hematuria: Code(s): R31.29 - Other microscopic hematuria Category: Medical Plan: Urine dip showed microscopic hematuria, urine culture sent. Will repeat urine dip in 2 weeks. Discussed with the patient the possible causes of microscopic hematuria including but not limited to: interstitial cystitis, polyps, stones, masses, urethral inflammatory processes and others. If Urine Culture is negative and repeat urine dip in 2 weeks shows persistent microscopic hematuria, will proceed with CT abdomen/pelvis and urology referral. Instructions given the patient to schedule a 2 week urine dip follow-up appointment. All questions answered and the patient verbalized understanding. Orders: Orders US pelvic and transvaginal Today N95.0 - Postmenopausal bleeding Urine Culture Today N76.0 - Acute vaginitis, N95.0 - Postmenopausal bleeding, R31.29 - Other microscopic hematuria CT NG by PCR Vag/Cerv Today N76.0 - Acute vaginitis, N95.0 - Postmenopausal bleeding, R31.29 - Other microscopic hematuria Pap Smear Today N76.0 - Acute vaginitis, N95.0 - Postmenopausal bleeding, R31.29 - Other microscopic hematuria HPV High risk Today N76.0 - Acute vaginitis, N95.0 - Postmenopausal bleeding, R31.29 - Other microscopic hematuria Blood Urea Nitrogen Today N76.0 - Acute vaginitis, N95.0 - Postmenopausal bleeding, R31.29 - Other microscopic hematuria Medications: New clotrimazole-betamethasone 1-0.05 % 1 appl topical BID 45 grams 0RF 5 days terconazole 0.8% 1 appful vaginal BEDTIME 20 grams 0RF 3 days Coding Level of Care Code New Pt Level 3 (43372) Diagnoses Postmenopausal bleeding N95.0 Vulvovaginitis N76.0 Microscopic hematuria R31.29
[2025-07-01 11:34] VITALS: BP 120/68; BMI 31.6
--- OUTSIDE RECORDS SUMMARY | 2025-07-01 12:55 | XMS_ITS | Encounter Summary ---
Author Organization [employer] Address [address] [facility] 7t [place] [address] Care Team Providers Care Professor Of Communication And Writing Name Role Phone Jaleesa Calvillo MD Primary Care Provider + Encounter Details Date Type Department Care Team (Late st Contact Info) Description 08/27/2023 Abstract [facility] MEDICINE [address] [place], [place] [phone] Jaleesa Calvillo MD [address] [place], [place] [phone] Social History Tobacco Use Types Packs/Day Years [...] Care Team (Late st Contact Info) Description 07/08/2025 10:00 AM EDT Office Visit [facility] MEDICINE [address] [place] [address] Jaleesa Calvillo MD [address] [place] [address] [phone] documented as of this encounter Visit Diagnoses Not on filedocumented in this encounter Care Teams Professor Of Communication And Writing Relationship Specialty Start Date End Date Jaleesa Calvillo MD [address] [place] [address] [phone] PCP - General Family Medicine 04/15/18 [facility] 11/06/24 documented as of this encounter
--- OUTSIDE RECORDS SUMMARY | 2025-07-01 12:55 | XMS_ITS | Encounter Summary ---
Author Organization [employer] Address [address] [facility] 7t [place] [address] Care Team Providers Care Veneer Glue Spreader Name Role Phone Jaleesa Calvillo MD Primary Care Provider + Encounter Details Date Type Department Care Team (Late st Contact Info) Description 08/27/2023 Abstract [facility] MEDICINE [address] [place], [place] [phone] Jaleesa Calvillo MD [address] [place], [place] [phone] Social History Tobacco Use Types Packs/Day Years [...] Description 07/08/2025 10:00 AM EDT Office Visit [facility] [address] [place] [address] Jaleesa Calvillo MD [address] [place] [address] [phone] documented as of this encounter Visit Diagnoses Not on filedocumented in this encounter Care Teams Veneer Glue Spreader Relationship Specialty Start Date End Date Jaleesa Calvillo MD [address] [place] [address] [phone] PCP - General Family Medicine 04/15/18 [facility] 11/06/24 documented as of this encounter
--- OUTSIDE RECORDS SUMMARY | 2025-07-01 12:56 | XMS_ITS | Encounter Summary ---
Author Organization [employer] Address [address] [facility] 7[address] [place] [address] Care Team Providers Care Moccasin Sewer Name Role Phone Jaleesa Calvillo MD Primary Care Provider + Encounter Details Date Type Department Care Team ([facility] Contact Info) Description 09/06/2022 Orders Only [facility] MEDICINE [address] [place] [address] [phone] Jaleesa Calvillo MD [address] [place] [address] [phone] Social History Tobacco Use Types Packs/Day Years [...] Care Team ([facility] Contact Info) Description 07/08/2025 10:00 AM EDT Office Visit [facility] MEDICINE [address] [place] [address] [phone] Jaleesa Calvillo MD [address] [place] [address] [place] [phone] documented as of this encounter Visit Diagnoses Not on filedocumented in this encounter Care Teams Moccasin Sewer Relationship Specialty Start Date End Date Jaleesa Calvillo MD [address] [place] [address] PCP - General Family Medicine 04/15/18 [facility] 11/06/24 documented as of this encounter
--- OUTSIDE RECORDS SUMMARY | 2025-07-01 12:56 | XMS_ITS | Clinical Summary ---
Author Organization [facility] Address [address] [place] [address] Care Team Providers Care Interchange Agent Name Role Phone Jaleesa Calvillo Primary Care [...] Zoster Vaccines (2 of 2) 12/25/2023 10/30/2023 Alcohol/Substance Use Screening 10/01/2024 Depression Screening and Follow-Up 10/01/2024 Social Drivers of Health Anamaria ual Screening 10/01/2024 COVID-19 Vaccine (4 - 2024-2 6 season) 2025 09/06/2022, 12/22/2020, 11/24/2020 Influenza Vaccine (#1) 2025 , 07/23/2020, 06/25/2017, Additional history exists DTaP,Tdap,and Td Vaccines (3 - Td or Tdap) 10/30/2033 10/30/2023, 10/28/2012 RSV Vaccine (60+ years old a nd patients) (1 - 1-dose 75+ series) 12/09/2042 Insurance [facility]ICARE [facility] Care Teams Interchange Agent Relationship Specialty Start Date End Date Jaleesa Calvillo [address] [place] [phone] PCP - General Internal Medicine 11/29/23
--- OUTSIDE RECORDS SUMMARY | 2025-07-01 12:56 | XMS_ITS | Encounter Summary ---
Author Organization [employer] Address [address] [facility] 7t [place] [address] Care Team Providers Care Director Staffing Name Role Phone Jaleesa Calvillo MD Primary Care Provider + Encounter Details Date Type Department Care Team (Late st Contact Info) Description 11/09/2022 Orders Only [facility] MEDICINE [address] [place] [address] [phone] Jaleesa Calvillo MD [address] [place] [address] [phone] Cerebrovascular accident (CVA) due to embolism of [...] Description 07/08/2025 10:00 AM EDT Office Visit [facility] MEDICINE [address] [place] [address] [phone] Jaleesa Calvillo MD [address] [place] [phone] documented as of this encounter Visit Diagnoses Diagnosis 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 11/06/24 documented as of this encounter
--- OUTSIDE RECORDS SUMMARY | 2025-07-01 12:56 | XMS_ITS | Encounter Summary ---
Author Organization [employer] Address [address] [facility] 7t [place] [address] Care Team Providers Care General Doc Name Role Phone Jaleesa Calvillo MD Primary Care Provider + Encounter Details Date Type Department Care Team (Late st Contact Info) Description 03/26/2024 Orders Only [facility] MEDICINE [address] [place], [place] [phone] Jaleesa Calvillo MD [address] [place], [place] [phone] Social History Tobacco Use Types Packs/Day Years [...] Description 07/08/2025 10:00 AM EDT Office Visit [facility] MEDICINE [address] [place] [phone] Jaleesa Calvillo MD [address] [place] [phone] documented as of this encounter Visit Diagnoses Not on filedocumented in this encounter Care Teams General Doc Relationship Specialty Start Date End Date Jaleesa Calvillo MD [address] [place] [address] [phone] PCP - General Family Medicine 04/15/18 [facility] 11/06/24 documented as of this encounter
--- OUTSIDE RECORDS SUMMARY | 2025-07-01 12:56 | XMS_ITS | Encounter Summary ---
Author Organization [employer] [facility] Address [address] [facility] 7t [place] [address] Care Team Providers Care Communications Manager Name Role Phone Jaleesa Calvillo MD Primary Care Provider + Reason for Visit * Reason Comments Med Refill Encounter Details Date Type Department Care Team ([facility] st Contact Info) Description 12/13/2022 Refill [facility] MEDICINE [address] [place], [place] [phone] Jaleesa Calvillo MD [address] [place], [place] [phone] Social History Tobacco Use Types Packs/Day Years [...] Upcoming Encounters Date Type Department Care Team ([facility] Contact Info) Description 07/08/2025 10:00 AM EDT Office Visit [facility] MEDICINE [address] [place], [place] [phone] Jaleesa Calvillo MD [address] [place] [address] documented as of this encounter Visit Diagnoses Not on filedocumented in this encounter Care Teams Communications Manager Relationship Specialty Start Date End Date Jaleesa Calvillo MD [address] [place], [place] [phone] PCP - General Family Medicine 04/15/18 [facility] 11/06/24 documented as of this encounter
--- OUTSIDE RECORDS SUMMARY | 2025-07-01 12:56 | XMS_ITS | Clinical Summary ---
Author Organization [facility] Address [address] [place] [address] Phone Care Team Providers Care Pipe Production Worker Name Role Phone Jaleesa Calvillo MD Primary Care Provider + [phone] Allergies Active Allergy Reactions Criticality Noted Date [...] mouth 1 (one) time each day Active liraglutide (Victoza) 18 MG/3ML injection Active [...] mouth 1 (one) time each day Active traZODone (DESYREL) 50 MG tablet TAKE [...] Hemorrhoid 11/28/2022 Hypothyroidism 11/28/2022 Main spoken language Somali 11/28/2022 Obese class II 11/28/2022 Nonalcoholic steatohepatitis [...] Visual Foot Exam 05/05/2021 Diabetes: Hemoglobin A1C 05/14/2025 025, 11/25/2024, 09/06/2022 Influenza Vaccine (#1) 2025 4, 07/03/2022, 07/03/2022, Additional history exists Pneumococcal Vaccine: 50+ Years Completed 06/30/2024, 07/23/2020, 02/19/2013 Pneumococcal Vaccine: Peds ( 0 to 5 Years) and At-Risk Patients (6 to 49 Years) Discontinued 06/30/2024, 07/23/2020, 02/19/2013 Insurance Medicare Medicaid [place] Medicare Medicaid [place] Care Teams Pipe Production Worker Relationship Specialty Start Date End Date Jaleesa Calvillo MD [address] [place] [phone] PCP - General 10/11/20
--- OUTSIDE RECORDS SUMMARY | 2025-07-01 12:56 | XMS_ITS | Clinical Summary ---
Author Organization [employer] Address [address] [facility] 7[address] [place] [address] Care Team Providers Care Media Production Operator Name Role Phone Jaleesa Calvillo MD [...] bed time. Active Blood Glucose Monitoring Suppl (Sok[place]omyle [place] Lite) w/Device kit USE TO TEST BLOOD [...] 1 Can by mouth in the morning. 53073 mL 3 023 Active fluticasone (Flonase) 50 MCG/ACT nasal sprayIndications: Chronic rhinitis USE 2 SPRAYS IN EACH NOSTRIL EVERY DAY 48 g 1 024 Active dapagliflozin (Farxiga) 10 MG Take 1 tablet (10 mg) by mouth Once per day. 90 tablet 3 024 Active glucose blood (FREESTYLE LITE) test strip USE TO TEST BLOOD SUGAR THREE TIMES A DAY 100 each 11 024 Active traZODone (Desyrel) 100 MG tablet Take 1-2 tablets by mouth if needed at bedtime for sleep. 024 Active Alcohol Swabs (Alcohol Prep) 70 % pads USE THREE TIMES DAILY DIRECTED 100 each 5 024 Active allopurinol (Zyloprim) 300 MG tabletIndications :Chronic gouty arthritis TAKE 1 TABLET BY MOUTH TWICE DAILY IN THE MORNING AND IN THE EVENING 180 tablet 3 024 Active levothyroxine (Synthroid, Levoxyl) 175 MCG tablet Take 175 mcg by mouth Once per day. Active Easy Touch Pen [place] 31G X 5 MM misc USE DIRECTED FOUR TIMES DAILY 024 Active dextran 70-hypromellose (artificial tears) 0.1-0.3 % ophthalmic solutionIndicatio ns:Dry eyes, bilateral Administer 1 drop into both eyes if needed in the morning, at noon, and at bedtime for dry eyes. 15 mL 6 01/132025 Active Breo Ellipta 200-25 MCG/ACT aerosol powderIndications :Mild intermittent asthma without complication INHALE 1 PUFF BY MOUTH EVERY DAY 60 each 5 Active polyvinyl alcohol (Liquifilm Tears) 1.4 % ophthalmic solution PLACE 2 DROPS INTO THE AFFECTED EYE(S) TWICE DAILY Active Entresto 24-26 MG tablet Take 1 tablet by mouth 2 times daily. Active digoxin (Lanoxin) 62.5 MCG tablet Take 1 tablet (62.5 mcg) by mouth Once per day. 30 tablet Active Xarelto 15 MG tablet [...] tablet Active thiamine (Vitamin B-1) 100 MG tabletIndications :Neuropathy TAKE 1 TABLET BY MOUTH EVERY MORNING 90 tablet 1 Active NovoLOG FLEXPEN 100 UNIT/ML pen INJECT 14 to 24 UNITS SUBCUTANEOUSLY BEFORE MEALS PER SLIDING SCALE, DO NOT EXCEED 70 UNITS PER DAY Active tetrahydrozoline (Visine Red Eye Comfort) 0.05 % ophthalmic solutionIndicatio ns:Seasonal allergies Administer 2 drops into both eyes 3 times daily. 30 mL Active Mounjaro 2.5 MG/0.5ML solution auto-injector Inject 0.5 mL under the skin every 7 (seven) days. Active insulin degludec (Tresiba FlexTouch) 100 UNIT/ML injection Inject 40 Units under the skin at bedtime. Active bumetanide (Bumex) 2 MG tablet Take 1 tablet by mouth in the morning and 1 tablet in the evening. Active Zegalogue 0.6 MG/0.6ML solution prefilled syringe 0.6 mg, Subcutaneous Once, may repeat once in 15 minutes Use if patient is unconscious or is unable to intake carbohydrates/gl ucose and experiencing hypoglycemia. If used, please call 911 after administration 025 Active atorvastatin (Lipitor) 80 MG tablet TAKE 1 TABLET BY MOUTH AT BEDTIME 30 tablet 3 025 Active pantoprazole (ProtoNix) 40 MG EC tablet TAKE 1 TABLET BY MOUTH EVERY MORNING BEFORE BREAKFAST 30 tablet 3 025 Active Jardiance 25 MG TAKE 1 TABLET BY MOUTH EVERY MORNING 30 tablet 11 024 2023 Discontinued Active Problems Problem Noted Date Diagnosed Date [...] still experiencing symptoms despite tx for UTI Postmenopausal vaginal bleeding 02/11/2025 Assessment & Plan (04/22/2025 9:46 AM EDT): Unable to do Pap smear today due to patient's acute CHF exacerbation. Will reschedule Pap smear within 3 to 4 weeks, she has appointment with OPERATIONS SUPERINTENDENT on July 2025 and a pelvic ultrasound appointment scheduled and is pending. Will follow-up H&H. Discussed with patient and daughter the importance of completing OPERATIONS SUPERINTENDENT workup, follow-up with me in 3 to 4 weeks. Assessment & Plan (02/11/2025 4:49 PM EDT): Pt due for pap Plan to obtain pelvic u/s Plan to refer to physics professor, pt may also benefit from pelvic floor PT Chronic idiopathic thrombocytopenia (CMS/HCC) Mood disorder 02/10/2025 Preventative health care 01/16/2025 [...] EDT): Will refer to GI Headache 12/25/2024 MECCA (acute kidney injury) 11/12/2024 Assessment & [...] and other providers not committing to procedure ([facility] plastic surgeon deemed her very [...] Hemorrhoid 11/28/2022 Microcytic anemia 11/28/2022 Severe obesity (CMS/HCC) 11/28/2022 Nonalcoholic steatohepatitis (CASTILLO) 11/28/2022 Osteoarthritis 11/28/2022 Pulmonary hypertension ([facility]/HCC) 11/28/2022 Rheumatic fever 11/28/2022 Abdominal skin ptosis [...] flavor Noncompliance with treatment 10/05/2022 Cerebrovascular accident ([facility]/HCC) 09/05/2022 Assessment & Plan (08/16/2023 1:14 PM [...] use cane for ambulation Daughter is her FUNERAL ARRANGER, son will be with her overnight when she may have other needs (letter done for housing previously) Apnea 09/05/2022 Acute low back pain 09/05/2022 Abdominal pain 09/05/2022 Hypertriglyceridemia 09/05/2022 Assessment & Plan (09/06/2022 1:18 PM EST): Improving. She used to be on low dose atorvastatin, unclear if she is still taking it, daughter is not aware of med name. New rx sent to [facility] pharmacy per patient's request. Hypokalemia 09/05/2022 Assessment & Plan (09/06/2022 1:22 PM EST): Due to diuretic rx. She's on K chloride, unclear if she's still taking it. New rx for Kcl 20meq/d Repeat BMP rpior to next appt Skin ulcer (CMS/HCC) 09/05/2022 Assessment & Plan (01/16/2025 4:01 PM EDT): Her abdomen, recurrent Continue daily dressings with calcium alginate by VNA Referred to wound clinic at [facility] We discussed with patient and son regarding [...] clean and dry per wound clinic at [facility] counseled regarding tight control of [...] RV 6w Stage 3a chronic kidney disease (CMS/HCC) 2020 Assessment & Plan (06/30/2024 11:36 AM EDT): Worsened sp CHF, repeat BMP Advised to control DM, HTN, CHF and hypothyroidism Assessment & Plan (11/23/2023 1:22 PM EST): Worsened after UTI -repeat BMP Acute on chronic systolic heart failure 03/12/20 19 Assessment & Plan (04/22/2025 9:49 AM EDT): Not improving with increased dose of Bumex. I discussed with cardiology clinic and they did not recommend additional outpatient Rx. Patient has mild to moderate S/S fluid overload, unclear if related to uncontrolled hypertension or some other condition, rule out UTI, bleeding, URI? Discussed with patient and daughter to take patient immediately to ED in the private car. Patient's vital signs seem to be stable and she is doing okay as long as she is seated. Recommended to go immediately to the ED, patient and daughter agreed with POC. Will follow-up after ED discharge Assessment & Plan (02/11/2025 4:49 PM EDT): Plan to continue on current meds Plan to reschedule appt with cards Assessment & Plan (01/16/2025 3:28 PM EDT): Patient is euvolemic at this time, to follow-up with CHF clinic at [facility]. Discussed importance of medications and dietary compliance. [...] Order BNP and fu with cardiology at [facility]. Continue spironolactone, amiodarone (A.fib), digoxin and bumex Order BMP, advised re low slat diet, treating hypothyroidism and DM and fu with me in 6-8w Advised re Influenza vax today. Paroxysmal atrial fibrillation (CMS/HCC) 019 Assessment & Plan (01/16/2025 3:30 PM EDT): [...] BMP today. Continue Jardiance and refer to painter airbrush as needed Assessment & Plan (04/23/2023 10:46 AM EDT): Check BMP and restart jardiance. See above Assessment & Plan (09/06/2022 12:44 PM EST): GFR is back to normal. I gave her the nephrology office (Dr [facility], [facility]) info to rs appt anyway in view of CKD with Varying GFR levels. Avoid NSAIDs, encouraged tight control of DM, hyperlipidemia and HTN. FU BMP prior to next visit due to hypokalemia Chronic gouty arthritis 04/15/2018 Assessment & Plan (04/23/2023 10:44 AM EDT): Right ankle and right toe, improving Gave [id number] for tramadol to take PRN before she [...] 2 diabetes mellitus 04/15/2018 Assessment & Plan (04/22/2025 9:47 AM EDT): Patient with hyperglycemia today, will continue to cover with Humalog and follow-up with french lecturer Patient to bring glucometer at next visit within 3 to 4 weeks, no change in medications. Patient sent to ED due to CHF exacerbation Assessment & Plan (02/11/2025 4:43 PM EDT): Pt to continue on current medication regimen Advised pt to continue monitoring blood sugars 3x daily and to use mealtime insulin as prescribed. Pt to follow up with endocrine in March Assessment & Plan (01/16/2025 3:35 PM EDT): Uncontrolled, increase Lantus to 30 units, has an appointment with french lecturer at [facility] next week. Continue Farxiga 10 mg [...] PM EST): Uncontrolled, has an appointment with french lecturer at [facility] next week. Continue Farxiga 10 mg [...] Trandjenta and Farxiga Continue to fu with [facility] and with me in 3mo I [...] to start) Advised to rs appt with [facility] endocrinology. Assessment & Plan (11/23/2023 1:26 PM EST): No change in meds today, needs to schedule appt w/ endo, info given again today Assessment & Plan (08/16/2023 1:17 PM EST): Uncontrolled, she has been referred to be seen french lecturer since March 2023. Copy of referral given [...] Encouraged physical activity as tolerated. Refer to french lecturer Assessment & Plan (02/19/2023 5:27 PM EDT): [...] to her previous pharmacy. 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 Continue to monitor LFTs, AFP, abd US Recommend that weight reduction, will benefit she greatly from either GLP's and especially abdominal panniculectomy. Assessment & Plan (04/23/2023 10:46 AM EDT): Previously seen by GI at [facility] in 2019. Will obtain LFTs and Hepatitis profile and refer to GI if needed. It is thought to be related to CASTILLO/s/p liver biopsy in 2012 at [facility]. Resolved Problems Problem Noted Date Diagnosed Date Resolved Date Urinary tract infection with hematuria 02/11/2025 04/22/2025 Assessment & Plan (02/11/2025 4:48 PM EDT): U/A pos for protein, glucose, and blood Advised pt to complete full course of antibx and rtc if symptoms don't improve. Plan to f/u with urology Urinary tract infection symptoms 11/12/2024 04/22/2025 Assessment & Plan (11/12/2024 4:10 PM EST): Pt has a medical hx sufficient for recurrent UTIs Pt currently still having urinary symptoms despite treatment completion and adherence Will obtain repeat U/A and culture to guide further treatment Pt will f/u with PCP at scheduled [facility] appt this month Thrombocytopenia 10/30/2023 01/16/2025 Exposure to COVID-19 virus 09/05/2022 0 04/23/2023 Toothache 09/05/2022 04/23/2023 Chronic congestive heart failure 04/15/2018 09/06/2022 Encounters Date Type Department Care Team Description 05/26/2025 Patient Outreach [facility] [address] [place] [address] Jaleesa Calvillo MD Transition Of Care (Tcm) (HDF unscheduled. ) 05/04/2025 Patient Outreach [facility] [address] [place] [phone] Jaleesa Calvillo MD Transition Of Care (Tcm) (HDF unscheduled) 04/28/2025 Patient Outreach [facility] [address] [place] [phone] Jaleesa Calvillo MD Transition Of Care (Tcm) (HDF unscheduled) 04/22/2025 9:00 AM EDT Office Visit [address] [address] Jaleesa Calvillo MD Acute on chronic systolic heart failure (CMS/HCC) (Primary Dx); Type 2 diabetes mellitus with stage 3a chronic kidney disease, with long-term current use of insulin (CMS/HCC); Postmenopausal vaginal bleeding 04/22/2025 Travel 04/20/2025 Telephone [facility] [address] [place] [phone] Jaleesa Calvillo MD 04/18/2025 Refill [facility] [address] [place], [place] [phone] Jaleesa Calvillo MD 04/13/2025 Telephone [facility] [address] [place] [phone] Jaleesa Calvillo MD 04/10/2025 1:30 PM EDT Office Visit [address] [address] Baljit Ortega CNP Type 2 diabetes mellitus with stage 3a chronic kidney disease, with long-term current use of insulin (CMS/HCC) (Primary Dx); Flank pain; Acute gout of multiple sites, unspecified cause 04/10/2025 Telephone [facility] [address] [place] [phone] Jaleesa Calvillo MD Change PCP (PT requesting a pcp change , due to not being properly helped. Example, med refills , medications and appointments take too long to be received or wont be given at all. ); Transfer Request 04/10/2025 Travel 04/09/2025 Telephone [facility] [address] [place], [place] [phone] Baljit Ortega CNP Chart Prep from Last 3 Months Immunizations Immunization Administration [...] Sign Reading Time Taken Comments Blood Pressure 160/70 04/22/2025 9:24 AM EDT Pulse 78 04/22/2025 9:19 AM EDT Temperature 36.3 C (97.3 F) 04/22/2025 9:19 AM EDT Respiratory Rate 20 04/22/2025 9:19 AM EDT Oxygen Saturation 98% 04/22/2025 9:19 AM EDT Inhaled Oxygen Concentration - - Weight 87.5 kg (193 lb) 04/22/2025 9:19 AM EDT Height 157.5 cm (5' 2 ) 04/22/2025 9:19 AM EDT Body Mass Index 35.3 04/22/2025 9:19 AM EDT Plan of Treatment Upcoming Encounters Date Type Department Care Team (Late st Contact Info) Description 07/08/2025 10:00 AM EDT Office Visit [facility] [address] [place] [address] Jaleesa Calvillo MD [address] [place], [place] [phone] Health Maintenance Due Date Last Done Comments [...] 05/14/2025 025, 01/09/2025, 11/25/2024, Additional history exists Influenza Vaccine (#1) 2025 , 07/03/2022, 07/03/2022, Additional history exists Lipid Panel 01/16/2026 01/16/2025, 07/01, 07/31/2022, Additional history exists Alcohol/Substance Use Screening 02/11/2026 02/11/2025 Depression Screening 02/11/2026 02/11/2025, 02/12/20 SDOH Screening 02/11/2026 02/11/2025 Diabetes: Foot Exam 04/10/2026 04/10/2025, 04/10/2025, 04/10/2025, Additional history exists Disability Screening 04/10/2026 04/10/2025 Tobacco Screening 04/22/2026 04/22/2025 Eye Exam 10/13/2026 10/13/2024, 10/01, 10/13/2024, Additional history exists DTaP/Tdap/Td Vaccines (3 - Td or Tdap) 10/30/2033 10/30/2023, 10/28/2012 RSV Patients and Patients Aged 60 years or older (1 - 1-dose 75+ series) 12/09/2042 Pneumococcal Vaccine: 50+ Years Completed 06/30/2024, 07/23/2020, [...] Date/Time Associated Diagnosis Comments POCT GLUCOSE Routine 04/22/2025 9:20 AM EDT Type 2 diabetes mellitus with stage 3a chronic kidney disease, with long-term current use of insulin ([facility]) POCT GLUCOSE Routine 04/10/2025 2:28 PM EDT Type 2 diabetes mellitus with stage 3a chronic kidney disease, with long-term current use of insulin ([facility]) HEMOGLOBIN A1C Routine 02/11/2025 2:59 PM EDT Type 2 diabetes mellitus with stage 3a chronic kidney disease, with long-term current use of insulin ([facility]) LIPID PANEL WITH REFLEX TO DIRECT LDL Routine 01/16/2025 10:17 AM EDT Type 2 diabetes mellitus with stage 3a chronic kidney disease, with long-term current use of insulin ([facility]) HM PAP/HPV Routine 04/16/2018 HM COLONOSCOPY Routine 04/19/2014 from Last 3 Months or Most Recently Relevant to Health Maintenance Results * (ABNORMAL) POCT Glucose (04/22/2025 9:20 AM EDT) Only the most recent of2 resultswithin the time period is included. [facility] Glucose Blood, POC 226(A) 60 - 200 mg/dL QC Media Lot # [id number] Lot# Expiration Date [id number] Blood Capillary blood specimen / Unknown 04/22/2025 9:20 AM EDT Jaleesa Calvillo MD POINT OF CARE TEST ENTER /EDIT ORDERABLES Final Result * (ABNORMAL) Hemoglobin A1c (02/11/2025 2:59 PM EDT) Hemoglobin A1c 9.6(H) <6.0 % [facility] Comment:Hemoglobin A1C Refer ence Range Adults: 4.8 - 6.0 % Non diabetic: < 6.0 % Goal: < 7.0 %Additional Action Suggested: > 8.0 %Note: Hemoglobin A1c results are invalid for patients with abnormal amounts of HbF. Blood transfusions may impact the HbA1c concentration in the patient sample. Estimated Average Glucose 229 mg/dL [facility] Comment:eAG = Estimated ave rage glucose which is %A1C expressed asaverage glucose, using the formula of the [id number] Glucose study (ADAG), Diabetes Care, Vol.31,#8,May. 2007 Blood Venous blood specimen / Unknown 02/11/2025 2:59 PM EDT 02/11/2025 4:11 PM EDT Baljit Ortega [employer] LAB BLOOD ORDERABLES Ariana l Result [facility] [address] [place] [phone] * (ABNORMAL) Lipid Panel with Reflex to Direct LDL (01/16/2025 10:17 AM EDT) Triglycerides 277(H) <150 mg/dL [facility] Comment:Desirable Triglyceri de: less than 150 mg/dLBorderline High Triglyceride 150-199 mg/dLHigh Triglyceride: 200-499 mg/dLVery High Triglyceride: greater than or equal to 5OO mg/dL Cholesterol 159 <200 mg/dL [facility] Comment:Desirable Cholestero l: less than 200 mg/dLBorderline High Cholesterol: 200-239 mg/dLHigh Cholesterol: greater than 239 mg/dL LDL Cholesterol Calculated 79 <100 mg/dL [facility] Comment:Desirable LDL: less than 100 mg/dLNear Optimal/Above Optimal LDL: 110- 129 mg/dLBorderline High LDL: 130-159 mg/dLHigh LDL: 160-189 mg/dLVery High LDL: greater than or equal to 190 mg/dL HDL Cholesterol 25(L) >40 mg/dL [facility] Comment:Desirable HDL: great er than 40 mg/dL Note: This HDL assay may give artificially low results in patients with liver disease. Blood 01/16/2025 10:1 7 AM EDT 01/16/2025 11:15 AM EDT Jaleesa Calvillo MD LAB BLOOD ORDERABLES Fin al Result [facility] [address] [place] [phone] * Pap Smear (04/16/2018) Pap smear performed Historical Provider HEALTH MAINTENANCE Final Result * Colonoscopy (04/19/2014) Colonoscopy performed Historical Provider HEALTH MAINTENANCE Edited Result - Final from Last 3 Months or Most Recently Relevant to Health Maintenance Insurance [facility] STANDARD MEDICARE Care Teams Media Production Operator Relationship Specialty Start Date End Date Jaleesa Calvillo MD [address] [place] [phone] PCP - General Family Medicine 04/15/18 [facility] 11/06/24
--- OUTSIDE RECORDS SUMMARY | 2025-07-01 12:56 | XMS_ITS | Encounter Summary ---
Author Organization [employer] Address [address] [place] [address] Care Team Providers Care Roll Coverer Name Role Phone Jaleesa Calvillo MD Primary Care Provider + Reason for Visit * Reason Onset Date Comments Medication Question 11/07/2022 Encounter Details Date Type Department Care Team ([facility] Contact Info) Description 11/07/2022 Telephone [facility] [address] [place], [place] [phone] Jaleesa Calvillo MD [address] [place] [phone] Medication Question Social History Tobacco Use Types [...] call back regarding medication being tranfers to [facility] pharmacy Please contact daughter at [phone] documented in this encounter Plan of Treatment Upcoming Encounters Date Type Department Care Team (Late Contact Info) Description 07/08/2025 10:00 AM EDT Office Visit [facility] [address] [place] [address] Jaleesa Calvillo MD [address] [place] [phone] documented as of this encounter Visit Diagnoses Not on filedocumented in this encounter Care Teams Roll Coverer Relationship Specialty Start Date End Date Jaleesa Calvillo MD [address] [place] [phone] PCP - General Family Medicine 04/15/18 [facility] 11/06/24 documented as of this encounter
--- OUTSIDE RECORDS SUMMARY | 2025-07-01 12:56 | XMS_ITS | Encounter Summary ---
Author Organization [employer] Address [address] [facility] [address] [place] [address] Care Team Providers Care Switch Technician Name Role Phone Jaleesa Calvillo MD Primary Care Provider + Reason for Visit * Reason Onset Date Comments Nurse Triage 11/10/2024 Encounter Details Date Type Department Care Team ([facility] st Contact Info) Description 11/10/2024 Telephone [facility] [address] [place], [place] [phone] Jaleesa Calvillo MD [address] [place], [place] [phone] Nurse Triage (/) Social History Tobacco Use [...] follow up for Pt. Pt was in [facility] 10/30/24 to 11/07/24 daughter reports due [...] acuity questions The caller accepted this outcome. [phone] (pt daugher) documented in this encounter Plan of Treatment Upcoming Encounters Date Type Department Care Team (Late st Contact Info) Description 07/08/2025 10:00 AM EDT Office Visit [facility] [address] [place] [address] Jaleesa Calvillo MD [address] [place], [place] [phone] documented as of this encounter Visit Diagnoses Not on filedocumented in this encounter Care Teams Switch Technician Relationship Specialty Start Date End Date Jaleesa Calvillo MD [address] [place] [phone] PCP - General Family Medicine 04/15/18 [facility] 11/06/24 documented as of this encounter
--- OUTSIDE RECORDS SUMMARY | 2025-07-01 12:56 | XMS_ITS | Encounter Summary ---
Author Organization [facility] Address [address] [place] [address] Care Team Providers Care Downstream Biomanufacturing Technician Name Role Phone Jaleesa Calvillo MD Primary Care Provider + Encounter Details Date Type Department Care Team ([facility] Contact Info) Description 03/21/2023 Abstract [facility] [address] [place] [address] [phone] Jaleesa Calvillo MD [address], [place] [phone] Social History Tobacco Use Types Packs/Day Years [...] Upcoming Encounters Date Type Department Care Team ([facility] Contact Info) Description 07/08/2025 10:00 AM EDT Office Visit [facility] [address] [place] [address] [phone] Jaleesa Calvillo MD [address] [place] [address] documented as of this encounter Visit Diagnoses Not on filedocumented in this encounter Care Teams Downstream Biomanufacturing Technician Relationship Specialty Start Date End Date Jaleesa Calvillo MD [address] [place] [address] PCP - General Family Medicine 04/15/18 [facility] 11/06/24 documented as of this encounter
--- OUTSIDE RECORDS SUMMARY | 2025-07-01 12:56 | XMS_ITS | Clinical Summary ---
Author Organization [facility] Address [address] [place] [address] Care Team Providers Care Grounds Restoration Specialist Name Role Phone Unavailable Primary Care Provider [...] Last Done Comments Breast Cancer Screening 1967 Colorectal Cancer Screening: Colonoscopy 1967 Diabetes: Annual GFR (Glomer ular Filtration Rate) 1967 Diabetes: Annual Foot Exam 12/09/1977 Diabetes: Annual Retina Eye Exam 12/09/1977 Hepatitis A Vaccines (1 of 2 - Risk 2-dose series) 12/09/1986 Hepatitis B Vaccines (1 of 3 - 19+ 3-dose series) 12/09/1986 Pneumococcal Vaccine: 50+ Ye ars (1 of 2 - PCV) 12/09/1986 Cervical Cancer Screening: P ap Smear 12/09/1988 Zoster Vaccines (1 of 2) 12/09/2017 Cholesterol Screening (Lipid Panel) 08/30/2022 HIV Screening 08/30/2022 Hepatitis C Screening 08/30/2022 Social Influencers of Health Screening 08/30/2022 Diabetes: Annual Urine Albumin-Creatinine Ratio (uACR) 09/16/2022 Diabetes: Blood Sugar Contro l Test (HGBA1C) 09/16/2022 Hypertension/CHF/CAD Annual BMP Blood Test 09/16/2022 DTaP,Tdap,and Td Vaccines (2 - Td or Tdap) 10/28/2022 10/28/2012 Depression Screening 10/01/2024 COVID-19 Vaccine (1 - 2023-2 5 season) 2025 Influenza Vaccine (#1) 2025 RSV Immunization Adult Patie nts (1 - 1-dose 75+ series) 12/09/2042 HIB Vaccines Aged Out No longer eligi [...]
== END 2025-07-01 12:13 | disposition home or self-care (01) ==
LOC: HO.HWS 11:19
PROVIDERS: PCP Internal Medicine; Visit Provider Obstetrics & Gynecology
DX: N95.0 Postmenopausal bleeding (principal); N76.0 Acute vaginitis; R31.29 Other microscopic hematuria
CPT/HCPCS: 99203

== ENCOUNTER 2025-07-01 12:12 | Outpatient (REF) | payer MEDICARE, MEDICAID, SELFPAY | END 2025-07-01 12:13 | disposition home or self-care (01) | LOC: HO.LAB 12:12 | PROVIDERS: Visit Provider Obstetrics & Gynecology | DX: Z13.89 Encounter for screening for other disorder (principal) ==

== ENCOUNTER 2025-08-17 15:30 | Outpatient (REF) | payer MEDICARE, MEDICAID, SELFPAY ==
--- OUTSIDE RECORDS SUMMARY | 2025-08-18 07:17 | XMS_ITS | Clinical Summary ---
Author Organization [facility] Address [address] [place] [address] Phone Care Team Providers Care Banking Services Advisor Name Role Phone Jaleesa Calvillo MD Primary Care Provider + [phone] Allergies Active Allergy Reactions Criticality Noted Date [...] Hemorrhoid 11/28/2022 Hypothyroidism 11/28/2022 Main spoken language Czech 11/28/2022 Obese class II 11/28/2022 Nonalcoholic steatohepatitis [...] Medicaid [place] Care Teams Banking Services Advisor Relationship Specialty Start Date End Date Jaleesa Calvillo MD [address] [place] [phone] PCP - General 10/11/20
== END 2025-08-17 15:31 | disposition home or self-care (01) ==
LOC: HO.LNP 15:30
PROVIDERS: PCP Internal Medicine; Visit Provider Obstetrics & Gynecology
DX: N95.0 Postmenopausal bleeding (principal); R31.29 Other microscopic hematuria
CPT/HCPCS: 58100; 81002; 88305

== ENCOUNTER 2025-08-17 15:30 | Outpatient (AMB) | payer MEDICARE, MEDICAID, SELFPAY ==
[2025-08-17 15:31] VITALS: BMI 31.6
--- NOTE | 2025-08-17 15:31 | MHC.OFFVIS ---
Vital Signs 08/17/25 15:31 Height 5 ft 4 in Weight 184 lb BMI 31.6 Intake Visit Reasons: EMB/ Urine dip Director Of Consumer Affairs Required: Yes Director Of Consumer Affairs Language: Siebel Developer Services: Director Of Consumer Affairs Present (in person) Director Of Consumer Affairs Name: Henrietta HENNING Information Interpreted: non-clinical & clinical News Editor: News Editor Present (Henrietta HENNING) Accompanied by: Son Allergies No Known Allergies Allergy (Verified 08/17/25 15:45) HPI Comments Details: Presenting for EMB and for repeat urine dip PFSH Medical History Diabetes HTN (hypertension) Surgical History Hx of tubal ligation H/O heart surgery Family History Father HTN (hypertension) Diabetes Mother Heart disease Son Colon cancer Thyroid cancer Social History Household Members Other:: son Housing: Apartment Alcohol intake: never Patient Tobacco Use Status: Never used Tobacco Current occupational status: disabled Sexual orientation: Straight/Heterosexual Gender identity: Female Physical Exam Vital Signs: BMI result Body Mass Index 31.6 Office Procedures Endometrial Biopsy Details: The patient was counseled regarding the indication and benefits of endometrial sampling to rule out endometrial pathology including not limited to endometrial hyperplasia or endometrial cancer and others; The alternatives (Either do nothing vs. hysteroscopy D&C) & the risks were discussed with the patient including but not limited: pain, uterine perforation, bleeding, infection, possible injury to bladder, bowel, ureter, possible need for blood transfusion with all its possible risks. The patient verbalized understanding all questions answered and signed consent. Urine test done in the office was negative The patient was placed into the dorsal lithotomy position; a speculum was inserted in the vagina. Using aseptic technique for the procedure, the cervix was cleansed with Betadine. The anterior lip of the cervix was grasped with a single tooth tenaculum. The uterus was sounded to 7 cm with a 4 mm Pipelle was used. The procedure was aborted per patient request because of intolerance to pain. Tissues samples were obtained and placed in formalin, in a patient labeled container and sent to the pathology department. At the end of the procedure, there was minimal bleeding noted The patient could not tolerated the procedure very well, the procedure was aborted per her request and was discharged in good condition with the following instructions: Nothing in the vagina until the bleeding stops. No sex until the bleeding stops, to call if any of the following occurs: fever (>100.4), flu-like symptoms, abdominal pain, heavy bleeding, four smelling vaginal discharge. The patient was instructed to schedule a Follow up appointment in 2 weeks to discuss pathology results of the biopsy and treatment options. This note was generated with a voice recognition program. Some errors may have been overlooked during the review of this note. Sometimes these errors may affect the content or meaning of a given sentence. [id number] Biopsy Results AMB Urinalysis Dipstick UR Leukocytes Small Last Edit by Henrietta Gaona, [facility] on 08/17/25 15:47 UR Nitrite Negative Last Edit by Henrietta Gaona, [facility] on 08/17/25 15:47 UR Urobilinogen Normal Last Edit by Henrietta Gaona, [facility] on 08/17/25 15:47 UR Protein Trace Last Edit by Henrietta Gaona, [facility] on 08/17/25 15:47 UR Ph 5.5 Last Edit by Henrietta Gaona, [facility] on 08/17/25 15:47 UR Blood Negative Last Edit by Henrietta Gaona, [facility] on 08/17/25 15:47 UR Specific [place] 1.015 Last Edit by Henrietta Higueraero, [facility] on 08/17/25 15:47 UR Ketone Negative Last Edit by Henrietta Higueraero, [facility] on 08/17/25 15:47 UR Bilirubin Negative Last Edit by Henrietta Higueraero, [facility] on 08/17/25 15:47 UR Glucose Negative Last Edit by Henrietta Higueraero, [facility] on 08/17/25 15:47 Assessment & Plan Assessment & Plan (1) Postmenopausal bleeding: Code(s): N95.0 - Postmenopausal bleeding Category: Medical Plan: EMB done, see procedure note Instructions given the patient to schedule an ultrasound follow-up and EMB follow-up appointment within 2 weeks All questions answered the patient verbalized understanding (2) Microscopic hematuria: Code(s): R31.29 - Other microscopic hematuria Category: Medical Plan: Repeat urine dip showed no evidence of microscopic hematuria, the patient was reassured Orders: Orders AMB Endometrial Biopsy Today N95.0 - Postmenopausal bleeding AMB Urinalysis Dipstick Today R31.29 - Other microscopic hematuria Coding Level of Care Code Est Pt Level 3 (38295) Procedure Only Diagnoses Postmenopausal bleeding N95.0 Microscopic hematuria R31.29 CPT Codes Endometrial Biopsy - CPT: 24921-[id number] Biopsy ([id number])
== END 2025-08-18 11:48 | disposition home or self-care (01) ==
LOC: HO.HWS 15:30
PROVIDERS: PCP Internal Medicine; Visit Provider Obstetrics & Gynecology
DX: N95.0 Postmenopausal bleeding (principal); R31.29 Other microscopic hematuria
CPT/HCPCS: 58100